=== PATIENT | female | born 1955 | race African-American/Black ===

== ENCOUNTER 2023-01-02 08:29 | Observation (INO) | payer MEDICARE, OTHER ==
[2023-01-02] MEDS ORDERED: methylPREDNISolone SOD SUCCI 125 MG/2 ML VIAL IV STA (08:51)
[2023-01-02] MEDS ORDERED: ALBUTEROL HFA INHALER INHALATION STA (08:51)
--- NOTE | 2023-01-02 08:53 | ED ---
General Adult HPI - General Chief complaint: Shortness of Breath Stated complaint: sob Time Seen by Provider: 01/02/23 08:40 Source: patient, RN notes reviewed Mode of arrival: ambulatory Limitations: no limitations - History of Present Illness Initial comments: Patient is a pleasant 67-year-old female presenting to the emergency department with concerns with difficulty in breathing. Onset of symptoms was last night. Patient does have history of COPD with similar symptoms. No fever. Minimal cough. Patient states there may be some minimal leg swelling. No calf pain. - Related Data Home Medications Medication Instructions Recorded Confirmed Albuterol Inhaler [Ventolin Hfa 1 - 2 puff INHALATION RT-Q6H PRN 01/02/23 01/02/23 Inhaler] Aspirin EC [Ecotrin Low Dose] 81 mg PO DAILY 01/02/23 01/02/23 Atorvastatin [Lipitor] 20 mg PO DAILY 01/02/23 01/02/23 Fluticasone/Vilanterol [Breo 1 puff INHALATION RT-DAILY 01/02/23 01/02/23 Ellipta 200-25 Mcg Inhaler] Oxybutynin Chloride 10 mg PO DAILY 01/02/23 01/02/23 lisinopriL [Zestril] 10 mg PO DAILY 01/02/23 01/02/23 metFORMIN HCL 500 mg PO DAILY 01/02/23 01/02/23 Allergies Allergy/AdvReac Type Severity Reaction Status Date / Time No Known Allergies Allergy Verified 01/02/23 11:13 Review of Systems ROS Statement: Those systems with pertinent positive or pertinent negative responses have been documented in the HPI. ROS Other: All systems not noted in ROS Statement are negative. Constitutional: Denies: fever Eyes: Denies: eye pain ENT: Denies: ear pain Respiratory: Reports: as per HPI, dyspnea Cardiovascular: Denies: chest pain Endocrine: Denies: fatigue Gastrointestinal: Denies: abdominal pain Genitourinary: Denies: dysuria Musculoskeletal: Denies: back pain Skin: Denies: rash Neurological: Denies: weakness Past Medical History Past Medical History: COPD, CVA/TIA, Hypertension History of Any Multi-Drug Resistant Organisms: None Reported Past Surgical History: No Surgical Hx Reported Past Psychological History: No Psychological Hx Reported Smoking Status: Current every day smoker Past Alcohol Use History: None Reported Past Drug Use History: Marijuana General Exam Limitations: no limitations General appearance: alert, in no apparent distress Head exam: Present: normocephalic Eye exam: Present: normal appearance Neck exam: Present: normal inspection Respiratory exam: Present: wheezes, decreased breath sounds Cardiovascular Exam: Present: regular rate, normal rhythm GI/Abdominal exam: Present: soft. Absent: tenderness Extremities exam: Present: pedal edema (+1 bilateral). Absent: calf tenderness Neurological exam: Present: alert Psychiatric exam: Present: normal affect, normal mood Skin exam: Present: normal color Course Vital Signs 01/02/23 01/02/23 01/02/23 08:35 09:43 10:00 Temperature 97.4 F L Pulse Rate 60 55 L Respiratory 24 18 Rate Blood Pressure 168/93 152/95 O2 Sat by Pulse 85 L 92 L 82 L Oximetry 01/02/23 01/02/23 01/02/23 10:02 10:39 10:52 Temperature Pulse Rate 60 60 Respiratory Rate Blood Pressure O2 Sat by Pulse 93 L Oximetry 01/02/23 12:06 Temperature Pulse Rate 75 Respiratory 18 Rate Blood Pressure 153/83 O2 Sat by Pulse 95 Oximetry EKG Findings - EKG Results: EKG: interpreted by ERMD (T-wave inversion in V3.), sinus rhythm, normal axis, normal QRS EKG shows: bradycardia Medical Decision Making - Medical Decision Making Was pt. sent in by a medical professional or institution (JOANA Osborne, GAS PUMP ATTENDANT, urgent care, hospital, or skilled nursing...) When possible be specific @ -No Did you speak to anyone other than the patient for history (EMS, parent, family, police, friend...)? What history was obtained from this source @ -Patient's daughter is present who helps provide history as she does work in the hospital. Did you review nursing and triage notes (agree or disagree)? Why? @ -I reviewed and agree with nursing and triage notes Were old charts reviewed (outside hosp., previous admission, EMS record, old EKG, old radiological studies, urgent care reports/EKG's, skilled nursing records)? Report findings @ -No old charts were reviewed Differential Diagnosis (chest pain, altered mental status, abdominal pain women, abdominal pain men, vaginal bleeding, weakness, fever, dyspnea, syncope, headache, dizziness, GI bleed, back pain, seizure, CVA, palpatations, mental health)? @ -Differential Dyspnea: Coronary syndrome, arrhythmia, tamponade, asthma, COPD, pulmonary embolism, pneumonia, pneumothorax, pulmonary effusion, anaphylaxis, diabetic ketoacidosis, flailed chest, pulmonary contusion, diaphragmatic rupture, anemia, neur omuscular, this is not meant to be an all-inclusive list. EKG interpreted by me (3pts min.). @ -As above X-rays interpreted by me (1pt min.). @ -Chest x-ray shows possibly atelectasis versus early infiltrate CT interpreted by me (1pt min.). @ -Report reviewed U/S interpreted by me (1pt. min.). @ -None done What testing was considered but not performed or refused? (CT, X-rays, U/S, labs)? Why? @ -None What meds were considered but not given or refused? Why? @ -None Did you discuss the management of the patient with other professionals (professionals i.e. , PA, GAS PUMP ATTENDANT, lab, RT, psych nurse, social insurance adviser, finish painter, teacher, control officer manager, housing case manager)? Give summary @ -Case discussed with Dr. Randall, who will admit covering hospital call Was smoking cessation discussed for >3mins.? @ -No Was critical care preformed (if so, how long)? @ -No Were there social determinants of health that impacted care today? How? (Homelessness, low income, unemployed, alcoholism, drug addiction, transportation, low edu. Level, literacy, decrease access to med. care, longterm, rehab)? @ -No Was there de-escalation of care discussed even if they declined (Discuss DNR or withdrawal of care, Hospice)? DNR status @ -No What co-morbidities impacted this encounter? (DM, HTN, Smoking, COPD, CAD, Cancer, CVA, ARF, Chemo, Hep., AIDS, mental health diagnosis, sleep apnea, morbi d obesity)? @ -None Was patient admitted / discharged? Hospital course, mention meds given and route, prescriptions, significant lab abnormalities, going to OR and other pertinent info. @ -Patient reevaluated and does feel somewhat better. Lung sounds unchanged. Patient remains hypoxic in the upper 80s on 2 L nasal cannula. Patient will be admitted with pulmonary consult Undiagnosed new problem with uncertain prognosis? @ -No Drug Therapy requiring intensive monitoring for toxicity (Heparin, Nitro, Insulin, Cardizem)? @ -No Were any procedures done? @ -No Diagnosis/symptom? @ -COPD Acute, or Chronic, or Acute on Chronic? @ -Acute Uncomplicated (without systemic symptoms) or Complicated (systemic symptoms)? @ -Dictated with hypoxia Side effects of treatment? @ -No Exacerbation, Progression, or Severe Exacerbation? @ -No Poses a threat to life or bodily function? How? (Chest pain, [place], ME, pneumonia, PE, COPD, DKA, ARF, appy, cholecystitis, CVA, Diverticulitis, Homicidal, Suicidal, threat to staff... and all critical care pts) @ -Hypoxia is a threat to life and bodily function - Lab Data Result diagrams: 01/02/23 09:08 01/02/23 09:08 Lab Results 01/02/23 01/02/23 01/02/23 Range/Units 09:08 09:08 09:08 WBC 6.5 (3.8-10.6) k/uL RBC 6.22 H (3.80-5.40) m/uL Hgb 12.8 (11.4-16.0) gm/dL Hct 43.3 (34.0-46.0) % MCV 69.6 L (80.0-100.0) fL MCH 20.7 L (25.0-35.0) pg MCHC 29.7 L (31.0-37.0) g/dL RDW 16.4 H (11.5-15.5) % Plt Count 124 L (150-450) k/uL MPV 12.8 Neutrophils % 68 % Lymphocytes % 23 % Monocytes % 6 % Eosinophils % 1 % Basophils % 0 % Neutrophils # 4.4 (1.3-7.7) k/uL Lymphocytes # 1.5 (1.0-4.8) k/uL Monocytes # 0.4 (0-1.0) k/uL Eosinophils # 0.1 (0-0.7) k/uL Basophils # 0.0 (0-0.2) k/uL Hypochromasia Marked Poikilocytosis Slight Anisocytosis Slight Microcytosis Marked PT 10.5 (9.0-12.0) sec INR 1.0 (<1.2) APTT 23.9 (22.0-30.0) sec D-Dimer 1.09 H (<0.60) mg/L FEU Sodium 137 (137-145) mmol/L Potassium 4.5 (3.5-5.1) mmol/L Chloride 108 H (98-107) mmol/L Carbon Dioxide 21 L (22-30) mmol/L Anion Gap 8 mmol/L BUN 16 (7-17) mg/dL Creatinine 0.91 (0.52-1.04) mg/dL Est GFR (CKD-EPI)AfAm 75 (>60 ml/min/1.73 sqM) Est GFR (CKD-EPI)NonAf 65 (>60 ml/min/1.73 sqM) Glucose 114 H (74-99) mg/dL Plasma Lactic Acid Kenny (0.7-2.0) mmol/L Calcium 8.6 (8.4-10.2) mg/dL Magnesium 1.6 (1.6-2.3) mg/dL Total Bilirubin 1.2 (0.2-1.3) mg/dL AST 44 H (14-36) U/L ALT 53 H (4-34) U/L Alkaline Phosphatase 89 (38-126) U/L Troponin I (0.000-0.034) ng/mL NT-Pro-B Natriuret Pep pg/mL Total Protein 5.9 L (6.3-8.2) g/dL Albumin 3.2 L (3.5-5.0) g/dL Coronavirus (PCR) (Not Detectd) 01/02/23 01/02/23 01/02/23 Range/Units 09:08 09:08 09:08 WBC (3.8-10.6) k/uL RBC (3.80-5.40) m/uL Hgb (11.4-16.0) gm/dL Hct (34.0-46.0) % MCV (80.0-100.0) fL MCH (25.0-35.0) pg MCHC (31.0-37.0) g/dL RDW (11.5-15.5) % Plt Count (150-450) k/uL MPV Neutrophils % % Lymphocytes % % Monocytes % % Eosinophils % % Basophils % % Neutrophils # (1.3-7.7) k/uL Lymphocytes # (1.0-4.8) k/uL Monocytes # (0-1.0) k/uL Eosinophils # (0-0.7) k/uL Basophils # (0-0.2) k/uL Hypochromasia Poikilocytosis Anisocytosis Microcytosis PT (9.0-12.0) sec INR (<1.2) APTT (22.0-30.0) sec D-Dimer (<0.60) mg/L FEU Sodium (137-145) mmol/L Potassium (3.5-5.1) mmol/L Chloride (98-107) mmol/L Carbon Dioxide (22-30) mmol/L Anion Gap mmol/L BUN (7-17) mg/dL Creatinine (0.52-1.04) mg/dL Est GFR (CKD-EPI)AfAm (>60 ml/min/1.73 sqM) Est GFR (CKD-EPI)NonAf (>60 ml/min/1.73 sqM) Glucose (74-99) mg/dL Plasma Lactic Acid Kenny 1.0 (0.7-2.0) mmol/L Calcium (8.4-10.2) mg/dL Magnesium (1.6-2.3) mg/dL Total Bilirubin (0.2-1.3) mg/dL AST (14-36) U/L ALT (4-34) U/L Alkaline Phosphatase (38-126) U/L Troponin I <0.012 (0.000-0.034) ng/mL NT-Pro-B Natriuret Pep 2220 pg/mL Total Protein (6.3-8.2) g/dL Albumin (3.5-5.0) g/dL Coronavirus (PCR) (Not Detectd) 01/02/23 Range/Units 09:08 WBC (3.8-10.6) k/uL RBC (3.80-5.40) m/uL Hgb (11.4-16.0) gm/dL Hct (34.0-46.0) % MCV (80.0-100.0) fL MCH (25.0-35.0) pg MCHC (31.0-37.0) g/dL RDW (11.5-15.5) % Plt Count (150-450) k/uL MPV Neutrophils % % Lymphocytes % % Monocytes % % Eosinophils % % Basophils % % Neutrophils # (1.3-7.7) k/uL Lymphocytes # (1.0-4.8) k/uL Monocytes # (0-1.0) k/uL Eosinophils # (0-0.7) k/uL Basophils # (0-0.2) k/uL Hypochromasia Poikilocytosis Anisocytosis Microcytosis PT (9.0-12.0) sec INR (<1.2) APTT (22.0-30.0) sec D-Dimer (<0.60) mg/L FEU Sodium (137-145) mmol/L Potassium (3.5-5.1) mmol/L Chloride (98-107) mmol/L Carbon Dioxide (22-30) mmol/L Anion Gap mmol/L BUN (7-17) mg/dL Creatinine (0.52-1.04) mg/dL Est GFR (CKD-EPI)AfAm (>60 ml/min/1.73 sqM) Est GFR (CKD-EPI)NonAf (>60 ml/min/1.73 sqM) Glucose (74-99) mg/dL Plasma Lactic Acid Kenny (0.7-2.0) mmol/L Calcium (8.4-10.2) mg/dL Magnesium (1.6-2.3) mg/dL Total Bilirubin (0.2-1.3) mg/dL AST (14-36) U/L ALT (4-34) U/L Alkaline Phosphatase (38-126) U/L Troponin I (0.000-0.034) ng/mL NT-Pro-B Natriuret Pep pg/mL Total Protein (6.3-8.2) g/dL Albumin (3.5-5.0) g/dL Coronavirus (PCR) Not Detected (Not Detectd) Disposition Clinical Impression: Acute exacerbation of chronic obstructive pulmonary disease Disposition: ADMITTED IP TO THIS HOSP Is patient prescribed a controlled substance at d/c from ED?: No Referrals: Nonstaff,Physician [Primary Care Provider] - 1-2 days Time of Disposition: 12:30
[2023-01-02 09:36] LABS: Anisocytosis Slight; Basophils % (A) 0 %; Eosinophils # (A) 0.1 k/uL (0-0.7); Eosinophils % (A) 1 %; HCT 43.3 % (34.0-46.0); HGB 12.8 gm/dL (11.4-16.0); Hypochromasia Marked; Lymphocytes # (A) 1.5 k/uL (1.0-4.8); Lymphocytes % (A) 23 %; MCH 20.7 pg (25.0-35.0); MCHC 29.7 g/dL (31.0-37.0); MCV 69.6 fL (80.0-100.0); Mean Platelet Volume 12.8; Microcytosis Marked; Monocytes # (A) 0.4 k/uL (0-1.0); Monocytes % (A) 6 %; Neutrophils # (A) 4.4 k/uL (1.3-7.7); Neutrophils % (A) 68 %; Platelet Count 124 k/uL (150-450); Poikilocytosis Slight; RBC 6.22 m/uL (3.80-5.40); RDW 16.4 % (11.5-15.5); WBC 6.5 k/uL (3.8-10.6)
[2023-01-02 09:39] LABS: Partial Thromboplastin Time 23.9 sec (22.0-30.0); Prothrombin Time 10.5 sec (9.0-12.0)
--- NOTE | 2023-01-02 09:45 | XR ---
EXAMINATION TYPE: XR chest 2V DATE OF EXAM: 01/02/2023 COMPARISON: NONE HISTORY: Difficulty breathing TECHNIQUE: Frontal and lateral views of the chest are obtained. FINDINGS: The heart size is at the upper limits of normal to borderline enlarged. The pulmonary vasc ulature is within normal limits. There are a few linear opacities at the left lung base, which result ed in increased density projecting over the lower spine on the lateral view. The right lung is clear. There is no significant pleural effusion. There is no pneumothorax. IMPRESSION: Left basilar interstitial opacities. This finding may relate to atelectasis or a developing pneumonia . If clinically indicated, please consider follow radiograph since 6-8 weeks to ensure complete resol ution.
[2023-01-02] MEDS ORDERED: IPRATROPIUM-ALBUTEROL 3 ML NEB INHALATION STA (10:14)
[2023-01-02 11:25] LABS: Albumin 3.2 g/dL (3.5-5.0); Calcium 8.6 mg/dL (8.4-10.2); Magnesium 1.6 mg/dL (1.6-2.3); Potassium 4.5 mmol/L (3.5-5.1); Total Bilirubin 1.2 mg/dL (0.2-1.3); Total Protein 5.9 g/dL (6.3-8.2)
--- NOTE | 2023-01-02 12:19 | CT ---
EXAMINATION TYPE: CT angio chest CT DLP: 314.2 mGycm, Automated exposure control for dose reduction was used. DATE OF EXAM: 01/02/2023 12:03 PM COMPARISON: Chest radiograph from same day. CLINICAL INDICATION:Female, 67 years old with history of dyspnea; DYSPNEA, HX COPD TECHNIQUE/CONTRAST: CTA scan of the thorax is performed with IV Contrast, patient injected with 100 mL of Isovue 370, pul monary embolism protocol. MIP images are created and reviewed. FINDINGS: Pulmonary Artery: There is no evidence for a filling defect within the pulmonary vasculature to sugge st acute pulmonary embolism. The pulmonary artery is of normal size. Reflux of contrast into the IVC . Lungs/Pleura: No evidence of focal consolidation, pleural effusion or pneumothorax. Airway: Large airways are patent. Heart: The heart is mildly enlarged for size. Moderate coronary arterial calcifications. No pericardi al effusion. Vasculature: No evidence of aortic aneurysm. Atherosclerotic calcification with mural thrombus involv ing the thoracic aorta. Mediastinum: Mildly enlarged right hilar lymph nodes measuring up to 1.1 cm short axis. Musculoskeletal: No acute osseous abnormalities. Mild degenerative disc disease. Soft Tissues: Unremarkable. Lower neck: No significant findings. Upper Abdomen: No significant findings.. IMPRESSION: 1. No evidence of pulmonary embolism. 2. Nonspecific mildly enlarged right hilar lymph nodes which may be reactive. 3. Cardiomegaly with moderate coronary arterial calcifications.
[2023-01-02] MEDS ORDERED: IPRATROPIUM-ALBUTEROL 3 ML NEB INHALATION PRN (12:33)
[2023-01-02] MEDS ORDERED: NALOXONE 0.4 MG/ML 1 ML VIAL IVP PRN (12:33)
[2023-01-02] MEDS: IPRATROPIUM-ALBUTEROL 3 ML NEB INHALATION SCH ×2 (15:50→19:58)
[2023-01-02] MEDS: methylPREDNISolone SOD SUCCI 125 MG/2 ML VIAL IV SCH ×2 (17:13→23:36)
[2023-01-03] MEDS: methylPREDNISolone SOD SUCCI 125 MG/2 ML VIAL IV SCH ×4 (06:44→23:43)
[2023-01-03] MEDS ORDERED: DEXTROSE 50% SYRINGE 50 ML IVP PRN ×2 (07:18)
[2023-01-03 07:49] LABS: Glucose,Whole Blood 150 mg/dL (70-110)
[2023-01-03] MEDS: INSULIN ASPART (NovoLOG) 100 UNIT/ML VIAL SQ SCH ×4 (07:51→22:20)
--- NOTE | 2023-01-03 08:13 | P.CNPUL ---
History of Present Illness Consult date: 01/03/23 Requesting physician: Miquel Arias Reason for consult: COPD Chief complaint: Dyspnea History of present illness: I'm seeing this patient in new consultation today 01/03/2023 for suspected COPD exacerbation. Patient is a 67-year-old -[place] female with past medical history significant for COPD, current 1 pack per day smoker, diabetes mellitus type 2, hypertension, and CVA/TIA. Patient's primary care provider is a Terrance Dailey, who manages the patients COPD with Breo-Ellipta inhaler and when necessary albuterol. Patient reports progressive worsening shortness of breath and wheezing over the last 2 days. She denies any fever, chills, cough, hemoptysis. Denies sick contacts. She is currently resting in bed, 4 L nasal cannula, in no acute distress. Chest x-ray on arrival showed left basilar interstitial opacities which could reflect atelectasis or developing pneumonia. A follow-up chest CTA showed no evidence of pulmonary embolism, mildly enlarged right hilar lymph nodes, some mild cardiomegaly. No focal consolidations. EKG showed sinus bradycardia without any obvious acute ischemic changes. CBC on arrival showed a 6.5, hemoglobin 12.8, hematocrit 43.3, platelets 124. Patient's BMP was unremarkable. Troponins negative 1. NT proBNP was mildly elevated at 2220. negative for COVID-19. Patient currently on a combination of bronchodilators, Symbicort inhaler, IV site Medrol. Vital signs are stable. Review of Systems REVIEW OF SYSTEMS: CONSTITUTIONAL: Denies any recent significant weight loss or weight gain. EYES: Denies change in vision. EARS, NOSE, MOUTH, THROAT: Denies headaches, denies sore throat. CARDIOVASCULAR: Denies chest pain, palpitations or syncopal episodes. RESPIRATORY: See HPI GASTROINTESTINAL: Denies change in appetite, abdominal pain, nausea and vomiting, or diarrhea GENITOURINARY: Denies hematuria, denies infections. MUSKULOSKELETAL: Denies pain, admits lower extremity swelling INTEGUMENTARY: Denies rash, denies eczema. NEUROLOGICAL: Denies recent memory loss, no recent seizure activity. PSYCHIATRIC: Denies anxiety, denies depression. HEMATOLOGIC/LYMPHATIC: Denies anemia, denies enlarged lymph node Past Medical History Past Medical History: COPD, CVA/TIA, Hypertension History of Any Multi-Drug Resistant Organisms: None Reported Past Surgical History: No Surgical Hx Reported Past Anesthesia/Blood Transfusion Reactions: No Reported Reaction Past Psychological History: No Psychological Hx Reported Smoking Status: Current every day smoker Past Alcohol Use History: None Reported Past Drug Use History: Marijuana Medications and Allergies Home Medications Medication Instructions Recorded Confirmed Type Albuterol Inhaler [Ventolin Hfa 1 - 2 puff INHALATION RT-Q6H PRN 01/02/23 01/02/23 History Inhaler] Aspirin EC [Ecotrin Low Dose] 81 mg PO DAILY 01/02/23 01/02/23 History Atorvastatin [Lipitor] 20 mg PO DAILY 01/02/23 01/02/23 History Fluticasone/Vilanterol [Breo 1 puff INHALATION RT-DAILY 01/02/23 01/02/23 History Ellipta 200-25 Mcg Inhaler] Oxybutynin Chloride 10 mg PO DAILY 01/02/23 01/02/23 History lisinopriL [Zestril] 10 mg PO DAILY 01/02/23 01/02/23 History metFORMIN HCL 500 mg PO DAILY 01/02/23 01/02/23 History Allergies Allergy/AdvReac Type Severity Reaction Status Date / Time No Known Allergies Allergy Verified 01/02/23 11:13 Physical Exam Vitals: Vital Signs Temp Pulse Pulse Resp BP BP Pulse Ox 01/03/23 02:00 97.4 F L 66 16 134/71 96 01/02/23 23:48 88 01/02/23 23:42 84 01/02/23 20:23 84 01/02/23 20:00 98.7 F 69 18 145/82 92 L 01/02/23 19:58 80 01/02/23 19:22 91 L 01/02/23 18:56 82 22 147/99 96 01/02/23 17:11 66 22 143/87 95 01/02/23 15:00 75 22 139/94 95 01/02/23 14:16 84 20 142/99 92 L 01/02/23 12:27 84 20 154/73 90 L 01/02/23 12:06 75 18 153/83 95 01/02/23 10:52 60 01/02/23 10:39 60 01/02/23 10:02 93 L 01/02/23 10:00 82 L 01/02/23 09:43 55 L 18 152/95 92 L 01/02/23 08:35 97.4 F L 60 24 168/93 85 L Intake and Output 01/02/23 01/03/23 01/03/23 22:59 06:59 14:59 Intake Total 590 Balance 590 Intake: Oral 590 Other: Voiding Method Toilet Bedside Commode # Voids 2 Weight 71.668 kg GENERAL EXAM: Alert, 67 year old -Bangl[place]hi female, comfortable in no apparent distress. HEAD: Normocephalic and atraumatic EYES: Normal reaction of pupils, equal size. NOSE: Clear with pink turbinates. THROAT: No erythema or exudates. NECK: No masses, no JVD. CHEST: No chest wall deformity. LUNGS: Equal air entry with end expiratory wheezes throughout. no crackles, rhonchi or dullness. On 4 L nasal cannula. No conversational dyspnea or accessory muscle use.. CVS: S1 and S2 normal with no audible murmur, regular rhythm. No extra heart sounds ABDOMEN: No hepatosplenomegaly, active bowel sounds, no guarding or rigidity. SPINE: No scoliosis or deformity SKIN: No rashes CENTRAL NERVOUS SYSTEM: No focal deficits, tone is normal in all 4 extremities. EXTREMITIES: There is 3+ right lower extremity pitting edema. No clubbing, or cyanosis. Peripheral pulses are intact. Results - Laboratory Findings CBC and BMP: 01/02/23 09:08 01/02/23 09:08 PT/INR, D-dimer PT 10.5 sec (9.0-12.0) 01/02/23 09:08 INR 1.0 (<1.2) 01/02/23 09:08 D-Dimer 1.09 mg/L FEU (<0.60) H 01/02/23 09:08 Abnormal lab findings: Abnormal Labs 01/02/23 01/02/23 01/02/23 09:08 09:08 09:08 RBC 6.22 H MCV 69.6 L MCH 20.7 L MCHC 29.7 L RDW 16.4 H Plt Count 124 L D-Dimer 1.09 H Chloride 108 H Carbon Dioxide 21 L Glucose 114 H AST 44 H ALT 53 H Total Protein 5.9 L Albumin 3.2 L - Diagnostic Findings Chest x-ray: image reviewed CT scan - chest: image reviewed Assessment and Plan Assessment: Acute COPD exacerbation. Chest CTA failed to demonstrate any focal consolidation or evidence of pneumonia. Negative for COVID-19. Acute hypoxic respiratory failure secondary to above, currently on 4 L nasal cannula. Left lower extremity edema Diabetes mellitus type 2, [id number] Hypertension History of CVA/TIA Chronic nicotine dependence Plan: patients medication, labs, chest x-ray, chest CTA reviewed Continue bronchodilators, Symbicort inhaler, IV Solu-Medrol Continue supplemental oxygen to maintain oxygen saturation 92% or greater Start the patient on empiric doxycycline Obtain procalcitonin level Obtain right lower extremity venous Doppler to rule out DVT Echocardiogram pending Nicotine replacement offered We will continue to follow I have personally seen and examined the patient, performed the documentation and the assessment and plan as written. Number of minutes spent on the visit:20 This is a joint evaluation that was done along with a nurse practitioner. The patient was hospitalized for an acute choked exacerbation.The d-dimer was at 1.09. Coagulation profile was normal. Covid 19 testing was negative. ProBNP level was slightly elevated. CT of the chest showed no evidence of any pulmonary embolism. Doppler of the lower extremity was negative. Awaiting an echocardiogram. We'll continue to follow. His evaluation was done in more than 30 min Time with Patient: Greater than 30
[2023-01-03] MEDS: lisinopriL 10 MG TAB PO SCH (08:46)
[2023-01-03] MEDS: NICOTINE 21MG/24HR PATCH TRANSDERM SCH (08:46)
[2023-01-03] MEDS: metFORMIN 500 MG TAB PO SCH (08:46)
[2023-01-03] MEDS: ATORVASTATIN 20 MG TAB PO SCH (08:46)
[2023-01-03] MEDS: ASPIRIN 81 MG PO SCH (08:46)
[2023-01-03] MEDS: oxyBUTYnin chloride 5 MG TAB PO SCH (08:47)
[2023-01-03] MEDS: DOXYCYCLINE 100 MG CAP PO SCH ×2 (08:59→20:10)
[2023-01-03] MEDS: IPRATROPIUM-ALBUTEROL 3 ML NEB INHALATION SCH ×4 (09:00→18:28)
[2023-01-03] MEDS: SYMBICORT 160-4.5 MCG INHALER INHALATION SCH ×2 (09:01→18:28)
--- NOTE | 2023-01-03 09:54 | US ---
EXAMINATION TYPE: US venous doppler duplex LE RT DATE OF EXAM: 01/03/2023 9:36 AM COMPARISON: NONE CLINICAL INDICATION: Female, 67 years old with history of rule out DVT; No hx of DVT. Patient takes a spirin. SIDE PERFORMED: Right TECHNIQUE: The lower extremity deep venous system is examined utilizing real time linear array sonog aubrey with graded compression, doppler sonography and color-flow sonography. VESSELS IMAGED: Common Femoral Vein Deep Femoral Vein Greater Saphenous Vein * Femoral Vein Popliteal Vein Small Saphenous Vein * Proximal Calf Veins (* superficial vessels) Right Leg: No evidence of DVT. Complex fluid collection seen posterior right knee: 4.4 x 2.1 x 0.9 cm. Satisfactory blood flow, compressibility, and phasicity identified. Mild subcutaneous edema at the mi d superficial femoral vein level. IMPRESSION: No ultrasound evidence for acute DVT. Small popliteal cyst is marked towards the end of the study.
--- NOTE | 2023-01-03 10:25 | HP ---
HISTORY AND PHYSICAL HISTORY OF PRESENT ILLNESS: This 67-year-old -[place] female came to emergency room with difficulty breathing. She has a history of COPD. She says she has been smoking more again, that she had quit for a while. She says that is why her breathing is bad and came in for COPD exacerbation. HOME MEDICATIONS: 1. Ventolin HFA 2 puffs q.4h p.r.n. 2. Aspirin 81 daily. 3. Lipitor 20 daily. 4. Breo Ellipta 200/25 one puff daily. 5. Oxybutynin 10 mg daily. 6. Zestril 10 mg daily. 7. Metformin 500 daily. ALLERGIES: Negative. REVIEW OF SYSTEMS: Positive for shortness of breath, PND, orthopnea, otherwise negative. PAST MEDICAL HISTORY: COPD, CVA, TIA, hypertension. PHYSICAL EXAMINATION: VITAL SIGNS: Temperature 97.4, pulse 55 to 60, respiratory rate 18 to 24, blood pressure 150s to 160s over 93 to 95, O2 92 on room air. GENERAL: She is sitting up. She has conversational dyspnea. She has no acute distress, expiratory wheeze x4. PSYCH: Fair mood and affect. NEUROLOGIC: Cranial nerves intact. PSYCH: Fair mood and affect. ASSESSMENT: COPD exacerbation. Hypoxemic respiratory failure, maintained on 2 L oxygen, IV steroids, updrafts. She has thrombocytopenia, platelet count 124. Elevated liver enzymes secondary to possible cardiorenal syndrome. Troponins are negative. BNP is 2220. Possible CHF diastolic echo. CT of the chest CTA chest negative for PE. IV steroids, do an echo. Cardiology pulmonary consult. Prognosis guarded. MMODL / IJN: [id number] /
--- NOTE | 2023-01-03 10:51 | P.CRDCN ---
History of Present Illness Consult date: 01/03/23 Reason for Consult (text): Dyspnea History of present illness: History of present illness: This is a 59-year-old female with past medical history of COPD, hyperlipidemia, diabetes mellitus type 2, hypertension, CVA, active tobacco use and dependence. We have been asked to see the patient regarding dyspnea. Patient presented to the emergency center yesterday due to difficulty in breathing that had onset the evening before. No fever, minimal cough. Her initial blood pressure was 168/93 and pulse ox 85% on room air. Patient noted to continue to require oxygen. Pulse ox on room air 87% at rest. Pulmonary medicine is following for COPD exacerbation. EKG sinus rhythm with no acute ST changes Chest x-ray: Left basilar interstitial opacities. This finding may relate to atelectasis or developing pneumonia. CT angiogram of the chest reveals no evidence of pulmonary embolism. Nonspecific mildly enlarged right hilar lymph nodes which may be reactive. Cardiomegaly with moderate coronary artery calcifications. Ultrasound of the right lower extremity negative for DVT. WBC 6.5, hemoglobin 12.8, platelet count 124. D-dimer 1.09. INR 1. Sodium 137, potassium 4.5, BUN 16 creatinine 0.9. Blood sugar 114. Lactic acid 1. Magnesium 1.6. Total bilirubin 1.2, AST 44, ALT 53, alkaline phosphatase 89. Troponin negative 1. ProBNP 2220. Covid 19 not detected. Home cardiac medications: Aspirin 81 mg daily, Lipitor 20 mg daily, lisinopril 10 mg daily. Review Of Systems: At the time of my evaluation: Constitutional: No fever, no chills. No weakness, fatigue or lethargy. EENT: No headache. No dizziness. Lungs: Reports mild shortness of breath, cough, no sputum production. Reports wheezing. Cardiovascular: No chest pain, no lower extremity edema. No palpitations. No paroxysmal nocturnal dyspnea. No orthopnea. No lightheadedness or dizziness. No syncopal episodes. Abdominal: No abdominal pain. No nausea, vomiting. No diarrhea. No constipation. No bloody or tarry stools. Genitourinary: No dysuria.. No urinary retention. Musculoskeletal: No myalgias. No muscle weakness, no frequent falls. No back pain. No neck pain. Integumentary: No wounds. No rash. No unusual bruising. Neurologic: No aphasia. No facial droop. No change in mentation. No head injury. No headache. Physical examination: Gen: This is a 67 year old black female, she has found lying flat in bed in no noted respiratory distress. VS: reviewed. Blood pressure 134/79, heart rate in the 60s to 80s, afebrile HEENT: Head is atraumatic, normocephalic. Pupils equal, round. Sclerae is anicteric. NECK: Supple. No JVD. LUNGS: Scattered rhonchi and expiratory wheeze throughout. No intercostal retractions. HEART: Regular rate and rhythm. No murmur. ABDOMEN: Soft No tenderness. EXTREMITIES: No pedal edema bilaterally. No calf tenderness. NEUROLOGICAL: Patient is awake, alert and oriented x3. Assessment: Dyspnea secondary to COPD exacerbation Acute hypoxic respiratory failure requiring oxygen Mild congestive heart failure with elevated proBNP Diabetes mellitus type 2 Hypertension Hyperlipidemia History of CVA Active tobacco use and dependence Plan: Continue current cardiac medications Obtain 2-D echocardiogram and Doppler study to assess cardiac structure and function Further recommendations to follow based upon clinical course Thank you kindly for this consultation. Nurse practitioner note has been reviewed, I agree with documented findings and plan of care. Patient was seen and examined. Past Medical History Past Medical History: COPD, CVA/TIA, Hypertension History of Any Multi-Drug Resistant Organisms: None Reported Past Surgical History: No Surgical Hx Reported Past Anesthesia/Blood Transfusion Reactions: No Reported Reaction Past Psychological History: No Psychological Hx Reported Smoking Status: Current every day smoker Past Alcohol Use History: None Reported Past Drug Use History: Marijuana Medications and Allergies Home Medications Medication Instructions Recorded Confirmed Type Albuterol Inhaler [Ventolin Hfa 1 - 2 puff INHALATION RT-Q6H PRN 01/02/23 01/02/23 History Inhaler] Aspirin EC [Ecotrin Low Dose] 81 mg PO DAILY 01/02/23 01/02/23 History Atorvastatin [Lipitor] 20 mg PO DAILY 01/02/23 01/02/23 History Fluticasone/Vilanterol [Breo 1 puff INHALATION RT-DAILY 01/02/23 01/02/23 History Ellipta 200-25 Mcg Inhaler] RX: Oxybutynin Chloride 10 mg PO DAILY 01/02/23 01/02/23 History RX: metFORMIN HCL 500 mg PO DAILY 01/02/23 01/02/23 History lisinopriL [Zestril] 10 mg PO DAILY 01/02/23 01/02/23 History Allergies Allergy/AdvReac Type Severity Reaction Status Date / Time No Known Allergies Allergy Verified 01/02/23 11:13 Physical Exam Vitals: Vital Signs Temp Pulse Pulse Resp BP BP Pulse Ox 01/03/23 07:44 98.2 F 70 18 134/79 97 01/03/23 02:00 97.4 F L 66 16 134/71 96 01/02/23 23:48 88 01/02/23 23:42 84 01/02/23 20:23 84 01/02/23 20:00 98.7 F 69 18 145/82 92 L 01/02/23 19:58 80 01/02/23 19:22 91 L 01/02/23 18:56 82 22 147/99 96 01/02/23 17:11 66 22 143/87 95 01/02/23 15:00 75 22 139/94 95 01/02/23 14:16 84 20 142/99 92 L 01/02/23 12:27 84 20 154/73 90 L 01/02/23 12:06 75 18 153/83 95 01/02/23 10:52 60 01/02/23 10:39 60 01/02/23 10:02 93 L 01/02/23 10:00 82 L 01/02/23 09:43 55 L 18 152/95 92 L Intake and Output 01/02/23 01/03/23 01/03/23 22:59 06:59 14:59 Intake Total 590 Balance 590 Intake: Oral 590 Other: Voiding Method Toilet Bedside Commode # Voids 2 Weight 71.668 kg Results 01/02/23 09:08 01/02/23 09:08 Cardiac Enzymes 01/02/23 01/02/23 Range/Units 09:08 09:08 AST 44 H (14-36) U/L Troponin I <0.012 (0.000-0.034) ng/mL Coagulation 01/02/23 Range/Units 09:08 PT 10.5 (9.0-12.0) sec APTT 23.9 (22.0-30.0) sec CBC 01/02/23 Range/Units 09:08 WBC 6.5 (3.8-10.6) k/uL RBC 6.22 H (3.80-5.40) m/uL Hgb 12.8 (11.4-16.0) gm/dL Hct 43.3 (34.0-46.0) % Plt Count 124 L (150-450) k/uL Comprehensive Metabolic Panel 01/02/23 Range/Units 09:08 Sodium 137 (137-145) mmol/L Potassium 4.5 (3.5-5.1) mmol/L Chloride 108 H (98-107) mmol/L Carbon Dioxide 21 L (22-30) mmol/L BUN 16 (7-17) mg/dL Creatinine 0.91 (0.52-1.04) mg/dL Glucose 114 H (74-99) mg/dL Calcium 8.6 (8.4-10.2) mg/dL AST 44 H (14-36) U/L ALT 53 H (4-34) U/L Alkaline Phosphatase 89 (38-126) U/L Total Protein 5.9 L (6.3-8.2) g/dL Albumin 3.2 L (3.5-5.0) g/dL Current Medications Generic Name Dose Route Start Last Admin Trade Name Freq PRN Reason Stop Dose Admin Albuterol/Ipratropium 3 ml 01/02/23 16:00 01/02/23 19:58 Ipratropium-Albuterol 3 Ml Neb INHALATION 3 ml RT-QID [place] Administration Albuterol/Ipratropium 3 ml 01/02/23 12:33 01/02/23 23:41 Ipratropium-Albuterol 3 Ml Neb INHALATION 3 ml RT-Q2H PRN Administration Shortness Of Breath Or Wheezing Aspirin 81 mg 01/03/23 09:00 Aspirin 81 Mg PO DAILY [place] Atorvastatin Calcium 20 mg 01/03/23 09:00 Atorvastatin 20 Mg Tab PO DAILY [facility] Budesonide/Formoterol Fumarate 2 puff 01/03/23 08:00 Symbicort 160-4.5 Mcg Inhaler INHALATION RT-BID [place] Dextrose/Water 25 ml 01/03/23 07:18 Dextrose 50% Syringe 50 Ml IVP PER PROTOCOL PRN Hypoglycemia Protocol Dextrose/Water 50 ml 01/03/23 07:18 Dextrose 50% Syringe 50 Ml IVP PER PROTOCOL PRN Hypoglycemia Protocol Doxycycline Monohydrate 100 mg 01/03/23 09:00 Doxycycline 100 Mg Cap PO BID [facility] Protocol Insulin Aspart 0 unit 01/03/23 07:30 01/03/23 07:51 Insulin Aspart (Novolog) 100 Unit/Ml Vial SQ Not Given ACHS [facility] Protocol Lisinopril 10 mg 01/03/23 09:00 Lisinopril 10 Mg Tab PO DAILY [facility] Metformin HCl 500 mg 01/03/23 09:00 Metformin 500 Mg Tab PO DAILY [facility] Methylprednisolone Sodium Succinate 60 mg 01/02/23 18:00 01/03/23 06:44 Methylprednisolone Sod Succi 125 Mg/2 Ml Vial IV 60 mg Q6HR [place] Administration Naloxone HCl 0.2 mg 01/02/23 12:33 Naloxone 0.4 Mg/Ml 1 Ml Vial IVP Q2M PRN Opioid Reversal Nicotine 1 patch 01/03/23 09:00 Nicotine 21mg/24hr Patch TRANSDERM DAILY [facility] Oxybutynin Chloride 10 mg 01/03/23 09:00 Oxybutynin Chloride 5 Mg Tab PO DAILY [facility] Intake and Output 01/02/23 01/03/23 01/03/23 22:59 06:59 14:59 Intake Total 590 Balance 590 Intake: Oral 590 Other: Voiding Method Toilet Bedside Commode # Voids 2 Weight 71.668 kg 01/02/23 09:08 01/02/23 09:08
[2023-01-03 11:31] LABS: Glucose,Whole Blood 146 mg/dL (70-110)
--- NOTE | 2023-01-03 17:14 | CA ---
Transthoracic Echo Report Name: Isadora Emmanuel Age: 67 Gender: F : 1955 Exam Date: 01/03/2023 09:54 Exam Location: [place] [facility] Ht (in): 61 Wt (lb): 158 Ordering Physician: Faustino Randall MD Attending/Referring Phys: Dishwashing Machine Operator Madeline Guerrier RDCS Procedure CPT: Indications: dyspnea Cardiac Hx: Technical Quality: Fair Contrast 1: Total Dose (mL): Contrast 2: Total Dose (mL): MEASUREMENTS (Male / Female) Normal Values 2D ECHO LV Diastolic Diameter PLAX 3.3 cm 4.2 - 5.9 / 3.9 - 5.3 cm LV Systolic Diameter PLAX 1.6 cm IVS Diastolic Thickness 1.5 cm 0.6 - 1.0 / 0.6 - 0.9 cm LVPW Diastolic Thickness 1.6 cm 0.6 - 1.0 / 0.6 - 0.9 cm LV Relative Wall Thickness 0.9 RV Internal Dim ED PLAX 4.0 cm LA Volume 29.2 cm??? 18 - 58 / 22 - 52 cm??? M-MODE Aortic Root Diameter MM 2.5 cm LA Systolic Diameter MM 3.8 cm LA Ao Ratio MM 1.5 AV Cusp Separation MM 1.2 cm DOPPLER AV Peak Velocity 164.6 cm/s AV Peak Gradient 10.8 mmHg LVOT Peak Velocity 71.9 cm/s LVOT Peak Gradient 2.1 mmHg MV Area PHT 3.2 cm??? Mitral E Point Velocity 58.9 cm/s Mitral A Point Velocity 76.3 cm/s Mitral E to A Ratio 0.8 MV Deceleration Time 235.6 ms TR Peak Velocity 349.0 cm/s TR Peak Gradient 48.7 mmHg Right Ventricular Systolic Press 53.7 mmHg FINDINGS Left Ventricle Moderately increased left ventricular wall thickness. Normal left ventricular systolic function with no obvious regional wall motion abnormalities. Left ventricular ejection fraction is estimated at 55-60 %. Right Ventricle Moderate right ventricular dilatation. Moderate to severe pulmonary hypertension. Right ventricular systolic pressure estimated at 54 mm hg. Right Atrium Normal right atrial size. Left Atrium Normal left atrial size. Mitral Valve Structurally normal mitral valve. Mild mitral regurgitation. Aortic Valve Diffuse thickening (sclerosis) of the aortic valve cusps without reduced excursion. No aortic regurgitation. Tricuspid Valve Structurally normal tricuspid valve. Moderate tricuspid regurgitation. Pulmonic Valve Trace pulmonic regurgitation. Pericardium No pericardial effusion. Aorta Normal size aortic root and proximal ascending aorta. CONCLUSIONS Normal LV systolic function Moderate to severe pulmonary hypertension Mild mitral regurgitation Previewed by: Dr. Mervin Chaudhari MD (Electronically Signed) Final Date: 03 January 2023 17:13
[2023-01-03 17:15] LABS: Glucose,Whole Blood 182 mg/dL (70-110)
[2023-01-03 22:22] LABS: Glucose,Whole Blood 137 mg/dL (70-110)
--- NOTE | 2023-01-04 01:10 | PN ---
PROGRESS NOTE A 67-year-old female. Remains on Symbicort inhaler, DuoNeb updrafts, Vibramycin antibiotics, metformin for diabetes, methylprednisolone IV q.6 hours, Habitrol nicotine patch. She is being admitted with COPD exacerbation, tracheobronchitis. She had an echocardiogram and venous Doppler. Venous Dopplers negative for DVT. Echocardiogram shows ejection fraction 55% to 60%, moderate tricuspid regurgitation, moderate-to- severe pulmonary hypertension. I wanted to treat this with breathing treatments updrafts. Pulmonary is on the case also with Dr. Morris. Please see further orders. Prognosis guarded. Nicotine patch for smoking cessation. MMODL / IJN: [id number] /
[2023-01-04] MEDS: methylPREDNISolone SOD SUCCI 125 MG/2 ML VIAL IV SCH ×3 (06:01→18:06)
[2023-01-04 07:55] LABS: Glucose,Whole Blood 154 mg/dL (70-110)
[2023-01-04] MEDS: IPRATROPIUM-ALBUTEROL 3 ML NEB INHALATION SCH ×4 (08:23→18:06)
[2023-01-04] MEDS: SYMBICORT 160-4.5 MCG INHALER INHALATION SCH ×2 (08:23→18:06)
[2023-01-04] MEDS: ATORVASTATIN 20 MG TAB PO SCH (08:24)
[2023-01-04] MEDS: INSULIN ASPART (NovoLOG) 100 UNIT/ML VIAL SQ SCH ×4 (08:24→20:54)
[2023-01-04] MEDS: FUROSEMIDE 20 MG TAB PO SCH (08:24)
[2023-01-04] MEDS: ASPIRIN 81 MG PO SCH (08:24)
[2023-01-04] MEDS: lisinopriL 10 MG TAB PO SCH (08:25)
[2023-01-04] MEDS: oxyBUTYnin chloride 5 MG TAB PO SCH (08:25)
[2023-01-04] MEDS: DOXYCYCLINE 100 MG CAP PO SCH ×2 (08:25→20:54)
[2023-01-04] MEDS: NICOTINE 21MG/24HR PATCH TRANSDERM SCH (08:25)
[2023-01-04] MEDS: metFORMIN 500 MG TAB PO SCH (08:25)
[2023-01-04] MEDS ORDERED: lisinopriL 10 MG TAB PO STA (10:09)
--- NOTE | 2023-01-04 10:11 | P.PN ---
Subjective Progress Note Date: 01/04/23 History of present illness: This is a 59-year-old female with past medical history of COPD, hyperlipidemia, diabetes mellitus type 2, hypertension, CVA, active tobacco use and dependence. We have been asked to see the patient regarding dyspnea. Patient presented to the emergency center yesterday due to difficulty in breathing that had onset the evening before. No fever, minimal cough. Her initial blood pressure was 168/93 and pulse ox 85% on room air. Patient noted to continue to require oxygen. Pulse ox on room air 87% at rest. Pulmonary medicine is following for COPD exacerbation. EKG sinus rhythm with no acute ST changes Chest x-ray: Left basilar interstitial opacities. This finding may relate to atelectasis or developing pneumonia. CT angiogram of the chest reveals no evidence of pulmonary embolism. Nonspecific mildly enlarged right hilar lymph nodes which may be reactive. Cardiomegaly with moderate coronary artery calcifications. Ultrasound of the right lower extremity negative for DVT. WBC 6.5, hemoglobin 12.8, platelet count 124. D-dimer 1.09. INR 1. Sodium 137, potassium 4.5, BUN 16 creatinine 0.9. Blood sugar 114. Lactic acid 1. Magnesium 1.6. Total bilirubin 1.2, AST 44, ALT 53, alkaline phosphatase 89. Troponin negative 1. ProBNP 2220. Covid 19 not detected. Home cardiac medications: Aspirin 81 mg daily, Lipitor 20 mg daily, lisinopril 10 mg daily. 01/04 Patient is seen today in follow-up. She is sitting up in a recliner and eating breakfast. She states her breathing is much better but continues to have significant wheezing. Echocardiogram revealed normal LV systolic function, moderate to severe pulmonary hypertension, mild mitral regurgitation. We will plan to start the patient on low dose of Lasix. Blood pressure 165/98, heart rate in the 70s and 80s. Physical examination: Gen: This is a 67 year old black female, she has found lying flat in bed in no noted respiratory distress. VS: reviewed. Blood pressure 134/79, heart rate in the 60s to 80s, afebrile HEENT: Head is atraumatic, normocephalic. Pupils equal, round. Sclerae is an icteric. NECK: Supple. No JVD. LUNGS: Diffuse expiratory wheeze. No intercostal retractions. HEART: Regular rate and rhythm. No murmur. ABDOMEN: Soft No tenderness. EXTREMITIES: No pedal edema bilaterally. No calf tenderness. NEUROLOGICAL: Patient is awake, alert and oriented x3. Assessment: Dyspnea secondary to COPD exacerbation Acute hypoxic respiratory failure requiring oxygen Mild congestive heart failure with elevated proBNP Diabetes mellitus type 2 Hypertension Hyperlipidemia History of CVA Active tobacco use and dependence Plan: Continue current cardiac medications Increase lisinopril to 20 mg daily for better blood pressure control Patient be started on Lasix 20 mg oral daily Continue COPD treatment Patient is cleared from cardiology for discharge may follow-up in the office. Cardiology will follow on an as-needed basis. Nurse practitioner note has been reviewed, I agree with documented findings and plan of care. Patient was seen and examined. Objective - Vital Signs Vital signs: Vital Signs Temp 97.9 F 01/04/23 01:53 Pulse 88 01/04/23 01:53 Resp 16 01/04/23 01:53 BP 141/77 01/04/23 01:53 Pulse Ox 95 01/04/23 01:53 FiO2 Intake & Output 01/03/23 01/04/23 01/04/23 18:59 06:59 18:59 Other: Voiding Method Toilet Toilet Bedside Commode Bedside Commode # Voids 3 1 - Labs CBC & Chem 7: 01/02/23 09:08 01/02/23 09:08 Labs: Abnormal Lab Results - Last 24 Hours (Table) 01/03/23 01/03/23 01/03/23 Range/Units 09:32 11:30 17:13 POC Glucose (mg/dL) 146 H 182 H (70-110) mg/dL Hemoglobin A1c 6.6 H (0.0-6.0) % 01/03/23 01/04/23 Range/Units 22:19 07:54 POC Glucose (mg/dL) 137 H 154 H (70-110) mg/dL Hemoglobin A1c (0.0-6.0) %
--- NOTE | 2023-01-04 11:34 | CDI ---
Documentation Clarification Form Date: 01/04/2023 11:24:23 AM From: Pau Dorsey RN CCDS Phone: [phone] Admit Date: 01/02/2023 12:33:00 PM Patient Name: Isadora Emmanuel Visit Number: [id number] Discharge Date: ATTENTION: The Clinical Documentation Specialists (CDI) and [facility] Coding Staff appreciate your assistance in clarifying documentation. Please respond to the clarification below the line at the bottom and electronically sign. The CDI & [facility] Coding staff will review the response and follow-up if needed. Please note: Queries are made part of the Legal Health Record. If you have any questions, please contact the author of this message via ITS. Dr. Faustino Randall Your patient has the documented diagnosis of unspecified CHF 01/03, H&P. Additional information regarding the type, acuity of CHF is requested. History/Risk Factors: Clinical Indicators: VS/Pulse OX: B/P 168/93, 60, 97.4, 24, 85% room air BNP: 01/02 2220 Echocardiogram Results: 01/03 EF 55-60% Normal LV systolic function. Moderate to severe pulmonary hypertension. Mild mitral regurgitation Chest X Ray: 01/02 Left basilar interstitial opacities. Cardiology note, 01/04: Mild congestive heart failure with elevated proBNP. Increase Lisinopril to 20mg daily for better blood pressure control. Patient to be started on Lasix po cindy. Treatment: 01/04 Lasix 20mg po daily, 01/03 12/25 Lisinopril 10mg po daily, 12/26 Lisinopril 10mg po x 1, 01/05 Lisinopril 20mg po daily. In your professional opinion, can you please clarify the [acuity and type] of CHF if known? [ ] Heart Failure ruled out [ ] Acute Diastolic Heart Failure (preserved EF) [ ] Other, please specify [ ] Unable to determine (Template Last Revised: October 2020) MTDD
[2023-01-04 12:32] LABS: Glucose,Whole Blood 103 mg/dL (70-110)
--- NOTE | 2023-01-04 16:53 | P.PN ---
Subjective Progress Note Date: 01/04/23 I'm seeing this patient in new consultation today 01/03/2023 for suspected COPD exacerbation. Patient is a 67-year-old -Iranian female with past medical history significant for COPD, current 1 pack per day smoker, diabetes mellitus type 2, hypertension, and CVA/TIA. Patient's primary care provider is a Terrance Dailey, who manages the patients COPD with Breo-Ellipta inhaler and when necessary albuterol. Patient reports progressive worsening shortness of breath and wheezing over the last 2 days. She denies any fever, chills, cough, hemoptysis. Denies sick contacts. She is currently resting in bed, 4 L nasal cannula, in no acute distress. Chest x-ray on arrival showed left basilar inter stitial opacities which could reflect atelectasis or developing pneumonia. A follow-up chest CTA showed no evidence of pulmonary embolism, mildly enlarged right hilar lymph nodes, some mild cardiomegaly. No focal consolidations. EKG showed sinus bradycardia without any obvious acute ischemic changes. CBC on arrival showed a 6.5, hemoglobin 12.8, hematocrit 43.3, platelets 124. Patient's BMP was unremarkable. Troponins negative 1. NT proBNP was mildly elevated at 2220. negative for COVID-19. Patient currently on a combination of bronchodilators, Symbicort inhaler, IV site Medrol. Vital signs are stable. Today's evaluation of 01/04/2023, the patient is feeling better. The patient is less bronchospastic and wheezy compared to yesterday. She was hospitalized for an acute COPD exacerbation. She remains on O2. She had an ultrasound Doppler of the lower extremity that showed no evidence of any DVT. Echocardiogram showed moderate degree of pulmonary hypertension. Preserved LV function.She remains on Symbicort. She remains on bronchodilators with DuoNeb. She is receiving IV Solu-Medrol 60 mg every 6 hours. She is also on oral Lasix. Pro- calcitonin level was low at 0.06. Covid 19 testing was negative. Objective - Vital Signs Vital signs: Vital Signs Temp 98.0 F 01/04/23 13:03 Pulse 72 01/04/23 15:14 Resp 18 01/04/23 13:03 BP 162/93 01/04/23 13:03 Pulse Ox 97 01/04/23 13:03 FiO2 Intake & Output 01/03/23 01/04/23 01/04/23 18:59 06:59 18:59 Other: Voiding Method Toilet Toilet Toilet Bedside Commode Bedside Commode Bedside Commode # Voids 3 1 1 - Exam GENERAL EXAM: Alert, 67 year old -Iranian female, comfortable in no apparent distress. HEAD: Normocephalic and atraumatic EYES: Normal reaction of pupils, equal size. NOSE: Clear with pink turbinates. THROAT: No erythema or exudates. NECK: No masses, no JVD. CHEST: No chest wall deformity. LUNGS: Equal air entry with end expiratory wheezes throughout. no crackles, rhonchi or dullness. On 4 L nasal cannula. No conversational dyspnea or accessory muscle use.. CVS: S1 and S2 normal with no audible murmur, regular rhythm. No extra heart sounds ABDOMEN: No hepatosplenomegaly, active bowel sounds, no guarding or rigidity. SPINE: No scoliosis or deformity SKIN: No rashes CENTRAL NERVOUS SYSTEM: No focal deficits, tone is normal in all 4 extremities. EXTREMITIES: There is 3+ right lower extremity pitting edema. No clubbing, or cyanosis. Peripheral pulses are intact. - Labs CBC & Chem 7: 01/02/23 09:08 01/02/23 09:08 Labs: Abnormal Lab Results - Last 24 Hours (Table) 01/03/23 01/03/23 01/04/23 Range/Units 17:13 22:19 07:54 POC Glucose (mg/dL) 182 H 137 H 154 H (70-110) mg/dL Assessment and Plan Assessment: Acute COPD exacerbation. Chest CTA failed to demonstrate any focal consolidation or evidence of pneumonia. Negative for COVID-19. Clinically improving Acute hypoxic respiratory failure secondary to above, currently on 4 L nasal cannula. Left lower extremity edema Diabetes mellitus type 2, [id number] Hypertension History of CVA/TIA Chronic nicotine dependence Moderate degree of pulmonary hypertension probably related to chronic lung disease. Plan: Doppler of the lower extremity is are negative. Echocardiogram showing moderate degree of pulmonary hypertension Continue bronchodilators Continue steroids Clinically improving Reevaluate in a.m.
[2023-01-04 17:19] LABS: Glucose,Whole Blood 143 mg/dL (70-110)
[2023-01-04 20:14] LABS: Glucose,Whole Blood 401 mg/dL (70-110)
[2023-01-05] MEDS: methylPREDNISolone SOD SUCCI 125 MG/2 ML VIAL IV SCH ×4 (01:24→12:10)
--- NOTE | 2023-01-05 03:11 | PN ---
PROGRESS NOTE SUBJECTIVE: This is a 67-year-old white -Wel[place] female, admitted with COPD exacerbation. The patient remains on IV steroids, updraft treatments, Lipitor for dyslipidemia, Symbicort inhaler for her COPD. MEDICATIONS: 1. Vibramycin 100 mg b.i.d. 2. Lasix 20 daily. 3. NovoLog a.c. h.s. 4. Metformin 500 daily. 5. Solu-Medrol 60 IV q.6h. 6. Habitrol 21 mg patch. 7. Oxybutynin 15 daily. CONDITION: Stable. PROGNOSIS: Guarded. Discussed with her pulmonary hypertension, need to wear oxygen at home. OBJECTIVE: CARDIOVASCULAR: She appears slowly been improving. VITAL SIGNS: Reviewed. including 91 on 3 L. Blood pressure 120s over 80s, respiratory rate 15 to 18. PLAN: Continue current treatment, PT OT possible mcc, which we can find her health otherwise living with mcc will be the option. NAOMIE / KAITLINN: [id number] /
[2023-01-05 07:12] LABS: Glucose,Whole Blood 125 mg/dL (70-110)
[2023-01-05] MEDS: SYMBICORT 160-4.5 MCG INHALER INHALATION SCH ×2 (07:24→18:23)
[2023-01-05] MEDS: IPRATROPIUM-ALBUTEROL 3 ML NEB INHALATION SCH ×4 (07:24→18:23)
[2023-01-05 07:35] VITALS: RESP 18
[2023-01-05] MEDS: INSULIN ASPART (NovoLOG) 100 UNIT/ML VIAL SQ SCH ×3 (08:07→18:01)
[2023-01-05] MEDS ORDERED: lisinopriL 20 MG TAB PO SCH (09:00)
[2023-01-05] MEDS: ASPIRIN 81 MG PO SCH (10:17)
[2023-01-05] MEDS: ATORVASTATIN 20 MG TAB PO SCH (10:17)
[2023-01-05] MEDS: FUROSEMIDE 20 MG TAB PO SCH (10:17)
[2023-01-05] MEDS: DOXYCYCLINE 100 MG CAP PO SCH (10:17)
[2023-01-05] MEDS: metFORMIN 500 MG TAB PO SCH (10:17)
[2023-01-05] MEDS: oxyBUTYnin chloride 5 MG TAB PO SCH (10:18)
[2023-01-05] MEDS: NICOTINE 21MG/24HR PATCH TRANSDERM SCH (10:21)
[2023-01-05 11:10] LABS: Glucose,Whole Blood 124 mg/dL (70-110)
[2023-01-05 12:31] VITALS: BP 149/84; TEMP 98.3
--- NOTE | 2023-01-05 15:21 | P.PN ---
Subjective Progress Note Date: 01/05/23 Principal diagnosis: COPD exacerbation I'm seeing this patient in new consultation today 01/03/2023 for suspected COPD exacerbation. Patient is a 67-year-old -[place] female with past medical history significant for COPD, current 1 pack per day smoker, diabetes mellitus type 2, hypertension, and CVA/TIA. Patient's primary care provider is a Terrance Dailey, who manages the patients COPD with Breo-Ellipta inhaler and when necessary albuterol. Patient reports progressive worsening shortness of breath and wheezing over the last 2 days. She denies any fever, chills, cough, hemoptysis. Denies sick contacts. She is currently resting in bed, 4 L nasal cannula, in no acute distress. Chest x-ray on arrival showed left basilar interstitial opacities which could reflect atelectasis or developing pneumonia. A follow-up chest CTA showed no evidence of pulmonary embolism, mildly enlarged right hilar lymph nodes, some mild cardiomegaly. No focal consolidations. EKG showed sinus bradycardia without any obvious acute ischemic changes. CBC on arrival showed a 6.5, hemoglobin 12.8, hematocrit 43.3, platelets 124. Patient's BMP was unremarkable. Troponins negative 1. NT proBNP was mildly elevated at 2220. negative for COVID-19. Patient currently on a combination of bronchodilators, Symbicort inhaler, IV site Medrol. Vital signs are stable. Today's evaluation of 01/04/2023, the patient is feeling better. The patient is less bronchospastic and wheezy compared to yesterday. She was hospitalized for an acute COPD exacerbation. She remains on O2. She had an ultrasound Doppler of the lower extremity that showed no evidence of any DVT. Echocardiogram showed moderate degree of pulmonary hypertension. Preserved LV function.She remains on Symbicort. She remains on bronchodilators with DuoNeb. She is receiving IV Solu-Medrol 60 mg every 6 hours. She is also on oral Lasix. Pro- calcitonin level was low at 0.06. Covid 19 testing was negative. I'm seeing this patient today 01/05/2023 in follow-up on the general medical floor. Patient is currently sitting up in the chair, on 3 L nasal cannula, in no acute distress. She states that her breathing is better. She wants to go home. She is less bronchospastic on evaluation. She remains on a combination of bronchodilators, Symbicort inhaler, and IV Solu-Medrol. She is also on oral Lasix. No new chest x-ray or labs to review today. Her procalcitonin level from admission was low. Patient's vital signs are stable. Objective - Vital Signs Vital signs: Vital Signs Temp 98.3 F 01/05/23 12:08 Pulse 98 01/05/23 12:08 Resp 18 01/05/23 12:08 BP 149/84 01/05/23 12:08 Pulse Ox 94 L 01/05/23 12:08 FiO2 Intake & Output 01/04/23 01/05/23 01/05/23 18:59 06:59 18:59 Other: Voiding Method Toilet Toilet Toilet Bedside Commode Bedside Commode Bedside Commode # Voids 2 2 - Exam GENERAL EXAM: Alert, 67 year old -[place] female, comfortable in no apparent distress. HEAD: Normocephalic and atraumatic EYES: Normal reaction of pupils, equal size. NOSE: Clear with pink turbinates. THROAT: No erythema or exudates. NECK: No masses, no JVD. CHEST: No chest wall deformity. LUNGS: Equal air entry with end expiratory wheezes throughout. no crackles, rhonchi or dullness. On 3 L nasal cannula. No conversational dyspnea or accessory muscle use.. CVS: S1 and S2 normal with no audible murmur, regular rhythm. No extra heart sounds ABDOMEN: No hepatosplenomegaly, active bowel sounds, no guarding or rigidity. SPINE: No scoliosis or deformity SKIN: No rashes CENTRAL NERVOUS SYSTEM: No focal deficits, tone is normal in all 4 extremities. EXTREMITIES: There is 1+ right lower extremity pitting edema. No clubbing, or cyanosis. Peripheral pulses are intact. - Labs CBC & Chem 7: 01/02/23 09:08 01/02/23 09:08 Labs: Abnormal Lab Results - Last 24 Hours (Table) 01/04/23 01/04/23 01/05/23 Range/Units 17:18 20:12 07:11 POC Glucose (mg/dL) 143 H 401 H 125 H (70-110) mg/dL 01/05/23 Range/Units 11:09 POC Glucose (mg/dL) 124 H (70-110) mg/dL Assessment and Plan Assessment: Acute COPD exacerbation. Chest CTA failed to demonstrate any focal consolidation or evidence of pneumonia. Negative for COVID-19. Clinically improving Acute hypoxic respiratory failure secondary to above, currently on 3 L nasal cannula. Left lower extremity edema, negative for DVT. Diabetes mellitus type 2, [id number] Hypertension History of CVA/TIA Chronic nicotine dependence Moderate degree of pulmonary hypertension probably related to chronic lung disease. Plan: Patient's medications were reviewed Continue bronchodilators and Symbicort inhaler Start patient on prednisone taper Continue supplemental oxygen to maintain oxygen saturation 92% or greater Will need home O2 evaluation Patient is clinically improving, and could potentially be discharged home, from a pulmonary standpoint with home O2 I have personally seen and examined the patient, performed the documentation and the assessment and plan as written. Number of minutes spent on the visit:10 This is a joint evaluation that was done along with the nurse practitioner. The patient is feeling well. She is recovering from potentially discharged home today on evaluation more than 20 minutes. Time with Patient: Less than 30
[2023-01-05 17:34] LABS: Glucose,Whole Blood 239 mg/dL (70-110)
[2023-01-05 18:35] VITALS: PULSE 96
--- NOTE | 2023-01-06 07:39 | CDI ---
Documentation Clarification Form Date: 01/04/2023 11:24:00 AM From: Pau Dorsey Phone: [phone] Admit Date: 01/02/2023 12:33:00 PM Patient Name: Isadora Emmanuel Visit Number: [id number] Discharge Date: 01/05/2023 6:50:00 PM ATTENTION: The Clinical Documentation Specialists (CDI) and [facility] Coding Staff appreciate your assistance in clarifying documentation. Please respond to the clarification below the line at the bottom and electronically sign. The CDI & [facility] Coding staff will review the response and follow-up if needed. Please note: Queries are made part of the Legal Health Record. If you have any questions, please contact the author of this message via ITS. Dr. Faustino Randall Your patient has the documented diagnosis of unspecified CHF 01/03, H&P. Additional information regarding the type, acuity of CHF is requested. History/Risk Factors: Clinical Indicators: VS/Pulse OX: B/P 168/93, 60, 97.4, 24, 85% room air BNP: 01/02 2220 Echocardiogram Results: 01/03 EF 55-60% Normal LV systolic function. Moderate to severe pulmonary hypertension. Mild mitral regurgitation Chest X Ray: 01/02 Left basilar interstitial opacities. Cardiology note, 01/04: Mild congestive heart failure with elevated proBNP. Increase Lisinopril to 20mg daily for better blood pressure control. Patient to be started on Lasix po cindy. Treatment: 01/04 Lasix 20mg po daily, 01/03 12/25 Lisinopril 10mg po daily, 12/26 Lisinopril 10mg po x 1, 01/05 Lisinopril 20mg po daily. In your professional opinion, can you please clarify the [acuity and type] of CHF if known? [ ] Heart Failure ruled out [ ] Acute Diastolic Heart Failure (preserved EF) [ ] Other, please specify [ ] Unable to determine (Template Last Revised: October 2020) MTDD
[2023-01-06] MEDS ORDERED: predniSONE 20 MG TAB PO SCH (09:00)
--- NOTE | 2023-01-10 07:02 | CDI ---
Documentation Clarification Form Date: 01/04/2023 11:24:00 AM From: Pau Dorsey Phone: [phone] Admit Date: 01/02/2023 12:33:00 PM Patient Name: Isadora Emmanuel Visit Number: [id number] Discharge Date: 01/05/2023 6:50:00 PM ATTENTION: The Clinical Documentation Specialists (CDI) and [facility] Coding Staff appreciate your assistance in clarifying documentation. Please respond to the clarification below the line at the bottom and electronically sign. The CDI & [facility] Coding staff will review the response and follow-up if needed. Please note: Queries are made part of the Legal Health Record. If you have any questions, please contact the author of this message via ITS. Dr. Faustino Randall Your patient has the documented diagnosis of unspecified CHF 01/03, H&P. Additional information regarding the type, acuity of CHF is requested. History/Risk Factors: 67-year-old female presented with difficulty breathing onset of symptoms were the night before. The patient also has minimal leg swelling. Medical History: COPD, CVA/TIA, HTN. 01/02, ED Note. Clinical Indicators: VS/Pulse OX: B/P 168/93, 60, 97.4, 24, 85% room air BNP: 01/02 2220 Echocardiogram Results: 01/03 EF 55-60% Normal LV systolic function. Moderate to severe pulmonary hypertension. Mild mitral regurgitation Chest X Ray: 01/02 Left basilar interstitial opacities. Cardiology note, 01/04: Mild congestive heart failure with elevated proBNP. Increase Lisinopril to 20mg daily for better blood pressure control. Patient to be started on Lasix po cindy. Treatment: 01/04 Lasix 20mg po daily, 01/03 12/25 Lisinopril 10mg po daily, 12/26 Lisinopril 10mg po x 1, 01/05 Lisinopril 20mg po daily. In your professional opinion, can you please clarify the [acuity and type] of CHF if known? [ ] Heart Failure ruled out [ ] Acute Diastolic Heart Failure (preserved EF) [ ] Other, please specify [ ] Unable to determine (Template Last Revised: October 2020) MTDD
--- NOTE | 2023-01-12 11:18 | CDI ---
Documentation Clarification Form Date: 01/04/2023 11:24:00 AM From: Pau Dorsey Phone: [phone] Admit Date: 01/02/2023 12:33:00 PM Patient Name: Isadora Emmanuel Visit Number: [id number] Discharge Date: 01/05/2023 6:50:00 PM ATTENTION: The Clinical Documentation Specialists (CDI) and [facility] Coding Staff appreciate your assistance in clarifying documentation. Please respond to the clarification below the line at the bottom and electronically sign. The CDI & [facility] Coding staff will review the response and follow-up if needed. Please note: Queries are made part of the Legal Health Record. If you have any questions, please contact the author of this message via ITS. Dr. Faustino Randall Your patient has the documented diagnosis of unspecified CHF 01/03, H&P. Additional information regarding the type, acuity of CHF is requested. History/Risk Factors: 67-year-old female presented with difficulty breathing onset of symptoms were the night before. The patient also has minimal leg swelling. Medical History: COPD, CVA/TIA, HTN. 01/02, ED Note. Clinical Indicators: VS/Pulse OX: B/P 168/93, 60, 97.4, 24, 85% room air BNP: 01/02 2220 Echocardiogram Results: 01/03 EF 55-60% Normal LV systolic function. Moderate to severe pulmonary hypertension. Mild mitral regurgitation Chest X Ray: 01/02 Left basilar interstitial opacities. Cardiology note, 01/04: Mild congestive heart failure with elevated proBNP. Increase Lisinopril to 20mg daily for better blood pressure control. Patient to be started on Lasix po cindy. Treatment: 01/04 Lasix 20mg po daily, 01/03 12/25 Lisinopril 10mg po daily, 12/26 Lisinopril 10mg po x 1, 01/05 Lisinopril 20mg po daily. In your professional opinion, can you please clarify the [acuity and type] of CHF if known? [ ] Heart Failure ruled out [ ] Acute Diastolic Heart Failure (preserved EF) [ ] Other, please specify [ ] Unable to determine (Template Last Revised: October 2020) MTDD
== END 2023-01-05 18:50 | disposition home or self-care (01) ==
LOC: EC 08:29 → 5NMEDONC 12:33 → INTOOBSV 12:33 → 5NMEDONC 19:20 → UNDODISIN 01-05 18:50
PROVIDERS: ADMIT Family Medicine; ATTEND Family Medicine
DX: J44.1 Chronic obstructive pulmonary disease with (acute) exacerbation (principal); J96.01 Acute respiratory failure with hypoxia; F17.200 Nicotine dependence, unspecified, uncomplicated; F12.90 Cannabis use, unspecified, uncomplicated; I70.0 Atherosclerosis of aorta; D69.6 Thrombocytopenia, unspecified; I27.20 Pulmonary hypertension, unspecified; E78.5 Hyperlipidemia, unspecified; E11.9 Type 2 diabetes mellitus without complications; I11.0 Hypertensive heart disease with heart failure; I50.9 Heart failure, unspecified; I37.1 Nonrheumatic pulmonary valve insufficiency; M71.21 Synovial cyst of popliteal space [Baker], right knee; I08.1 Rheumatic disorders of both mitral and tricuspid valves; Z79.899 Other long term (current) drug therapy; Z79.82 Long term (current) use of aspirin; Z79.84 Long term (current) use of oral hypoglycemic drugs; Z86.73 Personal history of transient ischemic attack (TIA), and cerebral infarction without residual deficits; Z20.822 Contact with and (suspected) exposure to COVID-19
CPT/HCPCS: 96376 ×5; 96374; 99285; 36415; 94640 ×8; 94760 ×2; 93005; 93306; 85379; 83880; 80053; 83605; 83735; 84484; 85025; 85610; 85730; 83036; 84145; 87635; 71046; 93971; 71275; G0378 ×4; S4990 ×3; J2930 ×4; Q9967; 96375

== ENCOUNTER 2023-01-20 11:38 | Inpatient (IN) | payer MEDICARE, OTHER ==
[2023-01-20] MEDS ORDERED: FUROSEMIDE 10 MG/ML 4 ML VIAL IV STA (12:01)
--- NOTE | 2023-01-20 12:06 | ED ---
General Adult HPI - General Chief complaint: Shortness of Breath Stated complaint: Both leg Swollen Time Seen by Provider: 01/20/23 11:45 Source: patient, RN notes reviewed, old records reviewed Mode of arrival: ambulatory Limitations: no limitations - History of Present Illness Initial comments: This is a 67-year-old female presents emergency Department complaining of swelling in her legs worsened normal. Patient has a history of COPD and she recently quit smoking. Patient was recently in the hospital for COPD. Patient states she doesn't feel like she is having any difficulty breathing at all today. Patient denies any palpitations or chest pain. Patient denies any recent fever chills or cough. patient states swelling legs is just getting worse. Patient denies any lightheadedness or dizziness. Patient's only complaint is swelling in both of her lower legs - Related Data Home Medications Medication Instructions Recorded Confirmed Albuterol Inhaler [Ventolin Hfa 1 - 2 puff INHALATION RT-Q6H PRN 01/02/23 01/02/23 Inhaler] Aspirin EC [Ecotrin Low Dose] 81 mg PO DAILY 01/02/23 01/02/23 Atorvastatin [Lipitor] 20 mg PO DAILY 01/02/23 01/02/23 Oxybutynin Chloride 10 mg PO DAILY 01/02/23 01/02/23 metFORMIN HCL 500 mg PO DAILY 01/02/23 01/02/23 Previous Rx's Medication Instructions Recorded Budesonide-Formot 160-4.5 Mcg 2 puff INHALATION RT-BID 30 Days 01/05/23 [Symbicort 160-4.5 Mcg Inhaler] #1 each Doxycycline [Vibramycin] 100 mg PO BID 7 Days #14 cap 01/05/23 Furosemide [Lasix] 20 mg PO DAILY 30 Days #30 tab 01/05/23 Nicotine 21Mg/24Hr Patch [Habitrol] 1 patch TRANSDERM DAILY 30 Days 01/05/23 #30 patch lisinopriL [Zestril] 20 mg PO DAILY 30 Days #30 tab 01/05/23 predniSONE [Deltasone] 20 mg PO DAILY 10 Days #10 tab 01/05/23 Allergies Allergy/AdvReac Type Severity Reaction Status Date / Time No Known Allergies Allergy Verified 01/20/23 11:42 Review of Systems ROS Statement: Those systems with pertinent positive or pertinent negative responses have been documented in the HPI. ROS Other: All systems not noted in ROS Statement are negative. Past Medical History Past Medical History: COPD, CVA/TIA, Hypertension History of Any Multi-Drug Resistant Organisms: None Reported Past Surgical History: No Surgical Hx Reported Past Anesthesia/Blood Transfusion Reactions: No Reported Reaction Past Psychological History: No Psychological Hx Reported Smoking Status: Current every day smoker Past Alcohol Use History: None Reported Past Drug Use History: Marijuana General Exam - General Exam Comments Initial Comments: GENERAL: Patient is well-developed and well-nourished. Patient is nontoxic and well- hydrated and is in no acute distress. ENT: Neck is soft and supple. No significant lymphadenopathy is noted. Oropharynx is clear. Moist mucous membranes. Neck has full range of motion without eliciting any pain. EYES: The sclera were anicteric and conjunctiva were pink and moist. Extraocular movements were intact and pupils were equal round and reactive to light. Eyelids were unremarkable. PULMONARY: Unlabored respirations. Good breath sounds bilaterally. No audible rales rhonchi or wheezing was noted. CARDIOVASCULAR: There is a regular rate and rhythm without any murmurs gallops or rubs. ABDOMEN: Soft and nontender with normal bowel sounds. SKIN: Skin is clear with no lesions or rashes and otherwise unremarkable. NEUROLOGIC: Patient is alert and oriented x3. Cranial nerves II through XII are grossly int act. Motor and sensory are also intact. Normal speech, volume and content. Symmetrical smile. MUSCULOSKELETAL: Normal extremities with adequate strength and full range of motion. Patient has 1+ bilaterally. Patient has tenderness. LYMPHATICS: No significant lymphadenopathy is noted PSYCHIATRIC: Normal psychiatric evaluation. Limitations: no limitations Course Vital Signs 01/20/23 01/20/23 01/20/23 11:43 12:00 12:20 Temperature 98.2 F Pulse Rate 102 H Respiratory 20 24 Rate Blood Pressure 164/79 O2 Sat by Pulse 82 L 88 L Oximetry 01/20/23 01/20/23 12:43 14:24 Temperature Pulse Rate 73 68 Respiratory 20 18 Rate Blood Pressure 147/91 121/81 O2 Sat by Pulse 96 96 Oximetry Medical Decision Making - Medical Decision Making EKG was interpreted by myself shows a sinus rhythm with occasional PACs at 81 bpm NV interval 173 QRS is 91 Q-T intervals 320 QTC is 395. Patient's EKG shows no ST segment patient of depression. Was pt. sent in by a medical professional or institution (JOANA Osborne, ELEVATOR ADJUSTER, urgent care, hospital, or residential...) When possible be specific @ -No Did you speak to anyone other than the patient for history (EMS, parent, family, police, friend...)? What history was obtained from this source @ -No Did you review nursing and triage notes (agree or disagree)? Why? @ -I reviewed and agree with nursing and triage notes Were old charts reviewed (outside hosp., previous admission, EMS record, old EKG, old radiological studies, urgent care reports/EKG's, residential records)? Report findings @ -I reviewed prior lab work and EKGs and prior charts on this patient Differential Diagnosis (chest pain, altered mental status, abdominal pain women, abdominal pain men, vaginal bleeding, weakness, fever, dyspnea, syncope, headache, dizziness, GI bleed, back pain, seizure, CVA, palpatations, mental health, musculoskeletal)? @ -Differential Dyspnea: Coronary syndrome, arrhythmia, tamponade, asthma, COPD, pulmonary embolism, pneumonia, pneumothorax, pulmonary effusion, anaphylaxis, diabetic ketoacidosis, flailed chest, pulmonary contusion, diaphragmatic rupture, anemia, neuromuscular, this is not meant to be an all-inclusive list. EKG interpreted by me (3pts min.). @ -As above X-rays interpreted by me (1pt min.). @ -Chest x-ray shows no acute abnormality CT interpreted by me (1pt min.). @ -None done U/S interpreted by me (1pt. min.). @ -None done What testing was considered but not performed or refused? (CT, X-rays, U/S, labs)? Why? @ -None What meds were considered but not given or refused? Why? @ -None Did you discuss the management of the patient with other professionals (professionals i.e. JOANA Osborne, ELEVATOR ADJUSTER, lab, RT, psych nurse, social work professor, blood bank manager, teacher, police patrol officer, comp field case manager)? Give summary @ -I spoke with a [facility] hospitalist agreed to admit the patient to the patient wrote admitting orders Was smoking cessation discussed for >3mins.? @ -No Was critical care preformed (if so, how long)? @ -35 minutes Were there social determinants of health that impacted care today? How? (Homelessness, low income, unemployed, alcoholism, drug addiction, transportation, low edu. Level, literacy, decrease access to med. care, senior care, rehab)? @ -No Was there de-escalation of care discussed even if they declined (Discuss DNR or withdrawal of care, Hospice)? DNR status @ -No What co-morbidities impacted this encounter? (DM, HTN, Smoking, COPD, CAD, Cancer, CVA, ARF, Chemo, Hep., AIDS, mental health diagnosis, sleep apnea, mo rbid obesity)? @ -COPD, CAD Was patient admitted / discharged? Hospital course, mention meds given and route, prescriptions, significant lab abnormalities, going to OR and other pertinent info. @ -Patient was given aspirin Nitropaste emergency department. Patient's potassium was low she had potassium replacement IV and oral. Patient's mag nesium was low patient was given 1 g of magnesium sulfate. Patient's troponin came back elevated so patient was started on heparin. Patient will be [facility] to the [facility]. I consulted cardiology. Undiagnosed new problem with uncertain prognosis? @ -No Drug Therapy requiring intensive monitoring for toxicity (Heparin, Nitro, Insulin, Cardizem)? @ -Heparin Were any procedures done? @ -No Diagnosis/symptom? @ -Non-STEMI Acute, or Chronic, or Acute on Chronic? @ -Acute Uncomplicated (without systemic symptoms) or Complicated (systemic symptoms)? @ -Complicated Side effects of treatment? @ -No Exacerbation, Progression, or Severe Exacerbation? @ -No Poses a threat to life or bodily function? How? (Chest pain, [place], [place], pneumonia, PE, COPD, DKA, ARF, appy, cholecystitis, CVA, Diverticulitis, Homicidal, Suicidal, threat to staff... and all critical care pts) @ -Yes this could lead to poor perfusion and end organ dysfunction - Lab Data Result diagrams: 01/20/23 12:23 01/20/23 12:23 Lab Results 01/20/23 01/20/23 01/20/23 Range/Units 12:23 12:23 12: WBC 11.2 H (3.8-10.6) k/uL RBC 6.52 H (3.80-5.40) m/uL Hgb 12.9 (11.4-16.0) gm/dL Hct 45.2 (34.0-46.0) % MCV 69.3 L (80.0-100.0) fL MCH 19.8 L (25.0-35.0) pg MCHC 28.6 L (31.0-37.0) g/dL RDW 18.1 H (11.5-15.5) % Plt Count 105 L (150-450) k/uL MPV 8.2 Neutrophils % 81 % Lymphocytes % 13 % Monocytes % 3 % Eosinophils % 2 % Basophils % 0 % Neutrophils # 9.1 H (1.3-7.7) k/uL Lymphocytes # 1.5 (1.0-4.8) k/uL Monocytes # 0.3 (0-1.0) k/uL Eosinophils # 0.2 (0-0.7) k/uL Basophils # 0.0 (0-0.2) k/uL Hypochromasia Marked Poikilocytosis Slight Anisocytosis Slight Microcytosis Marked PT 10.9 (9.0-12.0) sec INR 1.0 (<1.2) APTT 21.6 L (22.0-30.0) sec Sodium 141 (137-145) mmol/L Potassium 3.3 L (3.5-5.1) mmol/L Chloride 106 (98-107) mmol/L Carbon Dioxide 26 (22-30) mmol/L Anion Gap 9 mmol/L BUN 23 H (7-17) mg/dL Creatinine 1.10 H (0.52-1.04) mg/dL Est GFR (CKD-EPI)AfAm 60 (>60 ml/min/1.73 sqM) Est GFR (CKD-EPI)NonAf 52 (>60 ml/min/1.73 sqM) Glucose 189 H (74-99) mg/dL Calcium 8.5 (8.4-10.2) mg/dL Magnesium 1.5 L (1.6-2.3) mg/dL Total Bilirubin 1.6 H (0.2-1.3) mg/dL AST 20 (14-36) U/L ALT 25 (4-34) U/L Alkaline Phosphatase 71 (38-126) U/L Troponin I (0.000-0.034) ng/mL NT-Pro-B Natriuret Pep pg/mL Total Protein 5.7 L (6.3-8.2) g/dL Albumin 3.3 L (3.5-5.0) g/dL 01/20/23 01/20/23 Range/Units 12:23 12:23 WBC (3.8-10.6) k/uL RBC (3.80-5.40) m/uL Hgb (11.4-16.0) gm/dL Hct (34.0-46.0) % MCV (80.0-100.0) fL MCH (25.0-35.0) pg MCHC (31.0-37.0) g/dL RDW (11.5-15.5) % Plt Count (150-450) k/uL MPV Neutrophils % % Lymphocytes % % Monocytes % % Eosinophils % % Basophils % % Neutrophils # (1.3-7.7) k/uL Lymphocytes # (1.0-4.8) k/uL Monocytes # (0-1.0) k/uL Eosinophils # (0-0.7) k/uL Basophils # (0-0.2) k/uL Hypochromasia Poikilocytosis Anisocytosis Microcytosis PT (9.0-12.0) sec INR (<1.2) APTT (22.0-30.0) sec Sodium (137-145) mmol/L Potassium (3.5-5.1) mmol/L Chloride (98-107) mmol/L Carbon Dioxide (22-30) mmol/L Anion Gap mmol/L BUN (7-17) mg/dL Creatinine (0.52-1.04) mg/dL Est GFR (CKD-EPI)AfAm (>60 ml/min/1.73 sqM) Est GFR (CKD-EPI)NonAf (>60 ml/min/1.73 sqM) Glucose (74-99) mg/dL Calcium (8.4-10.2) mg/dL Magnesium (1.6-2.3) mg/dL Total Bilirubin (0.2-1.3) mg/dL AST (14-36) U/L ALT (4-34) U/L Alkaline Phosphatase (38-126) U/L Troponin I 0.107 H* (0.000-0.034) ng/mL NT-Pro-B Natriuret Pep 2009 pg/mL Total Protein (6.3-8.2) g/dL Albumin (3.5-5.0) g/dL Critical Care Time Critical Care Time: Yes Total Critical Care Time: 35 Disposition Clinical Impression: Non-STEMI (non-ST elevated myocardial infarction) Disposition: ADMITTED IP TO THIS HOSP Referrals: None,Stated [REFERRING] - 1-2 days Time of Disposition: 14:44
[2023-01-20 12:31] LABS: Anisocytosis Slight; Basophils % (A) 0 %; Eosinophils # (A) 0.2 k/uL (0-0.7); Eosinophils % (A) 2 %; HCT 45.2 % (34.0-46.0); HGB 12.9 gm/dL (11.4-16.0); Hypochromasia Marked; Lymphocytes # (A) 1.5 k/uL (1.0-4.8); Lymphocytes % (A) 13 %; MCH 19.8 pg (25.0-35.0); MCHC 28.6 g/dL (31.0-37.0); MCV 69.3 fL (80.0-100.0); Mean Platelet Volume 8.2; Microcytosis Marked; Monocytes # (A) 0.3 k/uL (0-1.0); Monocytes % (A) 3 %; Neutrophils # (A) 9.1 k/uL (1.3-7.7); Neutrophils % (A) 81 %; Platelet Count 105 k/uL (150-450); Poikilocytosis Slight; RBC 6.52 m/uL (3.80-5.40); RDW 18.1 % (11.5-15.5); WBC 11.2 k/uL (3.8-10.6)
--- NOTE | 2023-01-20 12:42 | XR ---
EXAMINATION TYPE: XR chest 2V DATE OF EXAM: 01/20/2023 12:37 PM COMPARISON: Chest radiographs from 01/02/2023, CTA chest 01/02/2023. TECHNIQUE: XR chest 2V Frontal and lateral views of the chest. CLINICAL INDICATION:Female, 67 years old with history of difficulty breathing; FINDINGS: Lungs/Pleura: There is flattening of the diaphragm with increased lucency of the lungs. No evidence o f pneumothorax, pleural effusion or focal consolidation. Chronic senescent parenchymal change. Pulmonary vascularity: Unremarkable. Heart/mediastinum: Cardiomediastinal silhouette is prominent in size. Atherosclerotic calcifications are seen in the aorta. Musculoskeletal: No acute osseous pathology. Mild degenerative changes of the thoracic spine. IMPRESSION: 1. No acute cardiopulmonary disease process. 2. COPD changes.
[2023-01-20 12:43] LABS: Albumin 3.3 g/dL (3.5-5.0); Calcium 8.5 mg/dL (8.4-10.2); Magnesium 1.5 mg/dL (1.6-2.3); Potassium 3.3 mmol/L (3.5-5.1); Total Bilirubin 1.6 mg/dL (0.2-1.3); Total Protein 5.7 g/dL (6.3-8.2)
[2023-01-20 13:06] LABS: Partial Thromboplastin Time 21.6 sec (22.0-30.0)
[2023-01-20 13:12] LABS: Prothrombin Time 10.9 sec (9.0-12.0)
[2023-01-20] MEDS ORDERED: MAGNESIUM SULFATE-D5W PMX 1 GM in DEXTROSE/WATER 1 100ML.BAG IVPB ONE (13:54)
[2023-01-20] MEDS ORDERED: POTASSIUM CHLORIDE 20 MEQ in WATER FOR INJECTION 1 100ML.BAG IVPB STA (13:54)
[2023-01-20] MEDS ORDERED: POTASSIUM CHLORIDE ER 20 MEQ TAB.ER PO STA (13:54)
[2023-01-20] MEDS ORDERED: HEPARIN SODIUM 1,000 UN/ML (10ML VL) IV ONE (14:35)
[2023-01-20] MEDS ORDERED: NITROGLYCERIN SL TABS 0.4 MG TAB SUBLINGUAL PRN (14:44)
[2023-01-20] MEDS ORDERED: ASPIRIN 81 MG PO STA (14:44)
[2023-01-20] MEDS: HEPARIN SOD,PORK IN 0.45% NACL 25,000 UNIT in 0.45% NACL 1 250ML.BAG IV SCH ×2 (15:31→22:37)
[2023-01-20] MEDS: NITROGLYCERIN OINT 1 INCH/GM PACKET TOPICAL SCH (19:52)
[2023-01-20 20:12] LABS: Glucose,Whole Blood 194 mg/dL (70-110)
[2023-01-20] MEDS ORDERED: ALBUTEROL HFA INHALER INHALATION PRN (20:30)
[2023-01-20] MEDS ORDERED: ACETAMINOPHEN TAB 325 MG TAB PO PRN (20:33)
[2023-01-20] MEDS: amLODIPine 5 MG TAB PO SCH (20:52)
[2023-01-20] MEDS ORDERED: IPRATROPIUM-ALBUTEROL 3 ML NEB INHALATION STA (22:58)
[2023-01-20] MEDS ORDERED: IPRATROPIUM-ALBUTEROL 3 ML NEB INHALATION PRN (22:58)
--- NOTE | 2023-01-20 22:59 | P.HPIM ---
History of Present Illness This is a pleasant 67 years old -French female with past medical history of COPD, hypertension, CVA/TIA Patient presents because of dyspnea of 1 week duration with no coughing on digital dizziness. Patient denies to me any chest pain and she states her chest pain is 0/10 She denies any headache, no weakness or numbness. She denies GI or urinary symptoms, no vomiting diarrhea or abdominal pain, no dysuria or urgency She states that she smokes about 1 pack per day but she quit about 4 weeks ago No alcohol or illicit tracts. 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 She has mild leukocytosis of 11.2, hemoglobin normal at 12.9 and platelet count low of 105 INR is normal 1.0. Potassium 3.3, creatinine 1.1, unknown baseline. Bilirubin is 1.6. Liver enzymes not elevated. Magnesium low 1.5. Troponin is elevated 0.10, 0.06, 0.05. ProBNP slightly elevated at 2010. Chest x-ray, cardiomegaly with pulmonary vascular prominence, hyper inflated chest EKG showing normal sinus rhythm at 81 with frequent supraventricular premature complexes, mild downsloping ST segment in lead 2, lead V3-V6 and emergency room patient was given Lasix and started on heparin drip and aspirin 324 mg Review of Systems Review of systems CONSTITUTIONAL: No fever, no malaise, no fatigue. HEENT: No recent visual problems or hearing problems. Denied any sore throat. CARDIOVASCULAR: No orthopnea, PND, no palpitations, no syncope. PULMONARY: No chest wall tenderness, no hemoptysis. GASTROINTESTINAL: No diarrhea, no nausea, no vomiting, no abdominal pain. Normoactive bowel sounds. NEUROLOGICAL: No headaches, no weakness, no numbness. HEMATOLOGICAL: Denies any bleeding or petechiae. GENITOURINARY: Denies any burning micturition, frequency, or urgency. MUSCULOSKELETAL/RHEUMATOLOGICAL: Denies any joint pain, swelling, or any muscle pain. ENDOCRINE: Denies any polyuria or polydipsia. Past Medical History Past Medical History: COPD, CVA/TIA, Hypertension History of Any Multi-Drug Resistant Organisms: None Reported Past Surgical History: No Surgical Hx Reported Past Anesthesia/Blood Transfusion Reactions: No Reported Reaction Past Psychological History: No Psychological Hx Reported Smoking Status: Current every day smoker Past Alcohol Use History: None Reported Past Drug Use History: Marijuana Medications and Allergies Home Medications Medication Instructions Recorded Confirmed Type Albuterol Inhaler [Ventolin Hfa 1 - 2 puff INHALATION RT-Q6H PRN 01/02/23 01/20/23 History Inhaler] Aspirin EC [Ecotrin Low Dose] 81 mg PO DAILY 01/02/23 01/20/23 History Atorvastatin [Lipitor] 20 mg PO DAILY 01/02/23 01/20/23 History Oxybutynin Chloride 10 mg PO DAILY 01/02/23 01/20/23 History metFORMIN HCL 500 mg PO DAILY 01/02/23 01/20/23 History Budesonide-Formot 160-4.5 Mcg 2 puff INHALATION RT-BID 30 Days 01/05/23 01/20/23 Rx [Symbicort 160-4.5 Mcg Inhaler] #1 each Furosemide [Lasix] 20 mg PO DAILY 30 Days #30 tab 01/05/23 01/20/23 Rx lisinopriL [Zestril] 20 mg PO DAILY 30 Days #30 tab 01/05/23 01/20/23 Rx Allergies Allergy/AdvReac Type Severity Reaction Status Date / Time No Known Allergies Allergy Verified 01/20/23 15:08 Physical Exam Vitals: Vital Signs Temp Pulse Pulse Resp BP BP Pulse Ox 01/20/23 21:40 93 L 01/20/23 18:15 98.1 F 64 18 155/94 93 L 01/20/23 18:00 59 L 18 144/94 96 01/20/23 14:24 68 18 121/81 96 01/20/23 12:43 73 20 147/91 96 01/20/23 12:20 88 L 01/20/23 12:00 24 01/20/23 11:43 98.2 F 102 H 20 164/79 82 L Intake and Output 01/20/23 01/20/23 01/20/23 06:59 14:59 22:59 Intake Total 240 Balance 240 Intake: Oral 240 Other: Weight 74.389 kg GENERAL: The patient is alert and oriented x3, not in any acute distress. Well developed, well nourished. HEENT: Pupils are round and equally reacting to light. EOMI. No scleral icterus. No conjunctival pallor. Normocephalic, atraumatic. No pharyngeal erythema. No thyromegaly. CARDIOVASCULAR: S1 and S2 present. No murmurs, rubs, or gallops. -PULMONARY: Chest is clear to auscultation, mild bilateral scattered wheezing, no crackles. ABDOMEN: Soft, nontender, nondistended, normoactive bowel sounds. No palpable organomegaly. MUSCULOSKELETAL: No joint swelling or deformity. EXTREMITIES: No cyanosis, clubbing, or pedal edema. NEUROLOGICAL: Gross neurological examination did not reveal any focal deficits. SKIN: No rashes. no petechiae. Results CBC & Chem 7: 01/20/23 12:23 01/20/23 12:23 Labs: Abnormal Lab Results - Last 24 Hours (Table) 01/20/23 01/20/23 01/20/23 Range/Units 12:23 12:23 12:23 WBC 11.2 H (3.8-10.6) k/uL RBC 6.52 H (3.80-5.40) m/uL MCV 69.3 L (80.0-100.0) fL MCH 19.8 L (25.0-35.0) pg MCHC 28.6 L (31.0-37.0) g/dL RDW 18.1 H (11.5-15.5) % Plt Count 105 L (150-450) k/uL Neutrophils # 9.1 H (1.3-7.7) k/uL APTT 21.6 L (22.0-30.0) sec Potassium 3.3 L (3.5-5.1) mmol/L BUN 23 H (7-17) mg/dL Creatinine 1.10 H (0.52-1.04) mg/dL Glucose 189 H (74-99) mg/dL POC Glucose (mg/dL) (70-110) mg/dL Magnesium 1.5 L (1.6-2.3) mg/dL Total Bilirubin 1.6 H (0.2-1.3) mg/dL Troponin I (0.000-0.034) ng/mL Total Protein 5.7 L (6.3-8.2) g/dL Albumin 3.3 L (3.5-5.0) g/dL 01/20/23 01/20/23 01/20/23 Range/Units 12:23 16:30 20:11 WBC (3.8-10.6) k/uL RBC (3.80-5.40) m/uL MCV (80.0-100.0) fL MCH (25.0-35.0) pg MCHC (31.0-37.0) g/dL RDW (11.5-15.5) % Plt Count (150-450) k/uL Neutrophils # (1.3-7.7) k/uL APTT (22.0-30.0) sec Potassium (3.5-5.1) mmol/L BUN (7-17) mg/dL Creatinine (0.52-1.04) mg/dL Glucose (74-99) mg/dL POC Glucose (mg/dL) 194 H (70-110) mg/dL Magnesium (1.6-2.3) mg/dL Total Bilirubin (0.2-1.3) mg/dL Troponin I 0.107 H* 0.067 H* (0.000-0.034) ng/mL Total Protein (6.3-8.2) g/dL Albumin (3.5-5.0) g/dL 01/20/23 Range/Units 21:13 WBC (3.8-10.6) k/uL RBC (3.80-5.40) m/uL MCV (80.0-100.0) fL MCH (25.0-35.0) pg MCHC (31.0-37.0) g/dL RDW (11.5-15.5) % Plt Count (150-450) k/uL Neutrophils # (1.3-7.7) k/uL APTT 74.0 H (22.0-30.0) sec Potassium (3.5-5.1) mmol/L BUN (7-17) mg/dL Creatinine (0.52-1.04) mg/dL Glucose (74-99) mg/dL POC Glucose (mg/dL) (70-110) mg/dL Magnesium (1.6-2.3) mg/dL Total Bilirubin (0.2-1.3) mg/dL Troponin I (0.000-0.034) ng/mL Total Protein (6.3-8.2) g/dL Albumin (3.5-5.0) g/dL Assessment and Plan Assessment: Elevated troponin, rule out cardiac causes Acute COPD exacerbation Acute mild hypoxic respiratory failure Nicotine dependence Hypertension History of CVA/TIA Plan: Continue with aspirin Heparin drip Cardiology consult Check echocardiogram Start IV Solu-Medrol Start breathing treatment and to bronchodilator Labs and medication were reviewed.. Continue same treatment. Continue with symptomatic treatment. Resume home medication. Monitor labs and vitals. DVT and GI prophylaxis. Further recommendations as per clinical course of the patient DVT prophylaxis: heparin GI Prophylaxis: Ppi PT/OT: Pending Prognosis is guarded
[2023-01-20] MEDS ORDERED: DEXTROSE 50% SYRINGE 50 ML IVP PRN ×2 (23:00)
[2023-01-20] MEDS ORDERED: Magnesium Replacement Protocol 1 EACH MISC MISCELLANE PRN (23:00)
[2023-01-20] MEDS ORDERED: Potassium Replacement Protocol 1 EACH MISC MISCELLANE PRN (23:00)
[2023-01-21] MEDS: NITROGLYCERIN OINT 1 INCH/GM PACKET TOPICAL SCH ×5 (00:31→23:14)
[2023-01-21] MEDS: methylPREDNISolone SOD SUCCI 40 MG/ML 1 ML VIAL IV SCH ×4 (00:31→23:14)
[2023-01-21 04:27] LABS: African American GFR (CKD) 83 (>60 ml/min/1.73 sqM); Anion Gap 7 mmol/L; Blood Urea Nitrogen 28 mg/dL (7-17); Calcium 8.4 mg/dL (8.4-10.2); Carbon Dioxide 26 mmol/L (22-30); Chloride 105 mmol/L (98-107); Glucose 126 mg/dL (74-99); Non-African American GFR(CKD) 72 (>60 ml/min/1.73 sqM); Potassium 4.6 mmol/L (3.5-5.1); Sodium 138 mmol/L (137-145)
[2023-01-21 04:38] LABS: Anisocytosis Slight; Basophils % (A) 0 %; Eosinophils # (A) 0.1 k/uL (0-0.7); Eosinophils % (A) 0 %; HCT 44.7 % (34.0-46.0); HGB 13.1 gm/dL (11.4-16.0); Hypochromasia Marked; Lymphocytes # (A) 1.4 k/uL (1.0-4.8); Lymphocytes % (A) 12 %; MCH 19.9 pg (25.0-35.0); MCHC 29.3 g/dL (31.0-37.0); MCV 67.7 fL (80.0-100.0); Mean Platelet Volume 9.5; Microcytosis Marked; Monocytes # (A) 0.3 k/uL (0-1.0); Monocytes % (A) 2 %; Neutrophils # (A) 10.2 k/uL (1.3-7.7); Neutrophils % (A) 85 %; Platelet Count 93 k/uL (150-450); Poikilocytosis Slight; RDW 17.7 % (11.5-15.5)
[2023-01-21 06:34] LABS: Glucose,Whole Blood 149 mg/dL (70-110)
[2023-01-21] MEDS: INSULIN ASPART (NovoLOG) 100 UNIT/ML VIAL SQ SCH ×4 (06:34→20:08)
[2023-01-21] MEDS: oxyBUTYnin chloride 5 MG TAB PO SCH (08:37)
[2023-01-21] MEDS: ASPIRIN 81 MG PO SCH (08:37)
[2023-01-21] MEDS: FUROSEMIDE 20 MG TAB PO SCH (08:37)
[2023-01-21] MEDS: lisinopriL 20 MG TAB PO SCH (08:37)
[2023-01-21] MEDS: PANTOPRAZOLE 40 MG/10 ML VIAL IVP SCH (08:38)
[2023-01-21] MEDS ORDERED: ATORVASTATIN 20 MG TAB PO SCH (09:00)
[2023-01-21] MEDS ORDERED: ASPIRIN 325 MG TAB PO SCH (09:00)
[2023-01-21 09:47] LABS: Chol/HDL Ratio 3.19 Ratio; LDL Cholesterol,Calculated 125.9 mg/dL (0.0-131.0); VLDL Calculation 15.62 mg/dL (5.00-40.00)
[2023-01-21 11:40] LABS: Glucose,Whole Blood 177 mg/dL (70-110)
--- NOTE | 2023-01-21 11:48 | P.CRDCN ---
History of Present Illness Consult date: 01/21/23 Requesting physician: Josep Issa Reason for Consult (text): N STEMI Chief complaint: lower extremity edema History of present illness: This is a pleasant 67-year-old female patient with a past history of hypertension, hyperlipidemia, diabetes and COPD. She has a history of nicotine dependence but has not smoked in about 4 weeks. She was recently hospitalized with COPD exacerbation and mild CHF. She was seen by Dr. Chaudhari at that time. During that admission an echocardiogram was done which revealed normal LV systolic function with moderate to severe pulmonary hypertension and moderate tricuspid regurgitation. She was discharged home and been staying with her son. She been feeling fairly well breathing donovan for had been developing some lower extremity edema which prompted her to come to the emergency department for evaluation. Upon presentation her oxygen saturation was 82%. We were asked to see the patient in consultation due to abnormal troponins. Her levels came back at 0.107, 0.067 and 0.057. She denies any complaints of chest discomfort or worsening shortness of breath. In the proBNP was 2009 which is down some from previous admission. Vital signs have been stable. She's been afebrile. She was given one dose of IV Lasix 40 mg and her home Lasix was resumed. She's noticed an improvement in her edema. She's been started on a heparin drip. EKG showed sinus mechanism with PACs and nonspecific ST-T wave abnormalities with a poor baseline. Upon examination she is resting comfortably in bed. She denies any shortness of breath at this time. Her edema has improved. She denies any orthopnea or PND. She denies having any complaints of chest discomfort. She's had no palpitations, lightheadedness or dizziness. Past Medical History Past Medical History: COPD, CVA/TIA, Hypertension History of Any Multi-Drug Resistant Organisms: None Reported Past Surgical History: No Surgical Hx Reported Past Anesthesia/Blood Transfusion Reactions: No Reported Reaction Past Psychological History: No Psychological Hx Reported Smoking Status: Current every day smoker Past Alcohol Use History: None Reported Past Drug Use History: Marijuana Medications and Allergies Home Medications Medication Instructions Recorded Confirmed Type Albuterol Inhaler [Ventolin Hfa 1 - 2 puff INHALATION RT-Q6H PRN 01/02/23 01/20/23 History Inhaler] Aspirin EC [Ecotrin Low Dose] 81 mg PO DAILY 01/02/23 01/20/23 History Atorvastatin [Lipitor] 20 mg PO DAILY 01/02/23 01/20/23 History Oxybutynin Chloride 10 mg PO DAILY 01/02/23 01/20/23 History metFORMIN HCL 500 mg PO DAILY 01/02/23 01/20/23 History Budesonide-Formot 160-4.5 Mcg 2 puff INHALATION RT-BID 30 Days 01/05/23 01/20/23 Rx [Symbicort 160-4.5 Mcg Inhaler] #1 each Furosemide [Lasix] 20 mg PO DAILY 30 Days #30 tab 01/05/23 01/20/23 Rx lisinopriL [Zestril] 20 mg PO DAILY 30 Days #30 tab 01/05/23 01/20/23 Rx Allergies Allergy/AdvReac Type Severity Reaction Status Date / Time No Known Allergies Allergy Verified 01/20/23 15:08 Physical Exam Vitals: Vital Signs Temp Pulse Pulse Resp BP BP Pulse Ox 01/21/23 08:49 97.9 F 57 L 18 140/84 95 01/21/23 04:00 98.3 F 57 L 19 144/84 96 01/21/23 02:00 64 18 01/21/23 00:00 97.6 F 64 18 128/77 92 L 01/20/23 21:40 93 L 01/20/23 20:00 97.8 F 67 18 135/83 92 L 01/20/23 18:15 98.1 F 64 18 155/94 93 L 01/20/23 18:00 59 L 18 144/94 96 01/20/23 14:24 68 18 121/81 96 01/20/23 12:43 73 20 147/91 96 01/20/23 12:20 88 L 01/20/23 12:00 24 01/20/23 11:43 98.2 F 102 H 20 164/79 82 L Intake and Output 01/20/23 01/21/23 01/21/23 22:59 06:59 14:59 Intake Total 303.382 0 Balance 303.382 0 Intake: Intake, IV Titration 63.382 Amount Heparin Sod,Pork in 0.45% 63.382 NaCl 25,000 unit In 0.45 % NaCl 1 250ml.bag @ 12 UNITS/KG/HR 8.927 mls/hr IV .Q24H [facility] Rx#: [id number] Oral 240 0 Other: Voiding Method Toilet Toilet # Voids 1 Weight 74.389 kg 57.6 kg PHYSICAL EXAMINATION: This is a 67-year-old female in no apparent distress at the time of my examination. HEENT: Head is atraumatic, normocephalic. Pupils are equal, round. Sclerae anicteric. Conjunctivae are clear. Mucous membranes of the mouth are moist. Neck is supple. There is no elevated jugular venous pressure. No carotid bruit is heard. CHEST EXAMINATION: Lungs reveal diminished air entry bilaterally with expiratory wheezing throughout. No rales or rhonchi. Respirations even and nonlabored. HEART EXAMINATION: Heart regular, positive S1 and S2. No S3. No S4. No clicks, rubs or murmurs. ABDOMEN: Soft, nontender. Bowel sounds are heard. No organomegaly noted. EXTREMITIES: 2+ peripheral pulses with evidence of trace peripheral edema and no calf tenderness noted. NEUROLOGIC EXAMINATION: Patient is awake, alert and oriented x3. Results 01/21/23 03:50 01/21/23 03:50 Cardiac Enzymes 01/20/23 01/20/23 01/20/23 Range/Units 12:23 12:23 16:30 AST 20 (14-36) U/L Troponin I 0.107 H* 0.067 H* (0.000-0.034) ng/mL 01/20/23 Range/Units 21:13 AST (14-36) U/L Troponin I 0.057 H* (0.000-0.034) ng/mL Coagulation 01/20/23 01/20/23 01/21/23 Range/Units 12:23 21:13 03:50 PT 10.9 (9.0-12.0) sec APTT 21.6 L 74.0 H 63.6 H (22.0-30.0) sec Lipids 01/21/23 Range/Units 03:50 Triglycerides 78.10 (0.00-149.00) mg/dL Cholesterol 206.00 H (0.00-200.00) mg/dL HDL Cholesterol 64.50 H (40.00-60.00) mg/dL Cholesterol/HDL Ratio 3.19 Ratio CBC 01/20/23 01/21/23 Range/Units 12:23 03:50 WBC 11.2 H 12.0 H (3.8-10.6) k/uL RBC 6.52 H 6.60 H (3.80-5.40) m/uL Hgb 12.9 13.1 (11.4-16.0) gm/dL Hct 45.2 44.7 (34.0-46.0) % Plt Count 105 L 93 L (150-450) k/uL Comprehensive Metabolic Panel 01/20/23 01/21/23 Range/Units 12: 03:50 Sodium 141 138 (137-145) mmol/L Potassium 3.3 L 4.6 (3.5-5.1) mmol/L Chloride 106 105 (98-107) mmol/L Carbon Dioxide 26 26 (22-30) mmol/L BUN 23 H 28 H (7-17) mg/dL Creatinine 1.10 H 0.84 (0.52-1.04) mg/dL Glucose 189 H 126 H (74-99) mg/dL Calcium 8.5 8.4 (8.4-10.2) mg/dL AST 20 (14-36) U/L ALT 25 (4-34) U/L Alkaline Phosphatase 71 (38-126) U/L Total Protein 5.7 L (6.3-8.2) g/dL Albumin 3.3 L (3.5-5.0) g/dL Current Medications Generic Name Dose Route Start Last Admin Trade Name Freq PRN Reason Stop Dose Admin Acetaminophen 650 mg 01/20/23 20:33 Acetaminophen Tab 325 Mg Tab PO Q6HR PRN Fever and/ or Pain Albuterol Sulfate 1 puff 01/20/23 20:30 Albuterol Hfa Inhaler INHALATION RT-Q6H PRN Shortness Of Breath Albuterol/Ipratropium 3 ml 01/20/23 22:58 Ipratropium-Albuterol 3 Ml Neb INHALATION RT-QID PRN Shortness Of Breath Or Wheezing Amlodipine Besylate 5 mg 01/20/23 21:00 01/20/23 20:52 Amlodipine 5 Mg Tab PO 5 mg HS [facility] Administration Aspirin 81 mg 01/21/23 09:00 01/21/23 08:37 Aspirin 81 Mg PO 81 mg DAILY [facility] Administration Atorvastatin Calcium 20 mg 01/21/23 09:00 01/21/23 08:37 Atorvastatin 20 Mg Tab PO 20 mg DAILY [facility] Administration Budesonide/Formoterol Fumarate 2 puff 01/21/23 08:00 Symbicort 160-4.5 Mcg Inhaler INHALATION RT-BID [facility] Dextrose/Water 25 ml 01/20/23 23:00 Dextrose 50% Syringe 50 Ml IVP PER PROTOCOL PRN Hypoglycemia Protocol Dextrose/Water 50 ml 01/20/23 23:00 Dextrose 50% Syringe 50 Ml IVP PER PROTOCOL PRN Hypoglycemia Protocol Furosemide 20 mg 01/21/23 09:00 01/21/23 08:37 Furosemide 20 Mg Tab PO 20 mg DAILY [facility] Administration Heparin Sodium/Sodium Chloride 250 mls @ 8.927 mls/hr 01/20/23 14:45 01/20/23 22:37 25,000 unit/ Sodium Chloride IV 10 units/kg/hr .Q24H [facility] 7.439 mls/hr Administration Protocol 12 UNITS/KG/HR Insulin Aspart 0 unit 01/21/23 07:30 01/21/23 06:34 Insulin Aspart (Novolog) 100 Unit/Ml Vial SQ Not Given ACHS [facility] Protocol Lisinopril 20 mg 01/21/23 09:00 01/21/23 08:37 Lisinopril 20 Mg Tab PO 20 mg DAILY [facility] Administration Methylprednisolone Sodium Succinate 40 mg 01/21/23 00:00 01/21/23 08:37 Methylprednisolone Sod Succi 40 Mg/Ml 1 Ml Vial IV 40 mg Q8HR [facility] Administration Miscellaneous Information 1 each 01/20/23 23:00 Potassium Replacement Protocol 1 Each Misc MISCELLANE DAILY PRN Per Protocol Protocol Miscellaneous Information 1 each 01/20/23 23:00 Magnesium Replacement Protocol 1 Each Misc MISCELLANE DAILY PRN Per Protocol Protocol Nitroglycerin 0.4 mg 01/20/23 14:44 Nitroglycerin Sl Tabs 0.4 Mg Tab SUBLINGUAL Q5M PRN Chest Pain Nitroglycerin 1 inch 01/20/23 18:00 01/21/23 06:36 Nitroglycerin Oint 1 Inch/Gm Packet TOPICAL 1 inch Q6HR [facility] Administration Oxybutynin Chloride 10 mg 01/21/23 09:00 01/21/23 08:37 Oxybutynin Chloride 5 Mg Tab PO 10 mg DAILY [facility] Administration Pantoprazole Sodium 40 mg 01/21/23 09:00 01/21/23 08:38 Pantoprazole 40 Mg/10 Ml Vial IVP 40 mg DAILY [facility] Administration Intake and Output 01/20/23 01/21/23 01/21/23 22:59 06:59 14:59 Intake Total 303.382 0 Balance 303.382 0 Intake: Intake, IV Titration 63.382 Amount Heparin Sod,Pork in 0.45% 63.382 NaCl 25,000 unit In 0.45 % NaCl 1 250ml.bag @ 12 UNITS/KG/HR 8.927 mls/hr IV .Q24H [facility] Rx#: [id number] Oral 240 0 Other: Voiding Method Toilet Toilet # Voids 1 Weight 74.389 kg 57.6 kg 01/21/23 03:50 01/21/23 03:50 Assessment and Plan Assessment: #1 elevated troponins of unclear significance could be secondary to type II event however significant underlying CAD cannot be entirely excluded at this time #2 lower extremity edema, mostly resolved after one dose of IV Lasix, NT proBNP lower than previous admission patient appears to be euvolemic at this time #3 COPD #4 hypertension #5 hyperlipidemia #6 diabetes Plan: From cardiology's perspective we will continue IV heparin for now. Increase the patient's activity. Continue aspirin and increase the dose of simvastatin. We will keep the patient nothing by mouth after midnight. Depending on her symptoms and clinical status further recommendations will be made. FINISH MIXER note has been reviewed, I agree with a documented findings and plan of care. Patient was seen and examined.
[2023-01-21] MEDS: SYMBICORT 160-4.5 MCG INHALER INHALATION SCH ×2 (12:34→20:58)
[2023-01-21 16:25] LABS: Glucose,Whole Blood 199 mg/dL (70-110)
--- NOTE | 2023-01-21 16:52 | P.PN ---
Subjective This is a pleasant 67 years old -[place] female with past medical history of COPD, hypertension, CVA/TIA Patient presents because of dyspnea of 1 week duration with no coughing on digital dizziness. Patient denies to me any chest pain and she states her chest pain is 0/10 She denies any headache, no weakness or numbness. She denies GI or urinary symptoms, no vomiting diarrhea or abdominal pain, no dysuria or urgency She states that she smokes about 1 pack per day but she quit about 4 weeks ago No alcohol or illicit tracts. 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 She has mild leukocytosis of 11.2, hemoglobin normal at 12.9 and platelet count low of 105 INR is normal 1.0. Potassium 3.3, creatinine 1.1, unknown baseline. Bilirubin is 1.6. Liver enzymes not elevated. Magnesium low 1.5. Troponin is elevated 0.10, 0.06, 0.05. ProBNP slightly elevated at 2010. Chest x-ray, cardiomegaly with pulmonary vascular prominence, hyper inflated chest EKG showing normal sinus rhythm at 81 with frequent supraventricular premature complexes, mild downsloping ST segment in lead 2, lead V3-V6 and emergency room patient was given Lasix and started on heparin drip and aspirin 324 mg 01/21/2023 Patient breathing improving slowly and gradually. No chest pain, no coughing, no new complaints Vital signs stable. Custom Motorcycle Painter recommended to keep the patient on heparin drip, increase activity and keep nothing by mouth overnight for further assessment in the morning Her breathing is improving and she has less wheezing but still has limited air entry, therefore we'll keep on IV Solu-Medrol 40 mg. Today she confirms to me that her PCP is Dr. Terrance montero from [place] and she was visiting her son in [place] when this happened to her. Objective - Vital Signs Vital signs: Vital Signs Temp 97.7 F 01/21/23 15:34 Pulse 60 01/21/23 15:34 Resp 18 01/21/23 15:34 BP 122/74 01/21/23 15:34 Pulse Ox 95 01/21/23 15:34 FiO2 Intake & Output 01/20/23 01/21/23 01/21/23 18:59 06:59 18:59 Intake Total 240 63.382 240 Balance 240 63.382 240 Weight 74.389 kg 57.6 kg Intake: Intake, IV Titration 63.382 Amount Heparin Sod,Pork in 0.45% 63.382 NaCl 25,000 unit In 0.45 % NaCl 1 250ml.bag @ 12 UNITS/KG/HR 8.927 mls/hr IV .Q24H [facility] Rx#: [id number] Oral 240 0 240 Other: Voiding Method Toilet Toilet # Voids 1 - Exam GENERAL: The patient is alert and oriented x3, not in any acute distress. Well developed, well nourished. HEENT: Pupils are round and equally reacting to light. EOMI. No scleral icterus. No conjunctival pallor. Normocephalic, atraumatic. No pharyngeal erythema. No thyromegaly. CARDIOVASCULAR: S1 and S2 present. No murmurs, rubs, or gallops. -PULMONARY: Chest is clear to auscultation, no crackles. Decreased air entry with scattered wheezing the tachypneic ABDOMEN: Soft, nontender, nondistended, normoactive bowel sounds. No palpable organomegaly. MUSCULOSKELETAL: No joint swelling or deformity. EXTREMITIES: No cyanosis, clubbing, or pedal edema. NEUROLOGICAL: Gross neurological examination did not reveal any focal deficits. SKIN: No rashes. no petechiae. - Labs CBC & Chem 7: 01/21/23 03:50 01/21/23 03:50 Labs: Abnormal Lab Results - Last 24 Hours (Table) 01/20/23 01/20/23 01/20/23 Range/Units 16:30 20:11 21:13 WBC (3.8-10.6) k/uL RBC (3.80-5.40) m/uL MCV (80.0-100.0) fL MCH (25.0-35.0) pg MCHC (31.0-37.0) g/dL RDW (11.5-15.5) % Plt Count (150-450) k/uL Neutrophils # (1.3-7.7) k/uL APTT (22.0-30.0) sec BUN (7-17) mg/dL Glucose (74-99) mg/dL POC Glucose (mg/dL) 194 H (70-110) mg/dL Troponin I 0.067 H* 0.057 H* (0.000-0.034) ng/mL Cholesterol (0.00-200.00) mg/dL HDL Cholesterol (40.00-60.00) mg/dL 01/20/23 01/21/23 01/21/23 Range/Units 21:13 03:50 03:50 WBC 12.0 H (3.8-10.6) k/uL RBC 6.60 H (3.80-5.40) m/uL MCV 67.7 L (80.0-100.0) fL MCH 19.9 L (25.0-35.0) pg MCHC 29.3 L (31.0-37.0) g/dL RDW 17.7 H (11.5-15.5) % Plt Count 93 L (150-450) k/uL Neutrophils # 10.2 H (1.3-7.7) k/uL APTT 74.0 H (22.0-30.0) sec BUN 28 H (7-17) mg/dL Glucose 126 H (74-99) mg/dL POC Glucose (mg/dL) (70-110) mg/dL Troponin I (0.000-0.034) ng/mL Cholesterol 206.00 H (0.00-200.00) mg/dL HDL Cholesterol 64.50 H (40.00-60.00) mg/dL 01/21/23 01/21/23 01/21/23 Range/Units 03:50 06:33 11:38 WBC (3.8-10.6) k/uL RBC (3.80-5.40) m/uL MCV (80.0-100.0) fL MCH (25.0-35.0) pg MCHC (31.0-37.0) g/dL RDW (11.5-15.5) % Plt Count (150-450) k/uL Neutrophils # (1.3-7.7) k/uL APTT 63.6 H (22.0-30.0) sec BUN (7-17) mg/dL Glucose (74-99) mg/dL POC Glucose (mg/dL) 149 H 177 H (70-110) mg/dL Troponin I (0.000-0.034) ng/mL Cholesterol (0.00-200.00) mg/dL HDL Cholesterol (40.00-60.00) mg/dL 01/21/23 Range/Units 16:23 WBC (3.8-10.6) k/uL RBC (3.80-5.40) m/uL MCV (80.0-100.0) fL MCH (25.0-35.0) pg MCHC (31.0-37.0) g/dL RDW (11.5-15.5) % Plt Count (150-450) k/uL Neutrophils # (1.3-7.7) k/uL APTT (22.0-30.0) sec BUN (7-17) mg/dL Glucose (74-99) mg/dL POC Glucose (mg/dL) 199 H (70-110) mg/dL Troponin I (0.000-0.034) ng/mL Cholesterol (0.00-200.00) mg/dL HDL Cholesterol (40.00-60.00) mg/dL Assessment and Plan Assessment: Elevated troponin, rule out cardiac causes Acute COPD exacerbation Acute mild hypoxic respiratory failure Nicotine dependence Hypertension History of CVA/TIA Plan: Continue with aspirin Heparin drip Cardiology consult Start IV Solu-Medrol Start breathing treatment and to bronchodilator Labs and medication were reviewed.. Continue same treatment. Continue with symptomatic treatment. Resume home medication. Monitor labs and vitals. DVT and GI prophylaxis. Further recommendations as per clinical course of the patient DVT prophylaxis: heparin GI Prophylaxis: Ppi PT/OT: Pending Prognosis is guarded
[2023-01-21 20:04] LABS: Glucose,Whole Blood 144 mg/dL (70-110)
[2023-01-21] MEDS: HEPARIN SOD,PORK IN 0.45% NACL 25,000 UNIT in 0.45% NACL 1 250ML.BAG IV SCH (20:23)
[2023-01-21] MEDS: amLODIPine 5 MG TAB PO SCH (20:29)
[2023-01-22 06:04] LABS: Glucose,Whole Blood 213 mg/dL (70-110)
[2023-01-22] MEDS: INSULIN ASPART (NovoLOG) 100 UNIT/ML VIAL SQ SCH ×4 (06:12→20:19)
[2023-01-22] MEDS: NITROGLYCERIN OINT 1 INCH/GM PACKET TOPICAL SCH (06:12)
[2023-01-22 08:02] LABS: Anisocytosis Slight; Basophils % (A) 0 %; Eosinophils % (A) 0 %; HCT 43.7 % (34.0-46.0); HGB 13.4 gm/dL (11.4-16.0); Hypochromasia Marked; Lymphocytes # (A) 1.2 k/uL (1.0-4.8); Lymphocytes % (A) 7 %; MCH 20.5 pg (25.0-35.0); MCHC 30.6 g/dL (31.0-37.0); MCV 67.1 fL (80.0-100.0); Mean Platelet Volume 9.7; Microcytosis Marked; Monocytes # (A) 0.4 k/uL (0-1.0); Monocytes % (A) 3 %; Neutrophils # (A) 15.2 k/uL (1.3-7.7); Neutrophils % (A) 89 %; Poikilocytosis Slight; RBC 6.51 m/uL (3.80-5.40); RDW 17.6 % (11.5-15.5)
[2023-01-22 08:03] LABS: Platelet Count 94 k/uL (150-450)
[2023-01-22] MEDS: oxyBUTYnin chloride 5 MG TAB PO SCH (08:29)
[2023-01-22] MEDS: ATORVASTATIN 40 MG TAB PO SCH (08:29)
[2023-01-22] MEDS: methylPREDNISolone SOD SUCCI 40 MG/ML 1 ML VIAL IV SCH ×3 (08:29→23:09)
[2023-01-22] MEDS: ASPIRIN 81 MG PO SCH (08:29)
[2023-01-22] MEDS: PANTOPRAZOLE 40 MG/10 ML VIAL IVP SCH (08:29)
[2023-01-22] MEDS: FUROSEMIDE 20 MG TAB PO SCH (08:29)
[2023-01-22] MEDS: lisinopriL 20 MG TAB PO SCH (08:29)
[2023-01-22] MEDS: SYMBICORT 160-4.5 MCG INHALER INHALATION SCH ×2 (09:19→17:07)
[2023-01-22 11:27] LABS: Glucose,Whole Blood 221 mg/dL (70-110)
--- NOTE | 2023-01-22 11:30 | P.PN ---
Subjective Progress Note Date: 01/22/23 PROGRESS NOTE The patient is a 67-year-old female with known history of diabetes, hypertension and hyperlipidemia who presented with mild edema. She had mild troponin elevation. She is feeling well this morning, denying any chest pain, dizziness or palpitations. She had elevation of her WBC today but she denies any significant cough. She is afebrile. She denies any nausea or vomiting. Her left ventricle systolic function was normal in the past and she had moderate severe pulmonary hypertension and moderate tricuspid regurgitation. Medications: Amlodipine 5 mg daily, Lipitor 40 mg daily, furosemide 20 mg daily, lisinopril 20 mg daily, Nitropaste, aspirin once a day PHYSICAL EXAMINATION: Blood pressure 135/70 heart rate 80 LUNGS: Decreased breath sounds HEART: Regular rate and rhythm, S1, S2. No S3. systolic ejection murmur ABDOMEN: Soft, nontender, no organomegaly EXTREMETIES: No edema LAB: WBC 17,000, hemoglobin 13.4 IMPRESSION: 1. History of COPD 2. Leukocytosis, could be related to the steroids 3. Mild troponin elevation rule out ischemic heart disease versus type II myocardial infarction 4. Hypertension PLAN: 1. I will hold on cardiac catheterization at this time to make sure she has no infectious process 2. Follow up CBC 3. Continue present therapy 4. Depending on her progress further recommendations will be made Objective - Vital Signs Vital signs: Vital Signs Temp 98.0 F 01/22/23 08:39 Pulse 85 01/22/23 08:39 Resp 18 01/22/23 08:39 BP 152/88 01/22/23 08:39 Pulse Ox 89 L 01/22/23 09:21 FiO2 Intake & Output 01/21/23 01/22/23 01/22/23 18:59 06:59 18:59 Intake Total 240 721.922 Balance 240 721.922 Intake: Intake, IV Titration 161.922 Amount Heparin Sod,Pork in 0.45% 161.922 NaCl 25,000 unit In 0.45 % NaCl 1 250ml.bag @ 12 UNITS/KG/HR 8.927 mls/hr IV .Q24H [facility] Rx#: [id number] Oral 240 560 Other: Voiding Method Toilet Toilet Toilet # Voids 3 2 # Bowel Movements 1 - Labs CBC & Chem 7: 01/22/23 07:10 01/21/23 03:50 Labs: Abnormal Lab Results - Last 24 Hours (Table) 01/21/23 01/21/23 01/21/23 Range/Units 11:38 16:23 20:02 WBC (3.8-10.6) k/uL RBC (3.80-5.40) m/uL MCV (80.0-100.0) fL MCH (25.0-35.0) pg MCHC (31.0-37.0) g/dL RDW (11.5-15.5) % Plt Count (150-450) k/uL Neutrophils # (1.3-7.7) k/uL APTT (22.0-30.0) sec POC Glucose (mg/dL) 177 H 199 H 144 H (70-110) mg/dL 01/22/23 01/22/23 01/22/23 Range/Units 06:03 07:10 07:10 WBC 17.0 H (3.8-10.6) k/uL RBC 6.51 H (3.80-5.40) m/uL MCV 67.1 L (80.0-100.0) fL MCH 20.5 L (25.0-35.0) pg MCHC 30.6 L (31.0-37.0) g/dL RDW 17.6 H (11.5-15.5) % Plt Count 94 L (150-450) k/uL Neutrophils # 15.2 H (1.3-7.7) k/uL APTT 57.0 H (22.0-30.0) sec POC Glucose (mg/dL) 213 H (70-110) mg/dL
[2023-01-22 16:41] LABS: Glucose,Whole Blood 146 mg/dL (70-110)
--- NOTE | 2023-01-22 16:59 | P.PN ---
Subjective This is a pleasant 67 years old -[place] female with past medical history of COPD, hypertension, CVA/TIA Patient presents because of dyspnea of 1 week duration with no coughing on digital dizziness. Patient denies to me any chest pain and she states her chest pain is 0/10 She denies any headache, no weakness or numbness. She denies GI or urinary symptoms, no vomiting diarrhea or abdominal pain, no dysuria or urgency She states that she smokes about 1 pack per day but she quit about 4 weeks ago No alcohol or illicit tracts. She's not on home oxygen and she does not follow up with door person On examination she was mildly tachycardic and saturating 82-88% on room air. She has mild leukocytosis of 11.2, hemoglobin normal at 12.9 and platelet count low of 105 INR is normal 1.0. Potassium 3.3, creatinine 1.1, unknown baseline. Bilirubin is 1.6. Liver enzymes not elevated. Magnesium low 1.5. Troponin is elevated 0.10, 0.06, 0.05. ProBNP slightly elevated at 2010. Chest x-ray, cardiomegaly with pulmonary vascular prominence, hyper inflated chest EKG showing normal sinus rhythm at 81 with frequent supraventricular premature complexes, mild downsloping ST segment in lead 2, lead V3-V6 and emergency room patient was given Lasix and started on heparin drip and aspirin 324 mg 01/21/2023 Patient breathing improving slowly and gradually. No chest pain, no coughing, no new complaints Vital signs stable. Wire Spinner recommended to keep the patient on heparin drip, increase activity and keep nothing by mouth overnight for further assessment in the morning Her breathing is improving and she has less wheezing but still has limited air entry, therefore we'll keep on IV Solu-Medrol 40 mg. Today she confirms to me that her PCP is Dr. Terrance montero from [place] and she was visiting her son in [place] when this happened to her. 01/22/2023 Patient feels fine today and she feels improvement and she wants to go home, I explained for this patient she is not ready for discharge at, she still have wheezing although improving and she still have exertional dyspnea. However she denies chest pain. She remains on heparin drip and Solu-Medrol 40 mg every 8 hours. She has leukocytosis 17,000 secondary to steroid effect. [employer]udential started 0.03. We will add doxycycline Defer cardiac cath management, cardiology team Objective - Vital Signs Vital signs: Vital Signs Temp 98.0 F 01/22/23 08:39 Pulse 85 01/22/23 08:39 Resp 18 01/22/23 08:39 BP 152/88 01/22/23 08:39 Pulse Ox 96 01/22/23 08:39 FiO2 Intake & Output 01/21/23 01/22/23 01/22/23 18:59 06:59 18:59 Intake Total 240 721.922 Balance 240 721.922 Intake: Intake, IV Titration 161.922 Amount Heparin Sod,Pork in 0.45% 161.922 NaCl 25,000 unit In 0.45 % NaCl 1 250ml.bag @ 12 UNITS/KG/HR 8.927 mls/hr IV .Q24H [facility] Rx#: [id number] Oral 240 560 Other: Voiding Method Toilet Toilet # Voids 3 2 # Bowel Movements 1 - Exam GENERAL: The patient is alert and oriented x3, not in any acute distress. Well developed, well nourished. HEENT: Pupils are round and equally reacting to light. EOMI. No scleral icterus. No conjunctival pallor. Normocephalic, atraumatic. No pharyngeal erythema. No thyromegaly. CARDIOVASCULAR: S1 and S2 present. No murmurs, rubs, or gallops. -PULMONARY: Chest is clear to auscultation, no crackles. Decreased air entry with scattered wheezing the tachypneic ABDOMEN: Soft, nontender, nondistended, normoactive bowel sounds. No palpable organomegaly. MUSCULOSKELETAL: No joint swelling or deformity. EXTREMITIES: No cyanosis, clubbing, or pedal edema. NEUROLOGICAL: Gross neurological examination did not reveal any focal deficits. SKIN: No rashes. no petechiae. - Labs CBC & Chem 7: 01/22/23 07:10 01/21/23 03:50 Labs: Abnormal Lab Results - Last 24 Hours (Table) 01/21/23 01/21/23 01/21/23 Range/Units 03:50 11:38 16:23 WBC (3.8-10.6) k/uL RBC (3.80-5.40) m/uL MCV (80.0-100.0) fL MCH (25.0-35.0) pg MCHC (31.0-37.0) g/dL RDW (11.5-15.5) % Plt Count (150-450) k/uL Neutrophils # (1.3-7.7) k/uL APTT (22.0-30.0) sec POC Glucose (mg/dL) 177 H 199 H (70-110) mg/dL Cholesterol 206.00 H (0.00-200.00) mg/dL HDL Cholesterol 64.50 H (40.00-60.00) mg/dL 01/21/23 01/22/23 01/22/23 Range/Units 20:02 06:03 07:10 WBC (3.8-10.6) k/uL RBC (3.80-5.40) m/uL MCV (80.0-100.0) fL MCH (25.0-35.0) pg MCHC (31.0-37.0) g/dL RDW (11.5-15.5) % Plt Count (150-450) k/uL Neutrophils # (1.3-7.7) k/uL APTT 57.0 H (22.0-30.0) sec POC Glucose (mg/dL) 144 H 213 H (70-110) mg/dL Cholesterol (0.00-200.00) mg/dL HDL Cholesterol (40.00-60.00) mg/dL 01/22/23 Range/Units 07:10 WBC 17.0 H (3.8-10.6) k/uL RBC 6.51 H (3.80-5.40) m/uL MCV 67.1 L (80.0-100.0) fL MCH 20.5 L (25.0-35.0) pg MCHC 30.6 L (31.0-37.0) g/dL RDW 17.6 H (11.5-15.5) % Plt Count 94 L (150-450) k/uL Neutrophils # 15.2 H (1.3-7.7) k/uL APTT (22.0-30.0) sec POC Glucose (mg/dL) (70-110) mg/dL Cholesterol (0.00-200.00) mg/dL HDL Cholesterol (40.00-60.00) mg/dL Assessment and Plan Assessment: Elevated troponin, rule out cardiac causes Acute COPD exacerbation Acute mild hypoxic respiratory failure Nicotine dependence Hypertension History of CVA/TIA Plan: Continue with aspirin Heparin drip Cardiology consult Start IV Solu-Medrol At doxycycline Start breathing treatment and to bronchodilator Labs and medication were reviewed.. Continue same treatment. Continue with symptomatic treatment. Resume home medication. Monitor labs and vitals. DVT and GI prophylaxis. Further recommendations as per clinical course of the patient DVT prophylaxis: heparin GI Prophylaxis: Ppi PT/OT: Pending Prognosis is guarded
[2023-01-22 20:11] LABS: Glucose,Whole Blood 278 mg/dL (70-110)
[2023-01-22] MEDS: amLODIPine 5 MG TAB PO SCH (20:19)
[2023-01-22] MEDS: DOXYCYCLINE 100 MG in SODIUM CHLORIDE 0.9% 100 ML IVPB SCH (20:19)
[2023-01-23 06:20] LABS: Glucose,Whole Blood 182 mg/dL (70-110)
[2023-01-23] MEDS: INSULIN ASPART (NovoLOG) 100 UNIT/ML VIAL SQ SCH ×3 (06:25→18:00)
[2023-01-23 08:26] LABS: Anisocytosis Slight; Basophils % (A) 0 %; Eosinophils % (A) 0 %; HCT 48.6 % (34.0-46.0); HGB 14.2 gm/dL (11.4-16.0); Hypochromasia Marked; Lymphocytes # (A) 1.6 k/uL (1.0-4.8); Lymphocytes % (A) 9 %; MCH 19.9 pg (25.0-35.0); MCHC 29.2 g/dL (31.0-37.0); Mean Platelet Volume 8.6; Microcytosis Marked; Monocytes # (A) 0.5 k/uL (0-1.0); Monocytes % (A) 3 %; Neutrophils # (A) 16.2 k/uL (1.3-7.7); Neutrophils % (A) 87 %; Platelet Count 102 k/uL (150-450); Poikilocytosis Slight; RDW 17.5 % (11.5-15.5); WBC 18.6 k/uL (3.8-10.6)
[2023-01-23 08:31] LABS: Calcium 9.5 mg/dL (8.4-10.2); Potassium 4.6 mmol/L (3.5-5.1)
[2023-01-23] MEDS: SYMBICORT 160-4.5 MCG INHALER INHALATION SCH (08:42)
[2023-01-23 09:12] LABS: RBC 7.14 m/uL (3.80-5.40)
[2023-01-23] MEDS: oxyBUTYnin chloride 5 MG TAB PO SCH (10:16)
[2023-01-23] MEDS: ATORVASTATIN 40 MG TAB PO SCH (10:16)
[2023-01-23] MEDS: ASPIRIN 81 MG PO SCH (10:16)
[2023-01-23] MEDS: DOXYCYCLINE 100 MG in SODIUM CHLORIDE 0.9% 100 ML IVPB SCH (10:17)
[2023-01-23] MEDS: lisinopriL 20 MG TAB PO SCH (10:17)
[2023-01-23] MEDS: FUROSEMIDE 20 MG TAB PO SCH (10:17)
[2023-01-23] MEDS: PANTOPRAZOLE 40 MG/10 ML VIAL IVP SCH (10:18)
[2023-01-23 11:37] LABS: Glucose,Whole Blood 219 mg/dL (70-110)
[2023-01-23] MEDS: methylPREDNISolone SOD SUCCI 40 MG/ML 1 ML VIAL IV SCH ×2 (12:05→17:52)
--- NOTE | 2023-01-23 13:59 | P.PN ---
Subjective Progress Note Date: 01/23/23 PROGRESS NOTE The patient is a 67-year-old female with known history of diabetes, hypertension and hyperlipidemia who presented with mild edema. She had mild troponin elevation. She is feeling well this morning, denying any chest pain, dizziness or palpitations. She denies any shortness of breath. Patient is afebrile. She denies any nausea or vomiting. Echocardiogram performed 01/03/2023 revealed n ormal LV systolic function, moderate to severe pulmonary hypertension, mild mitral regurgitation. Medications: Amlodipine 5 mg daily, Lipitor 40 mg daily, furosemide 20 mg daily, lisinopril 20 mg daily, aspirin once a day PHYSICAL EXAMINATION: Blood pressure 135/70 heart rate 80 LUNGS: Decreased breath sounds HEART: Regular rate and rhythm, S1, S2. No S3. systolic ejection murmur ABDOMEN: Soft, nontender, no organomegaly EXTREMETIES: No edema LAB: WBC 18,600, hemoglobin 14.2. The 128 and creatinine 0.91, sodium 136, potassium 4.6. IMPRESSION: 1. History of COPD 2. Leukocytosis, could be related to the steroids 3. Mild troponin elevation rule out ischemic heart disease versus type II my ocardial infarction 4. Hypertension PLAN: Hold on cardiac catheterization at this time to make sure she has no infectious process Continue present therapy Obtain repeat EKG and if this is unremarkable, patient may be discharged home later today and follow-up in the office for further ischemic workup. Nurse practitioner note has been reviewed, I agree with the documented findings and plan of care. Patient was seen and examined. Objective - Vital Signs Vital signs: Vital Signs Temp 98 F 01/22/23 20:00 Pulse 56 L 01/23/23 04:00 Resp 18 01/23/23 04:00 BP 114/58 01/23/23 04:00 Pulse Ox 93 L 01/23/23 04:00 FiO2 Intake & Output 01/22/23 01/23/23 01/23/23 18:59 06:59 18:59 Intake Total 318 Balance 318 Intake: Oral 318 Other: Voiding Method Toilet Toilet # Voids 3 - Labs CBC & Chem 7: 01/23/23 07:33 01/23/23 07:33 Labs: Abnormal Lab Results - Last 24 Hours (Table) 01/22/23 01/22/23 01/22/23 Range/Units 11:23 16:37 20:09 POC Glucose (mg/dL) 221 H 146 H 278 H (70-110) mg/dL 01/23/23 Range/Units 06:18 POC Glucose (mg/dL) 182 H (70-110) mg/dL
[2023-01-23 15:15] VITALS: RESP 16
[2023-01-23 16:31] LABS: Glucose,Whole Blood 246 mg/dL (70-110)
[2023-01-23 17:18] VITALS: BP 117/57; PULSE 66; TEMP 98.2
--- NOTE | 2023-01-24 16:03 | P.DS ---
Providers Date of admission: 01/20/23 14:45 Expected date of discharge: 01/23/23 Attending physician: Josep Issa MD Consults: 01/20/23 14:44 Consult Physician Urgent Consulting Provider: [facility] Consult Reason/Comments: N STEMI Do you want consulting provider notified?: Yes Primary care physician: Physician Nonstaff Hospital Course: Final diagnosis Elevated troponin, ruled out ACS Acute COPD exacerbation Acute mild hypoxic respiratory failure secondary to COPD exacerbation Continued ongoing Nicotine dependence Hypertension History of CVA/TIA Discharge disposition Patient is being discharged in a stable condition with guarded prognosis to home . Patient will follow-up with her primary care provider in [place] in the outpatient setting upon discharge. Patient is to follow-up with pulmonary and cardiology outpatient as scheduled. Patient has been staying here in town visiting her son and prefers to follow-up outpatient at home. Total time taken is greater than 35 minutes. Hospital course This is a 67-year-old female who was recently admitted with increased shortness of breath for COPD exacerbation. Patient evaluated by cardiology and pulmonary as patient did have some mildly elevated troponins and ACS was ruled out. Patient also evaluated by pulmonary maintained on steroids along with breathing treatments and has been cleared by consultations for discharge. Patient feels well and would like to go home. Patient reports does not want to undergo stress test or cardiac catheterization at this time and will follow-up outpatient. Please refer to consultation notes for further HPI. Currently no reports of chest pain, shortness of breath, or palpitations. Patient is afebrile. No reports of nausea or vomiting and patient is tolerating diet. Patient will be discharged home today. Guarded prognosis. Physical exam: Gen: This is a 67-year-old female who is awake, alert and oriented 3, well- developed, well-nourished HEENT: Head is atraumatic, normocephalic. Pupils equal, round. Sclerae is anicteric. NECK: Supple. No JVD. No lymphadenopathy. No thyromegaly. LUNGS: Diminished breath sounds bilaterally with some scattered rhonchi noted. No intercostal retractions. HEART: S1, S2 are muffled ABDOMEN: Soft. Bowel sounds are present. No masses. No tenderness. EXTREMITIES: No pedal edema. No calf tenderness. NEUROLOGICAL: Patient is awake, alert and oriented x3. Cranial nerves 2 through 12 are grossly intact. Please refer to medication reconciliation sheet for a list of medications. The impression and plan of care has been dictated by Vika Simon, Nurse Practitioner as directed. Dr. Ja MD I have performed a history and examination and MDM of this patient, discussed the same with the dictator, and agree with the dictator's assessment and plan as written ,documented as a scribe. Based on total visit time, I have performed more than 50% of the visit. Patient Condition at Discharge: Fair Plan - Discharge Summary Discharge Rx Participant: No New Discharge Prescriptions: New amLODIPine [Norvasc] 5 mg PO HS #30 tab predniSONE 10 mg PO DIRECTED #30 tab Acetaminophen Tab [Tylenol] 650 mg PO Q6HR PRN tab PRN Reason: Fever And/ Or Pain Doxycycline [Vibramycin] 100 mg PO BID 5 Days #10 cap Continue Albuterol Inhaler [Ventolin Hfa Inhaler] 1 - 2 puff INHALATION RT-Q6H PRN PRN Reason: Shortness Of Breath Atorvastatin [Lipitor] 20 mg PO DAILY Budesonide-Formot 160-4.5 Mcg [Symbicort 160-4.5 Mcg Inhaler] 2 puff INHALATION RT-BID 30 Days #1 each lisinopriL [Zestril] 20 mg PO DAILY 30 Days #30 tab metFORMIN HCL 500 mg PO DAILY #30 tab Oxybutynin Chloride 10 mg PO DAILY 30 Days #60 tab Aspirin EC [Ecotrin Low Dose] 81 mg PO DAILY Furosemide [Lasix] 20 mg PO DAILY 30 Days #30 tab Discharge Medication List Albuterol Inhaler [Ventolin Hfa Inhaler] 1 - 2 puff INHALATION RT-Q6H PRN 01/02/23 [History] Aspirin EC [Ecotrin Low Dose] 81 mg PO DAILY 01/02/23 [History] Atorvastatin [Lipitor] 20 mg PO DAILY 01/02/23 [History] Budesonide-Formot 160-4.5 Mcg [Symbicort 160-4.5 Mcg Inhaler] 2 puff INHALATION RT-BID 30 Days #1 each 01/05/23 [Rx] Furosemide [Lasix] 20 mg PO DAILY 30 Days #30 tab 01/05/23 [Rx] lisinopriL [Zestril] 20 mg PO DAILY 30 Days #30 tab 01/05/23 [Rx] Acetaminophen Tab [Tylenol] 650 mg PO Q6HR PRN tab 01/23/23 [Rx] Doxycycline [Vibramycin] 100 mg PO BID 5 Days #10 cap 01/23/23 [Rx] Oxybutynin Chloride 10 mg PO DAILY 30 Days #60 tab 01/23/23 [Rx] amLODIPine [Norvasc] 5 mg PO HS #30 tab 01/23/23 [Rx] metFORMIN HCL 500 mg PO DAILY #30 tab 01/23/23 [Rx] predniSONE 10 mg PO DIRECTED #30 tab 01/23/23 [Rx] Follow up Appointment(s)/Referral(s): Zahida Schmitt MD [STAFF PHYSICIAN] - 1 Week (Pt to make follow up appointments with own physicians at home. ) None,Stated [REFERRING] - 1-2 days (Pt to make follow up appointments with own physicians at home. ) Warner Morris MD [STAFF PHYSICIAN] - 1 Week (Pt to make follow up appoi ntments with own physicians at home. ) Patient Instructions/Handouts: Heart Attack (DC), COPD (Chronic Obstructive Pulmonary Disease) (DC) Activity/Diet/Wound Care/Special Instructions: Activity Limited until follow-up Follow-up with primary care provider on discharge Follow-up pulmonary outpatient Follow-up cardiology outpatient to discuss possible cardiac catheterization Continue taking medications as prescribed Discharge Disposition: HOME SELF-CARE
--- NOTE | 2023-01-25 14:23 | CDI ---
Documentation Clarification Form Date: 01/25/2023 2:08:38 PM From: Lexi Toledo Admit Date: 01/20/2023 2:45:00 PM Patient Name: Isadora Emmanuel Visit Number: [id number] Discharge Date: 01/23/2023 6:01:00 PM ATTENTION: The Clinical Documentation Specialists (CDI) and [facility] Coding Staff appreciate your assistance in clarifying documentation. Please respond to the clarification below the line at the bottom and electronically sign. The CDI & [facility] Coding staff will review the response and follow-up if needed. Please note: Queries are made part of the Legal Health Record. If you have any questions, please contact the author of this message via ITS. Dr. Tavia Peres Conflicting documentation has been found in the medical record. As attending physician, please provide clarification. ED 01/20/23: NSTEMI Progress note 01/22/23: Mild troponin elevation, rule out ischemic heart disease versus type II [place] Discharge Summary 01/23/23: Elevated troponin - ruled out ACS History/Risk Factors: patient is a 67 year old female, has a history of COPD, CHF, HTN, and nicotine dependence Clinical Indicators: presented with SOB, and leg swelling, diagnosed with COPD exacerbation with mild acute hypoxic respiratory failure, mild elevated troponins, ACS ruled out. Treatment: aspirin, heparin drip, maintained on steroids, and breathing treatments, ACS was ruled out, patient refused to undergo stress test or cardiac cath, will follow-up outpatient. Please clarify which diagnosis is most appropriate: [ ] Mild troponin elevation [ ] Elevated troponin due to Type 2 [place] due to COPD exacerbation [ ] Other (please specify) [ ] Unable to determine Unable to determine MTDD
--- NOTE | 2023-01-30 14:48 | CDI ---
Documentation Clarification Form Date: 01/30/2023 2:43:29 PM From: Lexi Toledo Admit Date: 01/20/2023 2:45:00 PM Patient Name: Isadora Emmanuel Visit Number: [id number] Discharge Date: 01/23/2023 6:01:00 PM ATTENTION: The Clinical Documentation Specialists (CDI) and [facility] Coding Staff appreciate your assistance in clarifying documentation. Please respond to the clarification below the line at the bottom and electronically sign. The CDI & [facility] Coding staff will review the response and follow-up if needed. Please note: Queries are made part of the Legal Health Record. If you have any questions, please contact the author of this message via ITS. Dr. Lj Morrison Conflicting documentation has been found in the medical record. Please provide clarification. ED 01/20/23: NSTEMI Progress note 01/22/23: Mild troponin elevation, rule out ischemic heart disease versus type II [place] Discharge Summary 01/23/23 : Elevated troponin ruled out ACS History/Risk Factors: patient is a 67-year-old female, has a history of COPD, CHF, HTN, and nicotine dependence Clinical indicators: presented with SOB, and leg swelling, diagnosed with COPD exacerbation with mild acute hypoxic respiratory failure, mild elevated troponins, ACS ruled out. Treatment: aspirin, heparin drip, maintained on steroids, and breathing treatments. ACS was ruled out, patient refused to undergo stress test or cardiac cath, will follow- up outpatient. Please clarify which diagnosis is most appropriate: [ ] Mild troponin elevation [ ] Elevated troponin due to type 2 [place] due to COPD exacerbation [ ] other (please specify) [ xx ] Unable to determine Unable to determine MTDD
== END 2023-01-23 18:01 | disposition home or self-care (01) | DRG 190 ==
LOC: EC 11:38 → 3SCARD 14:45
PROVIDERS: ADMIT Internal Medicine; ATTEND Internal Medicine
DX: J44.1 Chronic obstructive pulmonary disease with (acute) exacerbation (principal); J96.01 Acute respiratory failure with hypoxia; T38.0X5A Adverse effect of glucocorticoids and synthetic analogues, initial encounter; I50.9 Heart failure, unspecified; R77.8 Other specified abnormalities of plasma proteins; I49.1 Atrial premature depolarization; I27.20 Pulmonary hypertension, unspecified; I07.1 Rheumatic tricuspid insufficiency; I11.0 Hypertensive heart disease with heart failure; F17.210 Nicotine dependence, cigarettes, uncomplicated; D72.829 Elevated white blood cell count, unspecified; E83.42 Hypomagnesemia; E78.5 Hyperlipidemia, unspecified; E11.9 Type 2 diabetes mellitus without complications; Z86.73 Personal history of transient ischemic attack (TIA), and cerebral infarction without residual deficits; Z79.899 Other long term (current) drug therapy; Z79.84 Long term (current) use of oral hypoglycemic drugs; Z79.82 Long term (current) use of aspirin; Z79.51 Long term (current) use of inhaled steroids
CPT/HCPCS: 36415; 71046; 80048; 80053; 80061; 83735; 83880; 84145; 84484; 85025; 85610; 85730; 93005; 94640; 94760; 96365; 96366; 96367; 96368; 96375; 99291

== ENCOUNTER 2023-02-27 09:56 | Inpatient (IN) | payer MEDICARE, OTHER ==
[2023-02-27 11:56] LABS: Anisocytosis Slight; Basophils % (A) 0 %; Eosinophils # (A) 0.2 k/uL (0-0.7); Eosinophils % (A) 2 %; HCT 37.1 % (34.0-46.0); Hypochromasia Marked; Lymphocytes # (A) 1.1 k/uL (1.0-4.8); Lymphocytes % (A) 11 %; MCH 19.4 pg (25.0-35.0); MCHC 29.6 g/dL (31.0-37.0); MCV 65.7 fL (80.0-100.0); Mean Platelet Volume 8.6; Microcytosis Marked; Monocytes # (A) 0.5 k/uL (0-1.0); Monocytes % (A) 5 %; Neutrophils # (A) 8.7 k/uL (1.3-7.7); Neutrophils % (A) 81 %; Poikilocytosis Moderate; RBC 5.64 m/uL (3.80-5.40); WBC 10.7 k/uL (3.8-10.6)
--- NOTE | 2023-02-27 12:01 | ED ---
Abdominal Pain HPI - General Chief Complaint: Abdominal Pain Stated Complaint: abd pain Time Seen by Provider: 02/27/23 11:15 Source: patient, RN notes reviewed Mode of arrival: ambulatory Limitations: no limitations - History of Present Illness Initial Comments: This is a 67-year-old female who presents to the emergency department for abdominal pain. Patient states that this started 3 days ago. It was initially in the lower abdomen, but has since spread to the majority of her abdomen. She did have constipation, but took a laxative and has since had a couple bowel movements. She threw up once a couple of days ago, but is otherwise not feeling nauseous. Denies any history of similar pains in the past. Patient is on oxygen at home for COPD. Denies any increase in shortness of breath and she has not had to increase her supplemental oxygen. Denies any fevers, chills, sore throat, cough, dyspnea, chest pain, palpitations, nausea, vomiting, diarrhea, back pain, or headaches. MD Complaint: abdominal pain Onset/Timin -: days(s) - Related Data Home Medications Medication Instructions Recorded Confirmed Albuterol Inhaler [Ventolin Hfa 1 - 2 puff INHALATION RT-Q6H PRN 01/02/23 02/27/23 Inhaler] Aspirin EC [Ecotrin Low Dose] 81 mg PO DAILY 01/02/23 02/27/23 Atorvastatin [Lipitor] 20 mg PO DAILY 01/02/23 02/27/23 oxyBUTYnin chloride 5 mg PO BID 02/27/23 02/27/23 Previous Rx's Medication Instructions Recorded Budesonide-Formot 160-4.5 Mcg 2 puff INHALATION RT-BID 30 Days 01/05/23 [Symbicort 160-4.5 Mcg Inhaler] #1 each lisinopriL [Zestril] 20 mg PO DAILY 30 Days #30 tab 01/05/23 Acetaminophen Tab [Tylenol] 650 mg PO Q6HR PRN tab 01/23/23 amLODIPine [Norvasc] 5 mg PO HS #30 tab 01/23/23 metFORMIN HCL 500 mg PO DAILY #30 tab 01/23/23 Allergies Allergy/AdvReac Type Severity Reaction Status Date / Time No Known Allergies Allergy Verified 02/27/23 14:04 Review of Systems ROS Statement: Those systems with pertinent positive or pertinent negative responses have been documented in the HPI. ROS Other: All systems not noted in ROS Statement are negative. Past Medical History Past Medical History: COPD, CVA/TIA, Hypertension History of Any Multi-Drug Resistant Organisms: None Reported Past Surgical History: No Surgical Hx Reported Past Anesthesia/Blood Transfusion Reactions: No Reported Reaction Past Psychological History: No Psychological Hx Reported Smoking Status: Current every day smoker Past Alcohol Use History: None Reported Past Drug Use History: Marijuana General Exam Limitations: no limitations General appearance: alert, in no apparent distress Head exam: Present: atraumatic, normocephalic, normal inspection Respiratory exam: Present: normal lung sounds bilaterally. Absent: respiratory distress, wheezes, rales, rhonchi, stridor Cardiovascular Exam: Present: regular rate, normal rhythm, normal heart sounds. Absent: systolic murmur, diastolic murmur, rubs, gallop, clicks GI/Abdominal exam: Present: soft, tenderness (Diffuse), hypoactive bowel sounds. Absent: distended Neurological exam: Present: alert, oriented X3, CN II-XII intact Psychiatric exam: Present: normal affect, normal mood Skin exam: Present: warm, dry, intact, normal color. Absent: rash Course Vital Signs 02/27/23 09:57 Temperature 97.8 F Pulse Rate 95 Respiratory 22 Rate Blood Pressure 137/86 O2 Sat by Pulse 90 L Oximetry Medical Decision Making - Medical Decision Making This is a 67-year-old female who presents to the emergency department for abdominal pain. Was pt. sent in by a medical professional or institution? @ -No Did you speak to anyone other than the patient for history? @ -No Did you review nursing and triage notes? @ -Yes, and I agree, it is accurate with regards to the patient's symptoms. Were old charts reviewed? @ -No Differential Diagnosis? @ -Differential Abdominal Pain Women: Appendicitis, Cholecystitis, diverticulosis, ischemic bowel, pancreatitis, hepatitis, UTI, gastroenteritis, AAA, incarcerated hernia, bowel obstruction, constipation, inflammatory bowel, hepatitis, peptic ulcer disease, splenic infarction, perforated viscus, vulvitis, ovarian torsion, PID, kidney stone, placenta abruption, this is not meant to be an all-inclusive list EKG interpreted by me (3pts min.)? @ -EKG interpreted by me demonstrating the following: Atrial fibrillation. Ventricular rate 77 bpm, QRS duration 99 ms, QTC 416 ms. X-rays interpreted by me (1pt min.)? @ -Abdominal XR obtained. My interpretation identifies the NG tube within the stomach. CT interpreted by me (1pt min.)? @ -Computed tomography scan of the abdomen and pelvis obtained. My interpretation identifies dilation of multiple small bowel loops. There is no evidence of free air. U/S interpreted by me (1pt. min.)? @ -Not obtained What testing was considered but not performed? (CT, X-rays, U/S, labs)? Why? @ -None What meds were considered but not given? Why? @ -None Did you discuss the management of the patient with other professionals? @ -No Did you reconcile home meds? @ -No Was smoking cessation discussed for >3mins.? @ -No Was critical care preformed (if so, how long)? @ -No Were there social determinants of health that impacted care today? How? (Homelessness, low income, unemployed, alcoholism, drug addiction, transportation, low edu. Level, literacy, decrease access to med. care, long-term, rehab)? @ -No Was there de-escalation of care discussed even if they declined? (Discuss DNR or withdrawal of care, Hospice)? @ -No What co-morbidities impacted this encounter? (DM, HTN, Smoking, COPD, CAD, Cancer, CVA, Hep., AIDS, mental health diagnosis, sleep apnea, morbid obesity)? @ -COPD, HTN Was patient admitted / discharged? @ -Admitted. Lab work obtained revealing a slightly decreased hemoglobin when compared with prior values. Lab work also reveals a mild decrease in kidney function. Computed tomography scan of the abdomen and pelvis obtained revealing a high-grade small bowel obstruction. NG tube was placed and the patient was started on IV Zosyn. XR confirmed NG tube placement. Will keep the patient NPO and start her on maintenance fluids at 130 mL an hour. Patient admitted to general surgery for further management. [facility] consulted for medical management. Undiagnosed new problem with uncertain prognosis? @ -None Drug Therapy requiring intensive monitoring for toxicity (Heparin, Nitro, Insulin, Cardizem)? @ -None Were any procedures done? @ -None Diagnosis/symptom? @ -Small bowel obstruction Acute, or Chronic, or Acute on Chronic? @ -Acute Uncomplicated (without systemic symptoms) or Complicated (systemic symptoms)? @ -Complicated Side effects of treatment? @ -None Exacerbation, Progression, or Severe Exacerbation] @ -Not applicable Poses a threat to life or bodily function? @ -Yes This case was discussed in detail with the attending ED physician, Dr. Lee. Presentation, findings, and treatment plan discussed in detail as well. - Lab Data Result diagrams: 02/27/23 11:33 02/27/23 11:33 Lab Results 02/27/23 02/27/23 02/27/23 Range/Units 11:33 11:33 11:33 WBC 10.7 H (3.8-10.6) k/uL RBC 5.64 H (3.80-5.40) m/uL Hgb 11.0 L D (11.4-16.0) gm/dL Hct 37.1 (34.0-46.0) % MCV 65.7 L (80.0-100.0) fL MCH 19.4 L (25.0-35.0) pg MCHC 29.6 L (31.0-37.0) g/dL RDW 19.0 H (11.5-15.5) % Plt Count 199 D (150-450) k/uL MPV 8.6 Neutrophils % 81 % Lymphocytes % 11 % Monocytes % 5 % Eosinophils % 2 % Basophils % 0 % Neutrophils # 8.7 H (1.3-7.7) k/uL Lymphocytes # 1.1 (1.0-4.8) k/uL Monocytes # 0.5 (0-1.0) k/uL Eosinophils # 0.2 (0-0.7) k/uL Basophils # 0.0 (0-0.2) k/uL Hypochromasia Marked Poikilocytosis Moderate Anisocytosis Slight Microcytosis Marked Sodium 134 L (137-145) mmol/L Potassium 4.4 (3.5-5.1) mmol/L Chloride 97 L (98-107) mmol/L Carbon Dioxide 27 (22-30) mmol/L Anion Gap 10 mmol/L BUN 17 (7-17) mg/dL Creatinine 1.20 H (0.52-1.04) mg/dL Est GFR (CKD-EPI)AfAm 54 (>60 ml/min/1.73 sqM) Est GFR (CKD-EPI)NonAf 47 (>60 ml/min/1.73 sqM) Glucose 146 H (74-99) mg/dL Plasma Lactic Acid Kenny 1.9 (0.7-2.0) mmol/L Calcium 9.4 (8.4-10.2) mg/dL Total Bilirubin 1.5 H (0.2-1.3) mg/dL AST 18 (14-36) U/L ALT 13 (4-34) U/L Alkaline Phosphatase 93 (38-126) U/L Troponin I (0.000-0.034) ng/mL Total Protein 7.3 (6.3-8.2) g/dL Albumin 4.2 (3.5-5.0) g/dL Amylase 55 (30-110) U/L Lipase 58 (23-300) U/L 02/27/23 Range/Units 11:33 WBC (3.8-10.6) k/uL RBC (3.80-5.40) m/uL Hgb (11.4-16.0) gm/dL Hct (34.0-46.0) % MCV (80.0-100.0) fL MCH (25.0-35.0) pg MCHC (31.0-37.0) g/dL RDW (11.5-15.5) % Plt Count (150-450) k/uL MPV Neutrophils % % Lymphocytes % % Monocytes % % Eosinophils % % Basophils % % Neutrophils # (1.3-7.7) k/uL Lymphocytes # (1.0-4.8) k/uL Monocytes # (0-1.0) k/uL Eosinophils # (0-0.7) k/uL Basophils # (0-0.2) k/uL Hypochromasia Poikilocytosis Anisocytosis Microcytosis Sodium (137-145) mmol/L Potassium (3.5-5.1) mmol/L Chloride (98-107) mmol/L Carbon Dioxide (22-30) mmol/L Anion Gap mmol/L BUN (7-17) mg/dL Creatinine (0.52-1.04) mg/dL Est GFR (CKD-EPI)AfAm (>60 ml/min/1.73 sqM) Est GFR (CKD-EPI)NonAf (>60 ml/min/1.73 sqM) Glucose (74-99) mg/dL Plasma Lactic Acid Kenny (0.7-2.0) mmol/L Calcium (8.4-10.2) mg/dL Total Bilirubin (0.2-1.3) mg/dL AST (14-36) U/L ALT (4-34) U/L Alkaline Phosphatase (38-126) U/L Troponin I <0.012 (0.000-0.034) ng/mL Total Protein (6.3-8.2) g/dL Albumin (3.5-5.0) g/dL Amylase (30-110) U/L Lipase (23-300) U/L - Radiology Data Radiology results: report reviewed, image reviewed Disposition Clinical Impression: Small bowel obstruction Disposition: ADMITTED IP TO THIS HOSP
[2023-02-27 12:05] LABS: Platelet Count 199 k/uL (150-450)
[2023-02-27 12:19] LABS: ALT 13 U/L (4-34); AST 18 U/L (14-36); African American GFR (CKD) 54 (>60 ml/min/1.73 sqM); Albumin 4.2 g/dL (3.5-5.0); Alkaline Phosphatase 93 U/L (38-126); Amylase 55 U/L (30-110); Anion Gap 10 mmol/L; Blood Urea Nitrogen 17 mg/dL (7-17); Calcium 9.4 mg/dL (8.4-10.2); Carbon Dioxide 27 mmol/L (22-30); Chloride 97 mmol/L (98-107); Glucose 146 mg/dL (74-99); Lipase 58 U/L (23-300); Non-African American GFR(CKD) 47 (>60 ml/min/1.73 sqM); Potassium 4.4 mmol/L (3.5-5.1); Sodium 134 mmol/L (137-145); Total Bilirubin 1.5 mg/dL (0.2-1.3); Total Protein 7.3 g/dL (6.3-8.2)
--- NOTE | 2023-02-27 13:27 | CT ---
EXAMINATION TYPE: CT abdomen pelvis wo con DATE OF EXAM: 02/27/2023 COMPARISON: None HISTORY: Abdominal pain, acute, nonlocalized CT DLP: 441.2 mGycm Automated exposure control for dose reduction was used. TECHNIQUE: Helical acquisition of images was performed from the lung bases through the pelvis. FINDINGS: LUNG BASES: Emphysematous changes are seen within the lung bases clear. There is a trace of pericardi al fluid and coronary artery calcification. LIVER/GB: No significant abnormality is appreciated. PANCREAS: No significant abnormality is seen. SPLEEN: No significant abnormality is seen. ADRENALS: No significant abnormality is seen. KIDNEYS: No hydronephrosis or nephrolithiasis. 1.8 cm cyst simple left renal cyst. FREE AIR: No free air is visualized URINARY BLADDER: No significant abnormality is seen. ADENOPATHY: None visualized. OSSEOUS STRUCTURES: Multilevel hypertrophic and severe degenerative disc disease most marked at L4-L 5. BOWEL: There is gastric dilation and dilation of numerous small bowel loops to the level of the righ t lower pelvis where there is suggestion of a transition point. Consider adhesion with the high-grade small bowel obstruction. Appendix normal. OTHER: There is a 3.3 cm infrarenal abdominal aortic aneurysm extending to the level above the aortic bifurcation. Mild atherosclerotic plaque. IMPRESSION: 1. FINDINGS ARE SUGGESTIVE OF A HIGH-GRADE DISTAL SMALL BOWEL OBSTRUCTION LIKELY WITHIN THE MID TO DI STAL ILEUM. STATISTICALLY ADHESION WOULD BE MOST LIKELY ETIOLOGY. OTHER ETIOLOGIES NOT EXCLUDED. NO F REE AIR. 2. INFRARENAL ABDOMINAL AORTIC ANEURYSM MEASURING 3.3 CM.
[2023-02-27] MEDS ORDERED: ACET/COD 300 MG/30 MG STARTER PACK 6 TAB BTL PO STA (14:04)
[2023-02-27] MEDS ORDERED: AMOXIC-POT CLAV 875MG STARTER PACK 2 TAB BTL PO STA (14:04)
[2023-02-27] MEDS ORDERED: IBUPROFEN 600 MG STARTER PACK 4 TAB BTL PO STA (14:04)
[2023-02-27] MEDS ORDERED: ONDANSETRON 4 MG/2 ML VIAL IVP PRN (14:07)
[2023-02-27] MEDS ORDERED: NALOXONE 0.4 MG/ML 1 ML VIAL IV PRN (14:07)
[2023-02-27] MEDS ORDERED: KETOROLAC 15 MG/ML 1 ML VIAL IVP PRN (14:07)
[2023-02-27] MEDS ORDERED: IPRATROPIUM-ALBUTEROL 3 ML NEB INHALATION PRN (14:56)
--- NOTE | 2023-02-27 15:01 | P.CONS ---
History of Present Illness - Reason for Consult COPD exacerbation - History of Present Illness 67-year-old female came to emergency department with complaints of left lower quadrant and diffuse abdominal pain going on for about 3 days along with nausea vomiting patient was constipated did have a bowel movement today. Patient had a CT of the abdomen, showed distal small bowel obstruction. There may be a dhesions. Patient does have history of COPD continues to smoke declining patch about a pack per day patient has wheezing on exam uses 2-3 L of oxygen at home. Patient does have leukocytosis no fever patient has mildly elevated creatinine and along with low serum sodium. REVIEW OF SYSTEMS: CONSTITUTIONAL: No fever, no malaise, no fatigue. HEENT: No recent visual problems or hearing problems. Denied any sore throat. CARDIOVASCULAR: No chest pain, orthopnea, PND, no palpitations, no syncope. PULMONARY: No shortness of breath, no cough, no hemoptysis. GASTROINTESTINAL: As mentioned in HPI NEUROLOGICAL: No headaches, no weakness, no numbness. HEMATOLOGICAL: Denies any bleeding or petechiae. GENITOURINARY: Denies any burning micturition, frequency, or urgency. MUSCULOSKELETAL/RHEUMATOLOGICAL: Denies any joint pain, swelling, or any muscle pain. ENDOCRINE: Denies any polyuria or polydipsia. The rest of the 14-point review of systems is negative. PHYSICAL EXAMINATION: GENERAL: The patient is alert and oriented x3, not in any acute distress. Well developed, well nourished. HEENT: Pupils are round and equally reacting to light. EOMI. No scleral icterus. No conjunctival pallor. Normocephalic, atraumatic. No pharyngeal erythema. No thyromegaly. CARDIOVASCULAR: S1 and S2 present. No murmurs, rubs, or gallops. PULMONARY: Significant expiratory wheezing on exam ABDOMEN: Soft, mild distention, nondistended, sluggish bowel sounds. No palpable organomegaly. MUSCULOSKELETAL: No joint swelling or deformity. EXTREMITIES: No cyanosis, clubbing, or pedal edema. NEUROLOGICAL: Gross neurological examination did not reveal any focal deficits. SKIN: No rashes. Assessment and plan After distal small bowel obstruction: Patient is not nauseous at this time patient is receiving IV fluids presently doesn't have any NG tube may require 1 if she starts vomiting and get nauseous pain medication with Toradol and if it doesn't improve we'll use opiates at that time -Leukocytosis secondary to assessment 1 -Mild hypovolemic hyponatremia secondary to nausea vomiting IV fluids as mentioned above -L acute renal failure secondary to nausea vomiting IV fluids as mentioned above prerenal azotemia. -COPD with mild acute exacerbation patient will be started on in his starts and inhalational treatments nicotine cessation counseling was provided -Hypertension -Hyperlipidemia -Type 2 diabetes mellitus patient was started on sliding scale insulin DVT prophylaxis: Lovenox Past Medical History Past Medical History: COPD, CVA/TIA, Hypertension History of Any Multi-Drug Resistant Organisms: None Reported Past Surgical History: No Surgical Hx Reported Past Anesthesia/Blood Transfusion Reactions: No Reported Reaction Past Psychological History: No Psychological Hx Reported Smoking Status: Current every day smoker Past Alcohol Use History: None Reported Past Drug Use History: Marijuana Medications and Allergies Home Medications Medication Instructions Recorded Confirmed Type Albuterol Inhaler [Ventolin Hfa 1 - 2 puff INHALATION RT-Q6H PRN 01/02/23 02/27/23 History Inhaler] Aspirin EC [Ecotrin Low Dose] 81 mg PO DAILY 01/02/23 02/27/23 History Atorvastatin [Lipitor] 20 mg PO DAILY 01/02/23 02/27/23 History Budesonide-Formot 160-4.5 Mcg 2 puff INHALATION RT-BID 30 Days 01/05/23 02/27/23 Rx [Symbicort 160-4.5 Mcg Inhaler] #1 each lisinopriL [Zestril] 20 mg PO DAILY 30 Days #30 tab 01/05/23 02/27/23 Rx Acetaminophen Tab [Tylenol] 650 mg PO Q6HR PRN tab 01/23/23 02/27/23 Rx amLODIPine [Norvasc] 5 mg PO HS #30 tab 01/23/23 02/27/23 Rx metFORMIN HCL 500 mg PO DAILY #30 tab 01/23/23 02/27/23 Rx oxyBUTYnin chloride 5 mg PO BID 02/27/23 02/27/23 History Allergies Allergy/AdvReac Type Severity Reaction Status Date / Time No Known Allergies Allergy Verified 02/27/23 14:04 Physical Exam Vitals: Vital Signs Temp Pulse Resp BP Pulse Ox 02/27/23 09:57 97.8 F 95 22 137/86 90 L Intake and Output 02/27/23 02/27/23 02/27/23 06:59 14:59 22:59 Other: Weight 66.224 kg Results CBC & Chem 7: 02/27/23 11:33 02/27/23 11:33 Labs: Abnormal Lab Results - Last 24 Hours (Table) 02/27/23 02/27/23 Range/Units 11:33 11:33 WBC 10.7 H (3.8-10.6) k/uL RBC 5.64 H (3.80-5.40) m/uL Hgb 11.0 L D (11.4-16.0) gm/dL MCV 65.7 L (80.0-100.0) fL MCH 19.4 L (25.0-35.0) pg MCHC 29.6 L (31.0-37.0) g/dL RDW 19.0 H (11.5-15.5) % Neutrophils # 8.7 H (1.3-7.7) k/uL Sodium 134 L (137-145) mmol/L Chloride 97 L (98-107) mmol/L Creatinine 1.20 H (0.52-1.04) mg/dL Glucose 146 H (74-99) mg/dL Total Bilirubin 1.5 H (0.2-1.3) mg/dL
[2023-02-27] MEDS: SODIUM CHLORIDE 0.9% 1,000 ML IV SCH ×2 (15:16→22:41)
--- NOTE | 2023-02-27 15:27 | XR ---
EXAMINATION TYPE: XR KUB portable DATE OF EXAM: 02/27/2023 COMPARISON: NONE HISTORY: Pain TECHNIQUE: Single supine KUB image of the abdomen is obtained FINDINGS: Dilated loop of bowel measuring 3.2 cm is seen within the left upper quadrant. NG tube is noted with its distal tip within the stomach. Gas and fecal material is seen in non-distended colon. No convincing evidence for pneumoperitoneum. No unusual calcifications. The lung bases are clear. The osseous structures are intact. IMPRESSION: 1. Dilated loop of bowel measuring 3.2 cm is seen within the left upper quadrant.
[2023-02-27] MEDS: PANTOPRAZOLE 40 MG/10 ML VIAL IVP SCH (16:39)
[2023-02-27] MEDS: PIPERACILLIN-TAZOBACTAM 3.375 GM in SODIUM CHLORIDE 0.9% 100 ML IVPB SCH ×2 (16:39→23:29)
[2023-02-27] MEDS: IPRATROPIUM-ALBUTEROL 3 ML NEB INHALATION SCH ×2 (16:51→20:40)
[2023-02-27 18:17] LABS: Glucose,Whole Blood 143 mg/dL (70-110)
[2023-02-27] MEDS: INSULIN ASPART (NovoLOG) 100 UNIT/ML VIAL SQ SCH ×2 (18:44→21:05)
[2023-02-27] MEDS: SYMBICORT 160-4.5 MCG INHALER INHALATION SCH ×2 (20:40→20:49)
[2023-02-27 20:56] LABS: Glucose,Whole Blood 132 mg/dL (70-110)
[2023-02-27] MEDS ORDERED: amLODIPine 5 MG TAB PO SCH (21:00)
[2023-02-27] MEDS: oxyBUTYnin chloride 5 MG TAB PO SCH (21:52)
[2023-02-28 05:54] LABS: Anisocytosis Slight; HCT 32.2 % (34.0-46.0); HGB 9.6 gm/dL (11.4-16.0); Hypochromasia Marked; MCH 19.7 pg (25.0-35.0); MCHC 29.8 g/dL (31.0-37.0); MCV 66.3 fL (80.0-100.0); Mean Platelet Volume 8.8; Microcytosis Marked; Platelet Count 158 k/uL (150-450); Poikilocytosis Moderate; RBC 4.85 m/uL (3.80-5.40); RDW 18.9 % (11.5-15.5); WBC 8.4 k/uL (3.8-10.6)
[2023-02-28 06:04] LABS: African American GFR (CKD) 46 (>60 ml/min/1.73 sqM); Anion Gap 9 mmol/L; Blood Urea Nitrogen 20 mg/dL (7-17); Calcium 8.7 mg/dL (8.4-10.2); Carbon Dioxide 26 mmol/L (22-30); Chloride 100 mmol/L (98-107); Glucose 124 mg/dL (74-99); Magnesium 2.3 mg/dL (1.6-2.3); Non-African American GFR(CKD) 40 (>60 ml/min/1.73 sqM); Potassium 4.2 mmol/L (3.5-5.1); Sodium 135 mmol/L (137-145)
[2023-02-28] MEDS: SODIUM CHLORIDE 0.9% 1,000 ML IV SCH ×2 (06:47→15:03)
--- NOTE | 2023-02-28 07:43 | P.GSHP ---
History of Present Illness H&P Date: 02/28/23 Chief Complaint: Nausea vomiting, abdominal pain This is a 67-year-old female with complaints of nausea vomiting abdominal pain. Patient was worked up with [facility]. Found have evidence of a small bowel obstruction. Patient has had nasogastric tube placed. She is currently resting in her bed. She states she did have crampy pain early. However is improved currently. Past Medical History Past Medical History: COPD, CVA/TIA, Hypertension History of Any Multi-Drug Resistant Organisms: None Reported Past Surgical History: No Surgical Hx Reported Past Anesthesia/Blood Transfusion Reactions: No Reported Reaction Past Psychological History: No Psychological Hx Reported Smoking Status: Current every day smoker Past Alcohol Use History: None Reported Past Drug Use History: Marijuana Medications and Allergies Home Medications Medication Instructions Recorded Confirmed Type Albuterol Inhaler [Ventolin Hfa 1 - 2 puff INHALATION RT-Q6H PRN 01/02/23 02/27/23 History Inhaler] Aspirin EC [Ecotrin Low Dose] 81 mg PO DAILY 01/02/23 02/27/23 History Atorvastatin [Lipitor] 20 mg PO DAILY 01/02/23 02/27/23 History Budesonide-Formot 160-4.5 Mcg 2 puff INHALATION RT-BID 30 Days 01/05/23 02/27/23 Rx [Symbicort 160-4.5 Mcg Inhaler] #1 each lisinopriL [Zestril] 20 mg PO DAILY 30 Days #30 tab 01/05/23 02/27/23 Rx Acetaminophen Tab [Tylenol] 650 mg PO Q6HR PRN tab 01/23/23 02/27/23 Rx amLODIPine [Norvasc] 5 mg PO HS #30 tab 01/23/23 02/27/23 Rx metFORMIN HCL 500 mg PO DAILY #30 tab 01/23/23 02/27/23 Rx oxyBUTYnin chloride 5 mg PO BID 02/27/23 02/27/23 History Allergies Allergy/AdvReac Type Severity Reaction Status Date / Time No Known Allergies Allergy Verified 02/27/23 14:04 Surgical - Exam Vital Signs Temp Pulse Resp BP Pulse Ox 97.8 F 95 22 137/86 90 L 02/27/23 09:57 02/27/23 09:57 02/27/23 09:57 02/27/23 09:57 02/27/23 09:57 - General well developed, well nourished, no distress - Eyes PERRL - ENT normal pinna - Neck no masses - Respiratory normal expansion - Cardiovascular Rhythm: regular - Abdomen Abdomen: soft, non tender Results - Labs 02/28/23 05:12 02/28/23 05:12 Abnormal Lab Results - Last 24 Hours (Table) 02/27/23 02/27/23 02/27/23 Range/Units 11:33 11:33 18:15 WBC 10.7 H (3.8-10.6) k/uL RBC 5.64 H (3.80-5.40) m/uL Hgb 11.0 L D (11.4-16.0) gm/dL Hct (34.0-46.0) % MCV 65.7 L (80.0-100.0) fL MCH 19.4 L (25.0-35.0) pg MCHC 29.6 L (31.0-37.0) g/dL RDW 19.0 H (11.5-15.5) % Neutrophils # 8.7 H (1.3-7.7) k/uL Sodium 134 L (137-145) mmol/L Chloride 97 L (98-107) mmol/L BUN (7-17) mg/dL Creatinine 1.20 H (0.52-1.04) mg/dL Glucose 146 H (74-99) mg/dL POC Glucose (mg/dL) 143 H (70-110) mg/dL Total Bilirubin 1.5 H (0.2-1.3) mg/dL 02/27/23 02/28/23 02/28/23 Range/Units 20:55 05:12 05:12 WBC (3.8-10.6) k/uL RBC (3.80-5.40) m/uL Hgb 9.6 L (11.4-16.0) gm/dL Hct 32.2 L (34.0-46.0) % MCV 66.3 L (80.0-100.0) fL MCH 19.7 L (25.0-35.0) pg MCHC 29.8 L (31.0-37.0) g/dL RDW 18.9 H (11.5-15.5) % Neutrophils # (1.3-7.7) k/uL Sodium 135 L (137-145) mmol/L Chloride (98-107) mmol/L BUN 20 H (7-17) mg/dL Creatinine 1.36 H (0.52-1.04) mg/dL Glucose 124 H (74-99) mg/dL POC Glucose (mg/dL) 132 H (70-110) mg/dL Total Bilirubin (0.2-1.3) mg/dL Diabetes panel 02/27/23 02/28/23 Range/Units 11:33 05:12 Sodium 134 L 135 L (137-145) mmol/L Potassium 4.4 4.2 (3.5-5.1) mmol/L Chloride 97 L 100 (98-107) mmol/L Carbon Dioxide 27 26 (22-30) mmol/L BUN 17 20 H (7-17) mg/dL Creatinine 1.20 H 1.36 H (0.52-1.04) mg/dL Glucose 146 H 124 H (74-99) mg/dL Calcium 9.4 8.7 (8.4-10.2) mg/dL AST 18 (14-36) U/L ALT 13 (4-34) U/L Alkaline Phosphatase 93 (38-126) U/L Total Protein 7.3 (6.3-8.2) g/dL Albumin 4.2 (3.5-5.0) g/dL Calcium panel 02/27/23 02/28/23 Range/Units 11:33 05:12 Calcium 9.4 8.7 (8.4-10.2) mg/dL Albumin 4.2 (3.5-5.0) g/dL Pituitary panel 02/27/23 02/28/23 Range/Units 11:33 05:12 Sodium 134 L 135 L (137-145) mmol/L Potassium 4.4 4.2 (3.5-5.1) mmol/L Chloride 97 L 100 (98-107) mmol/L Carbon Dioxide 27 26 (22-30) mmol/L BUN 17 20 H (7-17) mg/dL Creatinine 1.20 H 1.36 H (0.52-1.04) mg/dL Glucose 146 H 124 H (74-99) mg/dL Calcium 9.4 8.7 (8.4-10.2) mg/dL Adrenal panel 02/27/23 02/28/23 Range/Units 11:33 05:12 Sodium 134 L 135 L (137-145) mmol/L Potassium 4.4 4.2 (3.5-5.1) mmol/L Chloride 97 L 100 (98-107) mmol/L Carbon Dioxide 27 26 (22-30) mmol/L BUN 17 20 H (7-17) mg/dL Creatinine 1.20 H 1.36 H (0.52-1.04) mg/dL Glucose 146 H 124 H (74-99) mg/dL Calcium 9.4 8.7 (8.4-10.2) mg/dL Total Bilirubin 1.5 H (0.2-1.3) mg/dL AST 18 (14-36) U/L ALT 13 (4-34) U/L Alkaline Phosphatase 93 (38-126) U/L Total Protein 7.3 (6.3-8.2) g/dL Albumin 4.2 (3.5-5.0) g/dL Assessment and Plan Assessment: Small bowel structure. Patient most likely has adhesions as the source of her small bowel obstruction. Patient will have nasogastric tube decompression. If she does not improve she may need exploratory laparotomy.
[2023-02-28] MEDS: SYMBICORT 160-4.5 MCG INHALER INHALATION SCH ×2 (07:45→20:42)
[2023-02-28] MEDS: IPRATROPIUM-ALBUTEROL 3 ML NEB INHALATION SCH ×4 (07:45→20:42)
[2023-02-28] MEDS: ATORVASTATIN 20 MG TAB PO SCH (08:18)
[2023-02-28] MEDS: oxyBUTYnin chloride 5 MG TAB PO SCH ×2 (08:18→21:26)
[2023-02-28] MEDS: PANTOPRAZOLE 40 MG/10 ML VIAL IVP SCH (08:19)
[2023-02-28] MEDS: PIPERACILLIN-TAZOBACTAM 3.375 GM in SODIUM CHLORIDE 0.9% 100 ML IVPB SCH ×3 (08:19→23:12)
[2023-02-28] MEDS: INSULIN ASPART (NovoLOG) 100 UNIT/ML VIAL SQ SCH ×4 (08:20→21:26)
[2023-02-28 08:21] LABS: Glucose,Whole Blood 132 mg/dL (70-110)
[2023-02-28 09:00] LABS: Appearance,Urine Clear (Clear); Bacteria,Urine Rare /hpf; Bilirubin,Urine Negative (Negative); Blood,Urine Trace (Negative); Color,Urine Yellow; Glucose,Urine (UA) Negative (Negative); Hyaline Casts,Urine 4 /lpf (0-2); Ketones,Urine Trace (Negative); Leukocyte Esterase,Urine Small (Negative); Mucus,Urine Few /hpf; Nitrite,Urine Negative (Negative); PH, Urine 6.5 (5.0-8.0); Protein,Urine 1+ (Negative); RBC,Urine 1 /hpf (0-5); Specific Gravity,Urine 1.027 (1.001-1.035); Squamous Epithelial Cell,Urine <1 /hpf (0-4); Urobilinogen,Urine <2.0 mg/dL (<2.0); WBC,Urine 3 /hpf (0-5)
[2023-02-28] MEDS ORDERED: lisinopriL 20 MG TAB PO SCH (09:00)
[2023-02-28] MEDS ORDERED: ENOXAPARIN 40 MG/0.4 ML SYRINGE SQ SCH (09:00)
[2023-02-28] MEDS ORDERED: metFORMIN 500 MG TAB PO SCH (09:00)
[2023-02-28 11:31] LABS: Glucose,Whole Blood 117 mg/dL (70-110)
--- NOTE | 2023-02-28 13:54 | XR ---
EXAMINATION TYPE: XR chest 1V portable DATE OF EXAM: 02/28/2023 1:48 PM COMPARISON: Chest radiographs from 01/20/2023 TECHNIQUE: XR chest 1V portable Portable AP radiograph of the chest. CLINICAL INDICATION:Female, 67 years old with history of shortness of breath; FINDINGS: Lungs/Pleura: Bibasilar patchy airspace opacities. No pneumothorax or pleural effusion. Pulmonary vascularity: Unremarkable. Heart/mediastinum: Cardiomediastinal silhouette is unremarkable. Atherosclerotic calcifications are seen in the aorta. Musculoskeletal: No acute osseous pathology. Other findings: None Lines/Tubes: Nasogastric tube with its distal tip in the left upper quadrant. Recommend advancement of 3 cm. IMPRESSION: 1. Bibasilar patchy airspace opacities concerning for pneumonia. 2. NG tube with distal tip in the left upper quadrant. Recommend advancement of 3 cm.
--- NOTE | 2023-02-28 14:14 | P.PN ---
Subjective Progress Note Date: 02/28/23 CHIEF COMPLAINT: Small bowel structure HISTORY OF PRESENT ILLNESS: Patient continues to complain of upper abdominal pain. She has NG tube in place with minimal output. She's had no bowel activity. Urinating without difficulty. She denies any nausea. CT findings just high-grade distal small bowel obstruction likely within the mid to distal ileum. Today's chest x-ray shows NG tube with distal tip in the left upper quadrant. Recommend advancement by 3 cm. Bibasilar patchy airspace opacities concerning for pneumonia. Afebrile. Oxygen saturation 84%. Low-grade temp 99 WBC is 8.4 Hgb 9.6 platelets 158 Na 135 creatinine 1.36 PHYSICAL EXAM: VITAL SIGNS: Reviewed. GENERAL: Well-developed in no acute distress. HEENT: No sclera icterus. Extraocular movements grossly intact. Moist buccal mucosa. Head is atraumatic, normocephalic. ABDOMEN: Soft. Nondistended. Tenderness with palpation of upper abdomen NEUROLOGIC: Alert and oriented. Cranial nerves II through XII grossly intact. ASSESSMENT: 1. Small bowel obstruction PLAN: -Continue NG tube for decompression. NG tube needs to be advanced by 3 cm as noted on CXR. Will discuss with nursing staff to advance NG tube -Keep patient nothing by mouth -Patient tentatively scheduled for exploratory laparotomy with lysis of adhesio ns tomorrow, 03/01/[address] yepez -Continue supportive care Physician Barrel [employer] note has been reviewed by physician. Signing provider agrees with the documented findings, assessment, and plan of care. Objective - Vital Signs Vital signs: Vital Signs Temp 99.0 F 02/28/23 13:25 Pulse 90 02/28/23 13:25 Resp 15 02/28/23 13:25 BP 100/62 02/28/23 13:25 Pulse Ox 84 L 02/28/23 13:25 FiO2 Intake & Output 02/27/23 02/28/23 02/28/23 18:59 06:59 18:59 Intake Total 1140 Balance 1140 Weight 66.224 kg Intake: Intake, IV Titration 1140 Amount Piperacillin-Tazobactam 3 100 .375 gm In Sodium Chloride 0.9% 100 ml @ 25 mls/hr IVPB Q8HR [facility] Rx# :[id number] Sodium Chloride 0.9% 1, 1040 000 ml @ 130 mls/hr IV . Q7H42M [facility] Rx#:[id number] Oral 0 Other: # Voids 1 # Bowel Movements 0 - Labs CBC & Chem 7: 02/28/23 05:12 02/28/23 05:12 Labs: Abnormal Lab Results - Last 24 Hours (Table) 02/27/23 02/27/23 02/27/23 Range/Units 11:22 18:15 20:55 Hgb (11.4-16.0) gm/dL Hct (34.0-46.0) % MCV (80.0-100.0) fL MCH (25.0-35.0) pg MCHC (31.0-37.0) g/dL RDW (11.5-15.5) % Sodium (137-145) mmol/L BUN (7-17) mg/dL Creatinine (0.52-1.04) mg/dL Glucose (74-99) mg/dL POC Glucose (mg/dL) 143 H 132 H (70-110) mg/dL Urine Protein 1+ H (Negative) Urine Ketones Trace H (Negative) Urine Blood Trace H (Negative) Ur Leukocyte Esterase Small H (Negative) Urine Bacteria Rare H (None) /hpf Hyaline Casts 4 H (0-2) /lpf Urine Mucus Few H (None) /hpf 02/28/23 02/28/23 02/28/23 Range/Units 05:12 05:12 08:19 Hgb 9.6 L (11.4-16.0) gm/dL Hct 32.2 L (34.0-46.0) % MCV 66.3 L (80.0-100.0) fL MCH 19.7 L (25.0-35.0) pg MCHC 29.8 L (31.0-37.0) g/dL RDW 18.9 H (11.5-15.5) % Sodium 135 L (137-145) mmol/L BUN 20 H (7-17) mg/dL Creatinine 1.36 H (0.52-1.04) mg/dL Glucose 124 H (74-99) mg/dL POC Glucose (mg/dL) 132 H (70-110) mg/dL Urine Protein (Negative) Urine Ketones (Negative) Urine Blood (Negative) Ur Leukocyte Esterase (Negative) Urine Bacteria (None) /hpf Hyaline Casts (0-2) /lpf Urine Mucus (None) /hpf 02/28/23 Range/Units 11:27 Hgb (11.4-16.0) gm/dL Hct (34.0-46.0) % MCV (80.0-100.0) fL MCH (25.0-35.0) pg MCHC (31.0-37.0) g/dL RDW (11.5-15.5) % Sodium (137-145) mmol/L BUN (7-17) mg/dL Creatinine (0.52-1.04) mg/dL Glucose (74-99) mg/dL POC Glucose (mg/dL) 117 H (70-110) mg/dL Urine Protein (Negative) Urine Ketones (Negative) Urine Blood (Negative) Ur Leukocyte Esterase (Negative) Urine Bacteria (None) /hpf Hyaline Casts (0-2) /lpf Urine Mucus (None) /hpf
[2023-02-28] MEDS ORDERED: FUROSEMIDE 10 MG/ML 4 ML VIAL IV STA (14:38)
[2023-02-28 16:23] LABS: Glucose,Whole Blood 109 mg/dL (70-110)
--- NOTE | 2023-02-28 18:50 | P.PN ---
Subjective Progress Note Date: 02/28/23 - Reason for Consult COPD exacerbation - History of Present Illness 67-year-old female came to emergency department with complaints of left lower quadrant and diffuse abdominal pain going on for about 3 days along with nausea vomiting patient was constipated did have a bowel movement today. Patient had a CT of the abdomen, showed distal small bowel obstruction. There may be adhesions. Patient does have history of COPD continues to smoke declining patch about a pack per day patient has wheezing on exam uses 2-3 L of oxygen at home. Patient does have leukocytosis no fever patient has mildly elevated creatinine and along with low serum sodium. 02/28/2023 Patient is seen and evaluated in follow-up this morning with general surgery as admitting services. Patient was admitted for high-grade small bowel obstruction and continues with NG tube as well as some abdominal tenderness and distention with no significant output noted. Patient is nothing by mouth. Absent bowel sounds noted on exam and plan is for tentative exploratory laparotomy with lysis of adhesions on 03/01/2023. Patient is currently afebrile and being maintained on DuoNeb treatments for COPD exacerbation. Patient is supposed to wear oxygen in the outpatient setting and wears 2-3 L with no significant wheezing noted on exam although diminished breath sounds are bilaterally with coarse rhonchi. Chest x-ray will be obtained as patient has also been maintained on IV hydration as patient was nothing by mouth. Patient is afebrile denies chest pain or worsening shortness of breath. Patient reports her breathing she feels has improved. Patient reports occasional nausea with no vomiting and some abdominal discomfort noted. Review of systems: Constitutional: No reports of fatigue, fever, or chills Cardiovascular: No reports of chest pain or palpitations Respiratory: No reports of shortness of breath or cough GI: No reports of nausea, vomiting, or diarrhea, reports some abdominal pain with distention : No reports of dysuria or retention Neurovascular: No reports of weakness or numbness All medications have been reviewed PHYSICAL EXAMINATION: GENERAL: The patient is alert and oriented x3, not in any acute distress. Well developed, well nourished. Elderly-appearing female HEENT: Pupils are round and equally reacting to light. EOMI. No scleral icterus. No conjunctival pallor. Normocephalic, atraumatic. No pharyngeal erythema. No thyromegaly. CARDIOVASCULAR: S1 and S2 present. No murmurs, rubs, or gallops. PULMONARY: Diminished breath sounds bilaterally with coarse rhonchi and some faint expiratory wheezing noted ABDOMEN: Soft, mild distention, nondistended, absent bowel sounds. No palpable organomegaly. MUSCULOSKELETAL: No joint swelling or deformity. EXTREMITIES: No cyanosis, clubbing, or pedal edema. NEUROLOGICAL: Gross neurological examination did not reveal any focal deficits. SKIN: No rashes. Assessment: -High-grade distal small bowel obstruction, possibly secondary to adhesions -Leukocytosis secondary to assessment 1 -Mild hypovolemic hyponatremia secondary to nausea vomiting, improving although now with worsening kidney functions -acute renal failure secondary to nausea vomiting with prerenal azotemia. -COPD with mild acute exacerbation -Continued ongoing nicotine dependence -Hypertension -Hyperlipidemia -History of CVA -Type 2 diabetes mellitus patient was started on sliding scale insulin -GI prophylaxis -DVT prophylaxis: Lovenox -Full code plan: Recommend patient continue with breathing inhalational treatments and home medications although patient is nothing by mouth currently and continues with an NG tube Patient with continued abdominal pain and distention with no significant improvement in absent bowel sounds planning for exploratory laparotomy with lysis of adhesions on 03/01/2023 Strongly encouraged and discussed complete tobacco cessation Patient currently on 3 L via nasal cannula recommend wean FiO2 as tolerated. Follow-up chest x-ray was ordered likely showing some vascular congestion and will discontinue IV fluids and given a dose of Lasix. Of note NG tube per radiology recommends to advance 3 cm and this was communicated to nursing staff by surgery Recommend follow-up labs in a.m. Patient to continue nothing by mouth We will continue to follow with general surgery during hospitalization. Thank you kindly for this consultation. The impression and plan of care has been dictated by Vika Simon, Nurse Practitioner as directed. Dr. Abigail MD I have performed a history and examination and MDM of this patient, discussed the same with the dictator, and agree with the dictator's assessment and plan as written ,documented as a scribe. Based on total visit time, I have performed more than 50% of the visit. Objective - Vital Signs Vital signs: Vital Signs Temp 98.0 F 02/28/23 08:00 Pulse 80 02/28/23 08:00 Resp 19 02/28/23 08:00 BP 111/63 02/28/23 08:00 Pulse Ox 88 L 02/28/23 08:00 FiO2 Intake & Output 02/27/23 02/28/23 02/28/23 18:59 06:59 18:59 Intake Total 1140 Balance 1140 Weight 66.224 kg Intake: Intake, IV Titration 1140 Amount Piperacillin-Tazobactam 3 100 .375 gm In Sodium Chloride 0.9% 100 ml @ 25 mls/hr IVPB Q8HR [facility] Rx# :[id number] Sodium Chloride 0.9% 1, 1040 000 ml @ 130 mls/hr IV . Q7H42M [facility] Rx#:[id number] Oral 0 Other: # Voids 1 # Bowel Movements 0 - Labs CBC & Chem 7: 02/28/23 05:12 02/28/23 05:12 Labs: Abnormal Lab Results - Last 24 Hours (Table) 02/27/23 02/27/23 02/27/23 Range/Units 11:22 11:33 11:33 WBC 10.7 H (3.8-10.6) k/uL RBC 5.64 H (3.80-5.40) m/uL Hgb 11.0 L D (11.4-16.0) gm/dL Hct (34.0-46.0) % MCV 65.7 L (80.0-100.0) fL MCH 19.4 L (25.0-35.0) pg MCHC 29.6 L (31.0-37.0) g/dL RDW 19.0 H (11.5-15.5) % Neutrophils # 8.7 H (1.3-7.7) k/uL Sodium 134 L (137-145) mmol/L Chloride 97 L (98-107) mmol/L BUN (7-17) mg/dL Creatinine 1.20 H (0.52-1.04) mg/dL Glucose 146 H (74-99) mg/dL POC Glucose (mg/dL) (70-110) mg/dL Total Bilirubin 1.5 H (0.2-1.3) mg/dL Urine Protein 1+ H (Negative) Urine Ketones Trace H (Negative) Urine Blood Trace H (Negative) Ur Leukocyte Esterase Small H (Negative) Urine Bacteria Rare H (None) /hpf Hyaline Casts 4 H (0-2) /lpf Urine Mucus Few H (None) /hpf 02/27/23 02/27/23 02/28/23 Range/Units 18:15 20:55 05:12 WBC (3.8-10.6) k/uL RBC (3.80-5.40) m/uL Hgb 9.6 L (11.4-16.0) gm/dL Hct 32.2 L (34.0-46.0) % MCV 66.3 L (80.0-100.0) fL MCH 19.7 L (25.0-35.0) pg MCHC 29.8 L (31.0-37.0) g/dL RDW 18.9 H (11.5-15.5) % Neutrophils # (1.3-7.7) k/uL Sodium (137-145) mmol/L Chloride (98-107) mmol/L BUN (7-17) mg/dL Creatinine (0.52-1.04) mg/dL Glucose (74-99) mg/dL POC Glucose (mg/dL) 143 H 132 H (70-110) mg/dL Total Bilirubin (0.2-1.3) mg/dL Urine Protein (Negative) Urine Ketones (Negative) Urine Blood (Negative) Ur Leukocyte Esterase (Negative) Urine Bacteria (None) /hpf Hyaline Casts (0-2) /lpf Urine Mucus (None) /hpf 02/28/23 02/28/23 Range/Units 05:12 08:19 WBC (3.8-10.6) k/uL RBC (3.80-5.40) m/uL Hgb (11.4-16.0) gm/dL Hct (34.0-46.0) % MCV (80.0-100.0) fL MCH (25.0-35.0) pg MCHC (31.0-37.0) g/dL RDW (11.5-15.5) % Neutrophils # (1.3-7.7) k/uL Sodium 135 L (137-145) mmol/L Chloride (98-107) mmol/L BUN 20 H (7-17) mg/dL Creatinine 1.36 H (0.52-1.04) mg/dL Glucose 124 H (74-99) mg/dL POC Glucose (mg/dL) 132 H (70-110) mg/dL Total Bilirubin (0.2-1.3) mg/dL Urine Protein (Negative) Urine Ketones (Negative) Urine Blood (Negative) Ur Leukocyte Esterase (Negative) Urine Bacteria (None) /hpf Hyaline Casts (0-2) /lpf Urine Mucus (None) /hpf
[2023-02-28] MEDS: HYDROmorphone 0.5 MG/0.5 ML SYRINGE IVP PRN ×2 (19:20→23:54)
[2023-02-28 20:25] LABS: Glucose,Whole Blood 141 mg/dL (70-110)
[2023-03-01 06:32] LABS: African American GFR (CKD) 39 (>60 ml/min/1.73 sqM); Anion Gap 12 mmol/L; Blood Urea Nitrogen 20 mg/dL (7-17); Calcium 8.7 mg/dL (8.4-10.2); Carbon Dioxide 21 mmol/L (22-30); Chloride 101 mmol/L (98-107); Glucose 158 mg/dL (74-99); Non-African American GFR(CKD) 34 (>60 ml/min/1.73 sqM); Potassium 4.4 mmol/L (3.5-5.1); Sodium 134 mmol/L (137-145)
[2023-03-01 07:09] LABS: Glucose,Whole Blood 137 mg/dL (70-110)
[2023-03-01 07:11] LABS: Anisocytosis Slight; Basophils % (A) 0 %; Eosinophils # (A) 0.1 k/uL (0-0.7); Eosinophils % (A) 1 %; HCT 32.6 % (34.0-46.0); HGB 9.3 gm/dL (11.4-16.0); Hypochromasia Marked; Lymphocytes # (A) 1.1 k/uL (1.0-4.8); Lymphocytes % (A) 13 %; MCH 19.3 pg (25.0-35.0); MCHC 28.7 g/dL (31.0-37.0); MCV 67.3 fL (80.0-100.0); Microcytosis Marked; Monocytes # (A) 0.6 k/uL (0-1.0); Monocytes % (A) 8 %; Neutrophils # (A) 6.3 k/uL (1.3-7.7); Neutrophils % (A) 76 %; Platelet Count 161 k/uL (150-450); Poikilocytosis Moderate; RBC 4.84 m/uL (3.80-5.40); RDW 18.9 % (11.5-15.5); WBC 8.4 k/uL (3.8-10.6)
[2023-03-01] MEDS ORDERED: SODIUM CHLORIDE 0.9% 250 ML IV ONE (07:30)
[2023-03-01] MEDS: SODIUM CHLORIDE 0.9% 1,000 ML IV SCH ×2 (07:50→21:18)
[2023-03-01] MEDS: INSULIN ASPART (NovoLOG) 100 UNIT/ML VIAL SQ SCH ×4 (07:51→21:28)
[2023-03-01] MEDS: PIPERACILLIN-TAZOBACTAM 3.375 GM in SODIUM CHLORIDE 0.9% 100 ML IVPB SCH ×3 (08:49→23:13)
[2023-03-01] MEDS: ENOXAPARIN 30 MG/0.3 ML SYRINGE SQ SCH (08:50)
[2023-03-01] MEDS: ATORVASTATIN 20 MG TAB PO SCH (08:50)
[2023-03-01] MEDS: oxyBUTYnin chloride 5 MG TAB PO SCH ×2 (08:50→21:05)
[2023-03-01] MEDS: PANTOPRAZOLE 40 MG/10 ML VIAL IVP SCH (08:50)
[2023-03-01] MEDS: IPRATROPIUM-ALBUTEROL 3 ML NEB INHALATION SCH ×4 (09:36→20:15)
[2023-03-01] MEDS: SYMBICORT 160-4.5 MCG INHALER INHALATION SCH ×2 (09:36→20:15)
[2023-03-01] MEDS ORDERED: SODIUM CHLORIDE 0.9% 1,000 ML IV ONE ×4 (11:04→13:39)
[2023-03-01] MEDS ORDERED: DEXAMETHASONE SOD PHOSPHATE 4 MG/ML 1 ML VIAL IVP ONE (11:34)
[2023-03-01 11:40] LABS: Glucose,Whole Blood 115 mg/dL (70-110)
[2023-03-01] MEDS ORDERED: ACETAMINOPHEN IV (For NPO) 1,000 MG in EMPTY BAG 1 BAG IVPB STA (11:48)
[2023-03-01] MEDS ORDERED: FUROSEMIDE 10 MG/ML 2 ML VIAL IV ONE (12:13)
[2023-03-01] MEDS ORDERED: FUROSEMIDE 10 MG/ML 2 ML VIAL ONE (12:18)
[2023-03-01] MEDS ORDERED: SODIUM CHLORIDE 0.9% 500 ML 500 ML IV ONE (13:39)
[2023-03-01] MEDS ORDERED: ONDANSETRON 4 MG/2 ML VIAL IVP ONE (13:40)
[2023-03-01 14:03] LABS: ABG HCO3 23 mmol/L (21-25); ABG Oxygen Saturation 96.4 % (94-97); ABG PCO2 35 mmHg (35-45); ABG PH 7.42 (7.35-7.45); ABG PO2 81 mmHg (83-108); ABG TCO2 24 mmol/L (19-24)
[2023-03-01 14:08] LABS: Allen Test Performed? no
--- NOTE | 2023-03-01 14:16 | P.ANPRN ---
Procedure Note - Anesthesia - Invasive Line Right Central Line Time Out Performed: Yes Date of Procedure: 03/01/23 Time of Procedure: 13:00 Location of Patient: PreOp Preparation: Sterile Prep, Sterile Dressing Central Line Location: Internal Jugular Ultrasound Used: Yes Purpose - Visualization and Identification of Vasculature: Yes Needle Guage: 18 Image Stored and Saved: Yes Narrative: Central line placement per sterile protocol utilized. Right Arterial Line Time Out Performed: Yes Date of Procedure: 03/01/23 Time of Procedure: 13:20 Location of Patient: PreOp Preparation: Sterile Prep, Sterile Dressing Arterial Line Location: Radial Ultrasound Used: Yes Purpose - Visualization and Identification of Vasculature: Yes Needle Guage: 20 Image Stored and Saved: Yes Narrative: arterial line placement per sterile protocol utilized.
--- NOTE | 2023-03-01 14:19 | XR ---
EXAMINATION TYPE: XR chest 1V portable DATE OF EXAM: 03/01/2023 COMPARISON: 02/28/2023 INDICATION: CHF volume overload TECHNIQUE: Single frontal view of the chest is obtained. FINDINGS: The heart size is normal. The pulmonary vasculature is normal. Bibasilar infiltrates remain present but improving from comparison. There is placement of a nasogastric tube which extends to the distal third of the esophagus and retur ns towards the thoracic inlet. Repositioning of the nasogastric tube will be required. Report was ca lled to the patient's nurse reports the patient is in surgery. The nurse will try to get the results to surgery. There is a right central venous catheter with the tip in the region of the right atrium. IMPRESSION: 1. Mild improving bibasilar infiltrates, likely atelectasis. 2. Nasogastric tube curled within the distal esophagus.
[2023-03-01] MEDS ORDERED: SUCCINYLCHOLINE CHLORIDE 200 MG/10 ML VIAL IV ONE (14:23)
[2023-03-01] MEDS ORDERED: KETAMINE 10 MG/ML 20 ML VIAL ONE (14:23)
[2023-03-01] MEDS ORDERED: LIDOCAINE 2% INJ 20 MG/ML (2 ML VIAL) ONE (14:23)
[2023-03-01] MEDS ORDERED: PROPOFOL 10 MG/ML 20 ML VIAL IV ONE (14:23)
[2023-03-01] MEDS ORDERED: ROCURONIUM 10 MG/ML (5 ML VIAL) IV ONE (14:23)
--- NOTE | 2023-03-01 15:09 | P.OP ---
Date of Procedure: 03/01/23 Preoperative Diagnosis: Small bowel obstruction Postoperative Diagnosis: Small bowel obstruction secondary to adhesive band causing a closed loop obstruction Procedure(s) Performed: Exploratory laparotomy Lysis of adhesion Anesthesia: DELIO Surgeon: Kareem Earl Estimated Blood Loss (ml): 5 Pathology: none sent Condition: stable Disposition: PACU Description of Procedure: The patient's placed on the operating table in the supine position. She received general endotracheal anesthesia. Her abdomen was prepped and draped usual fashion. The abdomen was entered through midline incision. There were some ascites seen. The small bowel was grossly dilated. The bowel was followed down towards right lower quadrant. In the right lower quadrant there was adhesive band creating a closed loop obstruction. The adhesive band was lysed with finger dissection. The bowel was distally was collapsed. The bowel was run all the way to the level of the cecum. There is no other obstruction seen. This point the area was irrigated. There is no bleeding seen. The fascia was closed loop #1 PDS suture. Skin was closed tahir. Patient top she will well and was sent to the ICU intubated.
[2023-03-01 15:52] LABS: Glucose,Whole Blood 142 mg/dL (70-110)
[2023-03-01] MEDS: NOREPINEPHRINE 4 MG in SODIUM CHLORIDE 0.9% 250 ML IV SCH (16:00)
[2023-03-01 16:30] LABS: ABG Base Excess -6.4 mmol/L; ABG HCO3 20 mmol/L (21-25); ABG Oxygen Saturation 98.4 % (94-97); ABG PCO2 37 mmHg (35-45); ABG PH 7.33 (7.35-7.45); ABG PO2 113 mmHg (83-108); ABG TCO2 21 mmol/L (19-24)
--- NOTE | 2023-03-01 16:30 | XR ---
EXAMINATION TYPE: XR chest 1V portable DATE OF EXAM: 03/01/2023 COMPARISON: 03/01/2023 from earlier in the day HISTORY: SOB, Follow Up FINDINGS: Endotracheal tube is approximately 4.7 cm from the michael. NG tube is seen coursing into the stomach. Right IJ central venous line with its distal tip within the right atrium. No evidence of pneumothora x. No change in bibasilar opacities. Stable appearance of the cardio-mediastinal structures at this time. IMPRESSION: 1. Indwelling tubes and catheters as noted.
[2023-03-01 16:31] LABS: Allen Test Performed? no
[2023-03-01 18:17] LABS: Glucose,Whole Blood 160 mg/dL (70-110)
--- NOTE | 2023-03-01 18:30 | P.PN ---
Subjective Progress Note Date: 03/01/23 - Reason for Consult COPD exacerbation - History of Present Illness 67-year-old female came to emergency department with complaints of left lower quadrant and diffuse abdominal pain going on for about 3 days along with nausea vomiting patient was constipated did have a bowel movement today. Patient had a CT of the abdomen, showed distal small bowel obstruction. There may be adhesions. Patient does have history of COPD continues to smoke declining patch about a pack per day patient has wheezing on exam uses 2-3 L of oxygen at home. Patient does have leukocytosis no fever patient has mildly elevated creatinine and along with low serum sodium. 02/28/2023 Patient is seen and evaluated in follow-up this morning with general surgery as admitting services. Patient was admitted for high-grade small bowel obstruction and continues with NG tube as well as some abdominal tenderness and distention with no significant output noted. Patient is nothing by mouth. Absent bowel sounds noted on exam and plan is for tentative exploratory laparotomy with lysis of adhesions on 03/01/2023. Patient is currently afebrile and being maintained on DuoNeb treatments for COPD exacerbation. Patient is supposed to wear oxygen in the outpatient setting and wears 2-3 L with no significant wheezing noted on exam although diminished breath sounds are bilaterally with coarse rhonchi. Chest x-ray will be obtained as patient has also been maintained on IV hydration as patient was nothing by mouth. Patient is afebrile denies chest pain or worsening shortness of breath. Patient reports her breathing she feels has improved. Patient reports occasional nausea with no vomiting and some abdominal discomfort noted. 03/01/2023 Patient is seen in follow-up this morning reporting she does not feel very well at all and is having some shortness of breath and cough and per nursing staff patient has been hypotensive. Patient did receive a 500 mL bolus and placed on IV fluids with minimal improvement in blood pressure. General surgery who is admitting was contacted and instructed to give a liter bolus of normal saline. Patient is afebrile continues with no bowel sounds noted and continues with abdominal distention and pain she reports. Patient is scheduled for exploratory laparotomy today which is currently pending. Recommend monitoring Accu-Cheks before meals and at bedtime and will hold metformin and continue sliding scale for now. Recommend weaning FiO2 as tolerated although patient is requiring more oxygen and currently on high flow. Patient COPD is somewhat stable and there is no wheezing noted. Kidney function slightly worsened although will follow-up with repeat labs. Review of systems: Constitutional: No reports of fatigue, fever, or chills Cardiovascular: No reports of chest pain or palpitations Respiratory: reports of shortness of breath with cough GI: No reports of nausea, vomiting, or diarrhea, reports increased abdominal pain with continued distention : No reports of dysuria or retention Neurovascular: reports of generalized weakness All medications have been reviewed PHYSICAL EXAMINATION: GENERAL: The patient is alert and oriented x3. Well developed, well nourished. Elderly-appearing female HEENT: Pupils are round and equally reacting to light. EOMI. No scleral icterus. No conjunctival pallor. Normocephalic, atraumatic. No pharyngeal erythema. No thyromegaly. CARDIOVASCULAR: S1 and S2 present. No murmurs, rubs, or gallops. PULMONARY: Diminished breath sounds bilaterally with coarse rhonchi and no wheezing noted ABDOMEN: Soft, increased distention, absent bowel sounds. No palpable organome edy. MUSCULOSKELETAL: No joint swelling or deformity. EXTREMITIES: No cyanosis, clubbing, or pedal edema. NEUROLOGICAL: Gross neurological examination did not reveal any focal deficits. Diffusely weak SKIN: No rashes. Assessment: -High-grade distal small bowel obstruction, possibly secondary to adhesions -Leukocytosis secondary to assessment 1 -Mild hypovolemic hyponatremia secondary to nausea vomiting, improving although now with worsening kidney functions -acute renal failure secondary to nausea vomiting with prerenal azotemia. -COPD with mild acute exacerbation -Acute on chronic hypoxic respiratory failure secondary to COPD and a component of volume overload from IV fluids -Continued ongoing nicotine dependence -Hypertension -Hyperlipidemia -History of CVA -Type 2 diabetes mellitus patient was started on sliding scale insulin -GI prophylaxis -DVT prophylaxis: Lovenox -Full code plan: Recommend patient continue with breathing inhalational treatments and home medications although patient is nothing by mouth currently and continues with an NG tube Patient with continued abdominal pain and distention with no significant improvement and continued absent bowel sounds being taken for exploratory laparotomy today Per nursing staff patient has been hypotensive with worsening kidney functions and patient likely needs emergent surgical intervention Continue with IV hydration per general surgery who has ordered a fluid bolus Patient now requiring increased oxygen demands currently on 9 L high flow and recommend wean FiO2 as tolerated. Recommend emergent chest x-ray as yesterday's x-ray showed volume overload and did receive a dose of Lasix Strongly encouraged and discussed complete tobacco cessation Follow-up chest x-ray also showed the NG tube was not placed correctly and curled up at the tip Recommend follow-up labs in a.m. Patient to continue nothing by mouth and will be advanced per surgery We will continue to follow with general surgery during hospitalization. Thank you kindly for this consultation. The impression and plan of care has been dictated by Vika Simon, Nurse Practitioner as directed. Dr. Abigail MD I have performed a history and examination and MDM of this patient, discussed the same with the dictator, and agree with the dictator's assessment and plan as written ,documented as a scribe. Based on total visit time, I have performed more than 50% of the visit. Objective - Vital Signs Vital signs: Vital Signs Temp 98.5 F 03/01/23 07:05 Pulse 99 03/01/23 07:05 Resp 16 03/01/23 07:05 BP 88/55 03/01/23 07:15 Pulse Ox 93 L 03/01/23 07:44 FiO2 Intake & Output 02/28/23 03/01/23 03/01/23 18:59 06:59 18:59 Intake Total 1440 0 Balance 1440 0 Intake: Intake, IV Titration 1440 Amount Piperacillin-Tazobactam 3 100 .375 gm In Sodium Chloride 0.9% 100 ml @ 25 mls/hr IVPB Q8HR [facility] Rx# :[id number] Sodium Chloride 0.9% 1, 1340 000 ml @ 75 mls/hr IV . [id number] [facility] Rx#:[id number] Oral 0 Other: Voiding Method Toilet Bedside Commode # Voids 1 - Labs CBC & Chem 7: 03/01/23 05:56 03/01/23 05:56 Labs: Abnormal Lab Results - Last 24 Hours (Table) 02/27/23 02/28/23 02/28/23 Range/Units 11:22 11:27 20:23 Hgb (11.4-16.0) gm/dL Hct (34.0-46.0) % MCV (80.0-100.0) fL MCH (25.0-35.0) pg MCHC (31.0-37.0) g/dL RDW (11.5-15.5) % Sodium (137-145) mmol/L Carbon Dioxide (22-30) mmol/L BUN (7-17) mg/dL Creatinine (0.52-1.04) mg/dL Glucose (74-99) mg/dL POC Glucose (mg/dL) 117 H 141 H (70-110) mg/dL Urine Protein 1+ H (Negative) Urine Ketones Trace H (Negative) Urine Blood Trace H (Negative) Ur Leukocyte Esterase Small H (Negative) Urine Bacteria Rare H (None) /hpf Hyaline Casts 4 H (0-2) /lpf Urine Mucus Few H (None) /hpf 03/01/23 03/01/23 03/01/23 Range/Units 05:56 05:56 07:05 Hgb 9.3 L (11.4-16.0) gm/dL Hct 32.6 L (34.0-46.0) % MCV 67.3 L (80.0-100.0) fL MCH 19.3 L (25.0-35.0) pg MCHC 28.7 L (31.0-37.0) g/dL RDW 18.9 H (11.5-15.5) % Sodium 134 L (137-145) mmol/L Carbon Dioxide 21 L (22-30) mmol/L BUN 20 H (7-17) mg/dL Creatinine 1.55 H (0.52-1.04) mg/dL Glucose 158 H (74-99) mg/dL POC Glucose (mg/dL) 137 H (70-110) mg/dL Urine Protein (Negative) Urine Ketones (Negative) Urine Blood (Negative) Ur Leukocyte Esterase (Negative) Urine Bacteria (None) /hpf Hyaline Casts (0-2) /lpf Urine Mucus (None) /hpf
[2023-03-01 21:24] LABS: Glucose,Whole Blood 159 mg/dL (70-110)
[2023-03-01] MEDS: CHLORHEXIDINE GLUCONATE 15 ML CUP MUCOUS MEM SCH (21:28)
[2023-03-02] MEDS ORDERED: IPRATROPIUM-ALBUTEROL 3 ML NEB INHALATION PRN (00:01)
[2023-03-02] MEDS: IPRATROPIUM-ALBUTEROL 3 ML NEB INHALATION SCH ×6 (00:06→20:05)
[2023-03-02] MEDS: HYDROmorphone 0.5 MG/0.5 ML SYRINGE IVP PRN ×3 (00:42→20:57)
--- NOTE | 2023-03-02 03:38 | P.CNPUL ---
History of Present Illness Consult date: 03/02/23 Requesting physician: Kareem Earl Reason for consult: other (ICU management) Chief complaint: Abdominal pain History of present illness: I am seeing this patient in consultation today 03/02/2023 in the intensive care unit for a small bowel obstruction status post operative day #1 for exploratory laparotomy and lysis of adhesions. Patient is a 67-year-old female with past medical history significant for COPD, diabetes mellitus type 2, hypertension, CVA/TIA, and is a current tobacco smoker. Patient has had a recent hospital follow-up for COPD exacerbation with Dr. Morris in the office. PFT in the office is consistent with moderate obstruction. Patient manages her COPD with a Breo-elipta inhaler and when necessary albuterol. Patient reportedly presented to the emergency room on February 27 with complaints of abdominal pain and constipation starting [address] without contrast on arrival showed findings suggestive of high-grade distal small bowel obstruction. Without any evidence of perforation or free air. There was also an infrarenal abdominal aortic aneurysm measuring 3.3 cm. Yesterday afternoon, the patient was taken for exploratory laparotomy for lysis of lesions. The patient is currently intubated to the mechanical ventilator. Most recent chest x-ray shows the endotracheal tube 4.7 cm from the michael, bibasilar opacities concerning for possible pneumonia, NG tube coursing below the diaphragm, and a right IJ central venous line with the distal tip in the right atrium. She is sedated on propofol infusing at 45 mcg/kg/m. She is synchronous. Most recent ABGs show a pO2 of 113, pCO2 of 37, pH of 7.33. Current ventilator settings are assist control, respiratory rate 12, tidal volume 400, FiO2 70%, PEEP of 10. Patient is empirically covered on Zosyn. Most recent CBC includes a WBC count 8.4, hemoglobin 9.3, hematocrit 32.6, platelets 161,000. Most recent BMP shows a sodium 134, potassium 4.4, chloride 101, serum CO2 21, BUN 20, creatinine 1.55, glucose 158. NT proBNP was elevated at 7840. Patient does have acute kidney injury. Normal saline is infusing at 75 mL per hour. Urine output is in order of about 30 MLS per hour. Initially, the patient was on Levophed infusion, however, this has been off since the patient arrived to the intensive care unit. Receiving DVT prophylaxis with Lovenox and GI prophylaxis with Protonix. Patient will be monitored in the intensive care unit. Review of Systems ROS unobtainable: due to endotracheal tube Past Medical History Past Medical History: COPD, CVA/TIA, Hypertension History of Any Multi-Drug Resistant Organisms: None Reported Past Surgical History: No Surgical Hx Reported Past Anesthesia/Blood Transfusion Reactions: No Reported Reaction Past Psychological History: No Psychological Hx Reported Smoking Status: Current every day smoker Past Alcohol Use History: None Reported Past Drug Use History: Marijuana Medications and Allergies Home Medications Medication Instructions Recorded Confirmed Type Albuterol Inhaler [Ventolin Hfa 1 - 2 puff INHALATION RT-Q6H PRN 01/02/23 02/27/23 History Inhaler] Aspirin EC [Ecotrin Low Dose] 81 mg PO DAILY 01/02/23 02/27/23 History Atorvastatin [Lipitor] 20 mg PO DAILY 01/02/23 02/27/23 History Budesonide-Formot 160-4.5 Mcg 2 puff INHALATION RT-BID 30 Days 01/05/23 02/27/23 Rx [Symbicort 160-4.5 Mcg Inhaler] #1 each lisinopriL [Zestril] 20 mg PO DAILY 30 Days #30 tab 01/05/23 02/27/23 Rx Acetaminophen Tab [Tylenol] 650 mg PO Q6HR PRN tab 01/23/23 02/27/23 Rx amLODIPine [Norvasc] 5 mg PO HS #30 tab 01/23/23 02/27/23 Rx metFORMIN HCL 500 mg PO DAILY #30 tab 01/23/23 02/27/23 Rx oxyBUTYnin chloride 5 mg PO BID 02/27/23 02/27/23 History Allergies Allergy/AdvReac Type Severity Reaction Status Date / Time No Known Allergies Allergy Verified 02/27/23 14:04 Physical Exam Vitals: Vital Signs Temp Pulse Pulse Resp BP BP Pulse Ox 03/02/23 01:40 03/02/23 01:00 101 H 12 98 03/02/23 00:30 99 21 96 03/02/23 00:25 101 H 03/02/23 00:06 93 03/02/23 00:00 99.1 F 98 20 98 03/01/23 23:45 98 20 98 03/01/23 23:30 96 15 97 03/01/23 23:15 95 19 97 03/01/23 23:00 96 19 94 L 03/01/23 22:45 96 19 94 L 03/01/23 22:30 94 19 95 03/01/23 22:15 93 20 97 03/01/23 22:00 94 19 96 03/01/23 21:45 93 19 96 03/01/23 21:30 97 21 97 03/01/23 21:15 92 18 97 03/01/23 21:00 89 19 97 03/01/23 20:45 87 19 96 03/01/23 20:30 81 20 97 03/01/23 20:27 85 03/01/23 20:19 03/01/23 20:16 81 03/01/23 20:15 79 20 96 03/01/23 20:00 99.7 F H 84 20 95 03/01/23 19:30 79 17 98 03/01/23 19:20 77 16 97 03/01/23 19:10 81 17 97 03/01/23 19:00 77 17 97 03/01/23 18:50 72 14 95 03/01/23 18:40 74 15 94 L 03/01/23 18:30 77 17 93 L 03/01/23 18:20 76 18 92 L 03/01/23 18:10 80 13 92 L 03/01/23 18:00 74 19 92 L 03/01/23 17:50 77 21 91 L 03/01/23 17:40 75 14 91 L 03/01/23 17:30 75 19 91 L 03/01/23 17:22 03/01/23 17:20 73 19 95 03/01/23 17:10 77 17 95 03/01/23 17:00 76 19 96 03/01/23 16:50 79 21 95 03/01/23 16:40 79 21 95 03/01/23 16:30 81 20 97 03/01/23 16:20 84 23 95 03/01/23 16:15 03/01/23 16:10 86 20 96 03/01/23 16:00 98.1 F 97 18 94 L 03/01/23 15:50 97 03/01/23 15:48 0 L 17 03/01/23 14:14 90 18 94/57 92 L 03/01/23 14:00 89 18 104/61 91 L 03/01/23 13:50 97 18 102/59 93 L 03/01/23 13:24 93 15 91/52 100 03/01/23 12:38 92 15 90/53 89 L 03/01/23 12:27 98.2 F 94 15 89/51 98 03/01/23 11:00 98.5 F 60 16 86/54 97 03/01/23 09:49 92 03/01/23 09:36 90 86/60 94 L 03/01/23 07:44 93 L 03/01/23 07:15 88/55 03/01/23 07:10 81/52 03/01/23 07:05 98.5 F 99 16 69/40 97 FiO2 03/02/23 01:40 50 03/02/23 01:00 60 03/02/23 00:30 60 03/02/23 00:25 03/02/23 00:06 60 03/02/23 00:00 70 03/01/23 23:45 70 03/01/23 23:30 70 03/01/23 23:15 70 03/01/23 23:00 70 03/01/23 22:45 70 03/01/23 22:30 70 03/01/23 22:15 70 03/01/23 22:00 70 03/01/23 21:45 70 03/01/23 21:30 70 03/01/23 21:15 70 03/01/23 21:00 70 03/01/23 20:45 70 03/01/23 20:30 70 03/01/23 20:27 03/01/23 20:19 70 03/01/23 20:16 03/01/23 20:15 70 03/01/23 20:00 70 03/01/23 19:30 03/01/23 19:20 03/01/23 19:10 03/01/23 19:00 03/01/23 18:50 03/01/23 18:40 03/01/23 18:30 03/01/23 18:20 03/01/23 18:10 03/01/23 18:00 03/01/23 17:50 03/01/23 17:40 03/01/23 17:30 03/01/23 17:22 80 03/01/23 17:20 03/01/23 17:10 03/01/23 17:00 03/01/23 16:50 03/01/23 16:40 03/01/23 16:30 03/01/23 16:20 03/01/23 16:15 100 03/01/23 16:10 03/01/23 16:00 100 03/01/23 15:50 100 03/01/23 15:48 03/01/23 14:14 03/01/23 14:00 03/01/23 13:50 03/01/23 13:24 03/01/23 12:38 03/01/23 12:27 03/01/23 11:00 03/01/23 09:49 03/01/23 09:36 03/01/23 07:44 03/01/23 07:15 03/01/23 07:10 03/01/23 07:05 Intake and Output 03/01/23 03/01/23 03/02/23 14:59 22:59 06:59 Intake Total 600 647.906 396.723 Output Total 326 315 100 Balance 274 332.906 296.723 Intake: IV 600 550 325 Piperacillin-Tazobactam 3 100 100 .375 gm In Sodium Chloride 0.9% 100 ml @ 25 mls/hr IVPB Q8HR [facility] Rx# :[id number] Sodium Chloride 0.9% 1, 450 225 000 ml @ 75 mls/hr IV . [id number] [facility] Rx#:[id number] Intake, IV Titration 97.906 71.723 Amount Norepinephrine 4 mg In 0.757 Sodium Chloride 0.9% 250 ml @ 0.03 MCG/KG/MIN 7. 569 mls/hr IV .Q24H [facility] Rx#:[id number] propofoL 1,000 mg In 97.149 71.723 Empty Bag 1 bag @ 15 MCG/ KG/MIN 5.96 mls/hr IV . [id number] [facility] Rx#:[id number] Output: Urine 250 315 100 Post Void Residual 71 Estimated Blood Loss 5 Other: Voiding Method Indwelling Catheter Indwelling Catheter ABP, PAP, CO, CI - Last 8 Hours Arterial Blood Pressure 101/50 Arterial Blood Pressure 145/63 Arterial Blood Pressure 134/60 Arterial Blood Pressure 138/60 Arterial Blood Pressure 141/61 Arterial Blood Pressure 143/60 Arterial Blood Pressure 140/60 Arterial Blood Pressure 142/60 Arterial Blood Pressure 142/59 Arterial Blood Pressure 141/60 Arterial Blood Pressure 141/59 Arterial Blood Pressure 140/59 Arterial Blood Pressure 136/62 Arterial Blood Pressure 126/57 Arterial Blood Pressure 123/57 Arterial Blood Pressure 118/57 Arterial Blood Pressure 113/56 Arterial Blood Pressure 116/57 Arterial Blood Pressure 112/55 Arterial Blood Pressure 106/56 Arterial Blood Pressure 103/55 Arterial Blood Pressure 110/57 Arterial Blood Pressure 108/56 GENERAL EXAM: Intubated to mechanical ventilator, sedated, and synchronous HEAD: Normocephalic and atraumatic EYES: Normal reaction of pupils, equal size. NOSE: Clear with pink turbinates. THROAT: No erythema or exudates. NECK: No masses, no JVD. CHEST: No chest wall deformity. LUNGS: Equal air entry with no crackles, wheeze, rhonchi or dullness. CVS: S1 and S2 normal with no audible murmur, regular rhythm. No extra heart sounds ABDOMEN: Midline abdominal incision, approximated. Small amount of shadowing on dressing. No hepatosplenomegaly, hypoactive bowel sounds, no guarding or rigidity. SPINE: No scoliosis or deformity SKIN: No rashes CENTRAL NERVOUS SYSTEM: No focal deficits, tone is normal in all 4 extremities. Patient is sedated on propofol. Minimal eye opening with verbal stimulation. Does not follow commands. EXTREMITIES: There is no peripheral edema, clubbing, or cyanosis. Peripheral pulses are intact. Results - Laboratory Findings CBC and BMP: 03/01/23 05:56 03/01/23 05:56 ABG ABG pH 7.33 (7.35-7.45) L 03/01/23 16:27 ABG pCO2 37 mmHg (35-45) 03/01/23 16:27 ABG pO2 113 mmHg (83-108) H 03/01/23 16:27 ABG O2 Saturation 98.4 % (94-97) H 03/01/23 16:27 Abnormal lab findings: Abnormal Labs 02/27/23 02/27/23 02/27/23 11:22 11:33 11:33 WBC 10.7 H RBC 5.64 H Hgb 11.0 L D Hct MCV 65.7 L MCH 19.4 L MCHC 29.6 L RDW 19.0 H Neutrophils # 8.7 H ABG pH ABG pO2 ABG HCO3 ABG O2 Saturation Sodium 134 L Chloride 97 L Carbon Dioxide BUN Creatinine 1.20 H Glucose 146 H POC Glucose (mg/dL) Total Bilirubin 1.5 H Urine Protein 1+ H Urine Ketones Trace H Urine Blood Trace H Ur Leukocyte Esterase Small H Urine Bacteria Rare H Hyaline Casts 4 H Urine Mucus Few H 02/27/23 02/27/23 02/28/23 18:15 20:55 05:12 WBC RBC Hgb 9.6 L Hct 32.2 L MCV 66.3 L MCH 19.7 L MCHC 29.8 L RDW 18.9 H Neutrophils # ABG pH ABG pO2 ABG HCO3 ABG O2 Saturation Sodium Chloride Carbon Dioxide BUN Creatinine Glucose POC Glucose (mg/dL) 143 H 132 H Total Bilirubin Urine Protein Urine Ketones Urine Blood Ur Leukocyte Esterase Urine Bacteria Hyaline Casts Urine Mucus 02/28/23 02/28/23 02/28/23 05:12 08:19 11:27 WBC RBC Hgb Hct MCV MCH MCHC RDW Neutrophils # ABG pH ABG pO2 ABG HCO3 ABG O2 Saturation Sodium 135 L Chloride Carbon Dioxide BUN 20 H Creatinine 1.36 H Glucose 124 H POC Glucose (mg/dL) 132 H 117 H Total Bilirubin Urine Protein Urine Ketones Urine Blood Ur Leukocyte Esterase Urine Bacteria Hyaline Casts Urine Mucus 02/28/23 03/01/23 03/01/23 20:23 05:56 05:56 WBC RBC Hgb 9.3 L Hct 32.6 L MCV 67.3 L MCH 19.3 L MCHC 28.7 L RDW 18.9 H Neutrophils # ABG pH ABG pO2 ABG HCO3 ABG O2 Saturation Sodium 134 L Chloride Carbon Dioxide 21 L BUN 20 H Creatinine 1.55 H Glucose 158 H POC Glucose (mg/dL) 141 H Total Bilirubin Urine Protein Urine Ketones Urine Blood Ur Leukocyte Esterase Urine Bacteria Hyaline Casts Urine Mucus 03/01/23 03/01/23 03/01/23 07:05 11:38 13:59 WBC RBC Hgb Hct MCV MCH MCHC RDW Neutrophils # ABG pH ABG pO2 81 L ABG HCO3 ABG O2 Saturation Sodium Chloride Carbon Dioxide BUN Creatinine Glucose POC Glucose (mg/dL) 137 H 115 H Total Bilirubin Urine Protein Urine Ketones Urine Blood Ur Leukocyte Esterase Urine Bacteria Hyaline Casts Urine Mucus 03/01/23 03/01/23 03/01/23 15:50 16:27 18:15 WBC RBC Hgb Hct MCV MCH MCHC RDW Neutrophils # ABG pH 7.33 L ABG pO2 113 H ABG HCO3 20 L ABG O2 Saturation 98.4 H Sodium Chloride Carbon Dioxide BUN Creatinine Glucose POC Glucose (mg/dL) 142 H 160 H Total Bilirubin Urine Protein Urine Ketones Urine Blood Ur Leukocyte Esterase Urine Bacteria Hyaline Casts Urine Mucus 03/01/23 21:23 WBC RBC Hgb Hct MCV MCH MCHC RDW Neutrophils # ABG pH ABG pO2 ABG HCO3 ABG O2 Saturation Sodium Chloride Carbon Dioxide BUN Creatinine Glucose POC Glucose (mg/dL) 159 H Total Bilirubin Urine Protein Urine Ketones Urine Blood Ur Leukocyte Esterase Urine Bacteria Hyaline Casts Urine Mucus - Diagnostic Findings Chest x-ray: image reviewed Assessment and Plan Assessment: Small bowel obstruction status post operative day #1 for exploratory laparotomy and lysis of adhesions. Acute hypoxemic respiratory failure, currently on mechanical ventilator. Chest x-ray shows bibasilar opacities concerning for possible pneumonia. Moderate COPD, stable Acute kidney injury, creatinine currently 1.55 Infrarenal aortic abdominal aneurysm, measuring 3.[address] Diabetes mellitus type 2, [id number] Essential hypertension History of CVA/TIA Chronic nicotine dependence Plan: Patient's medications, labs, chest x-ray reviewed Continue mechanical ventilator at current settings and wean FiO2 to maintain oxygen saturation of 93% or greater Start the patient on a combination of bronchodilators, budesonide, formoterol. Continue empiric antibiotics Procalcitonin level pending Blood and sputum cultures pending Patient did receive a dose of Lasix Repeat chest x-ray in the morning Lovenox for DVT prophylaxis Protonix for GI prophylaxis Blood glucose control per admitting We will continue to follow Patient will be monitored in the intensive care unit I have personally seen and examined the patient, performed the documentation and the assessment and plan as written. Number of minutes spent on the visit:20 Time with Patient: Greater than 30
[2023-03-02 04:51] LABS: Anisocytosis Slight; Basophils % (A) 0 %; Eosinophils % (A) 0 %; HCT 28.6 % (34.0-46.0); HGB 8.3 gm/dL (11.4-16.0); Hypochromasia Marked; Lymphocytes # (A) 0.9 k/uL (1.0-4.8); Lymphocytes % (A) 10 %; MCH 19.2 pg (25.0-35.0); MCHC 29.1 g/dL (31.0-37.0); MCV 66.1 fL (80.0-100.0); Mean Platelet Volume 8.9; Microcytosis Marked; Monocytes # (A) 0.6 k/uL (0-1.0); Monocytes % (A) 7 %; Neutrophils # (A) 7.2 k/uL (1.3-7.7); Neutrophils % (A) 81 %; Platelet Count 135 k/uL (150-450); Poikilocytosis Moderate; RBC 4.32 m/uL (3.80-5.40); RDW 18.9 % (11.5-15.5); WBC 8.9 k/uL (3.8-10.6)
[2023-03-02 05:08] LABS: African American GFR (CKD) 65 (>60 ml/min/1.73 sqM); Anion Gap 9 mmol/L; Blood Urea Nitrogen 20 mg/dL (7-17); Calcium 8.6 mg/dL (8.4-10.2); Carbon Dioxide 19 mmol/L (22-30); Chloride 107 mmol/L (98-107); Glucose 129 mg/dL (74-99); Non-African American GFR(CKD) 56 (>60 ml/min/1.73 sqM); Potassium 4.2 mmol/L (3.5-5.1); Sodium 135 mmol/L (137-145)
[2023-03-02 05:52] LABS: ABG HCO3 21 mmol/L (21-25); ABG Oxygen Saturation 97.5 % (94-97); ABG PCO2 39 mmHg (35-45); ABG PH 7.34 (7.35-7.45); ABG PO2 93 mmHg (83-108); ABG TCO2 22 mmol/L (19-24); Allen Test Performed? Yes
[2023-03-02 06:50] LABS: Glucose,Whole Blood 122 mg/dL (70-110)
[2023-03-02] MEDS: INSULIN ASPART (NovoLOG) 100 UNIT/ML VIAL SQ SCH ×4 (06:58→20:43)
[2023-03-02] MEDS: SODIUM CHLORIDE 0.9% 1,000 ML IV SCH (06:59)
--- NOTE | 2023-03-02 07:23 | XR ---
EXAMINATION TYPE: XR chest 1V portable DATE OF EXAM: 03/02/2023 COMPARISON: 03/01/2023 HISTORY: SOB, Follow Up FINDINGS: Indwelling tubes and catheters are unchanged. No change in bibasilar opacities. Stable appearance of the cardio-mediastinal structures at this time. IMPRESSION: 1. Stable portable chest. Clinical correlation and follow up until resolution is recommended.
[2023-03-02] MEDS: BUDESONIDE 1 MG/2 ML NEBU INHALATION SCH ×2 (07:59→20:05)
[2023-03-02] MEDS: FORMOTEROL FUMARATE 20 MCG/2 ML NEBU INHALATION SCH ×2 (07:59→20:05)
[2023-03-02] MEDS: PIPERACILLIN-TAZOBACTAM 3.375 GM in SODIUM CHLORIDE 0.9% 100 ML IVPB SCH ×2 (08:56→16:51)
[2023-03-02] MEDS: PANTOPRAZOLE 40 MG/10 ML VIAL IVP SCH (09:33)
[2023-03-02] MEDS: CHLORHEXIDINE GLUCONATE 15 ML CUP MUCOUS MEM SCH (09:33)
[2023-03-02] MEDS: ENOXAPARIN 30 MG/0.3 ML SYRINGE SQ SCH (09:34)
[2023-03-02] MEDS: ATORVASTATIN 20 MG TAB PO SCH (09:36)
[2023-03-02] MEDS: oxyBUTYnin chloride 5 MG TAB PO SCH ×2 (09:36→19:51)
[2023-03-02] MEDS: HYDROmorphone 1 MG/ML 1 ML SYRINGE IVP PRN ×2 (10:55→14:28)
[2023-03-02 11:59] LABS: Glucose,Whole Blood 135 mg/dL (70-110)
--- NOTE | 2023-03-02 12:03 | P.PN ---
Subjective Progress Note Date: 03/02/23 CHIEF COMPLAINT: Small bowel structure HISTORY OF PRESENT ILLNESS: Patient currently in the ICU. She is POD# 1, status post exploratory laparotomy with lysis of adhesions for small bowel obstruction secondary to adhesive band causing a closed loop obstruction. She is scheduled to be extubated this morning. They have weaned off the Diprivan. She did open her eyes. Patient's OG tube output 100 mL bilious output through the night. Afebrile. WBC 8.9 hgb 8.3 platelets 135 cr 1.03 PHYSICAL EXAM: VITAL SIGNS: Reviewed. GENERAL: Well-developed in no acute distress. ABDOMEN: Soft. Mildly distended. Incisional dressing clean dry and intact. NEUROLOGIC: Intubated. Able to open eyes. ASSESSMENT: 1. Small bowel obstruction secondary to adhesive band causing a closed loop obstruction status post exploratory laparotomy with lysis of adhesions PLAN: -Continue ICU management -Patient scheduled to be extubated today -Keep patient nothing by mouth -Continue pain management -Continue IV fluid -DVT prophylaxis Lovenox and GI prophylaxis protonix Physician Helicopter Repairer note has been reviewed by physician. Signing provider agrees with the documented findings, assessment, and plan of care. Objective - Vital Signs Vital signs: Vital Signs Temp 98.7 F 03/02/23 08:00 Pulse 102 H 03/02/23 10:00 Resp 14 03/02/23 10:00 BP 106/65 03/02/23 10:00 Pulse Ox 92 L 03/02/23 10:00 FiO2 40 03/02/23 10:00 Intake & Output 03/01/23 03/02/23 03/02/23 18:59 06:59 18:59 Intake Total 514.959 4290.195 433.444 Output Total 536 385 260 Balance 327.605 840.195 173.444 Weight 60 kg 60 kg Intake: IV 850 1000 400 Piperacillin-Tazobactam 3 100 100 100 .375 gm In Sodium Chloride 0.9% 100 ml @ 25 mls/hr IVPB Q8HR [facility] Rx# :[id number] Sodium Chloride 0.9% 1, 150 900 300 000 ml @ 75 mls/hr IV . [id number] [facility] Rx#:[id number] Intake, IV Titration 13.605 225.195 33.444 Amount Norepinephrine 4 mg In 0.757 Sodium Chloride 0.9% 250 ml @ 0.03 MCG/KG/MIN 7. 569 mls/hr IV .Q24H [facility] Rx#:[id number] propofoL 1,000 mg In 12.848 225.195 33.444 Empty Bag 1 bag @ 15 MCG/ KG/MIN 5.96 mls/hr IV . [id number] [facility] Rx#:[id number] Output: Gastric Drainage 50 Urine 460 385 210 Post Void Residual 71 Estimated Blood Loss 5 Other: Voiding Method Indwelling Catheter Indwelling Catheter ABP, PAP, CO, CI - Last Documented Arterial Blood Pressure 90/73 - Labs CBC & Chem 7: 03/02/23 04:38 03/02/23 04:38 Labs: Abnormal Lab Results - Last 24 Hours (Table) 03/01/23 03/01/23 03/01/23 Range/Units 11:38 13:59 15:50 Hgb (11.4-16.0) gm/dL Hct (34.0-46.0) % MCV (80.0-100.0) fL MCH (25.0-35.0) pg MCHC (31.0-37.0) g/dL RDW (11.5-15.5) % Plt Count (150-450) k/uL Lymphocytes # (1.0-4.8) k/uL ABG pH (7.35-7.45) ABG pO2 81 L (83-108) mmHg ABG HCO3 (21-25) mmol/L ABG O2 Saturation (94-97) % Sodium (137-145) mmol/L Carbon Dioxide (22-30) mmol/L BUN (7-17) mg/dL Glucose (74-99) mg/dL POC Glucose (mg/dL) 115 H 142 H (70-110) mg/dL Procalcitonin (0.02-0.09) ng/mL 03/01/23 03/01/23 03/01/23 Range/Units 16:27 18:15 21:23 Hgb (11.4-16.0) gm/dL Hct (34.0-46.0) % MCV (80.0-100.0) fL MCH (25.0-35.0) pg MCHC (31.0-37.0) g/dL RDW (11.5-15.5) % Plt Count (150-450) k/uL Lymphocytes # (1.0-4.8) k/uL ABG pH 7.33 L (7.35-7.45) ABG pO2 113 H (83-108) mmHg ABG HCO3 20 L (21-25) mmol/L ABG O2 Saturation 98.4 H (94-97) % Sodium (137-145) mmol/L Carbon Dioxide (22-30) mmol/L BUN (7-17) mg/dL Glucose (74-99) mg/dL POC Glucose (mg/dL) 160 H 159 H (70-110) mg/dL Procalcitonin (0.02-0.09) ng/mL 03/02/23 03/02/23 03/02/23 Range/Units 04:38 04:38 05:48 Hgb 8.3 L (11.4-16.0) gm/dL Hct 28.6 L (34.0-46.0) % MCV 66.1 L (80.0-100.0) fL MCH 19.2 L (25.0-35.0) pg MCHC 29.1 L (31.0-37.0) g/dL RDW 18.9 H (11.5-15.5) % Plt Count 135 L (150-450) k/uL Lymphocytes # 0.9 L (1.0-4.8) k/uL ABG pH 7.34 L (7.35-7.45) ABG pO2 (83-108) mmHg ABG HCO3 (21-25) mmol/L ABG O2 Saturation 97.5 H (94-97) % Sodium 135 L (137-145) mmol/L Carbon Dioxide 19 L (22-30) mmol/L BUN 20 H (7-17) mg/dL Glucose 129 H (74-99) mg/dL POC Glucose (mg/dL) (70-110) mg/dL Procalcitonin (0.02-0.09) ng/mL 03/02/23 03/02/23 Range/Units 06:00 06:48 Hgb (11.4-16.0) gm/dL Hct (34.0-46.0) % MCV (80.0-100.0) fL MCH (25.0-35.0) pg MCHC (31.0-37.0) g/dL RDW (11.5-15.5) % Plt Count (150-450) k/uL Lymphocytes # (1.0-4.8) k/uL ABG pH (7.35-7.45) ABG pO2 (83-108) mmHg ABG HCO3 (21-25) mmol/L ABG O2 Saturation (94-97) % Sodium (137-145) mmol/L Carbon Dioxide (22-30) mmol/L BUN (7-17) mg/dL Glucose (74-99) mg/dL POC Glucose (mg/dL) 122 H (70-110) mg/dL Procalcitonin 0.15 H (0.02-0.09) ng/mL Microbiology - Last 24 Hours (Table) 03/01/23 20:39 Gram Stain - Preliminary Sputum 02/27/23 16:07 Blood Culture - Preliminary Blood 02/27/23 16:19 Blood Culture - Preliminary Blood
[2023-03-02] MEDS: NOREPINEPHRINE 4 MG in SODIUM CHLORIDE 0.9% 250 ML IV SCH (14:08)
[2023-03-02] MEDS: LACTATED RINGERS 1,000 ML IV SCH ×2 (17:29→18:50)
[2023-03-02 17:31] LABS: Glucose,Whole Blood 136 mg/dL (70-110)
[2023-03-02] MEDS: LACTATED RINGERS 500 ML IV SCH ×2 (18:49→18:51)
--- NOTE | 2023-03-02 18:58 | P.PN ---
Subjective Progress Note Date: 03/02/23 - Reason for Consult COPD exacerbation - History of Present Illness 67-year-old female came to emergency department with complaints of left lower quadrant and diffuse abdominal pain going on for about 3 days along with nausea vomiting patient was constipated did have a bowel movement today. Patient had a CT of the abdomen, showed distal small bowel obstruction. There may be adhesions. Patient does have history of COPD continues to smoke declining patch about a pack per day patient has wheezing on exam uses 2-3 L of oxygen at home. Patient does have leukocytosis no fever patient has mildly elevated creatinine and along with low serum sodium. 02/28/2023 Patient is seen and evaluated in follow-up this morning with general surgery as admitting services. Patient was admitted for high-grade small bowel obstruction and continues with NG tube as well as some abdominal tenderness and distention with no significant output noted. Patient is nothing by mouth. Absent bowel sounds noted on exam and plan is for tentative exploratory laparotomy with lysis of adhesions on 03/01/2023. Patient is currently afebrile and being maintained on DuoNeb treatments for COPD exacerbation. Patient is supposed to wear oxygen in the outpatient setting and wears 2-3 L with no significant wheezing noted on exam although diminished breath sounds are bilaterally with coarse rhonchi. Chest x-ray will be obtained as patient has also been maintained on IV hydration as patient was nothing by mouth. Patient is afebrile denies chest pain or worsening shortness of breath. Patient reports her breathing she feels has improved. Patient reports occasional nausea with no vomiting and some abdominal discomfort noted. 03/01/2023 Patient is seen in follow-up this morning reporting she does not feel very well at all and is having some shortness of breath and cough and per nursing staff patient has been hypotensive. Patient did receive a 500 mL bolus and placed on IV fluids with minimal improvement in blood pressure. General surgery who is admitting was contacted and instructed to give a liter bolus of normal saline. Patient is afebrile continues with no bowel sounds noted and continues with abdominal distention and pain she reports. Patient is scheduled for exploratory laparotomy today which is currently pending. Recommend monitoring Accu-Cheks before meals and at bedtime and will hold metformin and continue sliding scale for now. Recommend weaning FiO2 as tolerated although patient is requiring more oxygen and currently on high flow. Patient COPD is somewhat stable and there is no wheezing noted. Kidney function slightly worsened although will follow-up with repeat labs. 03/02/2023 Patient is seen and evaluated follow-up this morning currently was intubated and recently extubated tolerated well. Patient is currently maintained on 10 L high flow and lung sounds congested with some crackles noted. Patient to continue on breathing treatments Review of systems: Constitutional: No reports of fatigue, fever, or chills Cardiovascular: No reports of chest pain or palpitations Respiratory: reports of shortness of breath with cough GI: No reports of nausea, vomiting, or diarrhea, reports increased abdominal pain with continued distention : No reports of dysuria or retention Neurovascular: reports of generalized weakness All medications have been reviewed PHYSICAL EXAMINATION: GENERAL: The patient is alert and oriented x3. Well developed, well nourished. Elderly-appearing female HEENT: Pupils are round and equally reacting to light. EOMI. No scleral icterus. No conjunctival pallor. Normocephalic, atraumatic. No pharyngeal erythema. No thyromegaly. CARDIOVASCULAR: S1 and S2 present. No murmurs, rubs, or gallops. PULMONARY: Diminished breath sounds bilaterally with coarse rhonchi and no wheezing noted ABDOMEN: Soft, increased distention, absent bowel sounds. No palpable organomegaly. MUSCULOSKELETAL: No joint swelling or deformity. EXTREMITIES: No cyanosis, clubbing, or pedal edema. NEUROLOGICAL: Gross neurological examination did not reveal any focal deficits. Diffusely weak SKIN: No rashes. Assessment: -High-grade distal small bowel obstruction, secondary to adhesions, status post exploratory laparotomy with lysis of adhesions, there was an adhesive band causing a closed loop obstruction. -Status post successful extubation this morning 03/02/2023 -Leukocytosis secondary to assessment 1 -Mild hypovolemic hyponatremia secondary to nausea vomiting, improving -acute renal failure secondary to nausea vomiting with prerenal azotemia. During -COPD with acute exacerbation -Acute on chronic hypoxic respiratory failure secondary to COPD and a component of volume overload from IV fluids -Continued ongoing nicotine dependence -Hypertension -Hyperlipidemia -History of CVA -Type 2 diabetes mellitus patient was started on sliding scale insulin -GI prophylaxis -DVT prophylaxis: Lovenox -Full code plan: Recommend patient continue with breathing inhalational treatments and home med ications Patient is status post exploratory laparotomy with lysis of adhesions for small bowel obstruction secondary to adhesive band causing a closed loop obstruction. Remained intubated overnight with continued NG tube showing 100 mL of output overnight and was recently just excavated this morning successfully currently maintained on 10 L high flow Continue with IV hydration per general surgery and currently remains nothing by mouth per surgery pulmonary subassemblies wirer is now following as well has titrated medications including adding Perforomist and Pulmicort Strongly encouraged and discussed complete tobacco cessation Follow-up chest x-ray ordered in the a.m. and patient is without an NG tube Recommend follow-up labs in a.m. kidney functions are improving and creatinine is 1.0 today continue gentle IV hydration. Patient to continue nothing by mouth and will be advanced per surgery We will continue to follow with general surgery during hospitalization. Thank you kindly for this consultation. The impression and plan of care has been dictated by Vika Simon, Nurse Practitioner as directed. Dr. Abigail MD I have performed a history and examination and MDM of this patient, discussed the same with the dictator, and agree with the dictator's assessment and plan as written ,documented as a scribe. Based on total visit time, I have performed more than 50% of the visit. Objective - Vital Signs Vital signs: Vital Signs Temp 98.7 F 03/02/23 08:00 Pulse 102 H 03/02/23 10:00 Resp 14 03/02/23 10:00 BP 106/65 03/02/23 10:00 Pulse Ox 92 L 03/02/23 10:00 FiO2 40 03/02/23 10:00 Intake & Output 03/01/23 03/02/23 03/02/23 18:59 06:59 18:59 Intake Total 418.539 6559.195 358.444 Output Total 536 385 230 Balance 327.605 840.195 128.444 Weight 60 kg 60 kg Intake: IV 850 1000 325 Piperacillin-Tazobactam 3 100 100 100 .375 gm In Sodium Chloride 0.9% 100 ml @ 25 mls/hr IVPB Q8HR [facility] Rx# :[id number] Sodium Chloride 0.9% 1, 150 900 225 000 ml @ 75 mls/hr IV . [id number] [facility] Rx#:[id number] Intake, IV Titration 13.605 225.195 33.444 Amount Norepinephrine 4 mg In 0.757 Sodium Chloride 0.9% 250 ml @ 0.03 MCG/KG/MIN 7. 569 mls/hr IV .Q24H [facility] Rx#:[id number] propofoL 1,000 mg In 12.848 225.195 33.444 Empty Bag 1 bag @ 15 MCG/ KG/MIN 5.96 mls/hr IV . [id number] [facility] Rx#:[id number] Output: Gastric Drainage 50 Urine 460 385 180 Post Void Residual 71 Estimated Blood Loss 5 Other: Voiding Method Indwelling Catheter Indwelling Catheter ABP, PAP, CO, CI - Last Documented Arterial Blood Pressure 90/73 - Labs CBC & Chem 7: 03/02/23 04:38 03/02/23 04:38 Labs: Abnormal Lab Results - Last 24 Hours (Table) 03/01/23 03/01/23 03/01/23 Range/Units 11:38 13:59 15:50 Hgb (11.4-16.0) gm/dL Hct (34.0-46.0) % MCV (80.0-100.0) fL MCH (25.0-35.0) pg MCHC (31.0-37.0) g/dL RDW (11.5-15.5) % Plt Count (150-450) k/uL Lymphocytes # (1.0-4.8) k/uL ABG pH (7.35-7.45) ABG pO2 81 L (83-108) mmHg ABG HCO3 (21-25) mmol/L ABG O2 Saturation (94-97) % Sodium (137-145) mmol/L Carbon Dioxide (22-30) mmol/L BUN (7-17) mg/dL Glucose (74-99) mg/dL POC Glucose (mg/dL) 115 H 142 H (70-110) mg/dL 03/01/23 03/01/23 03/01/23 Range/Units 16:27 18:15 21:23 Hgb (11.4-16.0) gm/dL Hct (34.0-46.0) % MCV (80.0-100.0) fL MCH (25.0-35.0) pg MCHC (31.0-37.0) g/dL RDW (11.5-15.5) % Plt Count (150-450) k/uL Lymphocytes # (1.0-4.8) k/uL ABG pH 7.33 L (7.35-7.45) ABG pO2 113 H (83-108) mmHg ABG HCO3 20 L (21-25) mmol/L ABG O2 Saturation 98.4 H (94-97) % Sodium (137-145) mmol/L Carbon Dioxide (22-30) mmol/L BUN (7-17) mg/dL Glucose (74-99) mg/dL POC Glucose (mg/dL) 160 H 159 H (70-110) mg/dL 03/02/23 03/02/23 03/02/23 Range/Units 04:38 04:38 05:48 Hgb 8.3 L (11.4-16.0) gm/dL Hct 28.6 L (34.0-46.0) % MCV 66.1 L (80.0-100.0) fL MCH 19.2 L (25.0-35.0) pg MCHC 29.1 L (31.0-37.0) g/dL RDW 18.9 H (11.5-15.5) % Plt Count 135 L (150-450) k/uL Lymphocytes # 0.9 L (1.0-4.8) k/uL ABG pH 7.34 L (7.35-7.45) ABG pO2 (83-108) mmHg ABG HCO3 (21-25) mmol/L ABG O2 Saturation 97.5 H (94-97) % Sodium 135 L (137-145) mmol/L Carbon Dioxide 19 L (22-30) mmol/L BUN 20 H (7-17) mg/dL Glucose 129 H (74-99) mg/dL POC Glucose (mg/dL) (70-110) mg/dL 03/02/23 Range/Units 06:48 Hgb (11.4-16.0) gm/dL Hct (34.0-46.0) % MCV (80.0-100.0) fL MCH (25.0-35.0) pg MCHC (31.0-37.0) g/dL RDW (11.5-15.5) % Plt Count (150-450) k/uL Lymphocytes # (1.0-4.8) k/uL ABG pH (7.35-7.45) ABG pO2 (83-108) mmHg ABG HCO3 (21-25) mmol/L ABG O2 Saturation (94-97) % Sodium (137-145) mmol/L Carbon Dioxide (22-30) mmol/L BUN (7-17) mg/dL Glucose (74-99) mg/dL POC Glucose (mg/dL) 122 H (70-110) mg/dL Microbiology - Last 24 Hours (Table) 03/01/23 20:39 Gram Stain - Preliminary Sputum 02/27/23 16:07 Blood Culture - Preliminary Blood 02/27/23 16:19 Blood Culture - Preliminary Blood
[2023-03-02 20:03] LABS: Glucose,Whole Blood 114 mg/dL (70-110)
[2023-03-03] MEDS: SODIUM CHLORIDE 0.9% 1,000 ML IV SCH ×2 (00:22→15:52)
[2023-03-03] MEDS: PIPERACILLIN-TAZOBACTAM 3.375 GM in SODIUM CHLORIDE 0.9% 100 ML IVPB SCH ×3 (00:23→15:51)
[2023-03-03] MEDS: HYDROmorphone 0.5 MG/0.5 ML SYRINGE IVP PRN ×2 (02:12→16:58)
[2023-03-03 04:24] LABS: African American GFR (CKD) 65 (>60 ml/min/1.73 sqM); Anion Gap 6 mmol/L; Blood Urea Nitrogen 19 mg/dL (7-17); Calcium 8.2 mg/dL (8.4-10.2); Carbon Dioxide 20 mmol/L (22-30); Chloride 111 mmol/L (98-107); Glucose 93 mg/dL (74-99); Non-African American GFR(CKD) 56 (>60 ml/min/1.73 sqM); Potassium 4.2 mmol/L (3.5-5.1); Sodium 137 mmol/L (137-145)
[2023-03-03 04:38] LABS: Anisocytosis Slight; Basophils % (A) 0 %; Eosinophils # (A) 0.1 k/uL (0-0.7); Eosinophils % (A) 1 %; HCT 25.5 % (34.0-46.0); HGB 7.4 gm/dL (11.4-16.0); Hypochromasia Marked; Lymphocytes # (A) 0.9 k/uL (1.0-4.8); Lymphocytes % (A) 11 %; MCH 19.7 pg (25.0-35.0); MCHC 29.1 g/dL (31.0-37.0); MCV 67.7 fL (80.0-100.0); Mean Platelet Volume 8.9; Microcytosis Marked; Monocytes # (A) 0.6 k/uL (0-1.0); Monocytes % (A) 8 %; Neutrophils # (A) 6.2 k/uL (1.3-7.7); Neutrophils % (A) 78 %; Platelet Count 122 k/uL (150-450); Poikilocytosis Moderate; RBC 3.77 m/uL (3.80-5.40); RDW 18.7 % (11.5-15.5)
[2023-03-03] MEDS: INSULIN ASPART (NovoLOG) 100 UNIT/ML VIAL SQ SCH ×3 (06:47→14:00)
[2023-03-03] MEDS: BUDESONIDE 1 MG/2 ML NEBU INHALATION SCH ×2 (08:05→19:57)
[2023-03-03] MEDS: IPRATROPIUM-ALBUTEROL 3 ML NEB INHALATION SCH ×4 (08:05→19:57)
[2023-03-03] MEDS: FORMOTEROL FUMARATE 20 MCG/2 ML NEBU INHALATION SCH ×2 (08:05→19:57)
[2023-03-03] MEDS: ATORVASTATIN 20 MG TAB PO SCH (09:00)
[2023-03-03] MEDS: PANTOPRAZOLE 40 MG/10 ML VIAL IVP SCH (09:00)
[2023-03-03] MEDS: oxyBUTYnin chloride 5 MG TAB PO SCH ×2 (09:00→20:22)
[2023-03-03] MEDS: ENOXAPARIN 40 MG/0.4 ML SYRINGE SQ SCH (09:00)
[2023-03-03 09:07] LABS: Glucose,Whole Blood 73 mg/dL (70-110)
--- NOTE | 2023-03-03 09:13 | XR ---
EXAMINATION TYPE: XR chest 1V portable DATE OF EXAM: 03/03/2023 COMPARISON: 03/02/2023 INDICATION: Tube placement TECHNIQUE: Single frontal view of the chest is obtained. FINDINGS: The heart size is normal. The pulmonary vasculature is normal. Some mild infiltrates in the periphery of the right lower lung field. Minimal subsegmental atelectasi s is likely present at the left base. There is a right central venous catheter with the tip in the right atrium. Nasogastric tube and endot romario tube is been removed. IMPRESSION: 1. Mild infiltrate developing in the right lower lung field. Correlate for atelectasis and pneumonia. 2. Stable subsegmental atelectasis left lung base. 3. Right central venous catheter with tip in the right atrium.
--- NOTE | 2023-03-03 10:14 | P.PN ---
Subjective Progress Note Date: 03/03/23 Principal diagnosis: Bowel obstruction. I am seeing this patient in consultation today 03/02/2023 in the intensive care unit for a small bowel obstruction status post operative day #1 for exploratory laparotomy and lysis of adhesions. Patient is a 67-year-old female with past m edical history significant for COPD, diabetes mellitus type 2, hypertension, CVA/TIA, and is a current tobacco smoker. Patient has had a recent hospital follow-up for COPD exacerbation with Dr. Morris in the office. PFT in the office is consistent with moderate obstruction. Patient manages her COPD with a Breo-elipta inhaler and when necessary albuterol. Patient reportedly presented to the emergency room on February 27 with complaints of abdominal pain and constipation starting [address] without contrast on arrival showed findings suggestive of high-grade distal small bowel obstruction. Without any evidence of perforation or free air. There was also an infrarenal abdominal aortic aneurysm measuring 3.3 cm. Yesterday afternoon, the patient was taken for exploratory laparotomy for lysis of lesions. The patient is currently intubated to the mechanical ventilator. Most recent chest x-ray shows the endotracheal tube 4.7 cm from the michael, bibasilar opacities concerning for possible pneumonia, NG tube coursing below the diaphragm, and a right IJ central venous line with the distal tip in the right atrium. She is sedated on propofol infusing at 45 mcg/kg/m. She is synchronous. Most recent ABGs show a pO2 of 113, pCO2 of 37, pH of 7.33. Current ventilator settings are assist control, respiratory rate 12, tidal volume 400, FiO2 70%, PEEP of 10. Patient is empirically covered on Zosyn. Most recent CBC includes a WBC count 8.4, hemoglobin 9.3, hematocrit 32.6, platelets 161,000. Most recent BMP shows a sodium 134, potassium 4.4, chloride 101, serum CO2 21, BUN 20, creatinine 1.55, glucose 158. NT proBNP was elevated at 7840. Patient does have acute kidney injury. Normal saline is infusing at 75 mL per hour. Urine output is in order of about 30 MLS per hour. Initially, the patient was on Levophed infusion, however, this has been off since the patient arrived to the intensive care unit. Receiving DVT prophylaxis with Lovenox and GI prophylaxis with Protonix. Patient will be monitored in the intensive care unit. Progress note dated 03/03/2023. This is a 67-year-old white female, seen in the intensive care unit, room 255. The patient is postop day #2, status post exploratory laparotomy for bowel obstruction, with lysis of lesions. There was no bowel resection. The patient was extubated yesterday. She is on 8 L high flow oxygen. She's getting saline at 75 mL an hour clinically, he looks well, and can likely move out of the int ensive care unit. White count 8, hemoglobin 7.4, hematocrit 25.5, and platelet count 122,000. Sodium 137, potassium 4.2, chlorides 111, CO2 20, anion gap 6, BUN 19, creatinine 1.03. Calcium is 8.2. Chest x-ray shows either right lower lobe infiltrate or atelectasis. Objective - Vital Signs Vital signs: Vital Signs Temp 98.1 F 03/03/23 08:00 Pulse 100 03/03/23 08:30 Resp 15 03/03/23 08:00 BP 100/66 03/03/23 07:00 Pulse Ox 97 03/03/23 08:00 FiO2 40 03/02/23 10:00 Intake & Output 03/02/23 03/03/23 03/03/23 18:59 06:59 18:59 Intake Total 1958.444 975 250 Output Total 450 405 125 Balance 1508.444 570 125 Weight 60 kg 64.7 kg Intake: IV 925 975 250 Piperacillin-Tazobactam 3 100 100 .375 gm In Sodium Chloride 0.9% 100 ml @ 25 mls/hr IVPB Q8HR [facility] Rx# :[id number] Sodium Chloride 0.9% 1, 825 975 150 000 ml @ 75 mls/hr IV . [id number] [facility] Rx#:[id number] Intake, IV Titration 1033.444 Amount Lactated Ringers 1,000 ml 1000 @ 999 mls/hr IV .Q1H1M [facility] Rx#:[id number] propofoL 1,000 mg In 33.444 Empty Bag 1 bag @ 15 MCG/ KG/MIN 5.96 mls/hr IV . [id number] [facility] Rx#:[id number] Output: Gastric Drainage 50 Urine 400 405 125 Other: Voiding Method Indwelling Catheter Indwelling Catheter # Bowel Movements 0 ABP, PAP, CO, CI - Last Documented Arterial Blood Pressure 101/59 - Exam No acute distress, oriented 3. Currently on high flow nasal oxygen. HEENT examination is grossly unremarkable. Neck supple. Full range of motion. No adenopathy thyromegaly or neck vein distention. Cardiovascular examination reveals regular rhythm rate. S1-S2 normal. No S3 or S4. No discernible murmur noted. Heart sounds are distant. Heart rate 100 bpm. Lungs reveal minimal scattered rhonchi. No wheezes or crackles. Breath sounds equal. Saturations are 97%. Abdomen soft, without bowel sounds. Dressing clean and dry. Extremities are intact. No cyanosis clubbing or edema. Skin is without rash or lesion. Neurologic examination is brief but nonfocal. - Labs CBC & Chem 7: 03/03/23 04:00 03/03/23 04:00 Labs: Abnormal Lab Results - Last 24 Hours (Table) 03/02/23 03/02/23 03/02/23 Range/Units 06:00 11:57 17:29 RBC (3.80-5.40) m/uL Hgb (11.4-16.0) gm/dL Hct (34.0-46.0) % MCV (80.0-100.0) fL MCH (25.0-35.0) pg MCHC (31.0-37.0) g/dL RDW (11.5-15.5) % Plt Count (150-450) k/uL Lymphocytes # (1.0-4.8) k/uL Chloride (98-107) mmol/L Carbon Dioxide (22-30) mmol/L BUN (7-17) mg/dL POC Glucose (mg/dL) 135 H 136 H (70-110) mg/dL Calcium (8.4-10.2) mg/dL Procalcitonin 0.15 H (0.02-0.09) ng/mL 03/02/23 03/03/23 03/03/23 Range/Units 20:01 04:00 04:00 RBC 3.77 L (3.80-5.40) m/uL Hgb 7.4 L (11.4-16.0) gm/dL Hct 25.5 L (34.0-46.0) % MCV 67.7 L (80.0-100.0) fL MCH 19.7 L (25.0-35.0) pg MCHC 29.1 L (31.0-37.0) g/dL RDW 18.7 H (11.5-15.5) % Plt Count 122 L (150-450) k/uL Lymphocytes # 0.9 L (1.0-4.8) k/uL Chloride 111 H (98-107) mmol/L Carbon Dioxide 20 L (22-30) mmol/L BUN 19 H (7-17) mg/dL POC Glucose (mg/dL) 114 H (70-110) mg/dL Calcium 8.2 L (8.4-10.2) mg/dL Procalcitonin (0.02-0.09) ng/mL Microbiology - Last 24 Hours (Table) 02/27/23 16:07 Blood Culture - Preliminary Blood 02/27/23 16:19 Blood Culture - Preliminary Blood 03/01/23 20:39 Gram Stain - Preliminary Sputum Assessment and Plan Assessment: Small bowel obstruction, status post operative day #2 for exploratory laparotomy and lysis of adhesions. Acute hypoxemic respiratory failure, currently on mechanical ventilator. Chest x-ray shows bibasilar opacities concerning for possible pneumonia. Status post extubation, 03/02/2023. Moderate COPD, stable. Acute kidney injury. Infrarenal aortic abdominal aneurysm, measuring 3.3 cm. Diabetes mellitus type 2, [id number]. Essential hypertension. History of CVA/TIA. Chronic nicotine dependence. Plan: Plan dated 03/03/2023. The patient was just extubated yesterday. She remains on high flow nasal c annula, at 8 L. The patient is postop day #2. The patient is receiving saline at 75 mL an hour. We encourage deep breathing, coughing, clearing of secretions. We also recommend he apparently use of the incentive spirometer. Labs, x-rays, and medications are reviewed. Prognosis is guarded. We'll continue to follow the patient, to make sure she has a full recovery. Time with Patient: Greater than 30
--- NOTE | 2023-03-03 11:23 | P.PN ---
Subjective Progress Note Date: 03/03/23 CHIEF COMPLAINT: Small bowel structure HISTORY OF PRESENT ILLNESS: Patient currently in the ICU. She is POD# 2, status post exploratory laparotomy with lysis of adhesions for small bowel obstruction secondary to adhesive band causing a closed loop obstruction. Patient was extubated yesterday. She is currently on 9 L high flow oxygen. Mildly tachycardic. Afebrile. WBC is 8.0 Hgb 7.4 down from 8.3 platelets 122. Sodium is 137 potassium 4.2 creatinine 1.03. Patient denies any bowel movement or flatus. Denies any nausea or vomiting. Patient denies any pain. PHYSICAL EXAM: VITAL SIGNS: Reviewed. GENERAL: Well-developed in no acute distress. ABDOMEN: Soft. Mildly distended. Dressing pulled back. Incision site clean dry and intact. NEUROLOGIC: Intubated. Able to open eyes. ASSESSMENT: 1. Small bowel obstruction secondary to adhesive band causing a closed loop obstruction status post exploratory laparotomy with lysis of adhesions 2. Dilutional anemia PLAN: -Keep patient nothing by mouth until bowel function occurs -Incisional dressing change to Optifoam -Continue ICU management -Continue pain management -Continue IV fluid -DVT prophylaxis Lovenox and GI prophylaxis protonix Physician Comptometrist note has been reviewed by physician. Signing provider agrees with the documented findings, assessment, and plan of care. Objective - Vital Signs Vital signs: Vital Signs Temp 98.1 F 03/03/23 08:00 Pulse 99 03/03/23 11:12 Resp 15 03/03/23 08:00 BP 100/66 03/03/23 07:00 Pulse Ox 97 03/03/23 08:00 FiO2 40 03/02/23 10:00 Intake & Output 03/02/23 03/03/23 03/03/23 18:59 06:59 18:59 Intake Total 1958.444 975 250 Output Total 450 405 125 Balance 1508.444 570 125 Weight 60 kg 64.7 kg 64.7 kg Intake: IV 925 975 250 Piperacillin-Tazobactam 3 100 100 .375 gm In Sodium Chloride 0.9% 100 ml @ 25 mls/hr IVPB Q8HR [facility] Rx# :[id number] Sodium Chloride 0.9% 1, 825 975 150 000 ml @ 75 mls/hr IV . [id number] [facility] Rx#:[id number] Intake, IV Titration 1033.444 Amount Lactated Ringers 1,000 ml 1000 @ 999 mls/hr IV .Q1H1M [facility] Rx#:[id number] propofoL 1,000 mg In 33.444 Empty Bag 1 bag @ 15 MCG/ KG/MIN 5.96 mls/hr IV . [id number] [facility] Rx#:[id number] Output: Gastric Drainage 50 Urine 400 405 125 Other: Voiding Method Indwelling Catheter Indwelling Catheter # Bowel Movements 0 ABP, PAP, CO, CI - Last Documented Arterial Blood Pressure 101/59 - Labs CBC & Chem 7: 03/03/23 04:00 03/03/23 04:00 Labs: Abnormal Lab Results - Last 24 Hours (Table) 03/02/23 03/02/23 03/02/23 Range/Units 11:57 17:29 20:01 RBC (3.80-5.40) m/uL Hgb (11.4-16.0) gm/dL Hct (34.0-46.0) % MCV (80.0-100.0) fL MCH (25.0-35.0) pg MCHC (31.0-37.0) g/dL RDW (11.5-15.5) % Plt Count (150-450) k/uL Lymphocytes # (1.0-4.8) k/uL Chloride (98-107) mmol/L Carbon Dioxide (22-30) mmol/L BUN (7-17) mg/dL POC Glucose (mg/dL) 135 H 136 H 114 H (70-110) mg/dL Calcium (8.4-10.2) mg/dL 03/03/23 03/03/23 Range/Units 04:00 04:00 RBC 3.77 L (3.80-5.40) m/uL Hgb 7.4 L (11.4-16.0) gm/dL Hct 25.5 L (34.0-46.0) % MCV 67.7 L (80.0-100.0) fL MCH 19.7 L (25.0-35.0) pg MCHC 29.1 L (31.0-37.0) g/dL RDW 18.7 H (11.5-15.5) % Plt Count 122 L (150-450) k/uL Lymphocytes # 0.9 L (1.0-4.8) k/uL Chloride 111 H (98-107) mmol/L Carbon Dioxide 20 L (22-30) mmol/L BUN 19 H (7-17) mg/dL POC Glucose (mg/dL) (70-110) mg/dL Calcium 8.2 L (8.4-10.2) mg/dL Microbiology - Last 24 Hours (Table) 02/27/23 16:07 Blood Culture - Preliminary Blood 02/27/23 16:19 Blood Culture - Preliminary Blood 03/01/23 20:39 Gram Stain - Preliminary Sputum
[2023-03-03 12:06] LABS: Glucose,Whole Blood 77 mg/dL (70-110)
[2023-03-03] MEDS: ACETAMINOPHEN IV (For NPO) 1,000 MG in EMPTY BAG 1 BAG IVPB PRN ×2 (12:50→22:33)
[2023-03-03 15:42] LABS: Glucose,Whole Blood 84 mg/dL (70-110)
[2023-03-03 17:59] LABS: Glucose,Whole Blood 75 mg/dL (70-110)
[2023-03-03 20:22] LABS: Glucose,Whole Blood 74 mg/dL (70-110)
[2023-03-03 23:58] LABS: Glucose,Whole Blood 70 mg/dL (70-110)
[2023-03-04] MEDS: SODIUM CHLORIDE 0.9% 1,000 ML IV SCH (00:25)
[2023-03-04] MEDS: PIPERACILLIN-TAZOBACTAM 3.375 GM in SODIUM CHLORIDE 0.9% 100 ML IVPB SCH ×3 (00:37→16:37)
[2023-03-04] MEDS ORDERED: DEXTROSE 50% SYRINGE 50 ML IVP STA (00:43)
[2023-03-04 01:22] LABS: Glucose,Whole Blood 122 mg/dL (70-110)
[2023-03-04 04:21] LABS: Anisocytosis Slight; HCT 26.6 % (34.0-46.0); HGB 7.5 gm/dL (11.4-16.0); Hypochromasia Marked; MCH 19.4 pg (25.0-35.0); MCHC 28.4 g/dL (31.0-37.0); MCV 68.5 fL (80.0-100.0); Microcytosis Marked; Platelet Count 112 k/uL (150-450); Poikilocytosis Moderate; RBC 3.88 m/uL (3.80-5.40); WBC 7.7 k/uL (3.8-10.6)
[2023-03-04 04:24] LABS: Glucose,Whole Blood 74 mg/dL (70-110)
[2023-03-04 04:39] LABS: African American GFR (CKD) 82 (>60 ml/min/1.73 sqM); Anion Gap 9 mmol/L; Blood Urea Nitrogen 15 mg/dL (7-17); Calcium 8.2 mg/dL (8.4-10.2); Carbon Dioxide 20 mmol/L (22-30); Chloride 111 mmol/L (98-107); Glucose 70 mg/dL (74-99); Magnesium 1.7 mg/dL (1.6-2.3); Non-African American GFR(CKD) 71 (>60 ml/min/1.73 sqM); Potassium 3.8 mmol/L (3.5-5.1); Sodium 140 mmol/L (137-145)
--- NOTE | 2023-03-04 05:28 | P.PN ---
Subjective Progress Note Date: 03/03/23 - Reason for Consult COPD exacerbation - History of Present Illness 67-year-old female came to emergency department with complaints of left lower quadrant and diffuse abdominal pain going on for about 3 days along with nausea vomiting patient was constipated did have a bowel movement today. Patient had a CT of the abdomen, showed distal small bowel obstruction. There may be adhesions. Patient does have history of COPD continues to smoke declining patch about a pack per day patient has wheezing on exam uses 2-3 L of oxygen at home. Patient does have leukocytosis no fever patient has mildly elevated creatinine and along with low serum sodium. 02/28/2023 Patient is seen and evaluated in follow-up this morning with general surgery as admitting services. Patient was admitted for high-grade small bowel obstruction and continues with NG tube as well as some abdominal tenderness and distention with no significant output noted. Patient is nothing by mouth. Absent bowel sounds noted on exam and plan is for tentative exploratory laparotomy with lysis of adhesions on 03/01/2023. Patient is currently afebrile and being maintained on DuoNeb treatments for COPD exacerbation. Patient is supposed to wear oxygen in the outpatient setting and wears 2-3 L with no significant wheezing noted on exam although diminished breath sounds are bilaterally with coarse rhonchi. Chest x-ray will be obtained as patient has also been maintained on IV hydration as patient was nothing by mouth. Patient is afebrile denies chest pain or worsening shortness of breath. Patient reports her breathing she feels has improved. Patient reports occasional nausea with no vomiting and some abdominal discomfort noted. 03/01/2023 Patient is seen in follow-up this morning reporting she does not feel very well at all and is having some shortness of breath and cough and per nursing staff patient has been hypotensive. Patient did receive a 500 mL bolus and placed on IV fluids with minimal improvement in blood pressure. General surgery who is admitting was contacted and instructed to give a liter bolus of normal saline. Patient is afebrile continues with no bowel sounds noted and continues with abdominal distention and pain she reports. Patient is scheduled for exploratory laparotomy today which is currently pending. Recommend monitoring Accu-Cheks before meals and at bedtime and will hold metformin and continue sliding scale for now. Recommend weaning FiO2 as tolerated although patient is requiring more oxygen and currently on high flow. Patient COPD is somewhat stable and there is no wheezing noted. Kidney function slightly worsened although will follow-up with repeat labs. 03/02/2023 Patient is seen and evaluated follow-up this morning currently was intubated and recently extubated tolerated well. Patient is currently maintained on 10 L high flow and lung sounds congested with some crackles noted. Patient to continue on breathing treatments and continues to be nothing by mouth for now for surgery. Patient significantly week and will require PT/OT therapy. Patient is afebrile denies chest pain or palpitations. 03/03/2023 Patient is seen and evaluated in follow-up this morning currently on 9 L high flow and titrating accordingly as tolerated. Encouraged incentive spirometer use at least 10 times every hour while awake. Chest x-ray shows some atelectasis with possible infiltrate of the right lung. Patient is continued on Zosyn along with DuoNeb treatments. Family at bedside reports she is chronically supposed to be wearing oxygen outpatient although frequently takes off and is noncompliant. Patient continues to be nothing by mouth with NG tube and will be advanced per surgery. Physical therapy at bedside to work with the patient. Kidney functions have improved and creatinine 1.0 and continued on IV hydration. Recommend a.m. labs. Review of systems: Constitutional: No reports of fatigue, fever, or chills Cardiovascular: No reports of chest pain or palpitations Respiratory: reports of shortness of breath with cough GI: No reports of nausea, vomiting, or diarrhea, reports abdominal tenderness although slightly improved : No reports of dysuria or retention Neurovascular: reports of generalized weakness All medications have been reviewed PHYSICAL EXAMINATION: GENERAL: The patient is alert and oriented x3. Well developed, well nourished. Elderly-appearing female HEENT: Pupils are round and equally reacting to light. EOMI. No scleral icterus. No conjunctival pallor. Normocephalic, atraumatic. No pharyngeal erythema. No thyromegaly. CARDIOVASCULAR: S1 and S2 present. No murmurs, rubs, or gallops. PULMONARY: Diminished breath sounds bilaterally with coarse rhonchi and no whe ezing noted, faint crackles at the bases noted ABDOMEN: Soft, surgical dressing being transitioned to optifoam, absent bowel sounds. No palpable organomegaly. MUSCULOSKELETAL: No joint swelling or deformity. EXTREMITIES: No cyanosis, clubbing, or pedal edema. NEUROLOGICAL: Gross neurological examination did not reveal any focal deficits. Diffusely weak SKIN: No rashes. Assessment: -High-grade distal small bowel obstruction, secondary to adhesions, status post exploratory laparotomy with lysis of adhesions, there was an adhesive band causing a closed loop obstruction. -Status post successful extubation on 03/02/2023 -Leukocytosis secondary to assessment 1 -Mild hypovolemic hyponatremia secondary to nausea vomiting, improving -acute renal failure secondary to nausea vomiting with prerenal azotemia. Improving maintained on gentle IV hydration -COPD with acute exacerbation -Acute on chronic hypoxic respiratory failure secondary to COPD and a component of volume overload from IV fluids -Continued ongoing nicotine dependence -Hypertension -Hyperlipidemia -History of CVA -Type 2 diabetes mellitus patient was started on sliding scale insulin -GI prophylaxis -DVT prophylaxis: Lovenox -Full code plan: Recommend patient continue with breathing inhalational treatments and home medications to be resumed once diet advanced per surgery Patient is status post exploratory laparotomy with lysis of adhesions for small bowel obstruction secondary to adhesive band causing a closed loop obstruction. Patient was extubated successfully currently maintained on 9 L high flow. Patie nt is continued on breathing inhalational treatments with pulmonary following Continue with IV hydration per general surgery and currently remains nothing by mouth per surgery. Will be advanced once bowel functions improve Strongly encouraged and discussed complete tobacco cessation Recommend follow-up labs in a.m. to monitor kidney functions and electrolytes. Recommend replace electrolytes per protocol Patient to continue nothing by mouth and will be advanced per surgery once more bowel activity is noted Patient currently working with physical therapy continues with significant weakness would recommend working with daily We will continue to follow with general surgery during hospitalization. Thank you kindly for this consultation. The impression and plan of care has been dictated by Vika Simon, Nurse Practitioner as directed. Dr. Abigail MD I have performed a history and examination and MDM of this patient, discussed the same with the dictator, and agree with the dictator's assessment and plan as written ,documented as a scribe. Based on total visit time, I have performed more than 50% of the visit. Objective - Vital Signs Vital signs: Vital Signs Temp 98.1 F 03/03/23 08:00 Pulse 100 03/03/23 08:30 Resp 15 03/03/23 08:00 BP 100/66 03/03/23 07:00 Pulse Ox 97 03/03/23 08:00 FiO2 40 03/02/23 10:00 Intake & Output 03/02/23 03/03/23 03/03/23 18:59 06:59 18:59 Intake Total 1958.444 975 250 Output Total 450 405 125 Balance 1508.444 570 125 Weight 60 kg 64.7 kg Intake: IV 925 975 250 Piperacillin-Tazobactam 3 100 100 .375 gm In Sodium Chloride 0.9% 100 ml @ 25 mls/hr IVPB Q8HR [facility] Rx# :[id number] Sodium Chloride 0.9% 1, 825 975 150 000 ml @ 75 mls/hr IV . [id number] [facility] Rx#:[id number] Intake, IV Titration 1033.444 Amount Lactated Ringers 1,000 ml 1000 @ 999 mls/hr IV .[id number] [facility] Rx#:[id number] propofoL 1,000 mg In 33.444 Empty Bag 1 bag @ 15 MCG/ KG/MIN 5.96 mls/hr IV . [id number] [facility] Rx#:[id number] Output: Gastric Drainage 50 Urine 400 405 125 Other: Voiding Method Indwelling Catheter Indwelling Catheter # Bowel Movements 0 ABP, PAP, CO, CI - Last Documented Arterial Blood Pressure 101/59 - Labs CBC & Chem 7: 03/04/23 03:52 03/04/23 03:52 Labs: Abnormal Lab Results - Last 24 Hours (Table) 03/02/23 03/02/23 03/02/23 Range/Units 06:00 11:57 17:29 RBC (3.80-5.40) m/uL Hgb (11.4-16.0) gm/dL Hct (34.0-46.0) % MCV (80.0-100.0) fL MCH (25.0-35.0) pg MCHC (31.0-37.0) g/dL RDW (11.5-15.5) % Plt Count (150-450) k/uL Lymphocytes # (1.0-4.8) k/uL Chloride (98-107) mmol/L Carbon Dioxide (22-30) mmol/L BUN (7-17) mg/dL POC Glucose (mg/dL) 135 H 136 H (70-110) mg/dL Calcium (8.4-10.2) mg/dL Procalcitonin 0.15 H (0.02-0.09) ng/mL 03/02/23 03/03/23 03/03/23 Range/Units 20:01 04:00 04:00 RBC 3.77 L (3.80-5.40) m/uL Hgb 7.4 L (11.4-16.0) gm/dL Hct 25.5 L (34.0-46.0) % MCV 67.7 L (80.0-100.0) fL MCH 19.7 L (25.0-35.0) pg MCHC 29.1 L (31.0-37.0) g/dL RDW 18.7 H (11.5-15.5) % Plt Count 122 L (150-450) k/uL Lymphocytes # 0.9 L (1.0-4.8) k/uL Chloride 111 H (98-107) mmol/L Carbon Dioxide 20 L (22-30) mmol/L BUN 19 H (7-17) mg/dL POC Glucose (mg/dL) 114 H (70-110) mg/dL Calcium 8.2 L (8.4-10.2) mg/dL Procalcitonin (0.02-0.09) ng/mL Microbiology - Last 24 Hours (Table) 02/27/23 16:07 Blood Culture - Preliminary Blood 02/27/23 16:19 Blood Culture - Preliminary Blood 03/01/23 20:39 Gram Stain - Preliminary Sputum
--- NOTE | 2023-03-04 07:02 | XR ---
EXAMINATION TYPE: XR chest 1V portable DATE OF EXAM: 03/04/2023 5:55 AM COMPARISON: Chest radiograph from one day prior. TECHNIQUE: XR chest 1V portable Frontal view of the chest. CLINICAL INDICATION:Female, 67 years old with history of Tube placement; FINDINGS: Lungs/Pleura: Prominent interstitial lung markings are seen scattered throughout the lungs. No eviden ce of focal consolidation, pneumothorax or pleural effusion. Pulmonary vascularity: Unremarkable. Heart/mediastinum: Cardiomediastinal silhouette is unremarkable. Musculoskeletal: No acute osseous pathology. Other findings: Surgical clips over the upper abdomen without dilated loops of bowel to 3.8 cm. IMPRESSION: 1. Increased interstitial lung markings similar to prior. Right central venous catheter is not defin itively visualized however patient is malpositioned. 2. No endotracheal or nasogastric tube visualized.
[2023-03-04] MEDS: FORMOTEROL FUMARATE 20 MCG/2 ML NEBU INHALATION SCH ×2 (07:35→21:15)
[2023-03-04] MEDS: BUDESONIDE 1 MG/2 ML NEBU INHALATION SCH ×2 (07:35→21:15)
[2023-03-04] MEDS: IPRATROPIUM-ALBUTEROL 3 ML NEB INHALATION SCH ×4 (07:36→21:15)
[2023-03-04] MEDS ORDERED: Magnesium Replacement Protocol 1 EACH MISC MISCELLANE PRN (08:20)
[2023-03-04] MEDS ORDERED: MAGNESIUM SULFATE-D5W PMX 1 GM in DEXTROSE/WATER 1 100ML.BAG IVPB ONE (09:00)
--- NOTE | 2023-03-04 09:07 | P.PN ---
Subjective Progress Note Date: 03/04/23 Principal diagnosis: Small bowel obstruction Patient remains in the ICU. States she is doing better today. Less pain. She denies nausea or vomiting. She feels less bloated. No flatus. She remains nothing by mouth. White blood cell count 7.7, hemoglobin 7.5. Objective - Vital Signs Vital signs: Vital Signs Temp 98.4 F 03/04/23 02:00 Pulse 94 03/04/23 08:04 Resp 20 03/04/23 02:00 BP 105/66 03/04/23 02:00 Pulse Ox 96 03/04/23 07:38 FiO2 40 03/02/23 10:00 Intake & Output 03/03/23 03/04/23 03/04/23 18:59 06:59 18:59 Intake Total 1110 925 Output Total 450 625 Balance 660 300 Weight 64.7 kg Intake: IV 1110 925 Invasive Line 4 10 Piperacillin-Tazobactam 3 200 100 .375 gm In Sodium Chloride 0.9% 100 ml @ 25 mls/hr IVPB Q8HR [facility] Rx# :[id number] Sodium Chloride 0.9% 1, 900 825 000 ml @ 75 mls/hr IV . [id number] [facility] Rx#:[id number] Output: Urine 450 625 Other: Voiding Method Indwelling Catheter Indwelling Catheter # Bowel Movements 0 ABP, PAP, CO, CI - Last Documented Arterial Blood Pressure 112/51 - Exam Abdomen: Soft, nondistended, dressing clean and dry, minimal tenderness - Labs CBC & Chem 7: 03/04/23 03:52 03/04/23 03:52 Labs: Abnormal Lab Results - Last 24 Hours (Table) 03/04/23 03/04/23 03/04/23 Range/Units 01:19 03:52 03:52 Hgb 7.5 L (11.4-16.0) gm/dL Hct 26.6 L (34.0-46.0) % MCV 68.5 L (80.0-100.0) fL MCH 19.4 L (25.0-35.0) pg MCHC 28.4 L (31.0-37.0) g/dL RDW 19.0 H (11.5-15.5) % Plt Count 112 L (150-450) k/uL Chloride 111 H (98-107) mmol/L Carbon Dioxide 20 L (22-30) mmol/L Glucose 70 L (74-99) mg/dL POC Glucose (mg/dL) 122 H (70-110) mg/dL Calcium 8.2 L (8.4-10.2) mg/dL Microbiology - Last 24 Hours (Table) 03/01/23 20:39 Gram Stain - Preliminary Sputum Sputum Culture - Preliminary 02/27/23 16:07 Blood Culture - Preliminary Blood 02/27/23 16:19 Blood Culture - Preliminary Blood Assessment and Plan (1) Small bowel obstruction Narrative/Plan: 67-year-old female doing well after recent lysis of adhesions for bowel obstruction. Will begin clear liquids. Increase activity. Monitor for symptoms of nausea. Current Visit: Yes Status: Acute Code(s): K56.609 - UNSP INTESTNL OBST, UNSP TO PARTIAL VERSUS COMPLETE OBST SNOMED Code(s): 456019255
[2023-03-04] MEDS ORDERED: FUROSEMIDE 10 MG/ML 4 ML VIAL IV STA (09:15)
[2023-03-04] MEDS ORDERED: SODIUM CHLORIDE 0.9% 500 ML 500 ML IV SCH (09:30)
[2023-03-04] MEDS: HYDROmorphone 0.5 MG/0.5 ML SYRINGE IVP PRN ×3 (09:50→21:48)
[2023-03-04] MEDS: ENOXAPARIN 40 MG/0.4 ML SYRINGE SQ SCH (09:50)
[2023-03-04] MEDS: ATORVASTATIN 20 MG TAB PO SCH (09:52)
[2023-03-04] MEDS: PANTOPRAZOLE 40 MG/10 ML VIAL IVP SCH (09:52)
[2023-03-04] MEDS: oxyBUTYnin chloride 5 MG TAB PO SCH ×2 (09:52→21:44)
[2023-03-04] MEDS ORDERED: DEXTROSE 50% SYRINGE 50 ML IVP ONE (09:54)
[2023-03-04 09:55] LABS: Glucose,Whole Blood 70 mg/dL (70-110)
[2023-03-04 09:55] LABS: Glucose,Whole Blood 67 mg/dL (70-110)
--- NOTE | 2023-03-04 10:14 | P.PN ---
Subjective Progress Note Date: 03/04/23 Principal diagnosis: Bowel obstruction. I am seeing this patient in consultation today 03/02/2023 in the intensive care unit for a small bowel obstruction status post operative day #1 for exploratory laparotomy and lysis of adhesions. Patient is a 67-year-old female with past m edical history significant for COPD, diabetes mellitus type 2, hypertension, CVA/TIA, and is a current tobacco smoker. Patient has had a recent hospital follow-up for COPD exacerbation with Dr. Morris in the office. PFT in the office is consistent with moderate obstruction. Patient manages her COPD with a Breo-elipta inhaler and when necessary albuterol. Patient reportedly presented to the emergency room on February 27 with complaints of abdominal pain and constipation starting [address] without contrast on arrival showed findings suggestive of high-grade distal small bowel obstruction. Without any evidence of perforation or free air. There was also an infrarenal abdominal aortic aneurysm measuring 3.3 cm. Yesterday afternoon, the patient was taken for exploratory laparotomy for lysis of lesions. The patient is currently intubated to the mechanical ventilator. Most recent chest x-ray shows the endotracheal tube 4.7 cm from the michael, bibasilar opacities concerning for possible pneumonia, NG tube coursing below the diaphragm, and a right IJ central venous line with the distal tip in the right atrium. She is sedated on propofol infusing at 45 mcg/kg/m. She is synchronous. Most recent ABGs show a pO2 of 113, pCO2 of 37, pH of 7.33. Current ventilator settings are assist control, respiratory rate 12, tidal volume 400, FiO2 70%, PEEP of 10. Patient is empirically covered on Zosyn. Most recent CBC includes a WBC count 8.4, hemoglobin 9.3, hematocrit 32.6, platelets 161,000. Most recent BMP shows a sodium 134, potassium 4.4, chloride 101, serum CO2 21, BUN 20, creatinine 1.55, glucose 158. NT proBNP was elevated at 7840. Patient does have acute kidney injury. Normal saline is infusing at 75 mL per hour. Urine output is in order of about 30 MLS per hour. Initially, the patient was on Levophed infusion, however, this has been off since the patient arrived to the intensive care unit. Receiving DVT prophylaxis with Lovenox and GI prophylaxis with Protonix. Patient will be monitored in the intensive care unit. Progress note dated 03/03/2023. This is a 67-year-old white female, seen in the intensive care unit, room 255. The patient is postop day #2, status post exploratory laparotomy for bowel obstruction, with lysis of lesions. There was no bowel resection. The patient was extubated yesterday. She is on 8 L high flow oxygen. She's getting saline at 75 mL an hour clinically, he looks well, and can likely move out of the int ensive care unit. White count 8, hemoglobin 7.4, hematocrit 25.5, and platelet count 122,000. Sodium 137, potassium 4.2, chlorides 111, CO2 20, anion gap 6, BUN 19, creatinine 1.03. Calcium is 8.2. Chest x-ray shows either right lower lobe infiltrate or atelectasis. Progress note dated 03/04/2023. 67-year-old black female, seen in the intensive care unit, room 255. The patient is postop day #3, status post exploratory laparotomy, for bowel obstruction, with lysis of adhesions. There is no need for a bowel resection on this patient. She was extubated on March 02. Currently, she is on a liter high flow oxygen, and saline at 75 mL an hour. Today we'll give her Lasix 40 mg IV push, and change her fluids to KVO. White count 7.7, hemoglobin 7.5, hematocrit 26.6, and platelet count 112,000. Sodium 140, potassium 3.8, chlorides 111, CO2 20, anion gap normal, BUN 15, and creatinine 0.85. The patient's pattern, is consistent with a non-anion gap hyperchloremic metabolic acidosis. M icrobiologic sampling is negative. Chest x-ray shows increased interstitial markings, possibly consistent with interstitial edema. Objective - Vital Signs Vital signs: Vital Signs Temp 98.4 F 03/04/23 02:00 Pulse 94 03/04/23 08:04 Resp 20 03/04/23 02:00 BP 105/66 03/04/23 02:00 Pulse Ox 96 03/04/23 07:38 FiO2 40 03/02/23 10:00 Intake & Output 03/03/23 03/04/23 03/04/23 18:59 06:59 18:59 Intake Total 1110 925 Output Total 450 625 Balance 660 300 Weight 64.7 kg Intake: IV 1110 925 Invasive Line 4 10 Piperacillin-Tazobactam 3 200 100 .375 gm In Sodium Chloride 0.9% 100 ml @ 25 mls/hr IVPB Q8HR [facility] Rx# :[id number] Sodium Chloride 0.9% 1, 900 825 000 ml @ 75 mls/hr IV . [id number] [facility] Rx#:[id number] Output: Urine 450 625 Other: Voiding Method Indwelling Catheter Indwelling Catheter # Bowel Movements 0 ABP, PAP, CO, CI - Last Documented Arterial Blood Pressure 112/51 - Exam No acute distress, oriented 3. Currently on high flow nasal oxygen, at 8 L. HEENT examination is grossly unremarkable. Neck supple. Full range of motion. No adenopathy thyromegaly or neck vein distention. Cardiovascular examination reveals regular rhythm rate. S1-S2 normal. No S3 or S4. No discernible murmur noted. Heart sounds are distant. Heart rate 94 bpm. Lungs reveal minimal scattered rhonchi. No wheezes or crackles. Breath sounds equal. Saturations are 96%. Abdomen soft, without bowel sounds. Dressing clean and dry. Extremities are intact. No cyanosis clubbing or edema. Skin is without rash or lesion. Neurologic examination is brief but nonfocal. - Labs CBC & Chem 7: 03/04/23 03:52 03/04/23 03:52 Labs: Abnormal Lab Results - Last 24 Hours (Table) 03/04/23 03/04/23 03/04/23 Range/Units 01:19 03:52 03:52 Hgb 7.5 L (11.4-16.0) gm/dL Hct 26.6 L (34.0-46.0) % MCV 68.5 L (80.0-100.0) fL MCH 19.4 L (25.0-35.0) pg MCHC 28.4 L (31.0-37.0) g/dL RDW 19.0 H (11.5-15.5) % Plt Count 112 L (150-450) k/uL Chloride 111 H (98-107) mmol/L Carbon Dioxide 20 L (22-30) mmol/L Glucose 70 L (74-99) mg/dL POC Glucose (mg/dL) 122 H (70-110) mg/dL Calcium 8.2 L (8.4-10.2) mg/dL 03/04/23 Range/Units 09:52 Hgb (11.4-16.0) gm/dL Hct (34.0-46.0) % MCV (80.0-100.0) fL MCH (25.0-35.0) pg MCHC (31.0-37.0) g/dL RDW (11.5-15.5) % Plt Count (150-450) k/uL Chloride (98-107) mmol/L Carbon Dioxide (22-30) mmol/L Glucose (74-99) mg/dL POC Glucose (mg/dL) 67 L (70-110) mg/dL Calcium (8.4-10.2) mg/dL Microbiology - Last 24 Hours (Table) 03/01/23 20:39 Gram Stain - Preliminary Sputum Sputum Culture - Preliminary 02/27/23 16:07 Blood Culture - Preliminary Blood 02/27/23 16:19 Blood Culture - Preliminary Blood Assessment and Plan Assessment: Small bowel obstruction, POD #3 for exploratory laparotomy and lysis of adhesions. Acute hypoxemic respiratory failure. S/P successful extubation, 03/02/2023. Moderate COPD, stable. Acute kidney injury. Infrarenal aortic abdominal aneurysm, measuring 3.3 cm. Diabetes mellitus type 2, [id number]. Essential hypertension. History of CVA/TIA. Chronic nicotine dependence. Plan: Plan dated 03/03/2023. The patient was just extubated yesterday. She remains on high flow nasal cannula, at 8 L. The patient is postop day #2. The patient is receiving saline at 75 mL an hour. We encourage deep breathing, coughing, clearing of secretions. We also recommend he apparently use of the incentive spirometer. Labs, x-rays, and medications are reviewed. Prognosis is guarded. We'll continue to follow the patient, to make sure she has a full recovery. Plan dated 03/04/2023. The patient will remain a ICU patient. The patient will not be transferred out of the floor. The patient is going to receive some Lasix, IV push, 40 mg. We will drop back the IV fluids from 75 mL an hour, to 10 mL an hour. Labs, x- rays, and medications are reviewed. The patient is postop day #3, status post exploratory laparotomy, with lysis of adhesions. There was no bowel resection. We will continue to follow the patient, and make recommendations along the way. Prognosis is guarded. Time with Patient: Less than 30
[2023-03-04 10:21] LABS: Glucose,Whole Blood 135 mg/dL (70-110)
[2023-03-04] MEDS: D5-0.45% NACL WITH KCL 20MEQ/L 1,000 ML IV SCH (11:00)
[2023-03-04 11:32] LABS: Glucose,Whole Blood 146 mg/dL (70-110)
--- NOTE | 2023-03-04 14:35 | XR ---
EXAMINATION TYPE: XR chest 1V portable DATE OF EXAM: 03/04/2023 2:14 PM COMPARISON: Chest radiographs from TECHNIQUE: XR chest 1V portable Frontal view of the chest. CLINICAL INDICATION:Female, 67 years old with history of SOB; FINDINGS: Lungs/Pleura: Similar bibasilar interstitial opacities. There increased lucency along apices. There i s no evidence of pleural effusion, focal consolidation, or pneumothorax. Pulmonary vascularity: Unremarkable. Heart/mediastinum: Cardiomediastinal silhouette is unremarkable. Musculoskeletal: No acute osseous pathology. Other findings: None IMPRESSION: 1. Basilar atelectasis versus fibrotic change. 2. COPD changes.
--- NOTE | 2023-03-04 14:51 | P.PN ---
Subjective Progress Note Date: 03/04/23 67-year-old female came to emergency department with complaints of left lower quadrant and diffuse abdominal pain going on for about 3 days along with nausea vomiting patient was constipated did have a bowel movement today. Patient had a CT of the abdomen, showed distal small bowel obstruction. There may be adhesions. Patient does have history of COPD continues to smoke declining patch about a pack per day patient has wheezing on exam uses 2-3 L of oxygen at home. Patient does have leukocytosis no fever patient has mildly elevated creatinine and along with low serum sodium. 02/28/2023 Patient is seen and evaluated in follow-up this morning with general surgery as admitting services. Patient was admitted for high-grade small bowel obstruction and continues with NG tube as well as some abdominal tenderness and distention with no significant output noted. Patient is nothing by mouth. Absent bowel sounds noted on exam and plan is for tentative exploratory laparotomy with lysis of adhesions on 03/01/2023. Patient is currently afebrile and being maintained on DuoNeb treatments for COPD exacerbation. Patient is supposed to wear oxygen in the outpatient setting and wears 2-3 L with no significant wheezing noted on exam although diminished breath sounds are bilaterally with coarse rhonchi. Chest x-ray will be obtained as patient has also been maintained on IV hydration as patient was nothing by mouth. Patient is afebrile denies chest pain or worsening shortness of breath. Patient reports her breathing she feels has improved. Patient reports occasional nausea with no vomiting and some abdominal discomfort noted. 03/01/2023 Patient is seen in follow-up this morning reporting she does not feel very well at all and is having some shortness of breath and cough and per nursing staff patient has been hypotensive. Patient did receive a 500 mL bolus and placed on IV fluids with minimal improvement in blood pressure. General surgery who is admitting was contacted and instructed to give a liter bolus of normal saline. Patient is afebrile continues with no bowel sounds noted and continues with abdominal distention and pain she reports. Patient is scheduled for exploratory laparotomy today which is currently pending. Recommend monitoring Accu-Cheks before meals and at bedtime and will hold metformin and continue sliding scale for now. Recommend weaning FiO2 as tolerated although patient is requiring more oxygen and currently on high flow. Patient COPD is somewhat stable and there is no wheezing noted. Kidney function slightly worsened although will follow-up with repeat labs. 03/02/2023 Patient is seen and evaluated follow-up this morning currently was intubated and recently extubated tolerated well. Patient is currently maintained on 10 L high flow and lung sounds congested with some crackles noted. Patient to continue on breathing treatments and continues to be nothing by mouth for now for surgery. Patient significantly week and will require PT/OT therapy. Patient is afebrile denies chest pain or palpitations. 03/03/2023 Patient is seen and evaluated in follow-up this morning currently on 9 L high flow and titrating accordingly as tolerated. Encouraged incentive spirometer use at least 10 times every hour while awake. Chest x-ray shows some atelectasis with possible infiltrate of the right lung. Patient is continued on Zosyn along with DuoNeb treatments. Family at bedside reports she is chronically supposed to be wearing oxygen outpatient although frequently takes off and is noncompliant. Patient continues to be nothing by mouth with NG tube and will be advanced per surgery. Physical therapy at bedside to work with the patient. Kidney functions have improved and creatinine 1.0 and continued on IV hydration. Recommend a.m. labs. 03/04/2023 Patient is evaluated today in the intensive care unit sitting up in the chair. No acute complaints does not report abdominal pain today. Continues on high flow oxygen at 9 L nasal cannula nd was given a dose of IV lasix today. IV fluids have been decreased to KVO. Chest xray follo up reveals basilar atelectasis versus fibrotic change and COPD changes. Continues on IV zosyn at this time. Labs remain stable. NG tube in place and patient has bowel sounds. Review of systems: Constitutional: No reports of fatigue, fever, or chills Cardiovascular: No reports of chest pain or palpitations Respiratory: reports of shortness of breath with cough GI: No reports of nausea, vomiting, or diarrhea, reports abdominal tenderness although slightly improved : No reports of dysuria or retention Neurovascular: reports of generalized weakness All medications have been reviewed PHYSICAL EXAMINATION: GENERAL: The patient is alert and oriented x3. Well developed, well nourished. Elderly-appearing female HEENT: Pupils are round and equally reacting to light. EOMI. No scleral icterus. No conjunctival pallor. Normocephalic, atraumatic. No pharyngeal erythema. No thyromegaly. CARDIOVASCULAR: S1 and S2 present. No murmurs, rubs, or gallops. PULMONARY: Diminished breath sounds bilaterally with coarse rhonchi and no wheezing noted, faint crackles at the bases noted ABDOMEN: Soft, surgical dressing being transitioned to optifoam, absent bowel sounds. No palpable organomegaly. MUSCULOSKELETAL: No joint swelling or deformity. EXTREMITIES: No cyanosis, clubbing, or pedal edema. NEUROLOGICAL: Gross neurological examination did not reveal any focal deficits. Diffusely weak SKIN: No rashes. Assessment: -High-grade distal small bowel obstruction, secondary to adhesions, status post exploratory laparotomy with lysis of adhesions, there was an adhesive band causing a closed loop obstruction. -Status post successful extubation on 03/02/2023 -Leukocytosis secondary to assessment 1 resolved -Mild hypovolemic hyponatremia secondary to nausea vomiting, improving -acute renal failure secondary to nausea vomiting with prerenal azotemia. Improving maintained on gentle IV hydration -COPD with acute exacerbation -Acute on chronic hypoxic respiratory failure secondary to COPD and a component of volume overload from IV fluids -Continued ongoing nicotine dependence -Hypertension -Hyperlipidemia -History of CVA -Type 2 diabetes mellitus patient was started on sliding scale insulin -GI prophylaxis -DVT prophylaxis: Lovenox -Full code plan: Recommend home medications to be resumed once diet advanced per surgery Patient was extubated successfully currently maintained on 9 L high flow. Patient is continued on breathing inhalational treatments with pulmonary following Currently remains nothing by mouth per surgery. Will be advanced once bowel functions improve and cleared with primary services Fluids have been decreased to KVO and patient has been given a dose of IV lasix today Strongly encouraged and discussed complete tobacco cessation Recommend follow-up labs in a.m. to monitor kidney functions and electrolytes. Recommend replace electrolytes per protocol Patient currently working with physical therapy continues with significant weakness would recommend working with daily We will continue to follow with general surgery during hospitalization. Thank you kindly for this consultation. The impression and plan of care has been dictated by Aileen Martell, Nurse Practitioner as directed. Dr. Abigail MD I have performed a history and physical examination and medical decision making of this patient, discussed the same with the dictator, and agree with the dictators assessment and plan as written, documented as a scribe. Based on total visit time, I have performed more than 50% of this visit. Objective - Vital Signs Vital signs: Vital Signs Temp 97.9 F 03/04/23 12:00 Pulse 106 H 03/04/23 14:00 Resp 19 03/04/23 14:00 BP 104/67 03/04/23 14:00 Pulse Ox 88 L 03/04/23 14:00 FiO2 40 03/02/23 10:00 Intake & Output 03/03/23 03/04/23 03/04/23 18:59 06:59 18:59 Intake Total 1110 925 525 Output Total 894 121 3626 Balance 660 300 -1005 Weight 64.7 kg Intake: IV 1110 925 170 D5-0.45% NaCl with KCl 60 20Meq/l 1,000 ml @ 20 mls /hr IV .Q24H [facility] Rx#: [id number] Invasive Line 4 10 Piperacillin-Tazobactam 3 200 100 100 .375 gm In Sodium Chloride 0.9% 100 ml @ 25 mls/hr IVPB Q8HR [facility] Rx# :[id number] Sodium Chloride 0.9% 1, 900 825 10 000 ml @ 75 mls/hr IV . [id number] [facility] Rx#:[id number] Intake, IV Titration 100 Amount Magnesium Sulfate-D5w Pmx 100 1 gm In Dextrose/Water 1 100ml.bag @ 100 mls/hr IVPB ONCE ONE Rx#: [id number] Oral 255 Output: Urine [id number] [id number] Other: Voiding Method Indwelling Catheter Indwelling Catheter Indwelling Catheter # Bowel Movements 0 ABP, PAP, CO, CI - Last Documented Arterial Blood Pressure 112/51 - Labs CBC & Chem 7: 03/04/23 03:52 03/04/23 03:52 Labs: Abnormal Lab Results - Last 24 Hours (Table) 03/04/23 03/04/23 03/04/23 Range/Units 01:19 03:52 03:52 Hgb 7.5 L (11.4-16.0) gm/dL Hct 26.6 L (34.0-46.0) % MCV 68.5 L (80.0-100.0) fL MCH 19.4 L (25.0-35.0) pg MCHC 28.4 L (31.0-37.0) g/dL RDW 19.0 H (11.5-15.5) % Plt Count 112 L (150-450) k/uL Chloride 111 H (98-107) mmol/L Carbon Dioxide 20 L (22-30) mmol/L Glucose 70 L (74-99) mg/dL POC Glucose (mg/dL) 122 H (70-110) mg/dL Calcium 8.2 L (8.4-10.2) mg/dL 03/04/23 03/04/23 03/04/23 Range/Units 09:52 10:18 11:30 Hgb (11.4-16.0) gm/dL Hct (34.0-46.0) % MCV (80.0-100.0) fL MCH (25.0-35.0) pg MCHC (31.0-37.0) g/dL RDW (11.5-15.5) % Plt Count (150-450) k/uL Chloride (98-107) mmol/L Carbon Dioxide (22-30) mmol/L Glucose (74-99) mg/dL POC Glucose (mg/dL) 67 L 135 H 146 H (70-110) mg/dL Calcium (8.4-10.2) mg/dL Microbiology - Last 24 Hours (Table) 03/01/23 20:39 Gram Stain - Final Sputum Sputum Culture - Final 02/27/23 16:07 Blood Culture - Preliminary Blood 02/27/23 16:19 Blood Culture - Preliminary Blood Assessment and Plan Time with Patient: Less than 30
[2023-03-04 16:45] LABS: Glucose,Whole Blood 137 mg/dL (70-110)
[2023-03-04 21:14] LABS: Glucose,Whole Blood 93 mg/dL (70-110)
[2023-03-05 00:15] LABS: Glucose,Whole Blood 116 mg/dL (70-110)
[2023-03-05] MEDS: PIPERACILLIN-TAZOBACTAM 3.375 GM in SODIUM CHLORIDE 0.9% 100 ML IVPB SCH ×3 (00:15→15:12)
[2023-03-05] MEDS ORDERED: FUROSEMIDE 10 MG/ML 2 ML VIAL IV ONE (02:13)
[2023-03-05 04:23] LABS: African American GFR (CKD) 87 (>60 ml/min/1.73 sqM); Anion Gap 8 mmol/L; Blood Urea Nitrogen 10 mg/dL (7-17); Calcium 8.2 mg/dL (8.4-10.2); Carbon Dioxide 26 mmol/L (22-30); Chloride 106 mmol/L (98-107); Glucose 109 mg/dL (74-99); Magnesium 1.5 mg/dL (1.6-2.3); Non-African American GFR(CKD) 75 (>60 ml/min/1.73 sqM); Potassium 3.6 mmol/L (3.5-5.1); Sodium 140 mmol/L (137-145)
[2023-03-05 04:40] LABS: Anisocytosis Slight; Basophils % (A) 0 %; Eosinophils # (A) 0.1 k/uL (0-0.7); Eosinophils % (A) 1 %; HCT 27.6 % (34.0-46.0); HGB 8.1 gm/dL (11.4-16.0); Hypochromasia Marked; Lymphocytes % (A) 11 %; MCH 19.5 pg (25.0-35.0); MCHC 29.3 g/dL (31.0-37.0); MCV 66.5 fL (80.0-100.0); Mean Platelet Volume 9.2; Microcytosis Marked; Monocytes # (A) 0.7 k/uL (0-1.0); Monocytes % (A) 8 %; Neutrophils # (A) 6.7 k/uL (1.3-7.7); Neutrophils % (A) 77 %; Platelet Count 136 k/uL (150-450); Poikilocytosis Moderate; RBC 4.16 m/uL (3.80-5.40); RDW 18.9 % (11.5-15.5); WBC 8.7 k/uL (3.8-10.6)
[2023-03-05] MEDS: IPRATROPIUM-ALBUTEROL 3 ML NEB INHALATION SCH ×4 (07:34→20:52)
[2023-03-05] MEDS: FORMOTEROL FUMARATE 20 MCG/2 ML NEBU INHALATION SCH ×2 (07:34→20:52)
[2023-03-05] MEDS: BUDESONIDE 1 MG/2 ML NEBU INHALATION SCH ×2 (07:34→20:52)
[2023-03-05] MEDS: HYDROmorphone 1 MG/ML 1 ML SYRINGE IVP PRN ×2 (08:43→13:01)
--- NOTE | 2023-03-05 09:04 | P.PN ---
Subjective Progress Note Date: 03/05/23 Principal diagnosis: Small bowel obstruction Patient doing about the same today. She is tolerating her clear liquids. She denies pain. No nausea or vomiting. No flatus or bowel movement yet. Pulmonary status is stable. Objective - Vital Signs Vital signs: Vital Signs Temp 98.6 F 03/05/23 08:00 Pulse 98 03/05/23 08:07 Resp 24 03/05/23 08:00 BP 103/65 03/05/23 08:00 Pulse Ox 99 03/05/23 08:00 FiO2 40 03/02/23 10:00 Intake & Output 03/04/23 03/05/23 03/05/23 18:59 06:59 18:59 Intake Total 685 280 40 Output Total 19640 425 Balance -1280 -1550 -385 Weight 63.8 kg 65.4 kg Intake: IV 330 280 40 D5-0.45% NaCl with KCl 120 180 40 20Meq/l 1,000 ml @ 20 mls /hr IV .Q24H [facility] Rx#: [id number] Piperacillin-Tazobactam 3 200 100 .375 gm In Sodium Chloride 0.9% 100 ml @ 25 mls/hr IVPB Q8HR [facility] Rx# :[id number] Sodium Chloride 0.9% 1, 10 000 ml @ 75 mls/hr IV . [id number] [facility] Rx#:[id number] Intake, IV Titration 100 Amount Magnesium Sulfate-D5w Pmx 100 1 gm In Dextrose/Water 1 100ml.bag @ 100 mls/hr IVPB ONCE ONE Rx#: [id number] Oral 255 Output: Urine 19640 425 Other: Voiding Method Indwelling Catheter Indwelling Catheter ABP, PAP, CO, CI - Last Documented Arterial Blood Pressure 112/51 - Exam Abdomen: Soft, nondistended, dressing clean and dry, minimal tenderness - Labs CBC & Chem 7: 03/05/23 03:49 03/05/23 03:49 Labs: Abnormal Lab Results - Last 24 Hours (Table) 03/04/23 03/04/23 03/04/23 Range/Units 09:52 10:18 11:30 Hgb (11.4-16.0) gm/dL Hct (34.0-46.0) % MCV (80.0-100.0) fL MCH (25.0-35.0) pg MCHC (31.0-37.0) g/dL RDW (11.5-15.5) % Plt Count (150-450) k/uL Glucose (74-99) mg/dL POC Glucose (mg/dL) 67 L 135 H 146 H (70-110) mg/dL Calcium (8.4-10.2) mg/dL Magnesium (1.6-2.3) mg/dL 03/04/23 03/05/23 03/05/23 Range/Units 16:43 00:13 03:49 Hgb (11.4-16.0) gm/dL Hct (34.0-46.0) % MCV (80.0-100.0) fL MCH (25.0-35.0) pg MCHC (31.0-37.0) g/dL RDW (11.5-15.5) % Plt Count (150-450) k/uL Glucose 109 H (74-99) mg/dL POC Glucose (mg/dL) 137 H 116 H (70-110) mg/dL Calcium 8.2 L (8.4-10.2) mg/dL Magnesium 1.5 L (1.6-2.3) mg/dL 03/05/23 Range/Units 03:49 Hgb 8.1 L (11.4-16.0) gm/dL Hct 27.6 L (34.0-46.0) % MCV 66.5 L (80.0-100.0) fL MCH 19.5 L (25.0-35.0) pg MCHC 29.3 L (31.0-37.0) g/dL RDW 18.9 H (11.5-15.5) % Plt Count 136 L (150-450) k/uL Glucose (74-99) mg/dL POC Glucose (mg/dL) (70-110) mg/dL Calcium (8.4-10.2) mg/dL Magnesium (1.6-2.3) mg/dL Microbiology - Last 24 Hours (Table) 03/01/23 20:39 Gram Stain - Final Sputum Sputum Culture - Final Assessment and Plan (1) Small bowel obstruction Narrative/Plan: Continue supportive care. Continue clear liquids only for now. Increase activity. Await full return of bowel function. Current Visit: Yes Status: Acute Code(s): K56.609 - UNSP INTESTNL OBST, UNSP TO PARTIAL VERSUS COMPLETE OBST SNOMED Code(s): 523967388
[2023-03-05] MEDS: methylPREDNISolone SOD SUCCI 125 MG/2 ML VIAL IV SCH ×3 (09:59→17:24)
[2023-03-05] MEDS: oxyBUTYnin chloride 5 MG TAB PO SCH ×2 (10:00→20:21)
[2023-03-05] MEDS: ENOXAPARIN 40 MG/0.4 ML SYRINGE SQ SCH (10:04)
[2023-03-05] MEDS: PANTOPRAZOLE 40 MG/10 ML VIAL IVP SCH (10:04)
[2023-03-05] MEDS: ATORVASTATIN 20 MG TAB PO SCH (10:04)
[2023-03-05] MEDS: MAGNESIUM SULFATE-D5W PMX 1 GM in DEXTROSE/WATER 1 100ML.BAG IVPB SCH ×2 (10:16→11:49)
--- NOTE | 2023-03-05 10:33 | P.PN ---
Subjective Progress Note Date: 03/05/23 Principal diagnosis: Bowel obstruction. I am seeing this patient in consultation today 03/02/2023 in the intensive care unit for a small bowel obstruction status post operative day #1 for exploratory laparotomy and lysis of adhesions. Patient is a 67-year-old female with past m edical history significant for COPD, diabetes mellitus type 2, hypertension, CVA/TIA, and is a current tobacco smoker. Patient has had a recent hospital follow-up for COPD exacerbation with Dr. Morris in the office. PFT in the office is consistent with moderate obstruction. Patient manages her COPD with a Breo-elipta inhaler and when necessary albuterol. Patient reportedly presented to the emergency room on February 27 with complaints of abdominal pain and constipation starting [address] without contrast on arrival showed findings suggestive of high-grade distal small bowel obstruction. Without any evidence of perforation or free air. There was also an infrarenal abdominal aortic aneurysm measuring 3.3 cm. Yesterday afternoon, the patient was taken for exploratory laparotomy for lysis of lesions. The patient is currently intubated to the mechanical ventilator. Most recent chest x-ray shows the endotracheal tube 4.7 cm from the michael, bibasilar opacities concerning for possible pneumonia, NG tube coursing below the diaphragm, and a right IJ central venous line with the distal tip in the right atrium. She is sedated on propofol infusing at 45 mcg/kg/m. She is synchronous. Most recent ABGs show a pO2 of 113, pCO2 of 37, pH of 7.33. Current ventilator settings are assist control, respiratory rate 12, tidal volume 400, FiO2 70%, PEEP of 10. Patient is empirically covered on Zosyn. Most recent CBC includes a WBC count 8.4, hemoglobin 9.3, hematocrit 32.6, platelets 161,000. Most recent BMP shows a sodium 134, potassium 4.4, chloride 101, serum CO2 21, BUN 20, creatinine 1.55, glucose 158. NT proBNP was elevated at 7840. Patient does have acute kidney injury. Normal saline is infusing at 75 mL per hour. Urine output is in order of about 30 MLS per hour. Initially, the patient was on Levophed infusion, however, this has been off since the patient arrived to the intensive care unit. Receiving DVT prophylaxis with Lovenox and GI prophylaxis with Protonix. Patient will be monitored in the intensive care unit. Progress note dated 03/03/2023. This is a 67-year-old white female, seen in the intensive care unit, room 255. The patient is postop day #2, status post exploratory laparotomy for bowel obstruction, with lysis of lesions. There was no bowel resection. The patient was extubated yesterday. She is on 8 L high flow oxygen. She's getting saline at 75 mL an hour clinically, he looks well, and can likely move out of the int ensive care unit. White count 8, hemoglobin 7.4, hematocrit 25.5, and platelet count 122,000. Sodium 137, potassium 4.2, chlorides 111, CO2 20, anion gap 6, BUN 19, creatinine 1.03. Calcium is 8.2. Chest x-ray shows either right lower lobe infiltrate or atelectasis. Progress note dated 03/04/2023. 67-year-old black female, seen in the intensive care unit, room 255. The patient is postop day #3, status post exploratory laparotomy, for bowel obstruction, with lysis of adhesions. There is no need for a bowel resection on this patient. She was extubated on March 02. Currently, she is on a liter high flow oxygen, and saline at 75 mL an hour. Today we'll give her Lasix 40 mg IV push, and change her fluids to KVO. White count 7.7, hemoglobin 7.5, hematocrit 26.6, and platelet count 112,000. Sodium 140, potassium 3.8, chlorides 111, CO2 20, anion gap normal, BUN 15, and creatinine 0.85. The patient's pattern, is consistent with a non-anion gap hyperchloremic metabolic acidosis. M icrobiologic sampling is negative. Chest x-ray shows increased interstitial markings, possibly consistent with interstitial edema. Progress note dated 03/05/2023. 67-year-old black female, seen today in room 255. The patient is postop day #4, status post exploratory laparotomy, for bowel obstruction, with lysis of adhesions. The patient did not require a bowel resection. The patient had been doing relatively well. She was extubated on March 02. Unfortunately, her oxygen requirements have gone up. Yesterday, we gave her some diuretics, which did not really seem to make a difference. She did diurese though. We did order a D- dimer test, which was elevated, and the patient will go for a computed tomography scan of the chest, to rule out pulmonary embolism. Currently, the patient's on 15 L high flow oxygen. She's getting D5 with half-normal saline with 20 mEq of potassium chloride, at 20 mL an hour. White count 8.7, hemoglobin 8.1, hematocrit 27.6, and platelet count 136,000. D-dimer was elevated at 3.7. Sodium 140 potassium 3.6, chlorides 106, CO2 26, BUN 10, creatinine 0.81. Magnesium is 1.5. Chest x-ray revealed some bibasilar atelectasis. Objective - Vital Signs Vital signs: Vital Signs Temp 98.6 F 03/05/23 08:00 Pulse 96 03/05/23 10:00 Resp 12 03/05/23 10:00 BP 94/69 03/05/23 10:00 Pulse Ox 92 L 03/05/23 10:00 FiO2 40 03/02/23 10:00 Intake & Output 03/04/23 03/05/23 03/05/23 18:59 06:59 18:59 Intake Total 685 280 180 Output Total 1964 1830 570 Balance -1280 -1550 -390 Weight 63.8 kg 65.4 kg Intake: IV 330 280 180 D5-0.45% NaCl with KCl 120 180 80 20Meq/l 1,000 ml @ 20 mls /hr IV .Q24H [facility] Rx#: [id number] Piperacillin-Tazobactam 3 200 100 100 .375 gm In Sodium Chloride 0.9% 100 ml @ 25 mls/hr IVPB Q8HR [facility] Rx# :[id number] Sodium Chloride 0.9% 1, 10 000 ml @ 75 mls/hr IV . [id number] [facility] Rx#:[id number] Intake, IV Titration 100 Amount Magnesium Sulfate-D5w Pmx 100 1 gm In Dextrose/Water 1 100ml.bag @ 100 mls/hr IVPB ONCE ONE Rx#: [id number] Oral 255 Output: Urine 19640 570 Other: Voiding Method Indwelling Catheter Indwelling Catheter ABP, PAP, CO, CI - Last Documented Arterial Blood Pressure 112/51 - Exam No acute distress, oriented 3. Currently on high flow nasal oxygen, at 15 L. HEENT examination is grossly unremarkable. Neck supple. Full range of motion. No adenopathy thyromegaly or neck vein distention. Cardiovascular examination reveals regular rhythm rate. S1-S2 normal. No S3 or S4. No discernible murmur noted. Heart sounds are distant. Heart rate 96 bpm. Lungs reveal minimal scattered rhonchi. No wheezes or crackles. Breath sounds equal. Saturations are 93%. Abdomen soft, without bowel sounds. Dressing clean and dry. Extremities are intact. No cyanosis clubbing or edema. Skin is without rash or lesion. Neurologic examination is brief but nonfocal. - Labs CBC & Chem 7: 03/05/23 03:49 03/05/23 03:49 Labs: Abnormal Lab Results - Last 24 Hours (Table) 03/04/23 03/04/23 03/05/23 Range/Units 11:30 16:43 00:13 Hgb (11.4-16.0) gm/dL Hct (34.0-46.0) % MCV (80.0-100.0) fL MCH (25.0-35.0) pg MCHC (31.0-37.0) g/dL RDW (11.5-15.5) % Plt Count (150-450) k/uL D-Dimer (<0.60) mg/L FEU Glucose (74-99) mg/dL POC Glucose (mg/dL) 146 H 137 H 116 H (70-110) mg/dL Calcium (8.4-10.2) mg/dL Magnesium (1.6-2.3) mg/dL 03/05/23 03/05/23 03/05/23 Range/Units 03:49 03:49 09:17 Hgb 8.1 L (11.4-16.0) gm/dL Hct 27.6 L (34.0-46.0) % MCV 66.5 L (80.0-100.0) fL MCH 19.5 L (25.0-35.0) pg MCHC 29.3 L (31.0-37.0) g/dL RDW 18.9 H (11.5-15.5) % Plt Count 136 L (150-450) k/uL D-Dimer 3.70 H (<0.60) mg/L FEU Glucose 109 H (74-99) mg/dL POC Glucose (mg/dL) (70-110) mg/dL Calcium 8.2 L (8.4-10.2) mg/dL Magnesium 1.5 L (1.6-2.3) mg/dL Microbiology - Last 24 Hours (Table) 03/01/23 20:39 Gram Stain - Final Sputum Sputum Culture - Final Assessment and Plan Assessment: Small bowel obstruction, POD #4 for exploratory laparotomy and lysis of adhesio ns. Acute hypoxemic respiratory failure, likely related to underlying COPD, some bibasilar atelectasis, and possible pulmonary embolism. CT angiogram is pending. S/P successful extubation, 03/02/2023. Moderate COPD, stable. Acute kidney injury. Infrarenal aortic abdominal aneurysm, measuring 3.3 cm. Diabetes mellitus type 2, [id number]-[id number]. Essential hypertension. History of CVA/TIA. Chronic nicotine dependence. Plan: Plan dated 03/03/2023. The patient was just extubated yesterday. She remains on high flow nasal cannula, at 8 L. The patient is postop day #2. The patient is receiving saline at 75 mL an hour. We encourage deep breathing, coughing, clearing of secretions. We also recommend he apparently use of the incentive spirometer. Labs, x-rays, and medications are reviewed. Prognosis is guarded. We'll continue to follow the patient, to make sure she has a full recovery. Plan dated 03/04/2023. The patient will remain a ICU patient. The patient will not be transferred out of the floor. The patient is going to receive some Lasix, IV push, 40 mg. We will drop back the IV fluids from 75 mL an hour, to 10 mL an hour. Labs, x- rays, and medications are reviewed. The patient is postop day #3, status post exploratory laparotomy, with lysis of adhesions. There was no bowel resection. We will continue to follow the patient, and make recommendations along the way. Prognosis is guarded. Plan dated 03/05/2023. The patient will be sent for a CT angiogram to rule out pulmonary embolism. She will also be given some Solu-Medrol 60 mg every 6. The d-dimer was elevated at 3.7. Microbiologic studies are thus far negative. She's been increased to 15 L high flow oxygen. We will continue to follow the patient and make recommendations along the way. Prognosis is guarded. Today is postop day #4. Time with Patient: Greater than 30
[2023-03-05] MEDS ORDERED: Potassium Replacement Protocol 1 EACH MISC MISCELLANE PRN (11:18)
[2023-03-05 11:45] LABS: Glucose,Whole Blood 211 mg/dL (70-110)
[2023-03-05] MEDS: D5-0.45% NACL WITH KCL 20MEQ/L 1,000 ML IV SCH (11:50)
[2023-03-05] MEDS ORDERED: POTASSIUM BICARBONATE/CIT AC 20 MEQ TABLET.EFF NG-TUBE SCH (12:00)
[2023-03-05] MEDS ORDERED: DEXTROSE 50% SYRINGE 50 ML IVP PRN ×2 (12:27)
--- NOTE | 2023-03-05 12:31 | P.PN ---
Subjective Progress Note Date: 03/05/23 67-year-old female came to emergency department with complaints of left lower quadrant and diffuse abdominal pain going on for about 3 days along with nausea vomiting patient was constipated did have a bowel movement today. Patient had a CT of the abdomen, showed distal small bowel obstruction. There may be adhesions. Patient does have history of COPD continues to smoke declining patch about a pack per day patient has wheezing on exam uses 2-3 L of oxygen at home. Patient does have leukocytosis no fever patient has mildly elevated creatinine and along with low serum sodium. 02/28/2023 Patient is seen and evaluated in follow-up this morning with general surgery as admitting services. Patient was admitted for high-grade small bowel obstruction and continues with NG tube as well as some abdominal tenderness and distention with no significant output noted. Patient is nothing by mouth. Absent bowel sounds noted on exam and plan is for tentative exploratory laparotomy with lysis of adhesions on 03/01/2023. Patient is currently afebrile and being maintained on DuoNeb treatments for COPD exacerbation. Patient is supposed to wear oxygen in the outpatient setting and wears 2-3 L with no significant wheezing noted on exam although diminished breath sounds are bilaterally with coarse rhonchi. Chest x-ray will be obtained as patient has also been maintained on IV hydration as patient was nothing by mouth. Patient is afebrile denies chest pain or worsening shortness of breath. Patient reports her breathing she feels has improved. Patient reports occasional nausea with no vomiting and some abdominal discomfort noted. 03/01/2023 Patient is seen in follow-up this morning reporting she does not feel very well at all and is having some shortness of breath and cough and per nursing staff patient has been hypotensive. Patient did receive a 500 mL bolus and placed on IV fluids with minimal improvement in blood pressure. General surgery who is admitting was contacted and instructed to give a liter bolus of normal saline. Patient is afebrile continues with no bowel sounds noted and continues with abdominal distention and pain she reports. Patient is scheduled for exploratory laparotomy today which is currently pending. Recommend monitoring Accu-Cheks before meals and at bedtime and will hold metformin and continue sliding scale for now. Recommend weaning FiO2 as tolerated although patient is requiring more oxygen and currently on high flow. Patient COPD is somewhat stable and there is no wheezing noted. Kidney function slightly worsened although will follow-up with repeat labs. 03/02/2023 Patient is seen and evaluated follow-up this morning currently was intubated and recently extubated tolerated well. Patient is currently maintained on 10 L high flow and lung sounds congested with some crackles noted. Patient to continue on breathing treatments and continues to be nothing by mouth for now for surgery. Patient significantly week and will require PT/OT therapy. Patient is afebrile denies chest pain or palpitations. 03/03/2023 Patient is seen and evaluated in follow-up this morning currently on 9 L high flow and titrating accordingly as tolerated. Encouraged incentive spirometer use at least 10 times every hour while awake. Chest x-ray shows some atelectasis with possible infiltrate of the right lung. Patient is continued on Zosyn along with DuoNeb treatments. Family at bedside reports she is chronically supposed to be wearing oxygen outpatient although frequently takes off and is noncompliant. Patient continues to be nothing by mouth with NG tube and will be advanced per surgery. Physical therapy at bedside to work with the patient. Kidney functions have improved and creatinine 1.0 and continued on IV hydration. Recommend a.m. labs. 03/04/2023 Patient is evaluated today in the intensive care unit sitting up in the chair. No acute complaints does not report abdominal pain today. Continues on high flow oxygen at 9 L nasal cannula nd was given a dose of IV lasix today. IV fluids have been decreased to KVO. Chest xray follo up reveals basilar atelectasis versus fibrotic change and COPD changes. Continues on IV zosyn at this time. Labs remain stable. NG tube in place and patient has bowel sounds. 03/05/2023 Patient has been evaluated today in the intensive care unit sitting up in bed. NG tube discontinue continues on 9-10L of oxygen nasal cannula. Bowel sounds are increased today starting on clear liquid diet. Not passing much gas and no bowel movement. Receiving IV lasix dose daily. Continues on IV steroids, continues on IV zosynLabs today show normal white count 8.7, hgb 8.1, sodium 140, potassium 3.6, stable kidney function. Patient did have elevated D-Dimer today 3.70. Magnesium 1.5. Glucose is increased and patient will be started on sliding scale insulin. Review of systems: Constitutional: No reports of fatigue, fever, or chills Cardiovascular: No reports of chest pain or palpitations Respiratory: reports of shortness of breath with cough GI: No reports of nausea, vomiting, or diarrhea, reports abdominal tenderness although slightly improved : No reports of dysuria or retention Neurovascular: reports of generalized weakness All medications have been reviewed PHYSICAL EXAMINATION: GENERAL: The patient is alert and oriented x3. Well developed, well nourished. Elderly-appearing female HEENT: Pupils are round and equally reacting to light. EOMI. No scleral icterus. No conjunctival pallor. Normocephalic, atraumatic. No pharyngeal erythema. No thyromegaly. CARDIOVASCULAR: S1 and S2 present. No murmurs, rubs, or gallops. PULMONARY: Diminished breath sounds bilaterally with coarse rhonchi and no wheezing noted, faint crackles at the bases noted ABDOMEN: Soft, surgical dressing being transitioned to optifoam, Hypoactive bowel sounds. No palpable organomegaly. MUSCULOSKELETAL: No joint swelling or deformity. EXTREMITIES: No cyanosis, clubbing, or pedal edema. NEUROLOGICAL: Gross neurological examination did not reveal any focal deficits. Diffusely weak SKIN: No rashes. Assessment: -High-grade distal small bowel obstruction, secondary to adhesions, status post exploratory laparotomy with lysis of adhesions, there was an adhesive band causing a closed loop obstruction. -Status post successful extubation on 03/02/2023 -Leukocytosis secondary to assessment 1 resolved -Mild hypovolemic hyponatremia secondary to nausea vomiting, improving -acute renal failure secondary to nausea vomiting with prerenal azotemia. Improved with gentle hydration. -COPD with acute exacerbation -Acute on chronic hypoxic respiratory failure secondary to COPD and a component of volume overload from IV fluids -Elevated D Dimer rule out PE. -Continued ongoing nicotine dependence -Hypertension -Hyperlipidemia -History of CVA -Type 2 diabetes mellitus patient was started on sliding scale insulin -GI prophylaxis -DVT prophylaxis: Lovenox -Full code plan: Recommend home medications to be resumed once diet advanced per surgery patient had clear liquid for breakfast if tolerating will resume home medications. Patient was extubated successfully currently maintained on 9 L high flow. Patient is continued on breathing inhalational treatments with pulmonary following Fluids have been decreased to KVO patient received a dose of IV lasix at 0200. CT angiography rule out PE ordered Strongly encouraged and discussed complete tobacco cessation Recommend follow-up labs in a.m. to monitor kidney functions and electrolytes. Recommend replace electrolytes per protocol Patient currently working with physical therapy continues with significant weakness would recommend working with daily We will continue to follow with general surgery during hospitalization. Thank you kindly for this consultation. The impression and plan of care has been dictated by Aileen Martell, Nurse Practitioner as directed. Dr. Abigail MD I have performed a history and physical examination and medical decision making of this patient, discussed the same with the dictator, and agree with the dictators assessment and plan as written, documented as a scribe. Based on total visit time, I have performed more than 50% of this visit. Objective - Vital Signs Vital signs: Vital Signs Temp 97.8 F 03/05/23 12:00 Pulse 89 03/05/23 12:00 Resp 12 03/05/23 12:00 BP 102/71 03/05/23 12:00 Pulse Ox 90 L 03/05/23 12:00 FiO2 40 03/02/23 10:00 Intake & Output 03/04/23 03/05/23 03/05/23 18:59 06:59 18:59 Intake Total 685 280 420 Output Total 1964 1830 620 Balance -1280 -1550 -200 Weight 63.8 kg 65.4 kg Intake: IV 330 280 220 D5-0.45% NaCl with KCl 120 180 120 20Meq/l 1,000 ml @ 20 mls /hr IV .Q24H [facility] Rx#: [id number] Piperacillin-Tazobactam 3 200 100 100 .375 gm In Sodium Chloride 0.9% 100 ml @ 25 mls/hr IVPB Q8HR [facility] Rx# :[id number] Sodium Chloride 0.9% 1, 10 000 ml @ 75 mls/hr IV . [id number] [facility] Rx#:[id number] Intake, IV Titration 100 200 Amount Magnesium Sulfate-D5w Pmx 100 1 gm In Dextrose/Water 1 100ml.bag @ 100 mls/hr IVPB ONCE ONE Rx#: [id number] Magnesium Sulfate-D5w Pmx 200 1 gm In Dextrose/Water 1 100ml.bag @ 100 mls/hr IVPB Q1H [facility] Rx#: [id number] Oral 255 Output: Urine 1965 1830 620 Other: Voiding Method Indwelling Catheter Indwelling Catheter ABP, PAP, CO, CI - Last Documented Arterial Blood Pressure 112/51 - Labs CBC & Chem 7: 03/05/23 03:49 03/05/23 03:49 Labs: Abnormal Lab Results - Last 24 Hours (Table) 03/04/23 03/05/23 03/05/23 Range/Units 16:43 00:13 03:49 Hgb (11.4-16.0) gm/dL Hct (34.0-46.0) % MCV (80.0-100.0) fL MCH (25.0-35.0) pg MCHC (31.0-37.0) g/dL RDW (11.5-15.5) % Plt Count (150-450) k/uL D-Dimer (<0.60) mg/L FEU Glucose 109 H (74-99) mg/dL POC Glucose (mg/dL) 137 H 116 H (70-110) mg/dL Calcium 8.2 L (8.4-10.2) mg/dL Magnesium 1.5 L (1.6-2.3) mg/dL 03/05/23 03/05/23 03/05/23 Range/Units 03:49 09:17 11:43 Hgb 8.1 L (11.4-16.0) gm/dL Hct 27.6 L (34.0-46.0) % MCV 66.5 L (80.0-100.0) fL MCH 19.5 L (25.0-35.0) pg MCHC 29.3 L (31.0-37.0) g/dL RDW 18.9 H (11.5-15.5) % Plt Count 136 L (150-450) k/uL D-Dimer 3.70 H (<0.60) mg/L FEU Glucose (74-99) mg/dL POC Glucose (mg/dL) 211 H (70-110) mg/dL Calcium (8.4-10.2) mg/dL Magnesium (1.6-2.3) mg/dL Microbiology - Last 24 Hours (Table) 03/01/23 20:39 Gram Stain - Final Sputum Sputum Culture - Final Assessment and Plan Time with Patient: Less than 30
[2023-03-05] MEDS: INSULIN ASPART (NovoLOG) 100 UNIT/ML VIAL SQ SCH ×3 (12:50→20:21)
--- NOTE | 2023-03-05 14:02 | CT ---
EXAMINATION TYPE: CT angio chest CT DLP: 282.2 mGycm, Automated exposure control for dose reduction was used. DATE OF EXAM: 03/05/2023 1:26 PM COMPARISON: CT 03/05/2023 CLINICAL INDICATION:Female, 67 years old with history of Hypoxemia, elevated d dimer; SOB, elevated d dimer TECHNIQUE/CONTRAST: CTA scan of the thorax is performed with IV Contrast, patient injected with 100 mL of Isovue 370, pul monary embolism protocol. MIP images are created and reviewed [facility] FINDINGS: Pulmonary Artery: There is no evidence for a filling defect within the pulmonary vasculature to sugge st acute pulmonary embolism. The pulmonary artery is increased in size measuring up to 3.4 cm. Lungs/Pleura: Thickening of interlobular septa. No pneumothorax. Trace right pleural effusion. Left m ajor fissure intrafissural lymph node. Airway: Large airways are patent. Heart: The heart is mildly enlarged for size. Mild to moderate coronary artery atherosclerosis. Vasculature: Moderate atherosclerotic calcifications are present throughout the aorta and its branche s. Reflux of contrast and IVC suggestive of cardiac dysfunction. Mediastinum: No gross evidence of adenopathy. Musculoskeletal: Mild degenerative disc disease changes are present throughout the thoracolumbar spin e. Soft Tissues: Unremarkable. Lower neck: No significant findings. Upper Abdomen: No significant findings. IMPRESSION: 1. No evidence of pulmonary embolism. 2. Cardiomegaly with trace right pleural effusion, pulmonary hypertension and pulmonary vascular sincere estion correlate with serum BNP.
[2023-03-05 17:15] LABS: Glucose,Whole Blood 169 mg/dL (70-110)
[2023-03-05 20:15] LABS: Glucose,Whole Blood 210 mg/dL (70-110)
[2023-03-05] MEDS ORDERED: FUROSEMIDE 10 MG/ML 4 ML VIAL IV STA (23:24)
[2023-03-06] MEDS: PIPERACILLIN-TAZOBACTAM 3.375 GM in SODIUM CHLORIDE 0.9% 100 ML IVPB SCH ×5 (00:11→23:48)
[2023-03-06] MEDS: methylPREDNISolone SOD SUCCI 125 MG/2 ML VIAL IV SCH ×5 (00:12→23:47)
[2023-03-06 00:26] LABS: Glucose,Whole Blood 132 mg/dL (70-110)
[2023-03-06] MEDS: HYDROmorphone 0.5 MG/0.5 ML SYRINGE IVP PRN (04:31)
[2023-03-06 04:41] LABS: Glucose,Whole Blood 191 mg/dL (70-110)
[2023-03-06] MEDS: D5-0.45% NACL WITH KCL 20MEQ/L 1,000 ML IV SCH (06:34)
[2023-03-06 06:51] LABS: Glucose,Whole Blood 166 mg/dL (70-110)
[2023-03-06] MEDS: INSULIN ASPART (NovoLOG) 100 UNIT/ML VIAL SQ SCH ×4 (06:52→21:08)
--- NOTE | 2023-03-06 07:19 | XR ---
EXAMINATION TYPE: XR chest 1V portable DATE OF EXAM: 03/06/2023 5:22 AM COMPARISON: Chest radiographs from 03/04/2023 TECHNIQUE: XR chest 1V portable Frontal view of the chest. CLINICAL INDICATION:Female, 67 years old with history of dyspnea; FINDINGS: Lungs/Pleura: Bibasilar atelectasis. There is flattening of the diaphragm with increased lucency of t he lungs. No evidence of pneumothorax, pleural effusion or focal consolidation. Pulmonary vascularity: Unremarkable. Heart/mediastinum: Cardiomediastinal silhouette is prominent in size. Musculoskeletal: No acute osseous pathology. IMPRESSION: Improved aeration of the lung bases persistent bibasilar atelectasis. COPD changes.
[2023-03-06 07:28] LABS: Anisocytosis Slight; Basophils % (A) 0 %; Eosinophils % (A) 0 %; HCT 26.6 % (34.0-46.0); HGB 7.7 gm/dL (11.4-16.0); Hypochromasia Marked; Lymphocytes % (A) 13 %; MCH 19.2 pg (25.0-35.0); MCHC 28.7 g/dL (31.0-37.0); MCV 66.7 fL (80.0-100.0); Mean Platelet Volume 8.7; Microcytosis Marked; Monocytes # (A) 0.2 k/uL (0-1.0); Monocytes % (A) 2 %; Neutrophils # (A) 6.6 k/uL (1.3-7.7); Neutrophils % (A) 83 %; Platelet Count 126 k/uL (150-450); Poikilocytosis Moderate; RBC 3.99 m/uL (3.80-5.40); RDW 18.8 % (11.5-15.5); WBC 7.9 k/uL (3.8-10.6)
[2023-03-06 07:48] LABS: African American GFR (CKD) >90 (>60 ml/min/1.73 sqM); Anion Gap 7 mmol/L; Blood Urea Nitrogen 13 mg/dL (7-17); Calcium 8.5 mg/dL (8.4-10.2); Carbon Dioxide 24 mmol/L (22-30); Chloride 103 mmol/L (98-107); Glucose 151 mg/dL (74-99); Non-African American GFR(CKD) 88 (>60 ml/min/1.73 sqM); Sodium 134 mmol/L (137-145)
[2023-03-06 07:50] LABS: Magnesium 1.6 mg/dL (1.6-2.3); Potassium 4.5 mmol/L (3.5-5.1)
[2023-03-06] MEDS: ENOXAPARIN 40 MG/0.4 ML SYRINGE SQ SCH (07:52)
[2023-03-06] MEDS: ATORVASTATIN 20 MG TAB PO SCH (07:54)
[2023-03-06] MEDS: PANTOPRAZOLE 40 MG/10 ML VIAL IVP SCH (07:54)
[2023-03-06] MEDS: oxyBUTYnin chloride 5 MG TAB PO SCH ×2 (07:55→21:08)
[2023-03-06 08:01] LABS: Glucose,Whole Blood 185 mg/dL (70-110)
[2023-03-06] MEDS: BUDESONIDE 1 MG/2 ML NEBU INHALATION SCH ×2 (08:48→20:18)
[2023-03-06] MEDS: FORMOTEROL FUMARATE 20 MCG/2 ML NEBU INHALATION SCH ×2 (08:48→20:18)
[2023-03-06] MEDS: IPRATROPIUM-ALBUTEROL 3 ML NEB INHALATION SCH ×4 (08:48→20:18)
[2023-03-06] MEDS: MAGNESIUM SULFATE-D5W PMX 1 GM in DEXTROSE/WATER 1 100ML.BAG IVPB SCH ×2 (08:57→10:00)
--- NOTE | 2023-03-06 09:12 | P.PN ---
Subjective Progress Note Date: 03/06/23 I am seeing this patient in consultation today 03/02/2023 in the intensive care unit for a small bowel obstruction status post operative day #1 for exploratory laparotomy and lysis of adhesions. Patient is a 67-year-old female with past medical history significant for COPD, diabetes mellitus type 2, hypertension, CVA/TIA, and is a current tobacco smoker. Patient has had a recent hospital follow-up for COPD exacerbation with Dr. Morris in the office. PFT in the office is consistent with moderate obstruction. Patient manages her COPD with a Breo-elipta inhaler and when necessary albuterol. Patient reportedly presented to the emergency room on February 27 with complaints of abdominal pain and c onstipation starting [address] without contrast on arrival showed findings suggestive of high-grade distal small bowel obstruction. Without any evidence of perforation or free air. There was also an infrarenal abdominal aortic aneurysm measuring 3.3 cm. Yesterday afternoon, the patient was taken for exploratory laparotomy for lysis of lesions. The patient is currently intubated to the mechanical ventilator. Most recent chest x-ray shows the endotracheal tube 4.7 cm from the michael, bibasilar opacities concerning for possible pneumonia, NG tube coursing below the diaphragm, and a right IJ central venous line with the distal tip in the right atrium. She is sedated on propofol infusing at 45 mcg/kg/m. She is synchronous. Most recent ABGs show a pO2 of 113, pCO2 of 37, pH of 7.33. Current ventilator settings are assist control, respiratory rate 12, tidal volume 400, FiO2 70%, PEEP of 10. Patient is empirically covered on Zosyn. Most recent CBC includes a WBC count 8.4, hemoglobin 9.3, hematocrit 32.6, platelets 161,000. Most recent BMP shows a sodium 134, potassium 4.4, chloride 101, serum CO2 21, BUN 20, creatinine 1.55, glucose 158. NT proBNP was elevated at 7840. Patient does have acute kidney injury. Normal saline is infusing at 75 mL per hour. Urine output is in order of about 30 MLS per hour. Initially, the patient was on Levophed infusion, ho wever, this has been off since the patient arrived to the intensive care unit. Receiving DVT prophylaxis with Lovenox and GI prophylaxis with Protonix. Patient will be monitored in the intensive care unit. Progress note dated 03/03/2023. This is a 67-year-old white female, seen in the intensive care unit, room 255. The patient is postop day #2, status post exploratory laparotomy for bowel obs truction, with lysis of lesions. There was no bowel resection. The patient was extubated yesterday. She is on 8 L high flow oxygen. She's getting saline at 75 mL an hour clinically, he looks well, and can likely move out of the intensive care unit. White count 8, hemoglobin 7.4, hematocrit 25.5, and platelet count 122,000. Sodium 137, potassium 4.2, chlorides 111, CO2 20, anion gap 6, BUN 19, creatinine 1.03. Calcium is 8.2. Chest x-ray shows either right lower lobe infiltrate or atelectasis. Progress note dated 03/04/2023. 67-year-old black female, seen in the intensive care unit, room 255. The patient is postop day #3, status post exploratory laparotomy, for bowel obstruction, with lysis of adhesions. There is no need for a bowel resection on this patient. She was extubated on March 02. Currently, she is on a liter high flow oxygen, and saline at 75 mL an hour. Today we'll give her Lasix 40 mg IV push, and change her fluids to KVO. White count 7.7, hemoglobin 7.5, hematocrit 26.6, and platelet count 112,000. Sodium 140, potassium 3.8, chlorides 111, CO2 20, anion gap normal, BUN 15, and creatinine 0.85. The patient's pattern, is consistent with a non-anion gap hyperchloremic metabolic acidosis. Microbiologic sampling is negative. Chest x-ray shows increased interstitial markings, possibly consistent with interstitial edema. Progress note dated 03/05/2023. 67-year-old black female, seen today in room 255. The patient is postop day #4, status post exploratory laparotomy, for bowel obstruction, with lysis of adhesions. The patient did not require a bowel resection. The patient had been doing relatively well. She was extubated on March 02. Unfortunately, her oxygen requirements have gone up. Yesterday, we gave her some diuretics, which did not really seem to make a difference. She did diurese though. We did order a D- dimer test, which was elevated, and the patient will go for a computed tomography scan of the chest, to rule out pulmonary embolism. Currently, the patient's on 15 L high flow oxygen. She's getting D5 with half-normal saline with 20 mEq of potassium chloride, at 20 mL an hour. White count 8.7, hemoglobin 8.1, hematocrit 27.6, and platelet count 136,000. D-dimer was elevated at 3.7. Sodium 140 potassium 3.6, chlorides 106, CO2 26, BUN 10, creatinine 0.81. Magnesium is 1.5. Chest x-ray revealed some bibasilar atele ctasis. On 03/06/2023, the patient is being seen in follow-up in the intensive care unit. The patient is postop day #5 she underwent a ex-lap and lysis of adhesions. Bowel sounds are distant and hypoactive. The patient is passing bowel movements yet. She has not passed any flatus yet. She was given clear liquid diet by the general surgery. No nausea. No emesis. No abdominal pain or distention. Hemodynamically stable. She is still hypoxemic and she is alternating between a BiPAP at pressures of 10/5 with an FiO2 of 60% and a high flow oxygen at 15 L. There was a concern for a pulmonary embolism. D-dimer was elevated and the patient underwent a CT angiogram that showed no evidence of any pulmonary embolism. There was some nonspecific mediastinal and hilar lymph nodes noted and there was background emphysema and some interstitial edema. The patient was given a dose of Lasix and she diuresed adequately. Over the past 24 hours, she is -2.8 L and she started to drop her urine output. Meanwhile, she had an acute kidney injury the time of presentation which essentially recovered and the creatinine is normalized. The patient is awake and alert and communicating. Abdominal wound is dry clean and intact. The patient is on D5 half-normal saline at rate of 20 mL an hour. The patient is on IV Zosyn. The patient remains on DuoNeb neb blotchiness on the clock and IV Solu-Medrol 60 mg every 6 hours. She is also on accommodation Perforomist and Pulmicort neb blotchiness treatments. She is on IV Dilaudid. Echocardiogram shows a moderate to severe pulmonary hypertension, preserved LV function. She does wear the BiPAP overnight. She is using this in the spirometer which is falling approximately 1000 Objective - Vital Signs Vital signs: Vital Signs Temp 97.7 F 03/06/23 08:00 Pulse 80 03/06/23 08:48 Resp 18 03/06/23 08:48 BP 128/94 03/06/23 08:00 Pulse Ox 94 L 03/06/23 08:46 FiO2 60 03/06/23 08:44 Intake & Output 03/05/23 03/06/23 03/06/23 18:59 06:59 18:59 Intake Total 690 360 120 Output Total 787 1145 30 Balance -97 -785 90 Weight 67.358 kg Intake: IV 440 360 120 D5-0.45% NaCl with KCl 240 260 20 20Meq/l 1,000 ml @ 20 mls /hr IV .Q24H [facility] Rx#: [id number] Piperacillin-Tazobactam 3 200 100 100 .375 gm In Sodium Chloride 0.9% 100 ml @ 25 mls/hr IVPB Q8HR [facility] Rx# :[id number] Intake, IV Titration 200 Amount Magnesium Sulfate-D5w Pmx 200 1 gm In Dextrose/Water 1 100ml.bag @ 100 mls/hr IVPB Q1H [facility] Rx#: [id number] Oral 50 Output: Urine 787 1145 30 Other: Voiding Method Indwelling Catheter Indwelling Catheter Indwelling Catheter ABP, PAP, CO, CI - Last Documented Arterial Blood Pressure 112/51 - Exam No acute distress, oriented 3. Currently on high flow nasal oxygen, at 15 L. HEENT examination is grossly unremarkable. Neck supple. Full range of motion. No adenopathy thyromegaly or neck vein distention. Cardiovascular examination reveals regular rhythm rate. S1-S2 normal. No S3 or S4. No discernible murmur noted. Heart sounds are distant. Lungs reveal minimal scattered rhonchi. No wheezes or crackles. Breath sounds equal. Abdomen soft, without bowel sounds. Dressing clean and dry. The patient has no abdominal distention. Abdominal wound is clean. No direct tenderness or rebound tenderness or guarding. Extremities are intact. No cyanosis clubbing or edema. Skin is without rash or lesion. Neurologic examination is brief but nonfocal. - Labs CBC & Chem 7: 03/06/23 06:45 03/06/23 06:45 Labs: Abnormal Lab Results - Last 24 Hours (Table) 03/05/23 03/05/23 03/05/23 Range/Units 09:17 11:43 17:14 Hgb (11.4-16.0) gm/dL Hct (34.0-46.0) % MCV (80.0-100.0) fL MCH (25.0-35.0) pg MCHC (31.0-37.0) g/dL RDW (11.5-15.5) % Plt Count (150-450) k/uL D-Dimer 3.70 H (<0.60) mg/L FEU Sodium (137-145) mmol/L Glucose (74-99) mg/dL POC Glucose (mg/dL) 211 H 169 H (70-110) mg/dL 03/05/23 03/06/23 03/06/23 Range/Units 20:13 00:24 04:40 Hgb (11.4-16.0) gm/dL Hct (34.0-46.0) % MCV (80.0-100.0) fL MCH (25.0-35.0) pg MCHC (31.0-37.0) g/dL RDW (11.5-15.5) % Plt Count (150-450) k/uL D-Dimer (<0.60) mg/L FEU Sodium (137-145) mmol/L Glucose (74-99) mg/dL POC Glucose (mg/dL) 210 H 132 H 191 H (70-110) mg/dL 03/06/23 03/06/23 03/06/23 Range/Units 06:45 06:45 06:50 Hgb 7.7 L (11.4-16.0) gm/dL Hct 26.6 L (34.0-46.0) % MCV 66.7 L (80.0-100.0) fL MCH 19.2 L (25.0-35.0) pg MCHC 28.7 L (31.0-37.0) g/dL RDW 18.8 H (11.5-15.5) % Plt Count 126 L (150-450) k/uL D-Dimer (<0.60) mg/L FEU Sodium 134 L (137-145) mmol/L Glucose 151 H (74-99) mg/dL POC Glucose (mg/dL) 166 H (70-110) mg/dL 03/06/23 Range/Units 08:00 Hgb (11.4-16.0) gm/dL Hct (34.0-46.0) % MCV (80.0-100.0) fL MCH (25.0-35.0) pg MCHC (31.0-37.0) g/dL RDW (11.5-15.5) % Plt Count (150-450) k/uL D-Dimer (<0.60) mg/L FEU Sodium (137-145) mmol/L Glucose (74-99) mg/dL POC Glucose (mg/dL) 185 H (70-110) mg/dL Microbiology - Last 24 Hours (Table) 02/27/23 16:07 Blood Culture - Final Blood 02/27/23 16:19 Blood Culture - Final Blood Assessment and Plan Plan: Small bowel obstruction, POD #5 for exploratory laparotomy and lysis of adhesions. Acute hypoxemic respiratory failure, likely related to underlying COPD, some bibasilar atelectasis, and possible pulmonary embolism. CT angiogram was completed and showed no evidence of any pulmonary embolism. There is evidence of COPD and some atelectatic change in the lung bases bilaterally and evidence of pulmonary arterial hypertension. Patient was extubated on 03/02/2023. The patient remains on high flow oxygen at 15 L nasal cannula Moderate COPD, stable. Moderate to severe pulmonary hypertension with a PA pressure of 54 mmHg Acute kidney injury, recovered and the patient renal function has normalized Infrarenal aortic abdominal aneurysm, measuring 3.3 cm. Diabetes mellitus type 2, [id number]. Essential hypertension. History of CVA/TIA. Chronic nicotine dependence. Plan Continue using the intensive spirometer. Give the patient another dose of Lasix 40 mg IV Keep the patient KVO for now Monitor the bowel sounds and bowel activinitor abolic activity Monitor the bowel activity Continue IV Zosyn Continue bronchodilators and steroids Gen. surgeries on the case mobility We'll continue to follow
[2023-03-06] MEDS ORDERED: FUROSEMIDE 10 MG/ML 4 ML VIAL IV STA (09:19)
--- NOTE | 2023-03-06 11:07 | P.PN ---
Subjective Progress Note Date: 03/06/23 CHIEF COMPLAINT: Small bowel structure HISTORY OF PRESENT ILLNESS: Patient is POD# 5, status post exploratory laparotomy with lysis of adhesions for small bowel obstruction secondary to adhesive band causing a closed loop obstruction. Patient remains in the ICU. She is requiring about 15 L of oxygen. She was on BiPAP through the night. She's followed closely by pulmonary service. She is receiving IV Lasix. PE has been ruled out. She does have pulmonary hypertension. Patient denies any abdominal pain. She sitting at bedside chair. She still had no bowel movement or flatus. Denies any nausea or vomiting. She is currently on a clear liquid diet. Afebrile. WBC is 7.9 Hgb 7.7 platelets 126 symptoms 134 potassium 4.5 creatinine 0.71 magnesium 1.6 and being replaced. Chest x-ray improved aeration of the lung bases persistent bibasilar atelectasis. COPD changes. PHYSICAL EXAM: VITAL SIGNS: Reviewed. GENERAL: Well-developed in no acute distress. ABDOMEN: Soft. Nondistended. Dressing clean dry and intact NEUROLOGIC: Awake and alert and orientated 3 ASSESSMENT: 1. Small bowel obstruction secondary to adhesive band causing a closed loop obstruction status post exploratory laparotomy with lysis of adhesions 2. Dilutional anemia PLAN: -Continue clear liquid diet -Encourage patient to increase activity level -Continue ICU management -Continue supportive care -DVT prophylaxis Lovenox and GI prophylaxis protonix Physician [employer] Blocking Operator note has been reviewed by physician. Signing provider agrees with the documented findings, assessment, and plan of care. Objective - Vital Signs Vital signs: Vital Signs Temp 97.7 F 03/06/23 08:00 Pulse 91 03/06/23 10:00 Resp 20 03/06/23 10:00 BP 117/80 03/06/23 10:00 Pulse Ox 93 L 03/06/23 10:00 FiO2 60 03/06/23 08:44 Intake & Output 03/05/23 03/06/23 03/06/23 18:59 06:59 18:59 Intake Total 690 360 240 Output Total 787 1145 60 Balance -97 -785 180 Weight 67.358 kg 67.358 kg Intake: IV 440 360 140 D5-0.45% NaCl with KCl 240 260 40 20Meq/l 1,000 ml @ 20 mls /hr IV .Q24H [facility] Rx#: [id number] Piperacillin-Tazobactam 3 200 100 100 .375 gm In Sodium Chloride 0.9% 100 ml @ 25 mls/hr IVPB Q8HR [facility] Rx# :[id number] Intake, IV Titration 200 100 Amount Magnesium Sulfate-D5w Pmx 200 1 gm In Dextrose/Water 1 100ml.bag @ 100 mls/hr IVPB Q1H [facility] Rx#: [id number] Magnesium Sulfate-D5w Pmx 100 1 gm In Dextrose/Water 1 100ml.bag @ 100 mls/hr IVPB Q1H [facility] Rx#: [id number] Oral 50 Output: Urine 787 1145 60 Other: Voiding Method Indwelling Catheter Indwelling Catheter Indwelling Catheter ABP, PAP, CO, CI - Last Documented Arterial Blood Pressure 112/51 - Labs CBC & Chem 7: 03/06/23 06:45 03/06/23 06:45 Labs: Abnormal Lab Results - Last 24 Hours (Table) 03/05/23 03/05/23 03/05/23 Range/Units 11:43 17:14 20:13 Hgb (11.4-16.0) gm/dL Hct (34.0-46.0) % MCV (80.0-100.0) fL MCH (25.0-35.0) pg MCHC (31.0-37.0) g/dL RDW (11.5-15.5) % Plt Count (150-450) k/uL Sodium (137-145) mmol/L Glucose (74-99) mg/dL POC Glucose (mg/dL) 211 H 169 H 210 H (70-110) mg/dL 03/06/23 03/06/23 03/06/23 Range/Units 00:24 04:40 06:45 Hgb (11.4-16.0) gm/dL Hct (34.0-46.0) % MCV (80.0-100.0) fL MCH (25.0-35.0) pg MCHC (31.0-37.0) g/dL RDW (11.5-15.5) % Plt Count (150-450) k/uL Sodium 134 L (137-145) mmol/L Glucose 151 H (74-99) mg/dL POC Glucose (mg/dL) 132 H 191 H (70-110) mg/dL 03/06/23 03/06/23 03/06/23 Range/Units 06:45 06:50 08:00 Hgb 7.7 L (11.4-16.0) gm/dL Hct 26.6 L (34.0-46.0) % MCV 66.7 L (80.0-100.0) fL MCH 19.2 L (25.0-35.0) pg MCHC 28.7 L (31.0-37.0) g/dL RDW 18.8 H (11.5-15.5) % Plt Count 126 L (150-450) k/uL Sodium (137-145) mmol/L Glucose (74-99) mg/dL POC Glucose (mg/dL) 166 H 185 H (70-110) mg/dL Microbiology - Last 24 Hours (Table) 02/27/23 16:07 Blood Culture - Final Blood 02/27/23 16:19 Blood Culture - Final Blood
[2023-03-06 11:33] LABS: Glucose,Whole Blood 186 mg/dL (70-110)
[2023-03-06 11:42] LABS: Glucose,Whole Blood 184 mg/dL (70-110)
[2023-03-06] MEDS: METOCLOPRAMIDE 5 MG/ML 2 ML VIAL IVP SCH ×3 (12:02→23:47)
[2023-03-06 16:29] LABS: Glucose,Whole Blood 143 mg/dL (70-110)
[2023-03-06] MEDS ORDERED: SODIUM CHLORIDE 0.65% NASAL SPRAY 44 ML BTL NASAL PRN (17:02)
[2023-03-06 20:14] LABS: Glucose,Whole Blood 195 mg/dL (70-110)
[2023-03-07] MEDS ORDERED: PIPERACILLIN-TAZOBACTAM 3.375 GM in SODIUM CHLORIDE 0.9% 100 ML IVPB SCH ×2
--- NOTE | 2023-03-07 04:37 | P.PN ---
Subjective Progress Note Date: 03/06/23 67-year-old female came to emergency department with complaints of left lower quadrant and diffuse abdominal pain going on for about 3 days along with nausea vomiting patient was constipated did have a bowel movement today. Patient had a CT of the abdomen, showed distal small bowel obstruction. There may be adhesions. Patient does have history of COPD continues to smoke declining patch about a pack per day patient has wheezing on exam uses 2-3 L of oxygen at home. Patient does have leukocytosis no fever patient has mildly elevated creatinine and along with low serum sodium. 02/28/2023 Patient is seen and evaluated in follow-up this morning with general surgery as admitting services. Patient was admitted for high-grade small bowel obstruction and continues with NG tube as well as some abdominal tenderness and distention with no significant output noted. Patient is nothing by mouth. Absent bowel sounds noted on exam and plan is for tentative exploratory laparotomy with lysis of adhesions on 03/01/2023. Patient is currently afebrile and being maintained on DuoNeb treatments for COPD exacerbation. Patient is supposed to wear oxygen in the outpatient setting and wears 2-3 L with no significant wheezing noted on exam although diminished breath sounds are bilaterally with coarse rhonchi. Chest x-ray will be obtained as patient has also been maintained on IV hydration as patient was nothing by mouth. Patient is afebrile denies chest pain or worsening shortness of breath. Patient reports her breathing she feels has improved. Patient reports occasional nausea with no vomiting and some abdominal discomfort noted. 03/01/2023 Patient is seen in follow-up this morning reporting she does not feel very well at all and is having some shortness of breath and cough and per nursing staff patient has been hypotensive. Patient did receive a 500 mL bolus and placed on IV fluids with minimal improvement in blood pressure. General surgery who is admitting was contacted and instructed to give a liter bolus of normal saline. Patient is afebrile continues with no bowel sounds noted and continues with abdominal distention and pain she reports. Patient is scheduled for exploratory laparotomy today which is currently pending. Recommend monitoring Accu-Cheks before meals and at bedtime and will hold metformin and continue sliding scale for now. Recommend weaning FiO2 as tolerated although patient is requiring more oxygen and currently on high flow. Patient COPD is somewhat stable and there is no wheezing noted. Kidney function slightly worsened although will follow-up with repeat labs. 03/02/2023 Patient is seen and evaluated follow-up this morning currently was intubated and recently extubated tolerated well. Patient is currently maintained on 10 L high flow and lung sounds congested with some crackles noted. Patient to continue on breathing treatments and continues to be nothing by mouth for now for surgery. Patient significantly week and will require PT/OT therapy. Patient is afebrile denies chest pain or palpitations. 03/03/2023 Patient is seen and evaluated in follow-up this morning currently on 9 L high flow and titrating accordingly as tolerated. Encouraged incentive spirometer use at least 10 times every hour while awake. Chest x-ray shows some atelectasis with possible infiltrate of the right lung. Patient is continued on Zosyn along with DuoNeb treatments. Family at bedside reports she is chronically supposed to be wearing oxygen outpatient although frequently takes off and is noncompliant. Patient continues to be nothing by mouth with NG tube and will be advanced per surgery. Physical therapy at bedside to work with the patient. Kidney functions have improved and creatinine 1.0 and continued on IV hydration. Recommend a.m. labs. 03/04/2023 Patient is evaluated today in the intensive care unit sitting up in the chair. No acute complaints does not report abdominal pain today. Continues on high flow oxygen at 9 L nasal cannula nd was given a dose of IV lasix today. IV fluids have been decreased to KVO. Chest xray follo up reveals basilar atelectasis versus fibrotic change and COPD changes. Continues on IV zosyn at this time. Labs remain stable. NG tube in place and patient has bowel sounds. 03/05/2023 Patient has been evaluated today in the intensive care unit sitting up in bed. NG tube discontinue continues on 9-10L of oxygen nasal cannula. Bowel sounds are increased today starting on clear liquid diet. Not passing much gas and no bowel movement. Receiving IV lasix dose daily. Continues on IV steroids, continues on IV zosynLabs today show normal white count 8.7, hgb 8.1, sodium 140, potassium 3.6, stable kidney function. Patient did have elevated D-Dimer today 3.70. Magnesium 1.5. Glucose is increased and patient will be started on sliding scale insulin. 03/06/2023 Patient is seen and evaluated in follow-up today and remains in the ICU with multiple medical consultations following. Patient continued on 12 L high flow currently with oxygen saturations above 95%. Patient desats quickly requiring high flow. Recommend weaning FiO2 as tolerated. Patient also continues with DuoNeb treatments along with inhaled steroids and IV steroids with pulmonary following closely. Patient is currently on clear liquids per surgery and tolerating requesting an advance in diet. Awaiting improved bowel function. Encouraged increased activity as tolerated and recommended physical therapy daily. Chest x-ray shows some improvement in aeration and was given a dose of IV Lasix today. Patient continues on IV Zosyn and sputum culture initially was negative. Patient with copious amounts of thick green sputum noted at the bedside, recommend repeat sputum culture sent. Review of systems: Constitutional: No reports of fatigue, fever, or chills Cardiovascular: No reports of chest pain or palpitations Respiratory: reports of shortness of breath with continued cough and sputum production GI: No reports of nausea, vomiting, or diarrhea, reports abdominal tenderness improved : No reports of dysuria or retention Neurovascular: reports of generalized weakness All medications have been reviewed PHYSICAL EXAMINATION: GENERAL: The patient is alert and oriented x3. Well developed, well nourished. Elderly-appearing female HEENT: Pupils are round and equally reacting to light. EOMI. No scleral icterus. No conjunctival pallor. Normocephalic, atraumatic. No pharyngeal erythema. No th yromegaly. CARDIOVASCULAR: S1 and S2 present. No murmurs, rubs, or gallops. PULMONARY: Diminished breath sounds bilaterally with coarse rhonchi and no wheezing noted, faint crackles at the bases noted ABDOMEN: Soft, surgical dressing being transitioned to optifoam, Hypoactive bowel sounds. No palpable organomegaly. MUSCULOSKELETAL: No joint swelling or deformity. EXTREMITIES: No cyanosis, clubbing, or pedal edema. NEUROLOGICAL: Gross neurological examination did not reveal any focal deficits. Diffusely weak SKIN: No rashes. Assessment: -High-grade distal small bowel obstruction, secondary to adhesions, status post exploratory laparotomy with lysis of adhesions, there was an adhesive band causing a closed loop obstruction. -Status post successful extubation on 03/02/2023 -Leukocytosis secondary to assessment 1 resolved -Mild hypovolemic hyponatremia secondary to nausea vomiting, improving -acute renal failure secondary to nausea vomiting with prerenal azotemia. Improved with gentle hydration. -COPD with acute exacerbation -Acute on chronic hypoxic respiratory failure secondary to COPD and a component of volume overload from IV fluids -Elevated D Dimer ruled out PE on CTA. -Continued ongoing nicotine dependence -Hypertension -Hyperlipidemia -History of CVA -Type 2 diabetes mellitus patient was started on sliding scale insulin -GI prophylaxis -DVT prophylaxis: Lovenox -Full code plan: Home medications reviewed and resumed as appropriate. Patient is tolerating clear liquid diet being slowly advanced per surgery Patient was extubated successfully currently maintained on 12-13 L high flow. Patient is continued on breathing inhalational treatments with pulmonary following along with DuoNeb treatments and steroids for COPD exacerbation Recommend another dose of IV Lasix today CT angiography ruled out PE Strongly encouraged and discussed complete tobacco cessation Recommend follow-up labs in a.m. to monitor kidney functions and electrolytes. Recommend replace electrolytes per protocol. Magnesium 1.6 and will be replaced with follow-up labs in a.m. Recommend continue weaning FiO2 as tolerated. Patient chronically supposed to wear 2-3 L outpatient via nasal cannula. Patient is using intermittent BiPAP as needed at night Encouraged incentive spirometer and continue using at least 10 times every hour while awake Patient currently working with physical therapy continues with significant weakness would recommend working with daily We will continue to follow with general surgery during hospitalization. Thank you kindly for this consultation. The impression and plan of care has been dictated by Vika Simon, Nurse Practitioner as directed. Dr. Ja MD I have performed a history and examination and MDM of this patient, discussed the same with the dictator, and agree with the dictator's assessment and plan as written ,documented as a scribe. Based on total visit time, I have performed more than 50% of the visit. Objective - Vital Signs Vital signs: Vital Signs Temp 97.7 F 03/06/23 12:00 Pulse 105 H 03/06/23 15:00 Resp 18 03/06/23 15:00 BP 107/77 03/06/23 15:00 Pulse Ox 90 L 03/06/23 15:00 FiO2 60 03/06/23 08:44 Intake & Output 03/05/23 03/06/23 03/06/23 18:59 06:59 18:59 Intake Total 690 360 480 Output Total 191 1145 910 Balance -97 -785 -430 Weight 67.358 kg 67.358 kg Intake: IV 440 360 280 D5-0.45% NaCl with KCl 240 260 180 20Meq/l 1,000 ml @ 20 mls /hr IV .Q24H [facility] Rx#: [id number] Piperacillin-Tazobactam 3 200 100 100 .375 gm In Sodium Chloride 0.9% 100 ml @ 25 mls/hr IVPB Q8HR [facility] Rx# :[id number] Intake, IV Titration 200 200 Amount Magnesium Sulfate-D5w Pmx 200 1 gm In Dextrose/Water 1 100ml.bag @ 100 mls/hr IVPB Q1H [facility] Rx#: [id number] Magnesium Sulfate-D5w Pmx 200 1 gm In Dextrose/Water 1 100ml.bag @ 100 mls/hr IVPB Q1H [facility] Rx#: [id number] Oral 50 Output: Urine 787 1145 910 Other: Voiding Method Indwelling Catheter Indwelling Catheter Indwelling Catheter ABP, PAP, CO, CI - Last Documented Arterial Blood Pressure 112/51 - Labs CBC & Chem 7: 03/06/23 06:45 03/06/23 06:45 Labs: Abnormal Lab Results - Last 24 Hours (Table) 03/05/23 03/05/23 03/06/23 Range/Units 17:14 20:13 00:24 Hgb (11.4-16.0) gm/dL Hct (34.0-46.0) % MCV (80.0-100.0) fL MCH (25.0-35.0) pg MCHC (31.0-37.0) g/dL RDW (11.5-15.5) % Plt Count (150-450) k/uL Sodium (137-145) mmol/L Glucose (74-99) mg/dL POC Glucose (mg/dL) 169 H 210 H 132 H (70-110) mg/dL Hemoglobin A1c (<=6.0) % 03/06/23 03/06/23 03/06/23 Range/Units 04:40 06:45 06:45 Hgb (11.4-16.0) gm/dL Hct (34.0-46.0) % MCV (80.0-100.0) fL MCH (25.0-35.0) pg MCHC (31.0-37.0) g/dL RDW (11.5-15.5) % Plt Count (150-450) k/uL Sodium 134 L (137-145) mmol/L Glucose 151 H (74-99) mg/dL POC Glucose (mg/dL) 191 H (70-110) mg/dL Hemoglobin A1c 6.7 H (<=6.0) % 03/06/23 03/06/23 03/06/23 Range/Units 06:45 06:50 08:00 Hgb 7.7 L (11.4-16.0) gm/dL Hct 26.6 L (34.0-46.0) % MCV 66.7 L (80.0-100.0) fL MCH 19.2 L (25.0-35.0) pg MCHC 28.7 L (31.0-37.0) g/dL RDW 18.8 H (11.5-15.5) % Plt Count 126 L (150-450) k/uL Sodium (137-145) mmol/L Glucose (74-99) mg/dL POC Glucose (mg/dL) 166 H 185 H (70-110) mg/dL Hemoglobin A1c (<=6.0) % 03/06/23 03/06/23 Range/Units 11:32 11:40 Hgb (11.4-16.0) gm/dL Hct (34.0-46.0) % MCV (80.0-100.0) fL MCH (25.0-35.0) pg MCHC (31.0-37.0) g/dL RDW (11.5-15.5) % Plt Count (150-450) k/uL Sodium (137-145) mmol/L Glucose (74-99) mg/dL POC Glucose (mg/dL) 186 H 184 H (70-110) mg/dL Hemoglobin A1c (<=6.0) % Microbiology - Last 24 Hours (Table) 02/27/23 16:07 Blood Culture - Final Blood 02/27/23 16:19 Blood Culture - Final Blood
[2023-03-07] MEDS: METOCLOPRAMIDE 5 MG/ML 2 ML VIAL IVP SCH ×3 (05:57→17:36)
[2023-03-07] MEDS: methylPREDNISolone SOD SUCCI 125 MG/2 ML VIAL IV SCH (05:58)
[2023-03-07 06:07] LABS: African American GFR (CKD) 74 (>60 ml/min/1.73 sqM); Anion Gap 10 mmol/L; Blood Urea Nitrogen 15 mg/dL (7-17); Carbon Dioxide 28 mmol/L (22-30); Chloride 96 mmol/L (98-107); Glucose 153 mg/dL (74-99); Magnesium 1.8 mg/dL (1.6-2.3); Non-African American GFR(CKD) 64 (>60 ml/min/1.73 sqM); Potassium 3.6 mmol/L (3.5-5.1); Sodium 134 mmol/L (137-145)
[2023-03-07 06:14] LABS: Anisocytosis Slight; HCT 27.6 % (34.0-46.0); HGB 8.2 gm/dL (11.4-16.0); Hypochromasia Marked; MCH 19.5 pg (25.0-35.0); MCHC 29.6 g/dL (31.0-37.0); Mean Platelet Volume 8.5; Microcytosis Marked; Platelet Count 152 k/uL (150-450); Poikilocytosis Moderate; RBC 4.18 m/uL (3.80-5.40); RDW 18.8 % (11.5-15.5); WBC 13.2 k/uL (3.8-10.6)
[2023-03-07 06:40] LABS: Glucose,Whole Blood 153 mg/dL (70-110)
[2023-03-07] MEDS: INSULIN ASPART (NovoLOG) 100 UNIT/ML VIAL SQ SCH ×4 (07:08→21:27)
--- NOTE | 2023-03-07 07:34 | XR ---
EXAMINATION TYPE: XR chest 1V portable DATE OF EXAM: 03/07/2023 Comparison: 03/06/2023 Clinical History: 67-year-old female shortness of breath Findings: The heart is upper limits of normal in size. Mild arthritic arch calcifications. Mild patchy left bas ilar opacity is unchanged. Otherwise, no consolidation or pleural effusion. Partially visualized skin tahir projecting over the upper abdomen. Impression: Borderline heart size. Similar mild patchy atelectasis versus infiltrate at the left base.
[2023-03-07] MEDS: ENOXAPARIN 40 MG/0.4 ML SYRINGE SQ SCH (08:33)
[2023-03-07] MEDS: PIPERACILLIN-TAZOBACTAM 3.375 GM in SODIUM CHLORIDE 0.9% 100 ML IVPB SCH ×2 (08:34→15:43)
[2023-03-07] MEDS: ATORVASTATIN 20 MG TAB PO SCH (08:34)
[2023-03-07] MEDS: PANTOPRAZOLE 40 MG/10 ML VIAL IVP SCH (08:34)
[2023-03-07] MEDS: FORMOTEROL FUMARATE 20 MCG/2 ML NEBU INHALATION SCH ×2 (08:42→20:41)
[2023-03-07] MEDS: BUDESONIDE 1 MG/2 ML NEBU INHALATION SCH ×2 (08:42→20:41)
[2023-03-07] MEDS: IPRATROPIUM-ALBUTEROL 3 ML NEB INHALATION SCH ×4 (08:42→20:41)
--- NOTE | 2023-03-07 09:03 | P.PN ---
Subjective Progress Note Date: 03/07/23 I am seeing this patient in consultation today 03/02/2023 in the intensive care unit for a small bowel obstruction status post operative day #1 for exploratory laparotomy and lysis of adhesions. Patient is a 67-year-old female with past medical history significant for COPD, diabetes mellitus type 2, hypertension, CVA/TIA, and is a current tobacco smoker. Patient has had a recent hospital follow-up for COPD exacerbation with Dr. Morris in the office. PFT in the office is consistent with moderate obstruction. Patient manages her COPD with a Breo-elipta inhaler and when necessary albuterol. Patient reportedly presented to the emergency room on February 27 with complaints of abdominal pain and c onstipation starting [address] without contrast on arrival showed findings suggestive of high-grade distal small bowel obstruction. Without any evidence of perforation or free air. There was also an infrarenal abdominal aortic aneurysm measuring 3.3 cm. Yesterday afternoon, the patient was taken for exploratory laparotomy for lysis of lesions. The patient is currently intubated to the mechanical ventilator. Most recent chest x-ray shows the endotracheal tube 4.7 cm from the michael, bibasilar opacities concerning for possible pneumonia, NG tube coursing below the diaphragm, and a right IJ central venous line with the distal tip in the right atrium. She is sedated on propofol infusing at 45 mcg/kg/m. She is synchronous. Most recent ABGs show a pO2 of 113, pCO2 of 37, pH of 7.33. Current ventilator settings are assist control, respiratory rate 12, tidal volume 400, FiO2 70%, PEEP of 10. Patient is empirically covered on Zosyn. Most recent CBC includes a WBC count 8.4, hemoglobin 9.3, hematocrit 32.6, platelets 161,000. Most recent BMP shows a sodium 134, potassium 4.4, chloride 101, serum CO2 21, BUN 20, creatinine 1.55, glucose 158. NT proBNP was elevated at 7840. Patient does have acute kidney injury. Normal saline is infusing at 75 mL per hour. Urine output is in order of about 30 MLS per hour. Initially, the patient was on Levophed infusion, ho wever, this has been off since the patient arrived to the intensive care unit. Receiving DVT prophylaxis with Lovenox and GI prophylaxis with Protonix. Patient will be monitored in the intensive care unit. Progress note dated 03/03/2023. This is a 67-year-old white female, seen in the intensive care unit, room 255. The patient is postop day #2, status post exploratory laparotomy for bowel obs truction, with lysis of lesions. There was no bowel resection. The patient was extubated yesterday. She is on 8 L high flow oxygen. She's getting saline at 75 mL an hour clinically, he looks well, and can likely move out of the intensive care unit. White count 8, hemoglobin 7.4, hematocrit 25.5, and platelet count 122,000. Sodium 137, potassium 4.2, chlorides 111, CO2 20, anion gap 6, BUN 19, creatinine 1.03. Calcium is 8.2. Chest x-ray shows either right lower lobe infiltrate or atelectasis. Progress note dated 03/04/2023. 67-year-old black female, seen in the intensive care unit, room 255. The patient is postop day #3, status post exploratory laparotomy, for bowel obstruction, with lysis of adhesions. There is no need for a bowel resection on this patient. She was extubated on March 02. Currently, she is on a liter high flow oxygen, and saline at 75 mL an hour. Today we'll give her Lasix 40 mg IV push, and change her fluids to KVO. White count 7.7, hemoglobin 7.5, hematocrit 26.6, and platelet count 112,000. Sodium 140, potassium 3.8, chlorides 111, CO2 20, anion gap normal, BUN 15, and creatinine 0.85. The patient's pattern, is consistent with a non-anion gap hyperchloremic metabolic acidosis. Microbiologic sampling is negative. Chest x-ray shows increased interstitial markings, possibly consistent with interstitial edema. Progress note dated 03/05/2023. 67-year-old black female, seen today in room 255. The patient is postop day #4, status post exploratory laparotomy, for bowel obstruction, with lysis of adhesions. The patient did not require a bowel resection. The patient had been doing relatively well. She was extubated on March 02. Unfortunately, her oxygen requirements have gone up. Yesterday, we gave her some diuretics, which did not really seem to make a difference. She did diurese though. We did order a D- dimer test, which was elevated, and the patient will go for a computed tomography scan of the chest, to rule out pulmonary embolism. Currently, the patient's on 15 L high flow oxygen. She's getting D5 with half-normal saline with 20 mEq of potassium chloride, at 20 mL an hour. White count 8.7, hemoglobin 8.1, hematocrit 27.6, and platelet count 136,000. D-dimer was elevated at 3.7. Sodium 140 potassium 3.6, chlorides 106, CO2 26, BUN 10, creatinine 0.81. Magnesium is 1.5. Chest x-ray revealed some bibasilar atele ctasis. On 03/06/2023, the patient is being seen in follow-up in the intensive care unit. The patient is postop day #5 she underwent a ex-lap and lysis of adhesions. Bowel sounds are distant and hypoactive. The patient is passing bowel movements yet. She has not passed any flatus yet. She was given clear liquid diet by the general surgery. No nausea. No emesis. No abdominal pain or distention. Hemodynamically stable. She is still hypoxemic and she is alternating between a BiPAP at pressures of 10/5 with an FiO2 of 60% and a high flow oxygen at 15 L. There was a concern for a pulmonary embolism. D-dimer was elevated and the patient underwent a CT angiogram that showed no evidence of any pulmonary embolism. There was some nonspecific mediastinal and hilar lymph nodes noted and there was background emphysema and some interstitial edema. The patient was given a dose of Lasix and she diuresed adequately. Over the past 24 hours, she is -2.8 L and she started to drop her urine output. Meanwhile, she had an acute kidney injury the time of presentation which essentially recovered and the creatinine is normalized. The patient is awake and alert and communicating. Abdominal wound is dry clean and intact. The patient is on D5 half-normal saline at rate of 20 mL an hour. The patient is on IV Zosyn. The patient remains on DuoNeb neb blotchiness on the clock and IV Solu-Medrol 60 mg every 6 hours. She is also on accommodation Perforomist and Pulmicort neb blotchiness treatments. She is on IV Dilaudid. Echocardiogram shows a moderate to severe pulmonary hypertension, preserved LV function. She does wear the BiPAP overnight. She is using this in the spirometer which is falling approximately 1000 03/07/2023, the patient is still elevated. The patient is postop day #6. The patient has been weaned down to 6 L of oxygen nasal cannula. She is using her bronchodilators. Unfortunately, no active bowel sounds are flatness or bowel movements yet. Nevertheless, the abdomen is nondistended. No nausea. No emesis each is tolerating clear liquid diet at this point in time. She is breathing comfortably. She was given a dose of Lasix yesterday and the patient produced adequate urine output and she has been negative fluid balance over the past 24 hours. On her blood work, the WBC count is at 13.2 with hemoglobin of 8.2. Sodiums of 134, potassium is at 3.6 with a BUN of 15 and a creatinine of 0.9. She remains on IV Zosyn. She remains on IV Solu-Medrol 60 mg every 6 hours on bronchodilators around the clock. She is on Lovenox 40 mg subcu portably prophylaxis. She is communicating. She is using the incentive spirometer. Awake and alert. No focal neurological deficits. Objective - Vital Signs Vital signs: Vital Signs Temp 98.1 F 03/07/23 08:00 Pulse 78 03/07/23 08:52 Resp 22 03/07/23 08:00 BP 153/98 03/07/23 08:00 Pulse Ox 98 03/07/23 08:00 FiO2 60 03/07/23 00:44 Intake & Output 03/06/23 03/07/23 03/07/23 18:59 06:59 18:59 Intake Total 640 220 140 Output Total 1065 560 145 Balance -425 -340 -5 Weight 67.358 kg 65.6 kg Intake: IV 440 220 140 D5-0.45% NaCl with KCl 240 220 40 20Meq/l 1,000 ml @ 20 mls /hr IV .Q24H [facility] Rx#: [id number] Piperacillin-Tazobactam 3 200 100 .375 gm In Sodium Chloride 0.9% 100 ml @ 25 mls/hr IVPB Q8HR [facility] Rx# :[id number] Intake, IV Titration 200 Amount Magnesium Sulfate-D5w Pmx 200 1 gm In Dextrose/Water 1 100ml.bag @ 100 mls/hr IVPB Q1H [facility] Rx#: [id number] Output: Urine 1065 560 145 Other: Voiding Method Indwelling Catheter Indwelling Catheter ABP, PAP, CO, CI - Last Documented Arterial Blood Pressure 112/51 - Exam No acute distress, oriented 3. Currently on high flow nasal oxygen, at 5 L. HEENT examination is grossly unremarkable. Neck supple. Full range of motion. No adenopathy thyromegaly or neck vein distention. Cardiovascular examination reveals regular rhythm rate. S1-S2 normal. No S3 or S4. No discernible murmur noted. Heart sounds are distant. Lungs reveal minimal scattered rhonchi. No wheezes or crackles. Breath sounds equal. Abdomen soft, without bowel sounds. Dressing clean and dry. The patient has no abdominal distention. Abdominal wound is clean. No direct tenderness or rebou nd tenderness or guarding. Extremities are intact. No cyanosis clubbing or edema. Skin is without rash or lesion. Neurologic examination is brief but nonfocal. - Labs CBC & Chem 7: 03/07/23 04:38 03/07/23 04:38 Labs: Abnormal Lab Results - Last 24 Hours (Table) 03/06/23 03/06/23 03/06/23 Range/Units 06:45 11:32 11:40 WBC (3.8-10.6) k/uL Hgb (11.4-16.0) gm/dL Hct (34.0-46.0) % MCV (80.0-100.0) fL MCH (25.0-35.0) pg MCHC (31.0-37.0) g/dL RDW (11.5-15.5) % Sodium (137-145) mmol/L Chloride (98-107) mmol/L Glucose (74-99) mg/dL POC Glucose (mg/dL) 186 H 184 H (70-110) mg/dL Hemoglobin A1c 6.7 H (<=6.0) % 03/06/23 03/06/23 03/07/23 Range/Units 16:28 20:13 04:38 WBC (3.8-10.6) k/uL Hgb (11.4-16.0) gm/dL Hct (34.0-46.0) % MCV (80.0-100.0) fL MCH (25.0-35.0) pg MCHC (31.0-37.0) g/dL RDW (11.5-15.5) % Sodium 134 L (137-145) mmol/L Chloride 96 L (98-107) mmol/L Glucose 153 H (74-99) mg/dL POC Glucose (mg/dL) 143 H 195 H (70-110) mg/dL Hemoglobin A1c (<=6.0) % 03/07/23 03/07/23 Range/Units 04:38 06:38 WBC 13.2 H (3.8-10.6) k/uL Hgb 8.2 L (11.4-16.0) gm/dL Hct 27.6 L (34.0-46.0) % MCV 66.0 L (80.0-100.0) fL MCH 19.5 L (25.0-35.0) pg MCHC 29.6 L (31.0-37.0) g/dL RDW 18.8 H (11.5-15.5) % Sodium (137-145) mmol/L Chloride (98-107) mmol/L Glucose (74-99) mg/dL POC Glucose (mg/dL) 153 H (70-110) mg/dL Hemoglobin A1c (<=6.0) % Assessment and Plan Plan: Small bowel obstruction, POD #6 for exploratory laparotomy and lysis of adhesions. Acute hypoxemic respiratory failure, likely related to underlying COPD, some bibasilar atelectasis, and possible pulmonary embolism. CT angiogram was completed and showed no evidence of any pulmonary embolism. There is evidence of COPD and some atelectatic change in the lung bases bilaterally and evidence of pulmonary arterial hypertension. Patient was extubated on 03/02/2023. The patient is improving. She has been weaned down to 5 L. The same time, the patient uses 3 L oxygen nasal cannula at home and she has chronic hypoxic respiratory failure. Moderate COPD, stable. Moderate to severe pulmonary hypertension with a PA pressure of 54 mmHg Acute kidney injury, recovered and the patient renal function has normalized Infrarenal aortic abdominal aneurysm, measuring 3.3 cm. Diabetes mellitus type 2, [id number]. Essential hypertension. History of CVA/TIA. Chronic nicotine dependence. Plan Continue using the intensive spirometer. Wean down FiO2 to 5 L Keep the patient KVO for now Monitor the bowel sounds are essentially hypoactive and no bowel movements yet Monitor the bowel activity Continue IV Zosyn Continue bronchodilators and steroids, wean down the Solu-Medrol 20 mg every 12 hours Ambulate the patient Gen. surgeries on the case Increase mobility We'll continue to follow
[2023-03-07] MEDS: oxyBUTYnin chloride 5 MG TAB PO SCH ×2 (10:28→21:27)
--- NOTE | 2023-03-07 10:57 | P.PN ---
Subjective Progress Note Date: 03/07/23 CHIEF COMPLAINT: Small bowel structure HISTORY OF PRESENT ILLNESS: Patient is POD# 6, status post exploratory laparotomy with lysis of adhesions for small bowel obstruction secondary to adhesive band causing a closed loop obstruction. Patient remains in the ICU. Her oxygen level is down to 8 liters. Pulmonary service is working on weaning patient down on oxygen requirements. She is sitting at bedside chair. She denies any abdominal pain. Still has had no bowel activity. Afebrile. White count did jump up from 7.9-13.2 patient is on steroids. Hemoglobin is stable at 8.2. WBC 134 potassium 3.6 creatinine 0.92 magnesium 1.8 PHYSICAL EXAM: VITAL SIGNS: Reviewed. GENERAL: Well-developed in no acute distress. ABDOMEN: Soft. Nondistended. Dressing clean dry and intact NEUROLOGIC: Awake and alert and orientated 3 ASSESSMENT: 1. Small bowel obstruction secondary to adhesive band causing a closed loop obstruction status post exploratory laparotomy with lysis of adhesions 2. Dilutional anemia PLAN: -Continue clear liquid diet -Encourage patient to increase activity level -Encourage patient to use incentive spirometer -Continue ICU management -Continue supportive care -DVT prophylaxis Lovenox and GI prophylaxis protonix [employer]ician [employer] note has been reviewed by physician. Signing provider agrees with the documented findings, assessment, and plan of care. Objective - Vital Signs Vital signs: Vital Signs Temp 98.1 F 03/07/23 08:00 Pulse 89 03/07/23 10:00 Resp 18 03/07/23 10:00 BP 148/100 03/07/23 10:00 Pulse Ox 98 03/07/23 08:00 FiO2 60 03/07/23 00:44 Intake & Output 03/06/23 03/07/23 03/07/23 18:59 06:59 18:59 Intake Total 640 220 300 Output Total 1065 560 240 Balance -425 -340 60 Weight 67.358 kg 65.6 kg Intake: IV 440 220 180 D5-0.45% NaCl with KCl 240 220 80 20Meq/l 1,000 ml @ 20 mls /hr IV .Q24H [facility] Rx#: [id number] Piperacillin-Tazobactam 3 200 100 .375 gm In Sodium Chloride 0.9% 100 ml @ 25 mls/hr IVPB Q8HR [facility] Rx# :[id number] Intake, IV Titration 200 Amount Magnesium Sulfate-D5w Pmx 200 1 gm In Dextrose/Water 1 100ml.bag @ 100 mls/hr IVPB Q1H [facility] Rx#: [id number] Oral 120 Output: Urine 1065 560 240 Other: Voiding Method Indwelling Catheter Indwelling Catheter ABP, PAP, CO, CI - Last Documented Arterial Blood Pressure 112/51 - Labs CBC & Chem 7: 03/07/23 04:38 03/07/23 04:38 Labs: Abnormal Lab Results - Last 24 Hours (Table) 03/06/23 03/06/23 03/06/23 Range/Units 06:45 11:32 11:40 WBC (3.8-10.6) k/uL Hgb (11.4-16.0) gm/dL Hct (34.0-46.0) % MCV (80.0-100.0) fL MCH (25.0-35.0) pg MCHC (31.0-37.0) g/dL RDW (11.5-15.5) % Sodium (137-145) mmol/L Chloride (98-107) mmol/L Glucose (74-99) mg/dL POC Glucose (mg/dL) 186 H 184 H (70-110) mg/dL Hemoglobin A1c 6.7 H (<=6.0) % 03/06/23 03/06/23 03/07/23 Range/Units 16:28 20:13 04:38 WBC (3.8-10.6) k/uL Hgb (11.4-16.0) gm/dL Hct (34.0-46.0) % MCV (80.0-100.0) fL MCH (25.0-35.0) pg MCHC (31.0-37.0) g/dL RDW (11.5-15.5) % Sodium 134 L (137-145) mmol/L Chloride 96 L (98-107) mmol/L Glucose 153 H (74-99) mg/dL POC Glucose (mg/dL) 143 H 195 H (70-110) mg/dL Hemoglobin A1c (<=6.0) % 03/07/23 03/07/23 Range/Units 04:38 06:38 WBC 13.2 H (3.8-10.6) k/uL Hgb 8.2 L (11.4-16.0) gm/dL Hct 27.6 L (34.0-46.0) % MCV 66.0 L (80.0-100.0) fL MCH 19.5 L (25.0-35.0) pg MCHC 29.6 L (31.0-37.0) g/dL RDW 18.8 H (11.5-15.5) % Sodium (137-145) mmol/L Chloride (98-107) mmol/L Glucose (74-99) mg/dL POC Glucose (mg/dL) 153 H (70-110) mg/dL Hemoglobin A1c (<=6.0) %
[2023-03-07 11:39] LABS: Glucose,Whole Blood 154 mg/dL (70-110)
[2023-03-07] MEDS: methylPREDNISolone SOD SUCCI 40 MG/ML 1 ML VIAL IV SCH ×2 (12:25→17:36)
[2023-03-07] MEDS: HYDROmorphone 0.5 MG/0.5 ML SYRINGE IVP PRN (15:42)
[2023-03-07] MEDS: D5-0.45% NACL WITH KCL 20MEQ/L 1,000 ML IV SCH (15:43)
--- NOTE | 2023-03-07 16:01 | P.PN ---
Subjective Progress Note Date: 03/07/23 67-year-old female came to emergency department with complaints of left lower quadrant and diffuse abdominal pain going on for about 3 days along with nausea vomiting patient was constipated did have a bowel movement today. Patient had a CT of the abdomen, showed distal small bowel obstruction. There may be adhesions. Patient does have history of COPD continues to smoke declining patch about a pack per day patient has wheezing on exam uses 2-3 L of oxygen at home. Patient does have leukocytosis no fever patient has mildly elevated creatinine and along with low serum sodium. 02/28/2023 Patient is seen and evaluated in follow-up this morning with general surgery as admitting services. Patient was admitted for high-grade small bowel obstruction and continues with NG tube as well as some abdominal tenderness and distention with no significant output noted. Patient is nothing by mouth. Absent bowel sounds noted on exam and plan is for tentative exploratory laparotomy with lysis of adhesions on 03/01/2023. Patient is currently afebrile and being maintained on DuoNeb treatments for COPD exacerbation. Patient is supposed to wear oxygen in the outpatient setting and wears 2-3 L with no significant wheezing noted on exam although diminished breath sounds are bilaterally with coarse rhonchi. Chest x-ray will be obtained as patient has also been maintained on IV hydration as patient was nothing by mouth. Patient is afebrile denies chest pain or worsening shortness of breath. Patient reports her breathing she feels has improved. Patient reports occasional nausea with no vomiting and some abdominal discomfort noted. 03/01/2023 Patient is seen in follow-up this morning reporting she does not feel very well at all and is having some shortness of breath and cough and per nursing staff patient has been hypotensive. Patient did receive a 500 mL bolus and placed on IV fluids with minimal improvement in blood pressure. General surgery who is admitting was contacted and instructed to give a liter bolus of normal saline. Patient is afebrile continues with no bowel sounds noted and continues with abdominal distention and pain she reports. Patient is scheduled for exploratory laparotomy today which is currently pending. Recommend monitoring Accu-Cheks before meals and at bedtime and will hold metformin and continue sliding scale for now. Recommend weaning FiO2 as tolerated although patient is requiring more oxygen and currently on high flow. Patient COPD is somewhat stable and there is no wheezing noted. Kidney function slightly worsened although will follow-up with repeat labs. 03/02/2023 Patient is seen and evaluated follow-up this morning currently was intubated and recently extubated tolerated well. Patient is currently maintained on 10 L high flow and lung sounds congested with some crackles noted. Patient to continue on breathing treatments and continues to be nothing by mouth for now for surgery. Patient significantly week and will require PT/OT therapy. Patient is afebrile denies chest pain or palpitations. 03/03/2023 Patient is seen and evaluated in follow-up this morning currently on 9 L high flow and titrating accordingly as tolerated. Encouraged incentive spirometer use at least 10 times every hour while awake. Chest x-ray shows some atelectasis with possible infiltrate of the right lung. Patient is continued on Zosyn along with DuoNeb treatments. Family at bedside reports she is chronically supposed to be wearing oxygen outpatient although frequently takes off and is noncompliant. Patient continues to be nothing by mouth with NG tube and will be advanced per surgery. Physical therapy at bedside to work with the patient. Kidney functions have improved and creatinine 1.0 and continued on IV hydration. Recommend a.m. labs. 03/04/2023 Patient is evaluated today in the intensive care unit sitting up in the chair. No acute complaints does not report abdominal pain today. Continues on high flow oxygen at 9 L nasal cannula nd was given a dose of IV lasix today. IV fluids have been decreased to KVO. Chest xray follo up reveals basilar atelectasis versus fibrotic change and COPD changes. Continues on IV zosyn at this time. Labs remain stable. NG tube in place and patient has bowel sounds. 03/05/2023 Patient has been evaluated today in the intensive care unit sitting up in bed. NG tube discontinue continues on 9-10L of oxygen nasal cannula. Bowel sounds are increased today starting on clear liquid diet. Not passing much gas and no bowel movement. Receiving IV lasix dose daily. Continues on IV steroids, continues on IV zosynLabs today show normal white count 8.7, hgb 8.1, sodium 140, potassium 3.6, stable kidney function. Patient did have elevated D-Dimer today 3.70. Magnesium 1.5. Glucose is increased and patient will be started on sliding scale insulin. 03/06/2023 Patient is seen and evaluated in follow-up today and remains in the ICU with multiple medical consultations following. Patient continued on 12 L high flow currently with oxygen saturations above 95%. Patient desats quickly requiring high flow. Recommend weaning FiO2 as tolerated. Patient also continues with DuoNeb treatments along with inhaled steroids and IV steroids with pulmonary following closely. Patient is currently on clear liquids per surgery and tolerating requesting an advance in diet. Awaiting improved bowel function. Encouraged increased activity as tolerated and recommended physical therapy daily. Chest x-ray shows some improvement in aeration and was given a dose of IV Lasix today. Patient continues on IV Zosyn and sputum culture initially was negative. Patient with copious amounts of thick green sputum noted at the bedside, recommend repeat sputum culture sent. 03/07/2023 Patient is seen and evaluated in follow-up today continues to be in the ICU and has been titrating FiO2 as tolerated with pulmonary following closely. Patient is maintained on DuoNeb treatments along with steroids and antibiotics in the form of Zosyn and will continue. Patient is currently maintained on gentle IV hydration in the form of dextrose with half normal saline and potassium. Patient has been titrated down to 5 L high flow recommend continue weaning FiO2 as tolerated. Strongly encouraged incentive spirometer and continued physical therapy daily. Patient's diet is being advanced to full liquids today. Recommend follow-up labs along with a chest x-ray in the a.m. Patient is afebrile denies chest pain or worsening shortness of breath. Patient reports to feeling hungry and reports to passing some gas. No bowel movement as of yet. Would recommend removal of indwelling Masters catheter and monitor for any retention. Review of systems: Constitutional: No reports of fatigue, fever, or chills Cardiovascular: No reports of chest pain or palpitations Respiratory: reports of shortness of breath with continued cough and sputum production although feels is improving GI: No reports of nausea, vomiting, or diarrhea, reports abdominal tenderness improved and reports to feeling hungry : No reports of dysuria or retention Neurovascular: reports of generalized weakness All medications have been reviewed PHYSICAL EXAMINATION: GENERAL: The patient is alert and oriented x3. Well developed, well nourished. Elderly-appearing female HEENT: Pupils are round and equally reacting to light. EOMI. No scleral icterus. No conjunctival pallor. Normocephalic, atraumatic. No pharyngeal erythema. No thyromegaly. CARDIOVASCULAR: S1 and S2 present. No murmurs, rubs, or gallops. PULMONARY: Diminished breath sounds bilaterally with coarse rhonchi and no wheezing noted, faint crackles at the bases noted ABDOMEN: Soft, surgical dressing intact with sluggish bowel sounds. No palpable organomegaly. MUSCULOSKELETAL: No joint swelling or deformity. EXTREMITIES: No cyanosis, clubbing, or pedal edema. NEUROLOGICAL: Gross neurological examination did not reveal any focal deficits. Diffusely weak SKIN: No rashes. Assessment: -High-grade distal small bowel obstruction, secondary to adhesions, status post exploratory laparotomy with lysis of adhesions, there was an adhesive band caus ing a closed loop obstruction. -Status post successful extubation on 03/02/2023 -Leukocytosis secondary to assessment 1 and possible component of IV steroid induced -Mild hypovolemic hyponatremia secondary to nausea vomiting, improving -acute renal failure secondary to nausea vomiting with prerenal azotemia. Improved with gentle hydration. -COPD with acute exacerbation -Acute on chronic hypoxic respiratory failure secondary to COPD and a component of volume overload from IV fluids -Elevated D Dimer ruled out PE on CTA. -Continued ongoing nicotine dependence -Hypertension -Hyperlipidemia -History of CVA -Type 2 diabetes mellitus patient was started on sliding scale insulin -GI prophylaxis -DVT prophylaxis: Lovenox -Full code plan: Home medications reviewed and resumed as appropriate. Patient is tolerating clear liquid diet being slowly advanced per surgery. Patient will be receiving full liquids today. Titrating FiO2 as tolerated and patient is currently maintained on 5 L high flow. Recommend to wean FiO2 and continue with incentive spirometer use Strongly encouraged and discussed complete tobacco cessation Recommend follow-up labs in a.m. to monitor kidney functions and electrolytes. Recommend replace electrolytes per protocol. Chest x-ray ordered for the a.m. as well. Recommend continue weaning FiO2 as tolerated. Patient chronically supposed to wear 2-3 L outpatient via nasal cannula. Family at patient's bedside who she is currently staying with reports she is noncompliant with oxygen use. Encouraged incentive spirometer and continue using at least 10 times every hour while awake Patient currently working with physical therapy continues with significant weakness would recommend working with daily We will continue to follow with general surgery during hospitalization. Thank you kindly for this consultation. The impression and plan of care has been dictated by Vika Simon, Nurse Practitioner as directed. Dr. Ja MD I have performed a history and examination and MDM of this patient, discussed the same with the dictator, and agree with the dictator's assessment and plan as written ,documented as a scribe. Based on total visit time, I have performed more than 50% of the visit. Objective - Vital Signs Vital signs: Vital Signs Temp 98.2 F 03/07/23 12:00 Pulse 105 H 03/07/23 13:00 Resp 20 03/07/23 13:00 BP 137/86 03/07/23 13:00 Pulse Ox 90 L 03/07/23 12:00 FiO2 60 03/07/23 00:44 Intake & Output 03/06/23 03/07/23 03/07/23 18:59 06:59 18:59 Intake Total 640 220 720 Output Total 1065 560 450 Balance -425 -340 270 Weight 67.358 kg 65.6 kg Intake: IV 440 220 240 D5-0.45% NaCl with KCl 240 220 140 20Meq/l 1,000 ml @ 20 mls /hr IV .Q24H [facility] Rx#: [id number] Piperacillin-Tazobactam 3 200 100 .375 gm In Sodium Chloride 0.9% 100 ml @ 25 mls/hr IVPB Q8HR [facility] Rx# :[id number] Intake, IV Titration 200 Amount Magnesium Sulfate-D5w Pmx 200 1 gm In Dextrose/Water 1 100ml.bag @ 100 mls/hr IVPB Q1H [facility] Rx#: [id number] Oral 480 Output: Urine 1065 560 450 Other: Voiding Method Indwelling Catheter Indwelling Catheter Indwelling Catheter ABP, PAP, CO, CI - Last Documented Arterial Blood Pressure 112/51 - Labs CBC & Chem 7: 03/07/23 04:38 03/07/23 04:38 Labs: Abnormal Lab Results - Last 24 Hours (Table) 03/06/23 03/06/23 03/07/23 Range/Units 16:28 20:13 04:38 WBC (3.8-10.6) k/uL Hgb (11.4-16.0) gm/dL Hct (34.0-46.0) % MCV (80.0-100.0) fL MCH (25.0-35.0) pg MCHC (31.0-37.0) g/dL RDW (11.5-15.5) % Sodium 134 L (137-145) mmol/L Chloride 96 L (98-107) mmol/L Glucose 153 H (74-99) mg/dL POC Glucose (mg/dL) 143 H 195 H (70-110) mg/dL 03/07/23 03/07/23 03/07/23 Range/Units 04:38 06:38 11:37 WBC 13.2 H (3.8-10.6) k/uL Hgb 8.2 L (11.4-16.0) gm/dL Hct 27.6 L (34.0-46.0) % MCV 66.0 L (80.0-100.0) fL MCH 19.5 L (25.0-35.0) pg MCHC 29.6 L (31.0-37.0) g/dL RDW 18.8 H (11.5-15.5) % Sodium (137-145) mmol/L Chloride (98-107) mmol/L Glucose (74-99) mg/dL POC Glucose (mg/dL) 153 H 154 H (70-110) mg/dL
[2023-03-07 16:49] LABS: Glucose,Whole Blood 164 mg/dL (70-110)
[2023-03-07 21:00] LABS: Glucose,Whole Blood 180 mg/dL (70-110)
[2023-03-08] MEDS: methylPREDNISolone SOD SUCCI 40 MG/ML 1 ML VIAL IV SCH ×4 (05:56→18:03)
[2023-03-08] MEDS: PIPERACILLIN-TAZOBACTAM 3.375 GM in SODIUM CHLORIDE 0.9% 100 ML IVPB SCH ×3 (05:56→16:24)
[2023-03-08] MEDS: METOCLOPRAMIDE 5 MG/ML 2 ML VIAL IVP SCH ×4 (05:56→18:03)
[2023-03-08 06:13] LABS: Anisocytosis Slight; HCT 30.3 % (34.0-46.0); HGB 8.5 gm/dL (11.4-16.0); Hypochromasia Marked; MCH 19.3 pg (25.0-35.0); MCHC 28.2 g/dL (31.0-37.0); MCV 68.4 fL (80.0-100.0); Mean Platelet Volume 9.3; Microcytosis Marked; Platelet Count 149 k/uL (150-450); Poikilocytosis Slight; RBC 4.43 m/uL (3.80-5.40); RDW 18.6 % (11.5-15.5); WBC 13.2 k/uL (3.8-10.6)
[2023-03-08 06:14] LABS: African American GFR (CKD) >90 (>60 ml/min/1.73 sqM); Anion Gap 12 mmol/L; Blood Urea Nitrogen 15 mg/dL (7-17); Calcium 9.1 mg/dL (8.4-10.2); Carbon Dioxide 24 mmol/L (22-30); Chloride 99 mmol/L (98-107); Glucose 165 mg/dL (74-99); Non-African American GFR(CKD) 81 (>60 ml/min/1.73 sqM); Potassium 3.7 mmol/L (3.5-5.1); Sodium 135 mmol/L (137-145)
[2023-03-08 06:25] LABS: Glucose,Whole Blood 181 mg/dL (70-110)
[2023-03-08] MEDS: INSULIN ASPART (NovoLOG) 100 UNIT/ML VIAL SQ SCH ×4 (07:12→21:15)
--- NOTE | 2023-03-08 07:34 | XR ---
EXAMINATION TYPE: XR chest 1V portable DATE OF EXAM: 03/08/2023 COMPARISON: 03/07/2023 INDICATION: Short of breath TECHNIQUE: Single frontal view of the chest is obtained. FINDINGS: The heart size is normal. The pulmonary vasculature is normal. The lungs are clear. IMPRESSION: 1. No acute pulmonary process.
[2023-03-08] MEDS: PANTOPRAZOLE 40 MG/10 ML VIAL IVP SCH (08:02)
[2023-03-08] MEDS: oxyBUTYnin chloride 5 MG TAB PO SCH ×2 (08:02→21:15)
[2023-03-08] MEDS: ENOXAPARIN 40 MG/0.4 ML SYRINGE SQ SCH (08:02)
[2023-03-08] MEDS: ATORVASTATIN 20 MG TAB PO SCH (08:02)
[2023-03-08] MEDS: BUDESONIDE 1 MG/2 ML NEBU INHALATION SCH ×2 (08:26→21:13)
[2023-03-08] MEDS: FORMOTEROL FUMARATE 20 MCG/2 ML NEBU INHALATION SCH ×2 (08:26→21:13)
[2023-03-08] MEDS: IPRATROPIUM-ALBUTEROL 3 ML NEB INHALATION SCH ×4 (08:26→21:14)
--- NOTE | 2023-03-08 09:10 | P.PN ---
Subjective Progress Note Date: 03/08/23 I am seeing this patient in consultation today 03/02/2023 in the intensive care unit for a small bowel obstruction status post operative day #1 for exploratory laparotomy and lysis of adhesions. Patient is a 67-year-old female with past medical history significant for COPD, diabetes mellitus type 2, hypertension, CVA/TIA, and is a current tobacco smoker. Patient has had a recent hospital follow-up for COPD exacerbation with Dr. Morris in the office. PFT in the office is consistent with moderate obstruction. Patient manages her COPD with a Breo-elipta inhaler and when necessary albuterol. Patient reportedly presented to the emergency room on February 27 with complaints of abdominal pain and c onstipation starting [address] without contrast on arrival showed findings suggestive of high-grade distal small bowel obstruction. Without any evidence of perforation or free air. There was also an infrarenal abdominal aortic aneurysm measuring 3.3 cm. Yesterday afternoon, the patient was taken for exploratory laparotomy for lysis of lesions. The patient is currently intubated to the mechanical ventilator. Most recent chest x-ray shows the endotracheal tube 4.7 cm from the michael, bibasilar opacities concerning for possible pneumonia, NG tube coursing below the diaphragm, and a right IJ central venous line with the distal tip in the right atrium. She is sedated on propofol infusing at 45 mcg/kg/m. She is synchronous. Most recent ABGs show a pO2 of 113, pCO2 of 37, pH of 7.33. Current ventilator settings are assist control, respiratory rate 12, tidal volume 400, FiO2 70%, PEEP of 10. Patient is empirically covered on Zosyn. Most recent CBC includes a WBC count 8.4, hemoglobin 9.3, hematocrit 32.6, platelets 161,000. Most recent BMP shows a sodium 134, potassium 4.4, chloride 101, serum CO2 21, BUN 20, creatinine 1.55, glucose 158. NT proBNP was elevated at 7840. Patient does have acute kidney injury. Normal saline is infusing at 75 mL per hour. Urine output is in order of about 30 MLS per hour. Initially, the patient was on Levophed infusion, ho wever, this has been off since the patient arrived to the intensive care unit. Receiving DVT prophylaxis with Lovenox and GI prophylaxis with Protonix. Patient will be monitored in the intensive care unit. Progress note dated 03/03/2023. This is a 67-year-old white female, seen in the intensive care unit, room 255. The patient is postop day #2, status post exploratory laparotomy for bowel obs truction, with lysis of lesions. There was no bowel resection. The patient was extubated yesterday. She is on 8 L high flow oxygen. She's getting saline at 75 mL an hour clinically, he looks well, and can likely move out of the intensive care unit. White count 8, hemoglobin 7.4, hematocrit 25.5, and platelet count 122,000. Sodium 137, potassium 4.2, chlorides 111, CO2 20, anion gap 6, BUN 19, creatinine 1.03. Calcium is 8.2. Chest x-ray shows either right lower lobe infiltrate or atelectasis. Progress note dated 03/04/2023. 67-year-old black female, seen in the intensive care unit, room 255. The patient is postop day #3, status post exploratory laparotomy, for bowel obstruction, with lysis of adhesions. There is no need for a bowel resection on this patient. She was extubated on March 02. Currently, she is on a liter high flow oxygen, and saline at 75 mL an hour. Today we'll give her Lasix 40 mg IV push, and change her fluids to KVO. White count 7.7, hemoglobin 7.5, hematocrit 26.6, and platelet count 112,000. Sodium 140, potassium 3.8, chlorides 111, CO2 20, anion gap normal, BUN 15, and creatinine 0.85. The patient's pattern, is consistent with a non-anion gap hyperchloremic metabolic acidosis. Microbiologic sampling is negative. Chest x-ray shows increased interstitial markings, possibly consistent with interstitial edema. Progress note dated 03/05/2023. 67-year-old black female, seen today in room 255. The patient is postop day #4, status post exploratory laparotomy, for bowel obstruction, with lysis of adhesions. The patient did not require a bowel resection. The patient had been doing relatively well. She was extubated on March 02. Unfortunately, her oxygen requirements have gone up. Yesterday, we gave her some diuretics, which did not really seem to make a difference. She did diurese though. We did order a D- dimer test, which was elevated, and the patient will go for a computed tomography scan of the chest, to rule out pulmonary embolism. Currently, the patient's on 15 L high flow oxygen. She's getting D5 with half-normal saline with 20 mEq of potassium chloride, at 20 mL an hour. White count 8.7, hemoglobin 8.1, hematocrit 27.6, and platelet count 136,000. D-dimer was elevated at 3.7. Sodium 140 potassium 3.6, chlorides 106, CO2 26, BUN 10, creatinine 0.81. Magnesium is 1.5. Chest x-ray revealed some bibasilar atele ctasis. On 03/06/2023, the patient is being seen in follow-up in the intensive care unit. The patient is postop day #5 she underwent a ex-lap and lysis of adhesions. Bowel sounds are distant and hypoactive. The patient is passing bowel movements yet. She has not passed any flatus yet. She was given clear liquid diet by the general surgery. No nausea. No emesis. No abdominal pain or distention. Hemodynamically stable. She is still hypoxemic and she is alternating between a BiPAP at pressures of 10/5 with an FiO2 of 60% and a high flow oxygen at 15 L. There was a concern for a pulmonary embolism. D-dimer was elevated and the patient underwent a CT angiogram that showed no evidence of any pulmonary embolism. There was some nonspecific mediastinal and hilar lymph nodes noted and there was background emphysema and some interstitial edema. The patient was given a dose of Lasix and she diuresed adequately. Over the past 24 hours, she is -2.8 L and she started to drop her urine output. Meanwhile, she had an acute kidney injury the time of presentation which essentially recovered and the creatinine is normalized. The patient is awake and alert and communicating. Abdominal wound is dry clean and intact. The patient is on D5 half-normal saline at rate of 20 mL an hour. The patient is on IV Zosyn. The patient remains on DuoNeb neb blotchiness on the clock and IV Solu-Medrol 60 mg every 6 hours. She is also on accommodation Perforomist and Pulmicort neb blotchiness treatments. She is on IV Dilaudid. Echocardiogram shows a moderate to severe pulmonary hypertension, preserved LV function. She does wear the BiPAP overnight. She is using this in the spirometer which is falling approximately 1000 03/07/2023, the patient is still elevated. The patient is postop day #6. The patient has been weaned down to 6 L of oxygen nasal cannula. She is using her bronchodilators. Unfortunately, no active bowel sounds are flatness or bowel movements yet. Nevertheless, the abdomen is nondistended. No nausea. No emesis each is tolerating clear liquid diet at this point in time. She is breathing comfortably. She was given a dose of Lasix yesterday and the patient produced adequate urine output and she has been negative fluid balance over the past 24 hours. On her blood work, the WBC count is at 13.2 with hemoglobin of 8.2. Sodiums of 134, potassium is at 3.6 with a BUN of 15 and a creatinine of 0.9. She remains on IV Zosyn. She remains on IV Solu-Medrol 60 mg every 6 hours on bronchodilators around the clock. She is on Lovenox 40 mg subcu portably prophylaxis. She is communicating. She is using the incentive spirometer. Awake and alert. No focal neurological deficits. 03/08/2023, the patient is postop day #7. This morning she is on 5 L of oxygen by nasal cannula. No signs of any significant respiratory distress. She still recovering from her abdominal surgery which included ex-lap and lysis of adhesion. The patient is hemodynamically stable. No nausea. No emesis. Bowel sounds are hypoactive. No bowel movements yet. She still taking clear liquid diet and she is using the incentive spirometer. She remains on IV Zosyn. Awake and alert and communicating. He is on bronchodilators. Solu-Medrol has been weaned off. She is taking 20 mg of IV Solu-Medrol every 12 hours. She remains on IV Zosyn.Blood work from today shows an elderly sick of 13.2 with a hemoglobin of 8.5 and a platelet count of 149. BUN is at 50 with a creatinine of 0.7 and a sodium level is at 135. Glucose at 181. IV fluids are currently at D5 half-normal saline with potassium at the rate of 20 mL an hour. The fluid balance has been -765 mL over the past 24 hours. Objective - Vital Signs Vital signs: Vital Signs Temp 97.9 F 03/07/23 20:00 Pulse 89 03/08/23 08:43 Resp 18 03/08/23 00:00 BP 167/100 03/08/23 07:00 Pulse Ox 96 03/08/23 08:26 FiO2 60 03/07/23 00:44 Intake & Output 03/07/23 03/08/23 03/08/23 18:59 06:59 18:59 Intake Total 1280 240 20 Output Total 710 600 700 Balance 570 -360 -680 Intake: IV 340 240 20 D5-0.45% NaCl with KCl 240 240 20 20Meq/l 1,000 ml @ 20 mls /hr IV .Q24H [facility] Rx#: [id number] Piperacillin-Tazobactam 3 100 .375 gm In Sodium Chloride 0.9% 100 ml @ 25 mls/hr IVPB Q8HR [facility] Rx# :[id number] Intake, IV Titration 100 Amount Piperacillin-Tazobactam 3 100 .375 gm In Sodium Chloride 0.9% 100 ml @ 25 mls/hr IVPB Q8HR [facility] Rx# :[id number] Oral 840 Output: Urine 710 600 700 Other: Voiding Method Indwelling Catheter Indwelling Catheter # Voids 1 ABP, PAP, CO, CI - Last Documented Arterial Blood Pressure 112/51 - Exam No acute distress, oriented 3. Currently on high flow nasal oxygen, at 5 L. HEENT examination is grossly unremarkable. Neck supple. Full range of motion. No adenopathy thyromegaly or neck vein distention. Cardiovascular examination reveals regular rhythm rate. S1-S2 normal. No S3 or S4. No discernible murmur noted. Heart sounds are distant. Lungs reveal minimal scattered rhonchi. No wheezes or crackles. Breath sounds equal. Abdomen soft, without bowel sounds. Dressing clean and dry. The patient has no abdominal distention. Abdominal wound is clean. No direct tenderness or rebound tenderness or guarding. Extremities are intact. No cyanosis clubbing or edema. Skin is without rash or lesion. Neurologic examination is brief but nonfocal. - Labs CBC & Chem 7: 03/08/23 05:10 03/08/23 05:10 Labs: Abnormal Lab Results - Last 24 Hours (Table) 03/07/23 03/07/23 03/07/23 Range/Units 11:37 16:47 20:58 WBC (3.8-10.6) k/uL Hgb (11.4-16.0) gm/dL Hct (34.0-46.0) % MCV (80.0-100.0) fL MCH (25.0-35.0) pg MCHC (31.0-37.0) g/dL RDW (11.5-15.5) % Plt Count (150-450) k/uL Sodium (137-145) mmol/L Glucose (74-99) mg/dL POC Glucose (mg/dL) 154 H 164 H 180 H (70-110) mg/dL 03/08/23 03/08/23 03/08/23 Range/Units 05:10 05:10 06:24 WBC 13.2 H (3.8-10.6) k/uL Hgb 8.5 L (11.4-16.0) gm/dL Hct 30.3 L (34.0-46.0) % MCV 68.4 L (80.0-100.0) fL MCH 19.3 L (25.0-35.0) pg MCHC 28.2 L (31.0-37.0) g/dL RDW 18.6 H (11.5-15.5) % Plt Count 149 L (150-450) k/uL Sodium 135 L (137-145) mmol/L Glucose 165 H (74-99) mg/dL POC Glucose (mg/dL) 181 H (70-110) mg/dL Assessment and Plan Plan: Small bowel obstruction, POD #7 for exploratory laparotomy and lysis of adhesions. Acute hypoxemic respiratory failure, likely related to underlying COPD, some bibasilar atelectasis, and possible pulmonary embolism. CT angiogram was completed and showed no evidence of any pulmonary embolism. There is evidence of COPD and some atelectatic change in the lung bases bilaterally and evidence of pulmonary arterial hypertension. Patient was extubated on 03/02/2023. The patient is improving. She has been weaned down to 5 L. The same time, the patient uses 3 L oxygen nasal cannula at home and she has chronic hypoxic respiratory failure. She remains on bronchodilators. IV Solu-Medrol has been weaned down to 20 mg every 12 hours. Moderate COPD, stable. Moderate to severe pulmonary hypertension with a PA pressure of 54 mmHg Acute kidney injury, recovered and the patient renal function has normalized Infrarenal aortic abdominal aneurysm, measuring 3.3 cm. Diabetes mellitus type 2, [id number]. Essential hypertension. History of CVA/TIA. Chronic nicotine dependence. Plan Continue using the intensive spirometer. Wean down FiO2 to 5 L Keep the patient KVO for now Advance diet as tolerated Monitor the bowel sounds are essentially hypoactive and no bowel movements yet Monitor the bowel activity Continue IV Zosyn Continue e Solu-Medrol 20 mg every 12 hours Restart Norvasc 10 mg by mouth daily for that the blood pressure control Ambulate the patient Ambulate the patient Gen. surgeries on the case Increase mobility We'll continue to follow
[2023-03-08 11:26] LABS: Glucose,Whole Blood 133 mg/dL (70-110)
--- NOTE | 2023-03-08 12:01 | P.PN ---
Subjective Progress Note Date: 03/08/23 CHIEF COMPLAINT: Small bowel structure HISTORY OF PRESENT ILLNESS: Patient is POD# 7, status post exploratory laparotomy with lysis of adhesions for small bowel obstruction secondary to adhesive band causing a closed loop obstruction. Patient remains in the ICU. Her oxygen level is down to 5 liters. Pulmonary service is working on weaning patient down on oxygen requirements. She is sitting at bedside chair. She denies any abdominal pain. Patient is probably started having flatus. Her diet was advanced to full liquids yesterday. She has tolerated this well. She denies any nausea or vomiting. Afebrile. WBC is at 13.2 she is on Zosyn. hgb 8.5 PHYSICAL EXAM: VITAL SIGNS: Reviewed. GENERAL: Well-developed in no acute distress. ABDOMEN: Soft. Nondistended. Dressing clean dry and intact NEUROLOGIC: Awake and alert and orientated 3 ASSESSMENT: 1. Small bowel obstruction secondary to adhesive band causing a closed loop obstruction status post exploratory laparotomy with lysis of adhesions 2. Dilutional anemia PLAN: -continue Full liquids -Encourage patient to increase activity level -Encourage patient to use incentive spirometer -Continue antibiotic -Continue ICU management -Continue supportive care -DVT prophylaxis Lovenox and GI prophylaxis protonix Physician Blast [employer] Driller note has been reviewed by physician. Signing provider agrees with the documented findings, assessment, and plan of care. Objective - Vital Signs Vital signs: Vital Signs Temp 97.9 F 03/07/23 20:00 Pulse 89 03/08/23 11:11 Resp 18 03/08/23 11:00 BP 153/99 03/08/23 11:00 Pulse Ox 91 L 03/08/23 11:00 FiO2 60 03/07/23 00:44 Intake & Output 03/07/23 03/08/23 03/08/23 18:59 06:59 18:59 Intake Total 1280 240 20 Output Total 710 600 900 Balance 570 -360 -880 Intake: IV 340 240 20 D5-0.45% NaCl with KCl 240 240 20 20Meq/l 1,000 ml @ 20 mls /hr IV .Q24H [facility] Rx#: [id number] Piperacillin-Tazobactam 3 100 .375 gm In Sodium Chloride 0.9% 100 ml @ 25 mls/hr IVPB Q8HR [facility] Rx# :[id number] Intake, IV Titration 100 Amount Piperacillin-Tazobactam 3 100 .375 gm In Sodium Chloride 0.9% 100 ml @ 25 mls/hr IVPB Q8HR [facility] Rx# :[id number] Oral 840 Output: Urine 710 600 900 Other: Voiding Method Indwelling Catheter Indwelling Catheter # Voids 1 ABP, PAP, CO, CI - Last Documented Arterial Blood Pressure 112/51 - Labs CBC & Chem 7: 03/08/23 05:10 03/08/23 05:10 Labs: Abnormal Lab Results - Last 24 Hours (Table) 03/07/23 03/07/23 03/08/23 Range/Units 16:47 20:58 05:10 WBC 13.2 H (3.8-10.6) k/uL Hgb 8.5 L (11.4-16.0) gm/dL Hct 30.3 L (34.0-46.0) % MCV 68.4 L (80.0-100.0) fL MCH 19.3 L (25.0-35.0) pg MCHC 28.2 L (31.0-37.0) g/dL RDW 18.6 H (11.5-15.5) % Plt Count 149 L (150-450) k/uL Sodium (137-145) mmol/L Glucose (74-99) mg/dL POC Glucose (mg/dL) 164 H 180 H (70-110) mg/dL 03/08/23 03/08/23 03/08/23 Range/Units 05:10 06:24 11:25 WBC (3.8-10.6) k/uL Hgb (11.4-16.0) gm/dL Hct (34.0-46.0) % MCV (80.0-100.0) fL MCH (25.0-35.0) pg MCHC (31.0-37.0) g/dL RDW (11.5-15.5) % Plt Count (150-450) k/uL Sodium 135 L (137-145) mmol/L Glucose 165 H (74-99) mg/dL POC Glucose (mg/dL) 181 H 133 H (70-110) mg/dL
[2023-03-08] MEDS: amLODIPine 10 MG TAB PO SCH (13:42)
--- NOTE | 2023-03-08 16:00 | P.PN ---
Subjective Progress Note Date: 03/08/23 67-year-old female came to emergency department with complaints of left lower quadrant and diffuse abdominal pain going on for about 3 days along with nausea vomiting patient was constipated did have a bowel movement today. Patient had a CT of the abdomen, showed distal small bowel obstruction. There may be adhesions. Patient does have history of COPD continues to smoke declining patch about a pack per day patient has wheezing on exam uses 2-3 L of oxygen at home. Patient does have leukocytosis no fever patient has mildly elevated creatinine and along with low serum sodium. 02/28/2023 Patient is seen and evaluated in follow-up this morning with general surgery as admitting services. Patient was admitted for high-grade small bowel obstruction and continues with NG tube as well as some abdominal tenderness and distention with no significant output noted. Patient is nothing by mouth. Absent bowel sounds noted on exam and plan is for tentative exploratory laparotomy with lysis of adhesions on 03/01/2023. Patient is currently afebrile and being maintained on DuoNeb treatments for COPD exacerbation. Patient is supposed to wear oxygen in the outpatient setting and wears 2-3 L with no significant wheezing noted on exam although diminished breath sounds are bilaterally with coarse rhonchi. Chest x-ray will be obtained as patient has also been maintained on IV hydration as patient was nothing by mouth. Patient is afebrile denies chest pain or worsening shortness of breath. Patient reports her breathing she feels has improved. Patient reports occasional nausea with no vomiting and some abdominal discomfort noted. 03/01/2023 Patient is seen in follow-up this morning reporting she does not feel very well at all and is having some shortness of breath and cough and per nursing staff patient has been hypotensive. Patient did receive a 500 mL bolus and placed on IV fluids with minimal improvement in blood pressure. General surgery who is admitting was contacted and instructed to give a liter bolus of normal saline. Patient is afebrile continues with no bowel sounds noted and continues with abdominal distention and pain she reports. Patient is scheduled for exploratory laparotomy today which is currently pending. Recommend monitoring Accu-Cheks before meals and at bedtime and will hold metformin and continue sliding scale for now. Recommend weaning FiO2 as tolerated although patient is requiring more oxygen and currently on high flow. Patient COPD is somewhat stable and there is no wheezing noted. Kidney function slightly worsened although will follow-up with repeat labs. 03/02/2023 Patient is seen and evaluated follow-up this morning currently was intubated and recently extubated tolerated well. Patient is currently maintained on 10 L high flow and lung sounds congested with some crackles noted. Patient to continue on breathing treatments and continues to be nothing by mouth for now for surgery. Patient significantly week and will require PT/OT therapy. Patient is afebrile denies chest pain or palpitations. 03/03/2023 Patient is seen and evaluated in follow-up this morning currently on 9 L high flow and titrating accordingly as tolerated. Encouraged incentive spirometer use at least 10 times every hour while awake. Chest x-ray shows some atelectasis with possible infiltrate of the right lung. Patient is continued on Zosyn along with DuoNeb treatments. Family at bedside reports she is chronically supposed to be wearing oxygen outpatient although frequently takes off and is noncompliant. Patient continues to be nothing by mouth with NG tube and will be advanced per surgery. Physical therapy at bedside to work with the patient. Kidney functions have improved and creatinine 1.0 and continued on IV hydration. Recommend a.m. labs. 03/04/2023 Patient is evaluated today in the intensive care unit sitting up in the chair. No acute complaints does not report abdominal pain today. Continues on high flow oxygen at 9 L nasal cannula nd was given a dose of IV lasix today. IV fluids have been decreased to KVO. Chest xray follo up reveals basilar atelectasis versus fibrotic change and COPD changes. Continues on IV zosyn at this time. Labs remain stable. NG tube in place and patient has bowel sounds. 03/05/2023 Patient has been evaluated today in the intensive care unit sitting up in bed. NG tube discontinue continues on 9-10L of oxygen nasal cannula. Bowel sounds are increased today starting on clear liquid diet. Not passing much gas and no bowel movement. Receiving IV lasix dose daily. Continues on IV steroids, continues on IV zosynLabs today show normal white count 8.7, hgb 8.1, sodium 140, potassium 3.6, stable kidney function. Patient did have elevated D-Dimer today 3.70. Magnesium 1.5. Glucose is increased and patient will be started on sliding scale insulin. 03/06/2023 Patient is seen and evaluated in follow-up today and remains in the ICU with multiple medical consultations following. Patient continued on 12 L high flow currently with oxygen saturations above 95%. Patient desats quickly requiring high flow. Recommend weaning FiO2 as tolerated. Patient also continues with DuoNeb treatments along with inhaled steroids and IV steroids with pulmonary following closely. Patient is currently on clear liquids per surgery and tolerating requesting an advance in diet. Awaiting improved bowel function. Encouraged increased activity as tolerated and recommended physical therapy daily. Chest x-ray shows some improvement in aeration and was given a dose of IV Lasix today. Patient continues on IV Zosyn and sputum culture initially was negative. Patient with copious amounts of thick green sputum noted at the bedside, recommend repeat sputum culture sent. 03/07/2023 Patient is seen and evaluated in follow-up today continues to be in the ICU and has been titrating FiO2 as tolerated with pulmonary following closely. Patient is maintained on DuoNeb treatments along with steroids and antibiotics in the form of Zosyn and will continue. Patient is currently maintained on gentle IV hydration in the form of dextrose with half normal saline and potassium. Patient has been titrated down to 5 L high flow recommend continue weaning FiO2 as tolerated. Strongly encouraged incentive spirometer and continued physical therapy daily. Patient's diet is being advanced to full liquids today. Recommend follow-up labs along with a chest x-ray in the a.m. Patient is afebrile denies chest pain or worsening shortness of breath. Patient reports to feeling hungry and reports to passing some gas. No bowel movement as of yet. Would recommend removal of indwelling Masters catheter and monitor for any retention. 03/08/2023 Patient is seen and evaluated in follow-up continues in the ICU may possibly be a candidate for transfer to the stepdown unit and recommend continue monitoring respiratory status. Patient's diet has been advanced to full liquids and tolerating and reports to passing some gas with no bowel movement as of yet. Patient is maintained on 5 L via nasal cannula chronically wears 2-3 L outpatient although is noncompliant with this. Patient with weakness would recommend working with physical therapy daily as patient plans on returning home with family once stabilized discharge. Patient is currently afebrile and WBC remains the same at 13.2, hemoglobin is improved at 8.5 today. Kidney functions have drastically improved and blood sugars are well-controlled at this time. Chest x-ray shows no acute process. Encouraged increased activity as tolerated and recommend continuing to use incentive spirometer at least 10 times every hour while awake. Review of systems: Constitutional: No reports of fatigue, fever, or chills Cardiovascular: No reports of chest pain or palpitations Respiratory: reports of shortness of breath with continued cough and sputum production although feels is improving GI: No reports of nausea, vomiting, or diarrhea, reports abdominal tenderness is improved : No reports of dysuria or retention Neurovascular: reports of generalized weakness All medications have been reviewed PHYSICAL EXAMINATION: GENERAL: The patient is alert and oriented x3. Well developed, well nourished. Elderly-appearing female HEENT: Pupils are round and equally reacting to light. EOMI. No scleral icterus. No conjunctival pallor. Normocephalic, atraumatic. No pharyngeal erythema. No thyromegaly. CARDIOVASCULAR: S1 and S2 present. No murmurs, rubs, or gallops. PULMONARY: Diminished breath sounds bilaterally with coarse rhonchi and no wheezing noted, faint crackles at the bases noted ABDOMEN: Soft, surgical dressing intact with sluggish bowel sounds. No palpable organomegaly. MUSCULOSKELETAL: No joint swelling or deformity. EXTREMITIES: No cyanosis, clubbing, or pedal edema. NEUROLOGICAL: Gross neurological examination did not reveal any focal deficits. Diffusely weak SKIN: No rashes. Assessment: -High-grade distal small bowel obstruction, secondary to adhesions, status post exploratory laparotomy with lysis of adhesions, there was an adhesive band causing a closed loop obstruction. -Status post successful extubation on 03/02/2023 -Leukocytosis secondary to assessment 1 and possible component of IV steroid ind uced -Mild hypovolemic hyponatremia secondary to nausea vomiting, improving -acute renal failure secondary to nausea vomiting with prerenal azotemia. Improved with gentle hydration. -COPD with acute exacerbation -Acute on chronic hypoxic respiratory failure secondary to COPD and a component of volume overload from IV fluids -Elevated D Dimer ruled out PE on CTA. -Continued ongoing nicotine dependence -Hypertension -Hyperlipidemia -History of CVA -Type 2 diabetes mellitus patient was started on sliding scale insulin -GI prophylaxis -DVT prophylaxis: Lovenox -Full code plan: Home medications reviewed and resumed as appropriate. Patient is tolerating full liquids and slowly being advanced per surgery. Titrating FiO2 as tolerated and patient is currently maintained on 5 L via nasal cannula. Recommend to wean FiO2 and continue with incentive spirometer use Recommend continue weaning FiO2 as tolerated. Patient chronically supposed to wear 2-3 L outpatient via nasal cannula. Family at patient's bedside who she is currently staying with reports she is noncompliant with oxygen use. Encouraged incentive spirometer and continue using at least 10 times every hour while awake Patient currently working with physical therapy continues with significant weakness would recommend working with daily. Patient reports plan is to return home with family and not willing to go to rehab Patient reports to passing gas although no bowel movement as of yet. We will continue to follow with general surgery during hospitalization. Thank you kindly for this consultation. The impression and plan of care has been dictated by Vika Simon, Nurse Practitioner as directed. Dr. Ja MD I have performed a history and examination and MDM of this patient, discussed the same with the dictator, and agree with the dictator's assessment and plan as written ,documented as a scribe. Based on total visit time, I have performed more than 50% of the visit. Objective - Vital Signs Vital signs: Vital Signs Temp 97.9 F 03/07/23 20:00 Pulse 89 03/08/23 08:43 Resp 18 03/08/23 00:00 BP 167/100 03/08/23 07:00 Pulse Ox 96 03/08/23 08:26 FiO2 60 03/07/23 00:44 Intake & Output 03/07/23 03/08/23 03/08/23 18:59 06:59 18:59 Intake Total 1280 240 20 Output Total 710 600 700 Balance 570 -360 -680 Intake: IV 340 240 20 D5-0.45% NaCl with KCl 240 240 20 20Meq/l 1,000 ml @ 20 mls /hr IV .Q24H [facility] Rx#: [id number] Piperacillin-Tazobactam 3 100 .375 gm In Sodium Chloride 0.9% 100 ml @ 25 mls/hr IVPB Q8HR [facility] Rx# :[id number] Intake, IV Titration 100 Amount Piperacillin-Tazobactam 3 100 .375 gm In Sodium Chloride 0.9% 100 ml @ 25 mls/hr IVPB Q8HR [facility] Rx# :[id number] Oral 840 Output: Urine 710 600 700 Other: Voiding Method Indwelling Catheter Indwelling Catheter # Voids 1 ABP, PAP, CO, CI - Last Documented Arterial Blood Pressure 112/51 - Labs CBC & Chem 7: 03/08/23 05:10 03/08/23 05:10 Labs: Abnormal Lab Results - Last 24 Hours (Table) 03/07/23 03/07/23 03/07/23 Range/Units 11:37 16:47 20:58 WBC (3.8-10.6) k/uL Hgb (11.4-16.0) gm/dL Hct (34.0-46.0) % MCV (80.0-100.0) fL MCH (25.0-35.0) pg MCHC (31.0-37.0) g/dL RDW (11.5-15.5) % Plt Count (150-450) k/uL Sodium (137-145) mmol/L Glucose (74-99) mg/dL POC Glucose (mg/dL) 154 H 164 H 180 H (70-110) mg/dL 03/08/23 03/08/23 03/08/23 Range/Units 05:10 05:10 06:24 WBC 13.2 H (3.8-10.6) k/uL Hgb 8.5 L (11.4-16.0) gm/dL Hct 30.3 L (34.0-46.0) % MCV 68.4 L (80.0-100.0) fL MCH 19.3 L (25.0-35.0) pg MCHC 28.2 L (31.0-37.0) g/dL RDW 18.6 H (11.5-15.5) % Plt Count 149 L (150-450) k/uL Sodium 135 L (137-145) mmol/L Glucose 165 H (74-99) mg/dL POC Glucose (mg/dL) 181 H (70-110) mg/dL
[2023-03-08 16:26] LABS: Glucose,Whole Blood 225 mg/dL (70-110)
[2023-03-08] MEDS: D5-0.45% NACL WITH KCL 20MEQ/L 1,000 ML IV SCH (17:36)
[2023-03-08 20:32] LABS: Glucose,Whole Blood 155 mg/dL (70-110)
[2023-03-09] MEDS: methylPREDNISolone SOD SUCCI 40 MG/ML 1 ML VIAL IV SCH ×4 (00:10→17:05)
[2023-03-09] MEDS: PIPERACILLIN-TAZOBACTAM 3.375 GM in SODIUM CHLORIDE 0.9% 100 ML IVPB SCH ×3 (00:10→16:48)
[2023-03-09] MEDS: METOCLOPRAMIDE 5 MG/ML 2 ML VIAL IVP SCH ×4 (00:10→17:05)
[2023-03-09 05:08] LABS: Anisocytosis Slight; HCT 27.3 % (34.0-46.0); HGB 7.7 gm/dL (11.4-16.0); Hypochromasia Marked; MCH 18.7 pg (25.0-35.0); MCHC 28.2 g/dL (31.0-37.0); MCV 66.2 fL (80.0-100.0); Mean Platelet Volume 8.7; Microcytosis Marked; Platelet Count 138 k/uL (150-450); Poikilocytosis Moderate; RBC 4.12 m/uL (3.80-5.40); RDW 18.3 % (11.5-15.5)
[2023-03-09 05:26] LABS: African American GFR (CKD) >90 (>60 ml/min/1.73 sqM); Anion Gap 6 mmol/L; Blood Urea Nitrogen 15 mg/dL (7-17); Calcium 8.8 mg/dL (8.4-10.2); Carbon Dioxide 28 mmol/L (22-30); Chloride 102 mmol/L (98-107); Glucose 137 mg/dL (74-99); Non-African American GFR(CKD) 80 (>60 ml/min/1.73 sqM); Potassium 3.8 mmol/L (3.5-5.1); Sodium 136 mmol/L (137-145)
[2023-03-09 06:09] LABS: Glucose,Whole Blood 135 mg/dL (70-110)
[2023-03-09] MEDS: INSULIN ASPART (NovoLOG) 100 UNIT/ML VIAL SQ SCH ×4 (06:11→21:07)
[2023-03-09] MEDS: IPRATROPIUM-ALBUTEROL 3 ML NEB INHALATION SCH ×4 (08:20→20:42)
[2023-03-09] MEDS: FORMOTEROL FUMARATE 20 MCG/2 ML NEBU INHALATION SCH ×2 (08:20→20:42)
[2023-03-09] MEDS: BUDESONIDE 1 MG/2 ML NEBU INHALATION SCH ×2 (08:20→20:42)
--- NOTE | 2023-03-09 08:59 | P.PN ---
Subjective Progress Note Date: 03/09/23 I am seeing this patient in consultation today 03/02/2023 in the intensive care unit for a small bowel obstruction status post operative day #1 for exploratory laparotomy and lysis of adhesions. Patient is a 67-year-old female with past medical history significant for COPD, diabetes mellitus type 2, hypertension, CVA/TIA, and is a current tobacco smoker. Patient has had a recent hospital follow-up for COPD exacerbation with Dr. Morris in the office. PFT in the office is consistent with moderate obstruction. Patient manages her COPD with a Breo-elipta inhaler and when necessary albuterol. Patient reportedly presented to the emergency room on February 27 with complaints of abdominal pain and c onstipation starting [address] without contrast on arrival showed findings suggestive of high-grade distal small bowel obstruction. Without any evidence of perforation or free air. There was also an infrarenal abdominal aortic aneurysm measuring 3.3 cm. Yesterday afternoon, the patient was taken for exploratory laparotomy for lysis of lesions. The patient is currently intubated to the mechanical ventilator. Most recent chest x-ray shows the endotracheal tube 4.7 cm from the michael, bibasilar opacities concerning for possible pneumonia, NG tube coursing below the diaphragm, and a right IJ central venous line with the distal tip in the right atrium. She is sedated on propofol infusing at 45 mcg/kg/m. She is synchronous. Most recent ABGs show a pO2 of 113, pCO2 of 37, pH of 7.33. Current ventilator settings are assist control, respiratory rate 12, tidal volume 400, FiO2 70%, PEEP of 10. Patient is empirically covered on Zosyn. Most recent CBC includes a WBC count 8.4, hemoglobin 9.3, hematocrit 32.6, platelets 161,000. Most recent BMP shows a sodium 134, potassium 4.4, chloride 101, serum CO2 21, BUN 20, creatinine 1.55, glucose 158. NT proBNP was elevated at 7840. Patient does have acute kidney injury. Normal saline is infusing at 75 mL per hour. Urine output is in order of about 30 MLS per hour. Initially, the patient was on Levophed infusion, ho wever, this has been off since the patient arrived to the intensive care unit. Receiving DVT prophylaxis with Lovenox and GI prophylaxis with Protonix. Patient will be monitored in the intensive care unit. Progress note dated 03/03/2023. This is a 67-year-old white female, seen in the intensive care unit, room 255. The patient is postop day #2, status post exploratory laparotomy for bowel obs truction, with lysis of lesions. There was no bowel resection. The patient was extubated yesterday. She is on 8 L high flow oxygen. She's getting saline at 75 mL an hour clinically, he looks well, and can likely move out of the intensive care unit. White count 8, hemoglobin 7.4, hematocrit 25.5, and platelet count 122,000. Sodium 137, potassium 4.2, chlorides 111, CO2 20, anion gap 6, BUN 19, creatinine 1.03. Calcium is 8.2. Chest x-ray shows either right lower lobe infiltrate or atelectasis. Progress note dated 03/04/2023. 67-year-old black female, seen in the intensive care unit, room 255. The patient is postop day #3, status post exploratory laparotomy, for bowel obstruction, with lysis of adhesions. There is no need for a bowel resection on this patient. She was extubated on March 02. Currently, she is on a liter high flow oxygen, and saline at 75 mL an hour. Today we'll give her Lasix 40 mg IV push, and change her fluids to KVO. White count 7.7, hemoglobin 7.5, hematocrit 26.6, and platelet count 112,000. Sodium 140, potassium 3.8, chlorides 111, CO2 20, anion gap normal, BUN 15, and creatinine 0.85. The patient's pattern, is consistent with a non-anion gap hyperchloremic metabolic acidosis. Microbiologic sampling is negative. Chest x-ray shows increased interstitial markings, possibly consistent with interstitial edema. Progress note dated 03/05/2023. 67-year-old black female, seen today in room 255. The patient is postop day #4, status post exploratory laparotomy, for bowel obstruction, with lysis of adhesions. The patient did not require a bowel resection. The patient had been doing relatively well. She was extubated on March 02. Unfortunately, her oxygen requirements have gone up. Yesterday, we gave her some diuretics, which did not really seem to make a difference. She did diurese though. We did order a D- dimer test, which was elevated, and the patient will go for a computed tomography scan of the chest, to rule out pulmonary embolism. Currently, the patient's on 15 L high flow oxygen. She's getting D5 with half-normal saline with 20 mEq of potassium chloride, at 20 mL an hour. White count 8.7, hemoglobin 8.1, hematocrit 27.6, and platelet count 136,000. D-dimer was elevated at 3.7. Sodium 140 potassium 3.6, chlorides 106, CO2 26, BUN 10, creatinine 0.81. Magnesium is 1.5. Chest x-ray revealed some bibasilar atele ctasis. On 03/06/2023, the patient is being seen in follow-up in the intensive care unit. The patient is postop day #5 she underwent a ex-lap and lysis of adhesions. Bowel sounds are distant and hypoactive. The patient is passing bowel movements yet. She has not passed any flatus yet. She was given clear liquid diet by the general surgery. No nausea. No emesis. No abdominal pain or distention. Hemodynamically stable. She is still hypoxemic and she is alternating between a BiPAP at pressures of 10/5 with an FiO2 of 60% and a high flow oxygen at 15 L. There was a concern for a pulmonary embolism. D-dimer was elevated and the patient underwent a CT angiogram that showed no evidence of any pulmonary embolism. There was some nonspecific mediastinal and hilar lymph nodes noted and there was background emphysema and some interstitial edema. The patient was given a dose of Lasix and she diuresed adequately. Over the past 24 hours, she is -2.8 L and she started to drop her urine output. Meanwhile, she had an acute kidney injury the time of presentation which essentially recovered and the creatinine is normalized. The patient is awake and alert and communicating. Abdominal wound is dry clean and intact. The patient is on D5 half-normal saline at rate of 20 mL an hour. The patient is on IV Zosyn. The patient remains on DuoNeb neb blotchiness on the clock and IV Solu-Medrol 60 mg every 6 hours. She is also on accommodation Perforomist and Pulmicort neb blotchiness treatments. She is on IV Dilaudid. Echocardiogram shows a moderate to severe pulmonary hypertension, preserved LV function. She does wear the BiPAP overnight. She is using this in the spirometer which is falling approximately 1000 03/07/2023, the patient is still elevated. The patient is postop day #6. The patient has been weaned down to 6 L of oxygen nasal cannula. She is using her bronchodilators. Unfortunately, no active bowel sounds are flatness or bowel movements yet. Nevertheless, the abdomen is nondistended. No nausea. No emesis each is tolerating clear liquid diet at this point in time. She is breathing comfortably. She was given a dose of Lasix yesterday and the patient produced adequate urine output and she has been negative fluid balance over the past 24 hours. On her blood work, the WBC count is at 13.2 with hemoglobin of 8.2. Sodiums of 134, potassium is at 3.6 with a BUN of 15 and a creatinine of 0.9. She remains on IV Zosyn. She remains on IV Solu-Medrol 60 mg every 6 hours on bronchodilators around the clock. She is on Lovenox 40 mg subcu portably prophylaxis. She is communicating. She is using the incentive spirometer. Awake and alert. No focal neurological deficits. 03/08/2023, the patient is postop day #7. This morning she is on 5 L of oxygen by nasal cannula. No signs of any significant respiratory distress. She still recovering from her abdominal surgery which included ex-lap and lysis of adhesion. The patient is hemodynamically stable. No nausea. No emesis. Bowel sounds are hypoactive. No bowel movements yet. She still taking clear liquid diet and she is using the incentive spirometer. She remains on IV Zosyn. Awake and alert and communicating. He is on bronchodilators. Solu-Medrol has been weaned off. She is taking 20 mg of IV Solu-Medrol every 12 hours. She remains on IV Zosyn.Blood work from today shows an elderly sick of 13.2 with a hemoglobin of 8.5 and a platelet count of 149. BUN is at 50 with a creatinine of 0.7 and a sodium level is at 135. Glucose at 181. IV fluids are currently at D5 half-normal saline with potassium at the rate of 20 mL an hour. The fluid balance has been -765 mL over the past 24 hours. 03/09/2023, the patient is postop day #8. She is calm and comfortable and she is currently on oxygen at 5 L nasal cannula. Breathing is quite comfortable at this point in time. We haven't seen or witness any bowel movements yet. The patient has no abdominal distention. Bowel sounds are still hypoactive. She is on clear liquid diet. She is ambulating. Surgical once is striking and intact. No nausea. No emesis. She is passing gas however. No other significant events overnight.Her WBC count is at 11 with a hemoglobin of 7.7 and a platelet count of 138. BUN is a 15 with a creatinine of 0.7 and a sodium level is at 136. There is a drop in the hemoglobin from 8.5 down to 7.7 on today's evaluation. Nevertheless, there is no evidence of any GI bleed. The patient remains on bronchodilators, Pulmicort Respules, IV Solu-Medrol 20 mg every 12 hours and IV Zosyn. IV fluids are essentially running at 20 mL an hour of D5 half-normal saline along with potassium supplements. Objective - Vital Signs Vital signs: Vital Signs Temp 98.3 F 03/09/23 08:20 Pulse 62 03/09/23 08:44 Resp 18 03/09/23 08:20 BP 126/79 03/09/23 08:20 Pulse Ox 100 03/09/23 08:26 FiO2 60 03/07/23 00:44 Intake & Output 03/08/23 03/09/23 03/09/23 18:59 06:59 18:59 Intake Total 220 160 Output Total 1800 250 Balance -1580 -90 Weight 65.6 kg 63.2 kg Intake: IV 20 160 D5-0.45% NaCl with KCl 20 160 20Meq/l 1,000 ml @ 20 mls /hr IV .Q24H [facility] Rx#: [id number] Oral 200 Output: Urine 1800 250 Other: Voiding Method Toilet Toilet Bedside Commode Bedside Commode # Voids 1 ABP, PAP, CO, CI - Last Documented Arterial Blood Pressure 112/51 - Exam No acute distress, oriented 3. Currently on high flow nasal oxygen, at 5 L. HEENT examination is grossly unremarkable. Neck supple. Full range of motion. No adenopathy thyromegaly or neck vein distention. Cardiovascular examination reveals regular rhythm rate. S1-S2 normal. No S3 or S4. No discernible murmur noted. Heart sounds are distant. Lungs reveal minimal scattered rhonchi. No wheezes or crackles. Breath sounds equal. Abdomen soft, without bowel sounds. Dressing clean and dry. The patient has no abdominal distention. Abdominal wound is clean. No direct tenderness or rebound tenderness or guarding. Extremities are intact. No cyanosis clubbing or edema. Skin is without rash or lesion. Neurologic examination is brief but nonfocal. - Labs CBC & Chem 7: 03/09/23 04:24 03/09/23 04:24 Labs: Abnormal Lab Results - Last 24 Hours (Table) 03/08/23 03/08/23 03/08/23 Range/Units 11:25 16:25 20:30 WBC (3.8-10.6) k/uL Hgb (11.4-16.0) gm/dL Hct (34.0-46.0) % MCV (80.0-100.0) fL MCH (25.0-35.0) pg MCHC (31.0-37.0) g/dL RDW (11.5-15.5) % Plt Count (150-450) k/uL Sodium (137-145) mmol/L Glucose (74-99) mg/dL POC Glucose (mg/dL) 133 H 225 H 155 H (70-110) mg/dL 03/09/23 03/09/23 03/09/23 Range/Units 04:24 04:24 06:08 WBC 11.0 H (3.8-10.6) k/uL Hgb 7.7 L (11.4-16.0) gm/dL Hct 27.3 L (34.0-46.0) % MCV 66.2 L (80.0-100.0) fL MCH 18.7 L (25.0-35.0) pg MCHC 28.2 L (31.0-37.0) g/dL RDW 18.3 H (11.5-15.5) % Plt Count 138 L (150-450) k/uL Sodium 136 L (137-145) mmol/L Glucose 137 H (74-99) mg/dL POC Glucose (mg/dL) 135 H (70-110) mg/dL Assessment and Plan Plan: Small bowel obstruction, POD #8 for exploratory laparotomy and lysis of adhesions. Acute hypoxemic respiratory failure, likely related to underlying COPD, some bibasilar atelectasis, and possible pulmonary embolism. CT angiogram was completed and showed no evidence of any pulmonary embolism. There is evidence of COPD and some atelectatic change in the lung bases bilaterally and evidence of pulmonary arterial hypertension. Patient was extubated on 03/02/2023. The patient is improving. She has been weaned down to 5 L. The same time, the pa tient uses 3 L oxygen nasal cannula at home and she has chronic hypoxic respiratory failure. She remains on bronchodilators. IV Solu-Medrol has been weaned down to 20 mg every 12 hours. Moderate COPD, stable. Moderate to severe pulmonary hypertension with a PA pressure of 54 mmHg Acute kidney injury, recovered and the patient renal function has normalized Infrarenal aortic abdominal aneurysm, measuring 3.3 cm. Diabetes mellitus type 2, [id number]. Essential hypertension. History of CVA/TIA. Chronic nicotine dependence. Plan No issues with pain Continue using the intensive spirometer. Wean down FiO2 to 5 L Keep the patient KVO for now Advance diet as tolerated Monitor the bowel sounds are essentially hypoactive and no bowel movements yet Monitor the bowel activity Continue IV Zosyn Continue e Solu-Medrol 20 mg every 12 hours Norvasc 10 mg by mouth daily for that the blood pressure control Ambulate the patient Ambulate the patient Gen. surgeries on the case Increase mobility We'll continue to follow 8 transferred to medical surgical floor
[2023-03-09] MEDS: ENOXAPARIN 40 MG/0.4 ML SYRINGE SQ SCH (09:54)
[2023-03-09] MEDS: PANTOPRAZOLE 40 MG/10 ML VIAL IVP SCH (09:54)
[2023-03-09] MEDS: oxyBUTYnin chloride 5 MG TAB PO SCH ×2 (09:54→21:07)
[2023-03-09] MEDS: ATORVASTATIN 20 MG TAB PO SCH (09:55)
[2023-03-09] MEDS: amLODIPine 10 MG TAB PO SCH (09:55)
[2023-03-09] MEDS: ACETAMINOPHEN TAB 325 MG TAB PO PRN ×2 (10:16→23:16)
[2023-03-09 11:52] LABS: Glucose,Whole Blood 226 mg/dL (70-110)
--- NOTE | 2023-03-09 13:02 | P.PN ---
Subjective Progress Note Date: 03/09/23 CHIEF COMPLAINT: Small bowel structure HISTORY OF PRESENT ILLNESS: Patient is POD# 8, status post exploratory laparotomy with lysis of adhesions for small bowel obstruction secondary to adhesive band causing a closed loop obstruction. Patient remains in the ICU. Patient continues to require high levels of oxygen. She is having more flatus. She tolerated the full liquids. No bowel movement yet. Denies abdominal pain afebrile. WBC is down from 13-11 Hgb of 7.7 sodium 136 potassium 3.8 creatinine 0.77 Patient seen and examined with Dr. yepez PHYSICAL EXAM: VITAL SIGNS: Reviewed. GENERAL: Well-developed in no acute distress. ABDOMEN: Soft. Nondistended. Dressing clean dry and intact NEUROLOGIC: Awake and alert and orientated 3 ASSESSMENT: 1. Small bowel obstruction secondary to adhesive band causing a closed loop obstruction status post exploratory laparotomy with lysis of adhesions 2. Dilutional anemia PLAN: -continue Full liquids -Encourage patient to increase activity level -Encourage patient to use incentive spirometer -Continue antibiotic -Continue ICU management -Continue supportive care -DVT prophylaxis Lovenox and GI prophylaxis protonix Physician Clinical Documentation Developer note has been reviewed by physician. Signing provider agrees with the documented findings, assessment, and plan of care. Objective - Vital Signs Vital signs: Vital Signs Temp 97.9 F 03/09/23 12:00 Pulse 99 03/09/23 12:00 Resp 24 03/09/23 12:00 BP 119/104 03/09/23 12:00 Pulse Ox 91 L 03/09/23 12:00 FiO2 60 03/07/23 00:44 Intake & Output 03/08/23 03/09/23 03/09/23 18:59 06:59 18:59 Intake Total 220 160 Output Total 1800 250 Balance -1580 -90 Weight 65.6 kg 63.2 kg Intake: IV 20 160 D5-0.45% NaCl with KCl 20 160 20Meq/l 1,000 ml @ 20 mls /hr IV .Q24H [facility] Rx#: [id number] Oral 200 Output: Urine 1800 250 Other: Voiding Method Toilet Toilet Bedside Commode Bedside Commode # Voids 1 ABP, PAP, CO, CI - Last Documented Arterial Blood Pressure 112/51 - Labs CBC & Chem 7: 03/09/23 04:24 03/09/23 04:24 Labs: Abnormal Lab Results - Last 24 Hours (Table) 03/08/23 03/08/23 03/09/23 Range/Units 16:25 20:30 04:24 WBC 11.0 H (3.8-10.6) k/uL Hgb 7.7 L (11.4-16.0) gm/dL Hct 27.3 L (34.0-46.0) % MCV 66.2 L (80.0-100.0) fL MCH 18.7 L (25.0-35.0) pg MCHC 28.2 L (31.0-37.0) g/dL RDW 18.3 H (11.5-15.5) % Plt Count 138 L (150-450) k/uL Sodium (137-145) mmol/L Glucose (74-99) mg/dL POC Glucose (mg/dL) 225 H 155 H (70-110) mg/dL 03/09/23 03/09/23 03/09/23 Range/Units 04:24 06:08 11:51 WBC (3.8-10.6) k/uL Hgb (11.4-16.0) gm/dL Hct (34.0-46.0) % MCV (80.0-100.0) fL MCH (25.0-35.0) pg MCHC (31.0-37.0) g/dL RDW (11.5-15.5) % Plt Count (150-450) k/uL Sodium 136 L (137-145) mmol/L Glucose 137 H (74-99) mg/dL POC Glucose (mg/dL) 135 H 226 H (70-110) mg/dL
--- NOTE | 2023-03-09 15:24 | P.PN ---
Subjective Progress Note Date: 03/09/23 67-year-old female came to emergency department with complaints of left lower quadrant and diffuse abdominal pain going on for about 3 days along with nausea vomiting patient was constipated did have a bowel movement today. Patient had a CT of the abdomen, showed distal small bowel obstruction. There may be adhesions. Patient does have history of COPD continues to smoke declining patch about a pack per day patient has wheezing on exam uses 2-3 L of oxygen at home. Patient does have leukocytosis no fever patient has mildly elevated creatinine and along with low serum sodium. 02/28/2023 Patient is seen and evaluated in follow-up this morning with general surgery as admitting services. Patient was admitted for high-grade small bowel obstruction and continues with NG tube as well as some abdominal tenderness and distention with no significant output noted. Patient is nothing by mouth. Absent bowel sounds noted on exam and plan is for tentative exploratory laparotomy with lysis of adhesions on 03/01/2023. Patient is currently afebrile and being maintained on DuoNeb treatments for COPD exacerbation. Patient is supposed to wear oxygen in the outpatient setting and wears 2-3 L with no significant wheezing noted on exam although diminished breath sounds are bilaterally with coarse rhonchi. Chest x-ray will be obtained as patient has also been maintained on IV hydration as patient was nothing by mouth. Patient is afebrile denies chest pain or worsening shortness of breath. Patient reports her breathing she feels has improved. Patient reports occasional nausea with no vomiting and some abdominal discomfort noted. 03/01/2023 Patient is seen in follow-up this morning reporting she does not feel very well at all and is having some shortness of breath and cough and per nursing staff patient has been hypotensive. Patient did receive a 500 mL bolus and placed on IV fluids with minimal improvement in blood pressure. General surgery who is admitting was contacted and instructed to give a liter bolus of normal saline. Patient is afebrile continues with no bowel sounds noted and continues with abdominal distention and pain she reports. Patient is scheduled for exploratory laparotomy today which is currently pending. Recommend monitoring Accu-Cheks before meals and at bedtime and will hold metformin and continue sliding scale for now. Recommend weaning FiO2 as tolerated although patient is requiring more oxygen and currently on high flow. Patient COPD is somewhat stable and there is no wheezing noted. Kidney function slightly worsened although will follow-up with repeat labs. 03/02/2023 Patient is seen and evaluated follow-up this morning currently was intubated and recently extubated tolerated well. Patient is currently maintained on 10 L high flow and lung sounds congested with some crackles noted. Patient to continue on breathing treatments and continues to be nothing by mouth for now for surgery. Patient significantly week and will require PT/OT therapy. Patient is afebrile denies chest pain or palpitations. 03/03/2023 Patient is seen and evaluated in follow-up this morning currently on 9 L high flow and titrating accordingly as tolerated. Encouraged incentive spirometer use at least 10 times every hour while awake. Chest x-ray shows some atelectasis with possible infiltrate of the right lung. Patient is continued on Zosyn along with DuoNeb treatments. Family at bedside reports she is chronically supposed to be wearing oxygen outpatient although frequently takes off and is noncompliant. Patient continues to be nothing by mouth with NG tube and will be advanced per surgery. Physical therapy at bedside to work with the patient. Kidney functions have improved and creatinine 1.0 and continued on IV hydration. Recommend a.m. labs. 03/04/2023 Patient is evaluated today in the intensive care unit sitting up in the chair. No acute complaints does not report abdominal pain today. Continues on high flow oxygen at 9 L nasal cannula nd was given a dose of IV lasix today. IV fluids have been decreased to KVO. Chest xray follo up reveals basilar atelectasis versus fibrotic change and COPD changes. Continues on IV zosyn at this time. Labs remain stable. NG tube in place and patient has bowel sounds. 03/05/2023 Patient has been evaluated today in the intensive care unit sitting up in bed. NG tube discontinue continues on 9-10L of oxygen nasal cannula. Bowel sounds are increased today starting on clear liquid diet. Not passing much gas and no bowel movement. Receiving IV lasix dose daily. Continues on IV steroids, continues on IV zosynLabs today show normal white count 8.7, hgb 8.1, sodium 140, potassium 3.6, stable kidney function. Patient did have elevated D-Dimer today 3.70. Magnesium 1.5. Glucose is increased and patient will be started on sliding scale insulin. 03/06/2023 Patient is seen and evaluated in follow-up today and remains in the ICU with multiple medical consultations following. Patient continued on 12 L high flow currently with oxygen saturations above 95%. Patient desats quickly requiring high flow. Recommend weaning FiO2 as tolerated. Patient also continues with DuoNeb treatments along with inhaled steroids and IV steroids with pulmonary following closely. Patient is currently on clear liquids per surgery and tolerating requesting an advance in diet. Awaiting improved bowel function. Encouraged increased activity as tolerated and recommended physical therapy daily. Chest x-ray shows some improvement in aeration and was given a dose of IV Lasix today. Patient continues on IV Zosyn and sputum culture initially was negative. Patient with copious amounts of thick green sputum noted at the bedside, recommend repeat sputum culture sent. 03/07/2023 Patient is seen and evaluated in follow-up today continues to be in the ICU and has been titrating FiO2 as tolerated with pulmonary following closely. Patient is maintained on DuoNeb treatments along with steroids and antibiotics in the form of Zosyn and will continue. Patient is currently maintained on gentle IV hydration in the form of dextrose with half normal saline and potassium. Patient has been titrated down to 5 L high flow recommend continue weaning FiO2 as tolerated. Strongly encouraged incentive spirometer and continued physical therapy daily. Patient's diet is being advanced to full liquids today. Recommend follow-up labs along with a chest x-ray in the a.m. Patient is afebrile denies chest pain or worsening shortness of breath. Patient reports to feeling hungry and reports to passing some gas. No bowel movement as of yet. Would recommend removal of indwelling Masters catheter and monitor for any retention. 03/08/2023 Patient is seen and evaluated in follow-up continues in the ICU may possibly be a candidate for transfer to the stepdown unit and recommend continue monitoring respiratory status. Patient's diet has been advanced to full liquids and tolerating and reports to passing some gas with no bowel movement as of yet. Patient is maintained on 5 L via nasal cannula chronically wears 2-3 L outpatient although is noncompliant with this. Patient with weakness would recommend working with physical therapy daily as patient plans on returning home with family once stabilized discharge. Patient is currently afebrile and WBC remains the same at 13.2, hemoglobin is improved at 8.5 today. Kidney functions have drastically improved and blood sugars are well-controlled at this time. Chest x-ray shows no acute process. Encouraged increased activity as tolerated and recommend continuing to use incentive spirometer at least 10 times every hour while awake. 03/09/2023 Patient is seen and evaluated in follow-up continues to be in the ICU has been up and walking with assistance and continues with weakness although working with physical therapy. Patient is currently maintained on 4-5 L high flow via nasal cannula and has been requiring more oxygen and per nursing staff patient was placed on 10 L high flow. Patient is passing gas with no bowel movement as of yet and is maintained on full liquids. Patient continues on breathing inhalational treatments along with DuoNeb's and continued on the lower dose IV steroids as well as Zosyn. Cultures have been negative. Encouraged increased activity as tolerated along with continued incentive spirometer use. Review of systems: Constitutional: No reports of fatigue, fever, or chills Cardiovascular: No reports of chest pain or palpitations Respiratory: reports of shortness of breath with continued cough and sputum production although feels is improving GI: No reports of nausea, vomiting,, reports passing gas with no bowel movement as of yet, reports abdominal tenderness is improved : No reports of dysuria or retention Neurovascular: reports of generalized weakness All medications have been reviewed PHYSICAL EXAMINATION: GENERAL: The patient is alert and oriented x3. Well developed, well nourished. Elderly-appearing female HEENT: Pupils are round and equally reacting to light. EOMI. No scleral icterus. No conjunctival pallor. Normocephalic, atraumatic. No pharyngeal erythema. No thyromegaly. CARDIOVASCULAR: S1 and S2 present. No murmurs, rubs, or gallops. PULMONARY: Diminished breath sounds bilaterally with coarse rhonchi and no wheezing noted, faint crackles at the bases noted ABDOMEN: Soft, surgical dressing intact with sluggish bowel sounds. No palpable organomegaly. MUSCULOSKELETAL: No joint swelling or deformity. EXTREMITIES: No cyanosis, clubbing, or pedal edema. NEUROLOGICAL: Gross neurological examination did not reveal any focal deficits. Diffusely weak SKIN: No rashes. Assessment: -High-grade distal small bowel obstruction, secondary to adhesions, status post exploratory laparotomy with lysis of adhesions, there was an adhesive band causing a closed loop obstruction. -Status post successful extubation on 03/02/2023 -Leukocytosis secondary to assessment 1 and possible component of IV steroid induced -Mild hypovolemic hyponatremia secondary to nausea vomiting, improving -acute renal failure secondary to nausea vomiting with prerenal azotemia. Improved with gentle hydration. -COPD with acute exacerbation -Acute on chronic hypoxic respiratory failure secondary to COPD and a component of volume overload from IV fluids -Elevated D Dimer ruled out PE on CTA. -Continued ongoing nicotine dependence -Hypertension -Hyperlipidemia -History of CVA -Type 2 diabetes mellitus patient was started on sliding scale insulin -GI prophylaxis -DVT prophylaxis: Lovenox -Full code plan: Home medications reviewed and resumed as appropriate. Patient is tolerating full liquids and slowly being advanced per surgery. Patient is having gas with no bowel movement and would recommend encouraged increased activity as tolerated with frequent walking Titrating FiO2 as tolerated and patient is currently maintained on 10 L high flow via nasal cannula. Recommend to wean FiO2 and continue with incentive spirometer use Recommend continue weaning FiO2 as tolerated. Patient chronically supposed to wear 2-3 L outpatient via nasal cannula. Family at patient's bedside who she is currently staying with reports she is noncompliant with oxygen use. Encouraged incentive spirometer and continue using at least 10 times every hour while awake Patient currently working with physical therapy continues with significant weakness would recommend working with daily. Patient reports plan is to return home with family and not willing to go to rehab Patient reports to passing more gas although no bowel movement as of yet. Recommend labs in the a.m. along with a chest x-ray. We will continue to follow with general surgery during hospitalization. Thank you kindly for this consultation. The impression and plan of care has been dictated by Vika Simon, Nurse Practitioner as directed. Dr. Ja MD I have performed a history and examination and MDM of this patient, discussed the same with the dictator, and agree with the dictator's assessment and plan as written ,documented as a scribe. Based on total visit time, I have performed more than 50% of the visit. Objective - Vital Signs Vital signs: Vital Signs Temp 97.9 F 03/09/23 12:00 Pulse 92 03/09/23 15:18 Resp 24 03/09/23 12:00 BP 119/104 03/09/23 12:00 Pulse Ox 91 L 03/09/23 12:00 FiO2 60 03/07/23 00:44 Intake & Output 03/08/23 03/09/23 03/09/23 18:59 06:59 18:59 Intake Total 220 160 320 Output Total 1800 250 Balance -1580 -90 320 Weight 65.6 kg 63.2 kg Intake: IV 20 160 120 D5-0.45% NaCl with KCl 20 160 120 20Meq/l 1,000 ml @ 20 mls /hr IV .Q24H [facility] Rx#: [id number] Oral 200 200 Output: Urine 1800 250 Other: Voiding Method Toilet Toilet Toilet Bedside Commode Bedside Commode Bedside Commode # Voids 1 1 ABP, PAP, CO, CI - Last Documented Arterial Blood Pressure 112/51 - Labs CBC & Chem 7: 03/09/23 04:24 03/09/23 04:24 Labs: Abnormal Lab Results - Last 24 Hours (Table) 03/08/23 03/08/23 03/09/23 Range/Units 16:25 20:30 04:24 WBC 11.0 H (3.8-10.6) k/uL Hgb 7.7 L (11.4-16.0) gm/dL Hct 27.3 L (34.0-46.0) % MCV 66.2 L (80.0-100.0) fL MCH 18.7 L (25.0-35.0) pg MCHC 28.2 L (31.0-37.0) g/dL RDW 18.3 H (11.5-15.5) % Plt Count 138 L (150-450) k/uL Sodium (137-145) mmol/L Glucose (74-99) mg/dL POC Glucose (mg/dL) 225 H 155 H (70-110) mg/dL 03/09/23 03/09/23 03/09/23 Range/Units 04:24 06:08 11:51 WBC (3.8-10.6) k/uL Hgb (11.4-16.0) gm/dL Hct (34.0-46.0) % MCV (80.0-100.0) fL MCH (25.0-35.0) pg MCHC (31.0-37.0) g/dL RDW (11.5-15.5) % Plt Count (150-450) k/uL Sodium 136 L (137-145) mmol/L Glucose 137 H (74-99) mg/dL POC Glucose (mg/dL) 135 H 226 H (70-110) mg/dL
[2023-03-09 16:47] LABS: Glucose,Whole Blood 246 mg/dL (70-110)
[2023-03-09] MEDS ORDERED: Potassium Replacement Protocol 1 EACH MISC MISCELLANE PRN (16:59)
[2023-03-09] MEDS: POTASSIUM BICARBONATE/CIT AC 20 MEQ TABLET.EFF NG-TUBE SCH ×2 (17:29→17:54)
[2023-03-09 21:04] LABS: Glucose,Whole Blood 214 mg/dL (70-110)
[2023-03-10] MEDS: METOCLOPRAMIDE 5 MG/ML 2 ML VIAL IVP SCH ×5 (00:08→23:54)
[2023-03-10] MEDS: methylPREDNISolone SOD SUCCI 40 MG/ML 1 ML VIAL IV SCH ×3 (00:09→12:40)
[2023-03-10] MEDS: PIPERACILLIN-TAZOBACTAM 3.375 GM in SODIUM CHLORIDE 0.9% 100 ML IVPB SCH ×4 (00:09→23:54)
[2023-03-10] MEDS: BUDESONIDE 1 MG/2 ML NEBU INHALATION SCH ×2 (07:36→21:42)
[2023-03-10] MEDS: FORMOTEROL FUMARATE 20 MCG/2 ML NEBU INHALATION SCH ×2 (07:36→21:42)
[2023-03-10] MEDS: IPRATROPIUM-ALBUTEROL 3 ML NEB INHALATION SCH ×4 (07:36→21:42)
[2023-03-10 07:56] LABS: Glucose,Whole Blood 162 mg/dL (70-110)
[2023-03-10] MEDS: ENOXAPARIN 40 MG/0.4 ML SYRINGE SQ SCH (08:18)
[2023-03-10] MEDS: oxyBUTYnin chloride 5 MG TAB PO SCH ×2 (08:18→20:01)
[2023-03-10] MEDS: INSULIN ASPART (NovoLOG) 100 UNIT/ML VIAL SQ SCH ×4 (08:18→20:08)
[2023-03-10] MEDS: PANTOPRAZOLE 40 MG/10 ML VIAL IVP SCH (08:18)
[2023-03-10] MEDS: amLODIPine 10 MG TAB PO SCH (08:18)
[2023-03-10] MEDS: ATORVASTATIN 20 MG TAB PO SCH (08:18)
--- NOTE | 2023-03-10 09:59 | P.PN ---
Subjective 67-year-old female came to emergency department with complaints of left lower quadrant and diffuse abdominal pain going on for about 3 days along with nausea vomiting patient was constipated did have a bowel movement today. Patient had a CT of the abdomen, showed distal small bowel obstruction. There may be adhesions. Patient does have history of COPD continues to smoke declining patch about a pack per day patient has wheezing on exam uses 2-3 L of oxygen at home. Patient does have leukocytosis no fever patient has mildly elevated creatinine and along with low serum sodium. 03/10/2023 This is a pleasant 67 years old female who presents with high-grade small bowel obstruction secondary to adhesive months status post exploratory laparotomy and lysis of adhesions on 03/01. Also with evidence of acute COPD exacerbation and acute and chronic hypoxic respiratory failure. She was recently transferred from the ICU to the general medical floor yesterday. She still on liquid diet which she tolerates, just a little small bowel movement this morning with no significant abdominal pain or tenderness, no significant dyspnea at rest. She says her PCP is Dr. Ware'ada Borjas's and she cannot recall her shoe puller but she confirms she has 3 L of oxygen at home. No labs from today Extremities on Solu-Medrol 20 mg twice daily and Zosyn CTA of the chest: No PE CTA of the abdomen and pelvis on admission showing high-grade bowel obstruction Problemcalcitonin 0.15. Objective - Vital Signs Vital signs: Vital Signs Temp 98.7 F 03/10/23 08:15 Pulse 83 03/10/23 08:15 Resp 16 03/10/23 08:15 BP 124/70 03/10/23 08:15 Pulse Ox 94 L 03/10/23 08:15 FiO2 60 03/07/23 00:44 Intake & Output 03/09/23 03/10/23 03/10/23 18:59 06:59 18:59 Intake Total 570 Output Total 250 450 Balance 320 -450 Weight 63.9 kg Intake: IV 370 D5-0.45% NaCl with KCl 370 20Meq/l 1,000 ml @ 20 mls /hr IV .Q24H [facility] Rx#: [id number] Oral 200 Output: Urine 250 450 Other: Voiding Method Toilet Toilet Bedside Commode Bedside Commode # Voids 1 # Bowel Movements 1 ABP, PAP, CO, CI - Last Documented Arterial Blood Pressure 112/51 - Exam GENERAL: The patient is alert and oriented x3, not in any acute distress. Well developed, well nourished. HEENT: Pupils are round and equally reacting to light. EOMI. No scleral icterus. No conjunctival pallor. Normocephalic, atraumatic. No pharyngeal erythema. No thyromegaly. CARDIOVASCULAR: S1 and S2 present. No murmurs, rubs, or gallops. PULMONARY: Chest is clear to auscultation, no wheezing or crackles. ABDOMEN: Soft, nontender, nondistended, normoactive bowel sounds. No palpable organomegaly. MUSCULOSKELETAL: No joint swelling or deformity. EXTREMITIES: No cyanosis, clubbing, or pedal edema. NEUROLOGICAL: Gross neurological examination did not reveal any focal deficits. SKIN: No rashes. no petechiae. - Labs CBC & Chem 7: 03/09/23 04:24 03/09/23 04:24 Labs: Abnormal Lab Results - Last 24 Hours (Table) 03/09/23 03/09/23 03/09/23 Range/Units 11:51 16:46 21:02 POC Glucose (mg/dL) 226 H 246 H 214 H (70-110) mg/dL 03/10/23 Range/Units 07:53 POC Glucose (mg/dL) 162 H (70-110) mg/dL Assessment and Plan Assessment: High-grade bowel obstruction status post exploratory lysis laparotomy and lysis of adhesions on 03/01 Acute COPD exacerbation Acute and chronic hypoxic respiratory failure Pulmonary hypertension Plan: Continue with Zosyn Continue with Solu-Medrol Pulmonary consult Surgery team consult Labs and medication were reviewed.. Continue same treatment. Continue with symptomatic treatment. Resume home medication. Monitor labs and vitals. DVT and GI prophylaxis. Further recommendations as per clinical course of the patient DVT prophylaxis: Subcutaneous Lovenox GI Prophylaxis: Ppi PT/OT: Pending Prognosis is guarded
[2023-03-10] MEDS ORDERED: bisacodyL 10 MG SUPP RECTAL STA (10:23)
[2023-03-10] MEDS: D5-0.45% NACL WITH KCL 20MEQ/L 1,000 ML IV SCH (10:30)
--- NOTE | 2023-03-10 11:24 | P.PN ---
Subjective Progress Note Date: 03/10/23 CHIEF COMPLAINT: Small bowel structure HISTORY OF PRESENT ILLNESS: Patient is POD# 9, status post exploratory laparotomy with lysis of adhesions for small bowel obstruction secondary to adhesive band causing a closed loop obstruction. Patient is currently on the cardiac floor. She was transferred out of the ICU yesterday. She still had no bowel movement. She is having flatus. Denies any abdominal pain. She is sitting in bed comfortably. Afebrile Patient seen and examined with Dr. yepez PHYSICAL EXAM: VITAL SIGNS: Reviewed. GENERAL: Well-developed in no acute distress. ABDOMEN: Soft. Nondistended. Dressing clean dry and intact NEUROLOGIC: Awake and alert and orientated 3 ASSESSMENT: 1. Small bowel obstruction secondary to adhesive band causing a closed loop obstruction status post exploratory laparotomy with lysis of adhesions 2. Dilutional anemia 3. COPD 4. Atelectasis PLAN: -continue Full liquids until patient has a bowel movement -Colace and Dulcolax suppository ordered -Encourage patient to increase activity level -Encourage patient to use incentive spirometer -Continue antibiotic -Continue supportive care -DVT prophylaxis Lovenox and GI prophylaxis protonix Physician Bath Tester note has been reviewed by physician. Signing provider agrees with the documented findings, assessment, and plan of care. Objective - Vital Signs Vital signs: Vital Signs Temp 98.7 F 03/10/23 08:15 Pulse 83 03/10/23 08:15 Resp 16 03/10/23 08:15 BP 124/70 03/10/23 08:15 Pulse Ox 94 L 03/10/23 08:15 FiO2 60 03/07/23 00:44 Intake & Output 03/09/23 03/10/23 03/10/23 18:59 06:59 18:59 Intake Total 570 Output Total 250 450 Balance 320 -450 Weight 63.9 kg Intake: IV 370 D5-0.45% NaCl with KCl 370 20Meq/l 1,000 ml @ 20 mls /hr IV .Q24H [facility] Rx#: [id number] Oral 200 Output: Urine 250 450 Other: Voiding Method Toilet Toilet Toilet Bedside Commode Bedside Commode Bedside Commode # Voids 1 # Bowel Movements 1 ABP, PAP, CO, CI - Last Documented Arterial Blood Pressure 112/51 - Labs CBC & Chem 7: 03/09/23 04:24 03/09/23 04:24 Labs: Abnormal Lab Results - Last 24 Hours (Table) 03/09/23 03/09/23 03/09/23 Range/Units 11:51 16:46 21:02 POC Glucose (mg/dL) 226 H 246 H 214 H (70-110) mg/dL 03/10/23 Range/Units 07:53 POC Glucose (mg/dL) 162 H (70-110) mg/dL
[2023-03-10 12:01] LABS: Glucose,Whole Blood 144 mg/dL (70-110)
[2023-03-10] MEDS: DOCUSATE 100 MG CAP PO SCH ×2 (12:40→20:01)
[2023-03-10 13:04] VITALS: BMI 27.5
--- NOTE | 2023-03-10 13:44 | P.PN ---
Subjective Progress Note Date: 03/10/23 I am seeing this patient in consultation today 03/02/2023 in the intensive care unit for a small bowel obstruction status post operative day #1 for exploratory laparotomy and lysis of adhesions. Patient is a 67-year-old female with past medical history significant for COPD, diabetes mellitus type 2, hypertension, CVA/TIA, and is a current tobacco smoker. Patient has had a recent hospital follow-up for COPD exacerbation with Dr. Morris in the office. PFT in the office is consistent with moderate obstruction. Patient manages her COPD with a Breo-elipta inhaler and when necessary albuterol. Patient reportedly presented to the emergency room on February 27 with complaints of abdominal pain and c onstipation starting [address] without contrast on arrival showed findings suggestive of high-grade distal small bowel obstruction. Without any evidence of perforation or free air. There was also an infrarenal abdominal aortic aneurysm measuring 3.3 cm. Yesterday afternoon, the patient was taken for exploratory laparotomy for lysis of lesions. The patient is currently intubated to the mechanical ventilator. Most recent chest x-ray shows the endotracheal tube 4.7 cm from the michael, bibasilar opacities concerning for possible pneumonia, NG tube coursing below the diaphragm, and a right IJ central venous line with the distal tip in the right atrium. She is sedated on propofol infusing at 45 mcg/kg/m. She is synchronous. Most recent ABGs show a pO2 of 113, pCO2 of 37, pH of 7.33. Current ventilator settings are assist control, respiratory rate 12, tidal volume 400, FiO2 70%, PEEP of 10. Patient is empirically covered on Zosyn. Most recent CBC includes a WBC count 8.4, hemoglobin 9.3, hematocrit 32.6, platelets 161,000. Most recent BMP shows a sodium 134, potassium 4.4, chloride 101, serum CO2 21, BUN 20, creatinine 1.55, glucose 158. NT proBNP was elevated at 7840. Patient does have acute kidney injury. Normal saline is infusing at 75 mL per hour. Urine output is in order of about 30 MLS per hour. Initially, the patient was on Levophed infusion, ho wever, this has been off since the patient arrived to the intensive care unit. Receiving DVT prophylaxis with Lovenox and GI prophylaxis with Protonix. Patient will be monitored in the intensive care unit. Progress note dated 03/03/2023. This is a 67-year-old white female, seen in the intensive care unit, room 255. The patient is postop day #2, status post exploratory laparotomy for bowel obs truction, with lysis of lesions. There was no bowel resection. The patient was extubated yesterday. She is on 8 L high flow oxygen. She's getting saline at 75 mL an hour clinically, he looks well, and can likely move out of the intensive care unit. White count 8, hemoglobin 7.4, hematocrit 25.5, and platelet count 122,000. Sodium 137, potassium 4.2, chlorides 111, CO2 20, anion gap 6, BUN 19, creatinine 1.03. Calcium is 8.2. Chest x-ray shows either right lower lobe infiltrate or atelectasis. Progress note dated 03/04/2023. 67-year-old black female, seen in the intensive care unit, room 255. The patient is postop day #3, status post exploratory laparotomy, for bowel obstruction, with lysis of adhesions. There is no need for a bowel resection on this patient. She was extubated on March 02. Currently, she is on a liter high flow oxygen, and saline at 75 mL an hour. Today we'll give her Lasix 40 mg IV push, and change her fluids to KVO. White count 7.7, hemoglobin 7.5, hematocrit 26.6, and platelet count 112,000. Sodium 140, potassium 3.8, chlorides 111, CO2 20, anion gap normal, BUN 15, and creatinine 0.85. The patient's pattern, is consistent with a non-anion gap hyperchloremic metabolic acidosis. Microbiologic sampling is negative. Chest x-ray shows increased interstitial markings, possibly consistent with interstitial edema. Progress note dated 03/05/2023. 67-year-old black female, seen today in room 255. The patient is postop day #4, status post exploratory laparotomy, for bowel obstruction, with lysis of adhesions. The patient did not require a bowel resection. The patient had been doing relatively well. She was extubated on March 02. Unfortunately, her oxygen requirements have gone up. Yesterday, we gave her some diuretics, which did not really seem to make a difference. She did diurese though. We did order a D- dimer test, which was elevated, and the patient will go for a computed tomography scan of the chest, to rule out pulmonary embolism. Currently, the patient's on 15 L high flow oxygen. She's getting D5 with half-normal saline with 20 mEq of potassium chloride, at 20 mL an hour. White count 8.7, hemoglobin 8.1, hematocrit 27.6, and platelet count 136,000. D-dimer was elevated at 3.7. Sodium 140 potassium 3.6, chlorides 106, CO2 26, BUN 10, creatinine 0.81. Magnesium is 1.5. Chest x-ray revealed some bibasilar atele ctasis. On 03/06/2023, the patient is being seen in follow-up in the intensive care unit. The patient is postop day #5 she underwent a ex-lap and lysis of adhesions. Bowel sounds are distant and hypoactive. The patient is passing bowel movements yet. She has not passed any flatus yet. She was given clear liquid diet by the general surgery. No nausea. No emesis. No abdominal pain or distention. Hemodynamically stable. She is still hypoxemic and she is alternating between a BiPAP at pressures of 10/5 with an FiO2 of 60% and a high flow oxygen at 15 L. There was a concern for a pulmonary embolism. D-dimer was elevated and the patient underwent a CT angiogram that showed no evidence of any pulmonary embolism. There was some nonspecific mediastinal and hilar lymph nodes noted and there was background emphysema and some interstitial edema. The patient was given a dose of Lasix and she diuresed adequately. Over the past 24 hours, she is -2.8 L and she started to drop her urine output. Meanwhile, she had an acute kidney injury the time of presentation which essentially recovered and the creatinine is normalized. The patient is awake and alert and communicating. Abdominal wound is dry clean and intact. The patient is on D5 half-normal saline at rate of 20 mL an hour. The patient is on IV Zosyn. The patient remains on DuoNeb neb blotchiness on the clock and IV Solu-Medrol 60 mg every 6 hours. She is also on accommodation Perforomist and Pulmicort neb blotchiness treatments. She is on IV Dilaudid. Echocardiogram shows a moderate to severe pulmonary hypertension, preserved LV function. She does wear the BiPAP overnight. She is using this in the spirometer which is falling approximately 1000 03/07/2023, the patient is still elevated. The patient is postop day #6. The patient has been weaned down to 6 L of oxygen nasal cannula. She is using her bronchodilators. Unfortunately, no active bowel sounds are flatness or bowel movements yet. Nevertheless, the abdomen is nondistended. No nausea. No emesis each is tolerating clear liquid diet at this point in time. She is breathing comfortably. She was given a dose of Lasix yesterday and the patient produced adequate urine output and she has been negative fluid balance over the past 24 hours. On her blood work, the WBC count is at 13.2 with hemoglobin of 8.2. Sodiums of 134, potassium is at 3.6 with a BUN of 15 and a creatinine of 0.9. She remains on IV Zosyn. She remains on IV Solu-Medrol 60 mg every 6 hours on bronchodilators around the clock. She is on Lovenox 40 mg subcu portably prophylaxis. She is communicating. She is using the incentive spirometer. Awake and alert. No focal neurological deficits. 03/08/2023, the patient is postop day #7. This morning she is on 5 L of oxygen by nasal cannula. No signs of any significant respiratory distress. She still recovering from her abdominal surgery which included ex-lap and lysis of adhesion. The patient is hemodynamically stable. No nausea. No emesis. Bowel sounds are hypoactive. No bowel movements yet. She still taking clear liquid diet and she is using the incentive spirometer. She remains on IV Zosyn. Awake and alert and communicating. He is on bronchodilators. Solu-Medrol has been weaned off. She is taking 20 mg of IV Solu-Medrol every 12 hours. She remains on IV Zosyn.Blood work from today shows an elderly sick of 13.2 with a hemoglobin of 8.5 and a platelet count of 149. BUN is at 50 with a creatinine of 0.7 and a sodium level is at 135. Glucose at 181. IV fluids are currently at D5 half-normal saline with potassium at the rate of 20 mL an hour. The fluid balance has been -765 mL over the past 24 hours. 03/09/2023, the patient is postop day #8. She is calm and comfortable and she is currently on oxygen at 5 L nasal cannula. Breathing is quite comfortable at this point in time. We haven't seen or witness any bowel movements yet. The patient has no abdominal distention. Bowel sounds are still hypoactive. She is on clear liquid diet. She is ambulating. Surgical once is striking and intact. No nausea. No emesis. She is passing gas however. No other significant events overnight.Her WBC count is at 11 with a hemoglobin of 7.7 and a platelet count of 138. BUN is a 15 with a creatinine of 0.7 and a sodium level is at 136. There is a drop in the hemoglobin from 8.5 down to 7.7 on today's evaluation. Nevertheless, there is no evidence of any GI bleed. The patient remains on bronchodilators, Pulmicort Respules, IV Solu-Medrol 20 mg every 12 hours and IV Zosyn. IV fluids are essentially running at 20 mL an hour of D5 half-normal saline along with potassium supplements. On today's evaluation of 03/10/2023, patient is postop day #9. No new complaints for now. She is passing bowel movement. No nausea or emesis. Surgical one-sided dry clean and intact. Afebrile. Using incentive spirometer. She remains on 5 L of O2 nasal cannula. No new labs are available from today. Labs from yesterday were stable. She left the intensive care unit yesterday she is currently on a medical surgical floor of [facility] [place] for DVT prophylaxis on bronchodilators. Objective - Vital Signs Vital signs: Vital Signs Temp 98.7 F 03/10/23 08:15 Pulse 83 03/10/23 08:15 Resp 16 03/10/23 08:15 BP 124/70 03/10/23 08:15 Pulse Ox 94 L 03/10/23 08:15 FiO2 60 03/07/23 00:44 Intake & Output 03/09/23 03/10/23 03/10/23 18:59 06:59 18:59 Intake Total 570 Output Total 250 450 Balance 320 -450 Weight 63.9 kg Intake: IV 370 D5-0.45% NaCl with KCl 370 20Meq/l 1,000 ml @ 20 mls /hr IV .Q24H PENDING SALE TO [facility] Rx#: [id number] Oral 200 Output: Urine 250 450 Other: Voiding Method Toilet Toilet Toilet Bedside Commode Bedside Commode Bedside Commode # Voids 1 # Bowel Movements 1 ABP, PAP, CO, CI - Last Documented Arterial Blood Pressure 112/51 - Exam No acute distress, oriented 3. Currently on high flow nasal oxygen, at 5 L. HEENT examination is grossly unremarkable. Neck supple. Full range of motion. No adenopathy thyromegaly or neck vein distention. Cardiovascular examination reveals regular rhythm rate. S1-S2 normal. No S3 or S4. No discernible murmur noted. Heart sounds are distant. Lungs reveal minimal scattered rhonchi. No wheezes or crackles. Breath sounds equal. Abdomen soft, without bowel sounds. Dressing clean and dry. The patient has no abdominal distention. Abdominal wound is clean. No direct tenderness or rebound tenderness or guarding. Extremities are intact. No cyanosis clubbing or edema. Skin is without rash or lesion. Neurologic examination is brief but nonfocal. - Labs CBC & Chem 7: 03/09/23 04:24 03/09/23 04:24 Labs: Abnormal Lab Results - Last 24 Hours (Table) 03/09/23 03/09/23 03/09/23 Range/Units 11:51 16:46 21:02 POC Glucose (mg/dL) 226 H 246 H 214 H (70-110) mg/dL 03/10/23 Range/Units 07:53 POC Glucose (mg/dL) 162 H (70-110) mg/dL Assessment and Plan Plan: Small bowel obstruction, POD #8 for exploratory laparotomy and lysis of adhesions. Stable, passing bowel movements, clear surgical wound site Acute hypoxemic respiratory failure, likely related to underlying COPD, some bibasilar atelectasis, and possible pulmonary embolism. CT angiogram was completed and showed no evidence of any pulmonary embolism. There is evidence of COPD and some atelectatic change in the lung bases bilaterally and evidence of pulmonary arterial hypertension. Patient was extubated on 03/02/2023. The patient is improving. She has been weaned down to 5 L. The same time, the patient uses 3 L oxygen nasal cannula at home and she has chronic hypoxic r espiratory failure. She remains on bronchodilators. IV Solu-Medrol has been weaned down to 20 mg every 12 hours. Moderate COPD, stable. Moderate to severe pulmonary hypertension with a PA pressure of 54 mmHg Acute kidney injury, recovered and the patient renal function has normalized Infrarenal aortic abdominal aneurysm, measuring 3.3 cm. Diabetes mellitus type 2, [id number]. Essential hypertension. History of CVA/TIA. Chronic nicotine dependence. Plan No issues with pain Continue using the intensive spirometer. Wean down FiO2 to 5 L Keep the patient KVO for now Advance diet as tolerated Start IV Solu-Medrol and start the patient on prednisone 20 mg by mouth daily Monitor the bowel activity Continue IV Zosyn Continue Norvasc 10 mg by mouth daily for that the blood pressure control Ambulate the patient Ambulate the patient Gen. surgeries on the case Increase mobility We'll continue to follow
[2023-03-10 16:48] LABS: Glucose,Whole Blood 168 mg/dL (70-110)
[2023-03-10] MEDS: HYDROmorphone 0.5 MG/0.5 ML SYRINGE IVP PRN (20:01)
[2023-03-10 20:08] LABS: Glucose,Whole Blood 164 mg/dL (70-110)
[2023-03-11 06:07] LABS: Glucose,Whole Blood 106 mg/dL (70-110)
[2023-03-11] MEDS: INSULIN ASPART (NovoLOG) 100 UNIT/ML VIAL SQ SCH ×4 (06:21→20:29)
[2023-03-11] MEDS: METOCLOPRAMIDE 5 MG/ML 2 ML VIAL IVP SCH ×4 (06:34→23:35)
[2023-03-11] MEDS: ACETAMINOPHEN TAB 325 MG TAB PO PRN (06:38)
[2023-03-11] MEDS: BUDESONIDE 1 MG/2 ML NEBU INHALATION SCH ×2 (07:34→21:25)
[2023-03-11] MEDS: FORMOTEROL FUMARATE 20 MCG/2 ML NEBU INHALATION SCH ×2 (07:34→21:25)
[2023-03-11] MEDS: IPRATROPIUM-ALBUTEROL 3 ML NEB INHALATION SCH ×4 (07:35→21:25)
[2023-03-11 08:29] LABS: Anisocytosis Slight; Basophils % (A) 0 %; Eosinophils # (A) 0.1 k/uL (0-0.7); Eosinophils % (A) 1 %; HCT 28.7 % (34.0-46.0); HGB 8.7 gm/dL (11.4-16.0); Hypochromasia Marked; Lymphocytes # (A) 2.4 k/uL (1.0-4.8); Lymphocytes % (A) 18 %; MCHC 30.2 g/dL (31.0-37.0); MCV 66.4 fL (80.0-100.0); Mean Platelet Volume 9.8; Microcytosis Marked; Monocytes # (A) 0.6 k/uL (0-1.0); Monocytes % (A) 5 %; Neutrophils # (A) 9.7 k/uL (1.3-7.7); Neutrophils % (A) 74 %; Platelet Count 134 k/uL (150-450); Poikilocytosis Moderate; RBC 4.32 m/uL (3.80-5.40); RDW 18.6 % (11.5-15.5); WBC 13.1 k/uL (3.8-10.6)
[2023-03-11] MEDS: ATORVASTATIN 20 MG TAB PO SCH (09:22)
[2023-03-11] MEDS: PIPERACILLIN-TAZOBACTAM 3.375 GM in SODIUM CHLORIDE 0.9% 100 ML IVPB SCH ×3 (09:22→23:35)
[2023-03-11] MEDS: amLODIPine 10 MG TAB PO SCH (09:22)
[2023-03-11] MEDS: ENOXAPARIN 40 MG/0.4 ML SYRINGE SQ SCH (09:22)
[2023-03-11] MEDS: oxyBUTYnin chloride 5 MG TAB PO SCH ×2 (09:22→20:29)
[2023-03-11] MEDS: predniSONE 20 MG TAB PO SCH (09:22)
[2023-03-11] MEDS: PANTOPRAZOLE 40 MG/10 ML VIAL IVP SCH (09:22)
[2023-03-11] MEDS: DOCUSATE 100 MG CAP PO SCH ×2 (09:22→20:29)
[2023-03-11 11:28] LABS: Glucose,Whole Blood 140 mg/dL (70-110)
--- NOTE | 2023-03-11 13:10 | P.PN ---
Subjective Progress Note Date: 03/11/23 I am seeing this patient in consultation today 03/02/2023 in the intensive care unit for a small bowel obstruction status post operative day #1 for exploratory laparotomy and lysis of adhesions. Patient is a 67-year-old female with past medical history significant for COPD, diabetes mellitus type 2, hypertension, CVA/TIA, and is a current tobacco smoker. Patient has had a recent hospital follow-up for COPD exacerbation with Dr. Morris in the office. PFT in the office is consistent with moderate obstruction. Patient manages her COPD with a Breo-elipta inhaler and when necessary albuterol. Patient reportedly presented to the emergency room on February 27 with complaints of abdominal pain and c onstipation starting [address] without contrast on arrival showed findings suggestive of high-grade distal small bowel obstruction. Without any evidence of perforation or free air. There was also an infrarenal abdominal aortic aneurysm measuring 3.3 cm. Yesterday afternoon, the patient was taken for exploratory laparotomy for lysis of lesions. The patient is currently intubated to the mechanical ventilator. Most recent chest x-ray shows the endotracheal tube 4.7 cm from the michael, bibasilar opacities concerning for possible pneumonia, NG tube coursing below the diaphragm, and a right IJ central venous line with the distal tip in the right atrium. She is sedated on propofol infusing at 45 mcg/kg/m. She is synchronous. Most recent ABGs show a pO2 of 113, pCO2 of 37, pH of 7.33. Current ventilator settings are assist control, respiratory rate 12, tidal volume 400, FiO2 70%, PEEP of 10. Patient is empirically covered on Zosyn. Most recent CBC includes a WBC count 8.4, hemoglobin 9.3, hematocrit 32.6, platelets 161,000. Most recent BMP shows a sodium 134, potassium 4.4, chloride 101, serum CO2 21, BUN 20, creatinine 1.55, glucose 158. NT proBNP was elevated at 7840. Patient does have acute kidney injury. Normal saline is infusing at 75 mL per hour. Urine output is in order of about 30 MLS per hour. Initially, the patient was on Levophed infusion, ho wever, this has been off since the patient arrived to the intensive care unit. Receiving DVT prophylaxis with Lovenox and GI prophylaxis with Protonix. Patient will be monitored in the intensive care unit. Progress note dated 03/03/2023. This is a 67-year-old white female, seen in the intensive care unit, room 255. The patient is postop day #2, status post exploratory laparotomy for bowel obs truction, with lysis of lesions. There was no bowel resection. The patient was extubated yesterday. She is on 8 L high flow oxygen. She's getting saline at 75 mL an hour clinically, he looks well, and can likely move out of the intensive care unit. White count 8, hemoglobin 7.4, hematocrit 25.5, and platelet count 122,000. Sodium 137, potassium 4.2, chlorides 111, CO2 20, anion gap 6, BUN 19, creatinine 1.03. Calcium is 8.2. Chest x-ray shows either right lower lobe infiltrate or atelectasis. Progress note dated 03/04/2023. 67-year-old black female, seen in the intensive care unit, room 255. The patient is postop day #3, status post exploratory laparotomy, for bowel obstruction, with lysis of adhesions. There is no need for a bowel resection on this patient. She was extubated on March 02. Currently, she is on a liter high flow oxygen, and saline at 75 mL an hour. Today we'll give her Lasix 40 mg IV push, and change her fluids to KVO. White count 7.7, hemoglobin 7.5, hematocrit 26.6, and platelet count 112,000. Sodium 140, potassium 3.8, chlorides 111, CO2 20, anion gap normal, BUN 15, and creatinine 0.85. The patient's pattern, is consistent with a non-anion gap hyperchloremic metabolic acidosis. Microbiologic sampling is negative. Chest x-ray shows increased interstitial markings, possibly consistent with interstitial edema. Progress note dated 03/05/2023. 67-year-old black female, seen today in room 255. The patient is postop day #4, status post exploratory laparotomy, for bowel obstruction, with lysis of adhesions. The patient did not require a bowel resection. The patient had been doing relatively well. She was extubated on March 02. Unfortunately, her oxygen requirements have gone up. Yesterday, we gave her some diuretics, which did not really seem to make a difference. She did diurese though. We did order a D- dimer test, which was elevated, and the patient will go for a computed tomography scan of the chest, to rule out pulmonary embolism. Currently, the patient's on 15 L high flow oxygen. She's getting D5 with half-normal saline with 20 mEq of potassium chloride, at 20 mL an hour. White count 8.7, hemoglobin 8.1, hematocrit 27.6, and platelet count 136,000. D-dimer was elevated at 3.7. Sodium 140 potassium 3.6, chlorides 106, CO2 26, BUN 10, creatinine 0.81. Magnesium is 1.5. Chest x-ray revealed some bibasilar atele ctasis. On 03/06/2023, the patient is being seen in follow-up in the intensive care unit. The patient is postop day #5 she underwent a ex-lap and lysis of adhesions. Bowel sounds are distant and hypoactive. The patient is passing bowel movements yet. She has not passed any flatus yet. She was given clear liquid diet by the general surgery. No nausea. No emesis. No abdominal pain or distention. Hemodynamically stable. She is still hypoxemic and she is alternating between a BiPAP at pressures of 10/5 with an FiO2 of 60% and a high flow oxygen at 15 L. There was a concern for a pulmonary embolism. D-dimer was elevated and the patient underwent a CT angiogram that showed no evidence of any pulmonary embolism. There was some nonspecific mediastinal and hilar lymph nodes noted and there was background emphysema and some interstitial edema. The patient was given a dose of Lasix and she diuresed adequately. Over the past 24 hours, she is -2.8 L and she started to drop her urine output. Meanwhile, she had an acute kidney injury the time of presentation which essentially recovered and the creatinine is normalized. The patient is awake and alert and communicating. Abdominal wound is dry clean and intact. The patient is on D5 half-normal saline at rate of 20 mL an hour. The patient is on IV Zosyn. The patient remains on DuoNeb neb blotchiness on the clock and IV Solu-Medrol 60 mg every 6 hours. She is also on accommodation Perforomist and Pulmicort neb blotchiness treatments. She is on IV Dilaudid. Echocardiogram shows a moderate to severe pulmonary hypertension, preserved LV function. She does wear the BiPAP overnight. She is using this in the spirometer which is falling approximately 1000 03/07/2023, the patient is still elevated. The patient is postop day #6. The patient has been weaned down to 6 L of oxygen nasal cannula. She is using her bronchodilators. Unfortunately, no active bowel sounds are flatness or bowel movements yet. Nevertheless, the abdomen is nondistended. No nausea. No emesis each is tolerating clear liquid diet at this point in time. She is breathing comfortably. She was given a dose of Lasix yesterday and the patient produced adequate urine output and she has been negative fluid balance over the past 24 hours. On her blood work, the WBC count is at 13.2 with hemoglobin of 8.2. Sodiums of 134, potassium is at 3.6 with a BUN of 15 and a creatinine of 0.9. She remains on IV Zosyn. She remains on IV Solu-Medrol 60 mg every 6 hours on bronchodilators around the clock. She is on Lovenox 40 mg subcu portably prophylaxis. She is communicating. She is using the incentive spirometer. Awake and alert. No focal neurological deficits. 03/08/2023, the patient is postop day #7. This morning she is on 5 L of oxygen by nasal cannula. No signs of any significant respiratory distress. She still recovering from her abdominal surgery which included ex-lap and lysis of adhesion. The patient is hemodynamically stable. No nausea. No emesis. Bowel sounds are hypoactive. No bowel movements yet. She still taking clear liquid diet and she is using the incentive spirometer. She remains on IV Zosyn. Awake and alert and communicating. He is on bronchodilators. Solu-Medrol has been weaned off. She is taking 20 mg of IV Solu-Medrol every 12 hours. She remains on IV Zosyn.Blood work from today shows an elderly sick of 13.2 with a hemoglobin of 8.5 and a platelet count of 149. BUN is at 50 with a creatinine of 0.7 and a sodium level is at 135. Glucose at 181. IV fluids are currently at D5 half-normal saline with potassium at the rate of 20 mL an hour. The fluid balance has been -765 mL over the past 24 hours. 03/09/2023, the patient is postop day #8. She is calm and comfortable and she is currently on oxygen at 5 L nasal cannula. Breathing is quite comfortable at this point in time. We haven't seen or witness any bowel movements yet. The patient has no abdominal distention. Bowel sounds are still hypoactive. She is on clear liquid diet. She is ambulating. Surgical once is striking and intact. No nausea. No emesis. She is passing gas however. No other significant events overnight.Her WBC count is at 11 with a hemoglobin of 7.7 and a platelet count of 138. BUN is a 15 with a creatinine of 0.7 and a sodium level is at 136. There is a drop in the hemoglobin from 8.5 down to 7.7 on today's evaluation. Nevertheless, there is no evidence of any GI bleed. The patient remains on bronchodilators, Pulmicort Respules, IV Solu-Medrol 20 mg every 12 hours and IV Zosyn. IV fluids are essentially running at 20 mL an hour of D5 half-normal saline along with potassium supplements. On today's evaluation of 03/10/2023, patient is postop day #9. No new complaints for now. She is passing bowel movement. No nausea or emesis. Surgical one-sided dry clean and intact. Afebrile. Using incentive spirometer. She remains on 5 L of O2 nasal cannula. No new labs are available from today. Labs from yesterday were stable. She left the intensive care unit yesterday she is currently on a medical surgical floor of Zosy and Lovenox for DVT prophylaxis on bronchodilators. 03/11/2020, the patient is postop day #10. Ambulating. Respiratory status is stable. No new complaints. No nausea or vomiting. No abdominal pain. The surgical wound site remains clean. She is on prednisone burst taper. She is also on bronchodilators. She is still on IV Zosyn. Labs are showing a white second 15.1 with a hemoglobin of 8.7. Objective - Vital Signs Vital signs: Vital Signs Temp 97.8 F 03/11/23 09:20 Pulse 79 03/11/23 09:20 Resp 18 03/11/23 09:20 BP 108/71 03/11/23 09:20 Pulse Ox 96 03/11/23 09:20 FiO2 21 03/11/23 07:38 Intake & Output 03/10/23 03/11/23 03/11/23 18:59 06:59 18:59 Intake Total 200 Output Total 200 Balance 200 -200 Weight 63.9 kg Intake: Oral 200 Output: Urine 200 Other: Voiding Method Toilet Bedside Commode # Voids 3 1 # Bowel Movements 1 ABP, PAP, CO, CI - Last Documented Arterial Blood Pressure 112/51 - Exam No acute distress, oriented 3. Currently on high flow nasal oxygen, at 5 L. HEENT examination is grossly unremarkable. Neck supple. Full range of motion. No adenopathy thyromegaly or neck vein distention. Cardiovascular examination reveals regular rhythm rate. S1-S2 normal. No S3 or S4. No discernible murmur noted. Heart sounds are distant. Lungs reveal minimal scattered rhonchi. No wheezes or crackles. Breath sounds equal. Abdomen soft, without bowel sounds. Dressing clean and dry. The patient has no abdominal distention. Abdominal wound is clean. No direct tenderness or rebound tenderness or guarding. Extremities are intact. No cyanosis clubbing or edema. Skin is without rash or lesion. Neurologic examination is brief but nonfocal. - Labs CBC & Chem 7: 03/11/23 07:37 03/09/23 04:24 Labs: Abnormal Lab Results - Last 24 Hours (Table) 03/10/23 03/10/23 03/10/23 Range/Units 11:59 16:47 20:05 WBC (3.8-10.6) k/uL Hgb (11.4-16.0) gm/dL Hct (34.0-46.0) % MCV (80.0-100.0) fL MCH (25.0-35.0) pg MCHC (31.0-37.0) g/dL RDW (11.5-15.5) % Plt Count (150-450) k/uL Neutrophils # (1.3-7.7) k/uL POC Glucose (mg/dL) 144 H 168 H 164 H (70-110) mg/dL 03/11/23 Range/Units 07:37 WBC 13.1 H (3.8-10.6) k/uL Hgb 8.7 L (11.4-16.0) gm/dL Hct 28.7 L (34.0-46.0) % MCV 66.4 L (80.0-100.0) fL MCH 20.0 L (25.0-35.0) pg MCHC 30.2 L (31.0-37.0) g/dL RDW 18.6 H (11.5-15.5) % Plt Count 134 L (150-450) k/uL Neutrophils # 9.7 H (1.3-7.7) k/uL POC Glucose (mg/dL) (70-110) mg/dL Assessment and Plan Plan: Small bowel obstruction, POD #10 for exploratory laparotomy and lysis of adhesions. Stable, passing bowel movements, clear surgical wound site Acute hypoxemic respiratory failure, likely related to underlying COPD, some bibasilar atelectasis, and possible pulmonary embolism. CT angiogram was completed and showed no evidence of any pulmonary embolism. There is evidence of COPD and some atelectatic change in the lung bases bilaterally and evidence of pulmonary arterial hypertension. Patient was extubated on 03/02/2023. Currently, the patient's on 5 L Moderate COPD, stable. Moderate to severe pulmonary hypertension with a PA pressure of 54 mmHg Acute kidney injury, recovered and the patient renal function has normalized Infrarenal aortic abdominal aneurysm, measuring 3.3 cm. Diabetes mellitus type 2, [id number]. Essential hypertension. History of CVA/TIA. Chronic nicotine dependence. Plan No issues with pain Continue using the intensive spirometer. Wean down FiO2 to 5 L Keep the patient KVO for now Advance diet as tolerated prednisone 20 mg by mouth daily Monitor the bowel activity Continue IV Zosyn Norvasc 10 mg by mouth daily for that the blood pressure control Ambulate the patient Ambulate the patient Gen. surgeries on the case Increase mobility We'll continue to follow
[2023-03-11 16:16] LABS: Glucose,Whole Blood 270 mg/dL (70-110)
--- NOTE | 2023-03-11 16:38 | P.PN ---
Subjective Progress Note Date: 03/11/23 CHIEF COMPLAINT: Bowel obstruction HISTORY OF PRESENT ILLNESS: The patient is a 67-year-old female status post lysis of adhesions. She is on clear liquid diet. Patient reports no bowel movement. ROS: No reports of nausea and vomiting. No bowel movements. No fevers or chills. No new chest pain. No productive sputum PHYSICAL EXAM: VITAL SIGNS: Reviewed CONSTITUTIONAL: Well developed and in no acute distress. EYES: Conjuctivae without sclera icterus. Extraocular movements grossly intact. HEAD, EARS, NOSE, THROAT: Moist buccal mucosa. Head is atraumatic, normocephalic. Hears conversational speech. No nasal drainage. RESPIRATORY: Non-labored respirations and equal bilateral excursions. CARDIOVASCULAR: Palpable 2+ radial pulses. ABDOMEN: Dressing intact. No infection. MUSCULOSKELETAL: No gross deformity of the lower extremities noted. No clubbing. No cyanosis. SKIN: Good skin turgor. Well perfused. NEUROLOGIC: Cranial nerves II through XII grossly intact. No focal or lateral izing signs. PSYCH: Appropriate affect. Alert and oriented to person. CLINICAL LABS: Reviewed. WBC elevated 11.0 to 13.1 ASSESSMENT: 1. Small bowel obstruction 2. Ileus PLAN: 1. Continue full liquid diet 2. Await resolution of ileus. Objective - Vital Signs Vital signs: Vital Signs Temp 97.8 F 03/11/23 16:24 Pulse 66 03/11/23 16:24 Resp 16 03/11/23 16:24 BP 124/76 03/11/23 16:24 Pulse Ox 93 L 03/11/23 16:24 FiO2 21 03/11/23 07:38 Intake & Output 03/10/23 03/11/23 03/11/23 18:59 06:59 18:59 Intake Total 200 0 Output Total 200 200 Balance 200 -200 -200 Weight 63.9 kg Intake: Oral 200 0 Output: Urine 200 200 Other: Voiding Method Toilet Toilet Bedside Commode Bedside Commode # Voids 3 1 1 # Bowel Movements 1 ABP, PAP, CO, CI - Last Documented Arterial Blood Pressure 112/51 - Labs CBC & Chem 7: 03/11/23 07:37 03/09/23 04:24 Labs: Abnormal Lab Results - Last 24 Hours (Table) 03/10/23 03/10/23 03/11/23 Range/Units 16:47 20:05 07:37 WBC 13.1 H (3.8-10.6) k/uL Hgb 8.7 L (11.4-16.0) gm/dL Hct 28.7 L (34.0-46.0) % MCV 66.4 L (80.0-100.0) fL MCH 20.0 L (25.0-35.0) pg MCHC 30.2 L (31.0-37.0) g/dL RDW 18.6 H (11.5-15.5) % Plt Count 134 L (150-450) k/uL Neutrophils # 9.7 H (1.3-7.7) k/uL POC Glucose (mg/dL) 168 H 164 H (70-110) mg/dL 03/11/23 03/11/23 Range/Units 11:26 16:15 WBC (3.8-10.6) k/uL Hgb (11.4-16.0) gm/dL Hct (34.0-46.0) % MCV (80.0-100.0) fL MCH (25.0-35.0) pg MCHC (31.0-37.0) g/dL RDW (11.5-15.5) % Plt Count (150-450) k/uL Neutrophils # (1.3-7.7) k/uL POC Glucose (mg/dL) 140 H 270 H (70-110) mg/dL
--- NOTE | 2023-03-11 18:47 | P.PN ---
Subjective 67-year-old female came to emergency department with complaints of left lower quadrant and diffuse abdominal pain going on for about 3 days along with nausea vomiting patient was constipated did have a bowel movement today. Patient had a CT of the abdomen, showed distal small bowel obstruction. There may be adhesions. Patient does have history of COPD continues to smoke declining patch about a pack per day patient has wheezing on exam uses 2-3 L of oxygen at home. Patient does have leukocytosis no fever patient has mildly elevated creatinine and along with low serum sodium. 03/10/2023 This is a pleasant 67 years old female who presents with high-grade small bowel obstruction secondary to adhesive months status post exploratory laparotomy and lysis of adhesions on 03/01. Also with evidence of acute COPD exacerbation and acute and chronic hypoxic respiratory failure. She was recently transferred from the ICU to the general medical floor yesterday. She still on liquid diet which she tolerates, just a little small bowel movement this morning with no significant abdominal pain or tenderness, no significant dyspnea at rest. She says her PCP is Dr. 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 No labs from today Extremities on Solu-Medrol 20 mg twice daily and Zosyn CTA of the chest: No PE CTA of the abdomen and pelvis on admission showing high-grade bowel obstruction Problemcalcitonin 0.15. 03/11/2023 Patient still has normal bowel movement although she tolerates liquid diet. She was placed on Colace by surgery team. Patient with no significant abdominal pain. She took one small dose of Dilaudid this morning She remains on Zosyn for perforated bowel Prednisone switch to 20 mg She still on 5 L of oxygen compared to 3 L at home Tomorrow is last dose of Zosyn. Check procalcitonin Objective - Vital Signs Vital signs: Vital Signs Temp 97.8 F 03/11/23 09:20 Pulse 84 03/11/23 11:15 Resp 18 03/11/23 09:20 BP 108/71 03/11/23 09:20 Pulse Ox 96 03/11/23 09:20 FiO2 21 03/11/23 07:38 Intake & Output 03/10/23 03/11/23 03/11/23 18:59 06:59 18:59 Intake Total 200 0 Output Total 200 200 Balance 200 -200 -200 Weight 63.9 kg Intake: Oral 200 0 Output: Urine 200 200 Other: Voiding Method Toilet Toilet Bedside Commode Bedside Commode # Voids 3 1 1 # Bowel Movements 1 ABP, PAP, CO, CI - Last Documented Arterial Blood Pressure 112/51 - Exam GENERAL: The patient is alert and oriented x3, not in any acute distress. Well developed, well nourished. HEENT: Pupils are round and equally reacting to light. EOMI. No scleral icterus. No conjunctival pallor. Normocephalic, atraumatic. No pharyngeal erythema. No thyromegaly. CARDIOVASCULAR: S1 and S2 present. No murmurs, rubs, or gallops. PULMONARY: Chest is clear to auscultation, no wheezing or crackles. ABDOMEN: Soft, nontender, nondistended, normoactive bowel sounds. No palpable organomegaly. MUSCULOSKELETAL: No joint swelling or deformity. EXTREMITIES: No cyanosis, clubbing, or pedal edema. NEUROLOGICAL: Gross neurological examination did not reveal any focal deficits. SKIN: No rashes. no petechiae. - Labs CBC & Chem 7: 03/11/23 07:37 03/09/23 04:24 Labs: Abnormal Lab Results - Last 24 Hours (Table) 03/10/23 03/10/23 03/11/23 Range/Units 16:47 20:05 07:37 WBC 13.1 H (3.8-10.6) k/uL Hgb 8.7 L (11.4-16.0) gm/dL Hct 28.7 L (34.0-46.0) % MCV 66.4 L (80.0-100.0) fL MCH 20.0 L (25.0-35.0) pg MCHC 30.2 L (31.0-37.0) g/dL RDW 18.6 H (11.5-15.5) % Plt Count 134 L (150-450) k/uL Neutrophils # 9.7 H (1.3-7.7) k/uL POC Glucose (mg/dL) 168 H 164 H (70-110) mg/dL 03/11/23 Range/Units 11:26 WBC (3.8-10.6) k/uL Hgb (11.4-16.0) gm/dL Hct (34.0-46.0) % MCV (80.0-100.0) fL MCH (25.0-35.0) pg MCHC (31.0-37.0) g/dL RDW (11.5-15.5) % Plt Count (150-450) k/uL Neutrophils # (1.3-7.7) k/uL POC Glucose (mg/dL) 140 H (70-110) mg/dL Assessment and Plan Assessment: High-grade bowel obstruction status post exploratory lysis laparotomy and lysis of adhesions on 03/01 Acute COPD exacerbation Acute and chronic hypoxic respiratory failure Pulmonary hypertension Plan: Continue with Zosyn Continue with Solu-Medrol Pulmonary consult Surgery team consult Labs and medication were reviewed.. Continue same treatment. Continue with symptomatic treatment. Resume home medication. Monitor labs and vitals. DVT and GI prophylaxis. Further recommendations as per clinical course of the patient DVT prophylaxis: Subcutaneous Lovenox GI Prophylaxis: Ppi PT/OT: Pending Prognosis is guarded
[2023-03-11 20:20] LABS: Glucose,Whole Blood 167 mg/dL (70-110)
[2023-03-12 06:03] LABS: Glucose,Whole Blood 95 mg/dL (70-110)
[2023-03-12] MEDS: INSULIN ASPART (NovoLOG) 100 UNIT/ML VIAL SQ SCH ×4 (06:13→20:37)
[2023-03-12] MEDS: METOCLOPRAMIDE 5 MG/ML 2 ML VIAL IVP SCH ×3 (06:14→18:23)
[2023-03-12] MEDS: BUDESONIDE 1 MG/2 ML NEBU INHALATION SCH ×2 (08:23→20:28)
[2023-03-12] MEDS: IPRATROPIUM-ALBUTEROL 3 ML NEB INHALATION SCH ×4 (08:23→20:28)
[2023-03-12] MEDS: FORMOTEROL FUMARATE 20 MCG/2 ML NEBU INHALATION SCH ×2 (08:23→20:28)
[2023-03-12] MEDS: PIPERACILLIN-TAZOBACTAM 3.375 GM in SODIUM CHLORIDE 0.9% 100 ML IVPB SCH ×2 (08:31→15:21)
[2023-03-12] MEDS: predniSONE 20 MG TAB PO SCH (08:32)
[2023-03-12] MEDS: ENOXAPARIN 40 MG/0.4 ML SYRINGE SQ SCH (08:32)
[2023-03-12] MEDS: DOCUSATE 100 MG CAP PO SCH ×2 (08:32→20:37)
[2023-03-12] MEDS: PANTOPRAZOLE 40 MG/10 ML VIAL IVP SCH (08:32)
[2023-03-12] MEDS: ATORVASTATIN 20 MG TAB PO SCH (08:33)
[2023-03-12] MEDS: amLODIPine 10 MG TAB PO SCH (08:33)
[2023-03-12] MEDS: oxyBUTYnin chloride 5 MG TAB PO SCH ×2 (08:33→20:37)
[2023-03-12 11:39] LABS: Glucose,Whole Blood 106 mg/dL (70-110)
--- NOTE | 2023-03-12 12:11 | P.PN ---
Subjective Progress Note Date: 03/12/23 I am seeing this patient in consultation today 03/02/2023 in the intensive care unit for a small bowel obstruction status post operative day #1 for exploratory laparotomy and lysis of adhesions. Patient is a 67-year-old female with past medical history significant for COPD, diabetes mellitus type 2, hypertension, CVA/TIA, and is a current tobacco smoker. Patient has had a recent hospital follow-up for COPD exacerbation with Dr. Morris in the office. PFT in the office is consistent with moderate obstruction. Patient manages her COPD with a Breo-elipta inhaler and when necessary albuterol. Patient reportedly presented to the emergency room on February 27 with complaints of abdominal pain and c onstipation starting [address] without contrast on arrival showed findings suggestive of high-grade distal small bowel obstruction. Without any evidence of perforation or free air. There was also an infrarenal abdominal aortic aneurysm measuring 3.3 cm. Yesterday afternoon, the patient was taken for exploratory laparotomy for lysis of lesions. The patient is currently intubated to the mechanical ventilator. Most recent chest x-ray shows the endotracheal tube 4.7 cm from the michael, bibasilar opacities concerning for possible pneumonia, NG tube coursing below the diaphragm, and a right IJ central venous line with the distal tip in the right atrium. She is sedated on propofol infusing at 45 mcg/kg/m. She is synchronous. Most recent ABGs show a pO2 of 113, pCO2 of 37, pH of 7.33. Current ventilator settings are assist control, respiratory rate 12, tidal volume 400, FiO2 70%, PEEP of 10. Patient is empirically covered on Zosyn. Most recent CBC includes a WBC count 8.4, hemoglobin 9.3, hematocrit 32.6, platelets 161,000. Most recent BMP shows a sodium 134, potassium 4.4, chloride 101, serum CO2 21, BUN 20, creatinine 1.55, glucose 158. NT proBNP was elevated at 7840. Patient does have acute kidney injury. Normal saline is infusing at 75 mL per hour. Urine output is in order of about 30 MLS per hour. Initially, the patient was on Levophed infusion, ho wever, this has been off since the patient arrived to the intensive care unit. Receiving DVT prophylaxis with Lovenox and GI prophylaxis with Protonix. Patient will be monitored in the intensive care unit. Progress note dated 03/03/2023. This is a 67-year-old white female, seen in the intensive care unit, room 255. The patient is postop day #2, status post exploratory laparotomy for bowel obs truction, with lysis of lesions. There was no bowel resection. The patient was extubated yesterday. She is on 8 L high flow oxygen. She's getting saline at 75 mL an hour clinically, he looks well, and can likely move out of the intensive care unit. White count 8, hemoglobin 7.4, hematocrit 25.5, and platelet count 122,000. Sodium 137, potassium 4.2, chlorides 111, CO2 20, anion gap 6, BUN 19, creatinine 1.03. Calcium is 8.2. Chest x-ray shows either right lower lobe infiltrate or atelectasis. Progress note dated 03/04/2023. 67-year-old black female, seen in the intensive care unit, room 255. The patient is postop day #3, status post exploratory laparotomy, for bowel obstruction, with lysis of adhesions. There is no need for a bowel resection on this patient. She was extubated on March 02. Currently, she is on a liter high flow oxygen, and saline at 75 mL an hour. Today we'll give her Lasix 40 mg IV push, and change her fluids to KVO. White count 7.7, hemoglobin 7.5, hematocrit 26.6, and platelet count 112,000. Sodium 140, potassium 3.8, chlorides 111, CO2 20, anion gap normal, BUN 15, and creatinine 0.85. The patient's pattern, is consistent with a non-anion gap hyperchloremic metabolic acidosis. Microbiologic sampling is negative. Chest x-ray shows increased interstitial markings, possibly consistent with interstitial edema. Progress note dated 03/05/2023. 67-year-old black female, seen today in room 255. The patient is postop day #4, status post exploratory laparotomy, for bowel obstruction, with lysis of adhesions. The patient did not require a bowel resection. The patient had been doing relatively well. She was extubated on March 02. Unfortunately, her oxygen requirements have gone up. Yesterday, we gave her some diuretics, which did not really seem to make a difference. She did diurese though. We did order a D- dimer test, which was elevated, and the patient will go for a computed tomography scan of the chest, to rule out pulmonary embolism. Currently, the patient's on 15 L high flow oxygen. She's getting D5 with half-normal saline with 20 mEq of potassium chloride, at 20 mL an hour. White count 8.7, hemoglobin 8.1, hematocrit 27.6, and platelet count 136,000. D-dimer was elevated at 3.7. Sodium 140 potassium 3.6, chlorides 106, CO2 26, BUN 10, creatinine 0.81. Magnesium is 1.5. Chest x-ray revealed some bibasilar atele ctasis. On 03/06/2023, the patient is being seen in follow-up in the intensive care unit. The patient is postop day #5 she underwent a ex-lap and lysis of adhesions. Bowel sounds are distant and hypoactive. The patient is passing bowel movements yet. She has not passed any flatus yet. She was given clear liquid diet by the general surgery. No nausea. No emesis. No abdominal pain or distention. Hemodynamically stable. She is still hypoxemic and she is alternating between a BiPAP at pressures of 10/5 with an FiO2 of 60% and a high flow oxygen at 15 L. There was a concern for a pulmonary embolism. D-dimer was elevated and the patient underwent a CT angiogram that showed no evidence of any pulmonary embolism. There was some nonspecific mediastinal and hilar lymph nodes noted and there was background emphysema and some interstitial edema. The patient was given a dose of Lasix and she diuresed adequately. Over the past 24 hours, she is -2.8 L and she started to drop her urine output. Meanwhile, she had an acute kidney injury the time of presentation which essentially recovered and the creatinine is normalized. The patient is awake and alert and communicating. Abdominal wound is dry clean and intact. The patient is on D5 half-normal saline at rate of 20 mL an hour. The patient is on IV Zosyn. The patient remains on DuoNeb neb blotchiness on the clock and IV Solu-Medrol 60 mg every 6 hours. She is also on accommodation Perforomist and Pulmicort neb blotchiness treatments. She is on IV Dilaudid. Echocardiogram shows a moderate to severe pulmonary hypertension, preserved LV function. She does wear the BiPAP overnight. She is using this in the spirometer which is falling approximately 1000 03/07/2023, the patient is still elevated. The patient is postop day #6. The patient has been weaned down to 6 L of oxygen nasal cannula. She is using her bronchodilators. Unfortunately, no active bowel sounds are flatness or bowel movements yet. Nevertheless, the abdomen is nondistended. No nausea. No emesis each is tolerating clear liquid diet at this point in time. She is breathing comfortably. She was given a dose of Lasix yesterday and the patient produced adequate urine output and she has been negative fluid balance over the past 24 hours. On her blood work, the WBC count is at 13.2 with hemoglobin of 8.2. Sodiums of 134, potassium is at 3.6 with a BUN of 15 and a creatinine of 0.9. She remains on IV Zosyn. She remains on IV Solu-Medrol 60 mg every 6 hours on bronchodilators around the clock. She is on Lovenox 40 mg subcu portably prophylaxis. She is communicating. She is using the incentive spirometer. Awake and alert. No focal neurological deficits. 03/08/2023, the patient is postop day #7. This morning she is on 5 L of oxygen by nasal cannula. No signs of any significant respiratory distress. She still recovering from her abdominal surgery which included ex-lap and lysis of adhesion. The patient is hemodynamically stable. No nausea. No emesis. Bowel sounds are hypoactive. No bowel movements yet. She still taking clear liquid diet and she is using the incentive spirometer. She remains on IV Zosyn. Awake and alert and communicating. He is on bronchodilators. Solu-Medrol has been weaned off. She is taking 20 mg of IV Solu-Medrol every 12 hours. She remains on IV Zosyn.Blood work from today shows an elderly sick of 13.2 with a hemoglobin of 8.5 and a platelet count of 149. BUN is at 50 with a creatinine of 0.7 and a sodium level is at 135. Glucose at 181. IV fluids are currently at D5 half-normal saline with potassium at the rate of 20 mL an hour. The fluid balance has been -765 mL over the past 24 hours. 03/09/2023, the patient is postop day #8. She is calm and comfortable and she is currently on oxygen at 5 L nasal cannula. Breathing is quite comfortable at this point in time. We haven't seen or witness any bowel movements yet. The patient has no abdominal distention. Bowel sounds are still hypoactive. She is on clear liquid diet. She is ambulating. Surgical once is striking and intact. No nausea. No emesis. She is passing gas however. No other significant events overnight.Her WBC count is at 11 with a hemoglobin of 7.7 and a platelet count of 138. BUN is a 15 with a creatinine of 0.7 and a sodium level is at 136. There is a drop in the hemoglobin from 8.5 down to 7.7 on today's evaluation. Nevertheless, there is no evidence of any GI bleed. The patient remains on bronchodilators, Pulmicort Respules, IV Solu-Medrol 20 mg every 12 hours and IV Zosyn. IV fluids are essentially running at 20 mL an hour of D5 half-normal saline along with potassium supplements. On today's evaluation of 03/10/2023, patient is postop day #9. No new complaints for now. She is passing bowel movement. No nausea or emesis. Surgical one-sided dry clean and intact. Afebrile. Using incentive spirometer. She remains on 5 L of O2 nasal cannula. No new labs are available from today. Labs from yesterday were stable. She left the intensive care unit yesterday she is currently on a medical surgical floor of Zosyn and Lovenox for DVT prophylaxis on bronchodilators. 03/11/2020, the patient is postop day #10. Ambulating. Respiratory status is stable. No new complaints. No nausea or vomiting. No abdominal pain. The surgical wound site remains clean. She is on prednisone burst taper. She is also on bronchodilators. She is still on IV Zosyn. Labs are showing a white second 15.1 with a hemoglobin of 8.7. 03/12/2023, the patient is postop day #11. She is passing bowel movements. No nausea or vomiting. No new complaints. She is stable. No respiratory difficulties. Objective - Vital Signs Vital signs: Vital Signs Temp 98.2 F 03/12/23 08:29 Pulse 77 03/12/23 08:29 Resp 18 03/12/23 08:29 BP 114/69 03/12/23 08:29 Pulse Ox 92 L 03/12/23 08:29 FiO2 21 03/11/23 07:38 Intake & Output 03/11/23 03/12/23 03/12/23 18:59 06:59 18:59 Intake Total 0 120 Output Total 200 200 Balance -200 -200 120 Intake: Oral 0 120 Output: Urine 200 200 Other: Voiding Method Toilet Toilet Bedside Commode Bedside Commode # Voids 1 1 # Bowel Movements 1 ABP, PAP, CO, CI - Last Documented Arterial Blood Pressure 112/51 - Exam No acute distress, oriented 3. Currently on high flow nasal oxygen, at 5 L. HEENT examination is grossly unremarkable. Neck supple. Full range of motion. No adenopathy thyromegaly or neck vein distention. Cardiovascular examination reveals regular rhythm rate. S1-S2 normal. No S3 or S4. No discernible murmur noted. Heart sounds are distant. Lungs reveal minimal scattered rhonchi. No wheezes or crackles. Breath sounds equal. Abdomen soft, without bowel sounds. Dressing clean and dry. The patient has no abdominal distention. Abdominal wound is clean. No direct tenderness or rebound tenderness or guarding. Extremities are intact. No cyanosis clubbing or edema. Skin is without rash or lesion. Neurologic examination is brief but nonfocal. - Labs CBC & Chem 7: 03/11/23 07:37 03/09/23 04:24 Labs: Abnormal Lab Results - Last 24 Hours (Table) 03/11/23 03/11/23 03/11/23 Range/Units 11:26 16:15 20:17 POC Glucose (mg/dL) 140 H 270 H 167 H (70-110) mg/dL Assessment and Plan Plan: Small bowel obstruction, POD #10 for exploratory laparotomy and lysis of adhesions. Stable, passing bowel movements, clear surgical wound site Acute hypoxemic respiratory failure, likely related to underlying COPD, some bibasilar atelectasis, and possible pulmonary embolism. CT angiogram was completed and showed no evidence of any pulmonary embolism. There is evidence of COPD and some atelectatic change in the lung bases bilaterally and evidence of pulmonary arterial hypertension. Patient was extubated on 03/02/2023. Currently, the patient's on 5 L Moderate COPD, stable. Moderate to severe pulmonary hypertension with a PA pressure of 54 mmHg Acute kidney injury, recovered and the patient renal function has normalized Infrarenal aortic abdominal aneurysm, measuring 3.3 cm. Diabetes mellitus type 2, [id number]. Essential hypertension. History of CVA/TIA. Chronic nicotine dependence. Plan Clinically stable No active bowel issues Surgical one-sided dry No issues with pain Continue using the intensive spirometer. Wean down FiO2 to 5 L Keep the patient KVO for now Advance diet as tolerated prednisone 10 mg by mouth daily Pulmonary critical care services will sign off
[2023-03-12] MEDS: ACETAMINOPHEN TAB 325 MG TAB PO PRN (12:32)
[2023-03-12] MEDS ORDERED: SENNOSIDES 8.6 MG TAB PO STA (14:37)
--- NOTE | 2023-03-12 14:40 | P.PN ---
Subjective 67-year-old female came to emergency department with complaints of left lower quadrant and diffuse abdominal pain going on for about 3 days along with nausea vomiting patient was constipated did have a bowel movement today. Patient had a CT of the abdomen, showed distal small bowel obstruction. There may be adhesions. Patient does have history of COPD continues to smoke declining patch about a pack per day patient has wheezing on exam uses 2-3 L of oxygen at home. Patient does have leukocytosis no fever patient has mildly elevated creatinine and along with low serum sodium. 03/10/2023 This is a pleasant 67 years old female who presents with high-grade small bowel obstruction secondary to adhesive months status post exploratory laparotomy and lysis of adhesions on 03/01. Also with evidence of acute COPD exacerbation and acute and chronic hypoxic respiratory failure. She was recently transferred from the ICU to the general medical floor yesterday. She still on liquid diet which she tolerates, just a little small bowel movement this morning with no significant abdominal pain or tenderness, no significant dyspnea at rest. She says her PCP is Dr. Kevin Borjas's and she cannot recall her sales marketing coordinator but she confirms she has 3 L of oxygen at home. No labs from today Extremities on Solu-Medrol 20 mg twice daily and Zosyn CTA of the chest: No PE CTA of the abdomen and pelvis on admission showing high-grade bowel obstruction Problemcalcitonin 0.15. 03/11/2023 Patient still has normal bowel movement although she tolerates liquid diet. She was placed on Colace by surgery team. Patient with no significant abdominal pain. She took one small dose of Dilaudid this morning She remains on Zosyn for perforated bowel Prednisone switch to 20 mg She still on 5 L of oxygen compared to 3 L at home Tomorrow is last dose of Zosyn. Check procalcitonin 03/12/2023 patient today looks better more energetic sitting in chair and wants to go home. However she still on liquid diet and had no bowel movement. She tolerates diet well. Give senna 2 tablets once and continue with Colace COPD significantly improving and currently on 10 mg of prednisone and pulmonary team signed off the case Objective - Vital Signs Vital signs: Vital Signs Temp 98.2 F 03/12/23 08:29 Pulse 70 03/12/23 12:00 Resp 16 03/12/23 12:00 BP 106/62 03/12/23 12:00 Pulse Ox 94 L 03/12/23 12:00 FiO2 21 03/11/23 07:38 Intake & Output 03/11/23 03/12/23 03/12/23 18:59 06:59 18:59 Intake Total 0 120 Output Total 200 200 Balance -200 -200 120 Intake: Oral 0 120 Output: Urine 200 200 Other: Voiding Method Toilet Toilet Toilet Bedside Commode Bedside Commode Bedside Commode # Voids 1 1 1 # Bowel Movements 1 1 ABP, PAP, CO, CI - Last Documented Arterial Blood Pressure 112/51 - Exam GENERAL: The patient is alert and oriented x3, not in any acute distress. Well developed, well nourished. HEENT: Pupils are round and equally reacting to light. EOMI. No scleral icterus. No conjunctival pallor. Normocephalic, atraumatic. No pharyngeal erythema. No thyromegaly. CARDIOVASCULAR: S1 and S2 present. No murmurs, rubs, or gallops. PULMONARY: Chest is clear to auscultation, no wheezing or crackles. ABDOMEN: Soft, nontender, nondistended, normoactive bowel sounds. No palpable organomegaly. MUSCULOSKELETAL: No joint swelling or deformity. EXTREMITIES: No cyanosis, clubbing, or pedal edema. NEUROLOGICAL: Gross neurological examination did not reveal any focal deficits. SKIN: No rashes. no petechiae. - Labs CBC & Chem 7: 03/11/23 07:37 03/09/23 04:24 Labs: Abnormal Lab Results - Last 24 Hours (Table) 03/11/23 03/11/23 Range/Units 16:15 20:17 POC Glucose (mg/dL) 270 H 167 H (70-110) mg/dL Assessment and Plan Assessment: High-grade bowel obstruction status post exploratory lysis laparotomy and lysis of adhesions on 03/01 Acute COPD exacerbation Acute and chronic hypoxic respiratory failure Pulmonary hypertension Plan: Patient finished her Zosyn, Protonix calcitonin is negative. From medicine review we will keep was on the patient while off antibiotics Continue prednisone taper, currently on 10 mg Pulmonary consult sent of the case Surgery team consult for the primary team Add senna tabs x2 Labs and medication were reviewed.. Continue same treatment. Continue with symptomatic treatment. Resume home medication. Monitor labs and vitals. DVT and GI prophylaxis. Further recommendations as per clinical course of the patient DVT prophylaxis: Subcutaneous Lovenox GI Prophylaxis: Ppi PT/OT: Pending Prognosis is guarded
[2023-03-12 16:41] LABS: Glucose,Whole Blood 162 mg/dL (70-110)
[2023-03-12 20:24] LABS: Glucose,Whole Blood 125 mg/dL (70-110)
--- NOTE | 2023-03-12 21:00 | P.PN ---
Subjective Progress Note Date: 03/12/23 CHIEF COMPLAINT: Bowel obstruction HISTORY OF PRESENT ILLNESS: The patient is a 67-year-old female status post lysis of adhesions. She had a bowel movement. "I want to eat." ROS: No reports of nausea and vomiting. No bowel movements. No fevers or chills. No new chest pain. No productive sputum PHYSICAL EXAM: VITAL SIGNS: Reviewed CONSTITUTIONAL: Well developed and in no acute distress. EYES: Conjuctivae without sclera icterus. Extraocular movements grossly intact. HEAD, EARS, NOSE, THROAT: Moist buccal mucosa. Head is atraumatic, normocephalic. Hears conversational speech. No nasal drainage. RESPIRATORY: Non-labored respirations and equal bilateral excursions. CARDIOVASCULAR: Palpable 2+ radial pulses. ABDOMEN: Dressing intact. No infection. MUSCULOSKELETAL: No gross deformity of the lower extremities noted. No clubbing. No cyanosis. SKIN: Good skin turgor. Well perfused. NEUROLOGIC: Cranial nerves II through XII grossly intact. No focal or lateralizing signs. PSYCH: Appropriate affect. Alert and oriented to person. CLINICAL LABS: Reviewed. ASSESSMENT: 1. Small bowel obstruction 2. Ileus now resolved PLAN: 1. Advance diet to low fiber. Objective - Vital Signs Vital signs: Vital Signs Temp 97.6 F 03/12/23 15:20 Pulse 62 03/12/23 20:48 Resp 16 03/12/23 15:24 BP 110/68 03/12/23 15:20 Pulse Ox 98 03/12/23 20:31 FiO2 21 03/11/23 07:38 Intake & Output 03/12/23 03/12/23 03/13/23 06:59 18:59 06:59 Intake Total 120 Output Total 200 Balance -200 120 Intake: Oral 120 Output: Urine 200 Other: Voiding Method Toilet Toilet Toilet Bedside Commode Bedside Commode Bedside Commode # Voids 1 2 # Bowel Movements 1 2 ABP, PAP, CO, CI - Last Documented Arterial Blood Pressure 112/51 - Labs CBC & Chem 7: 03/11/23 07:37 03/09/23 04:24 Labs: Abnormal Lab Results - Last 24 Hours (Table) 03/12/23 03/12/23 Range/Units 16:40 20:21 POC Glucose (mg/dL) 162 H 125 H (70-110) mg/dL
[2023-03-13] MEDS: METOCLOPRAMIDE 5 MG/ML 2 ML VIAL IVP SCH ×5 (01:01→23:46)
[2023-03-13] MEDS: PIPERACILLIN-TAZOBACTAM 3.375 GM in SODIUM CHLORIDE 0.9% 100 ML IVPB SCH ×3 (01:01→17:32)
[2023-03-13 06:06] LABS: Glucose,Whole Blood 88 mg/dL (70-110)
[2023-03-13] MEDS: INSULIN ASPART (NovoLOG) 100 UNIT/ML VIAL SQ SCH ×4 (06:22→20:51)
[2023-03-13] MEDS ORDERED: predniSONE 10 MG TAB PO SCH (09:00)
[2023-03-13] MEDS: BUDESONIDE 1 MG/2 ML NEBU INHALATION SCH ×2 (09:07→21:14)
[2023-03-13] MEDS: IPRATROPIUM-ALBUTEROL 3 ML NEB INHALATION SCH ×4 (09:07→21:14)
[2023-03-13] MEDS: FORMOTEROL FUMARATE 20 MCG/2 ML NEBU INHALATION SCH ×2 (09:08→21:14)
[2023-03-13] MEDS: DOCUSATE 100 MG CAP PO SCH ×2 (09:14→20:51)
[2023-03-13] MEDS: oxyBUTYnin chloride 5 MG TAB PO SCH ×2 (09:14→20:51)
[2023-03-13] MEDS: amLODIPine 10 MG TAB PO SCH (09:14)
[2023-03-13] MEDS: ATORVASTATIN 20 MG TAB PO SCH (09:14)
[2023-03-13] MEDS: ENOXAPARIN 40 MG/0.4 ML SYRINGE SQ SCH (09:14)
[2023-03-13] MEDS: PANTOPRAZOLE 40 MG/10 ML VIAL IVP SCH (09:15)
[2023-03-13 11:31] LABS: Glucose,Whole Blood 142 mg/dL (70-110)
--- NOTE | 2023-03-13 11:36 | P.PN ---
Subjective 67-year-old female came to emergency department with complaints of left lower quadrant and diffuse abdominal pain going on for about 3 days along with nausea vomiting patient was constipated did have a bowel movement today. Patient had a CT of the abdomen, showed distal small bowel obstruction. There may be adhesions. Patient does have history of COPD continues to smoke declining patch about a pack per day patient has wheezing on exam uses 2-3 L of oxygen at home. Patient does have leukocytosis no fever patient has mildly elevated creatinine and along with low serum sodium. 03/10/2023 This is a pleasant 67 years old female who presents with high-grade small bowel obstruction secondary to adhesive months status post exploratory laparotomy and lysis of adhesions on 03/01. Also with evidence of acute COPD exacerbation and acute and chronic hypoxic respiratory failure. She was recently transferred from the ICU to the general medical floor yesterday. She still on liquid diet which she tolerates, just a little small bowel movement this morning with no significant abdominal pain or tenderness, no significant dyspnea at rest. She says her PCP is Dr. 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 No labs from today Extremities on Solu-Medrol 20 mg twice daily and Zosyn CTA of the chest: No PE CTA of the abdomen and pelvis on admission showing high-grade bowel obstruction Problemcalcitonin 0.15. 03/11/2023 Patient still has normal bowel movement although she tolerates liquid diet. She was placed on Colace by surgery team. Patient with no significant abdominal pain. She took one small dose of Dilaudid this morning She remains on Zosyn for perforated bowel Prednisone switch to 20 mg She still on 5 L of oxygen compared to 3 L at home Tomorrow is last dose of Zosyn. Check procalcitonin 03/12/2023 patient today looks better more energetic sitting in chair and wants to go home. However she still on liquid diet and had no bowel movement. She tolerates diet well. Give senna 2 tablets once and continue with Colace COPD significantly improving and currently on 10 mg of prednisone and pulmonary team signed off the case 03/13/2023 Patient tolerates diet well, no dyspnea. He had 2 bowel movements after senna and Colace as provided for him. Patient remains on Zosyn now but he is afebrile and pro-calcitonin is negative. Management of antibiotic is deferred to surgery primary team But looks like patient overall improvement and becoming medically stable she has mild bilateral leg swelling secondary to IV fluids she received, consults to elevate leg at bed side, restrict salt and water intake and use is planned Objective - Vital Signs Vital signs: Vital Signs Temp 97.9 F 03/13/23 04:00 Pulse 68 03/13/23 09:37 Resp 17 03/13/23 04:00 BP 107/67 03/13/23 04:00 Pulse Ox 88 L 03/13/23 09:11 FiO2 21 03/11/23 07:38 Intake & Output 03/12/23 03/13/23 03/13/23 18:59 06:59 18:59 Intake Total 120 110 Balance 120 110 Intake: Oral 120 110 Other: Voiding Method Toilet Toilet Bedside Commode Bedside Commode # Voids 2 1 # Bowel Movements 2 1 ABP, PAP, CO, CI - Last Documented Arterial Blood Pressure 112/51 - Exam GENERAL: The patient is alert and oriented x3, not in any acute distress. Well developed, well nourished. HEENT: Pupils are round and equally reacting to light. EOMI. No scleral icterus. No conjunctival pallor. Normocephalic, atraumatic. No pharyngeal erythema. No thyromegaly. CARDIOVASCULAR: S1 and S2 present. No murmurs, rubs, or gallops. PULMONARY: Chest is clear to auscultation, no wheezing or crackles. ABDOMEN: Soft, nontender, nondistended, normoactive bowel sounds. No palpable organomegaly. MUSCULOSKELETAL: No joint swelling or deformity. EXTREMITIES: No cyanosis, clubbing, or pedal edema. NEUROLOGICAL: Gross neurological examination did not reveal any focal deficits. SKIN: No rashes. no petechiae. - Labs CBC & Chem 7: 03/11/23 07:37 03/09/23 04:24 Labs: Abnormal Lab Results - Last 24 Hours (Table) 03/12/23 03/12/23 03/13/23 Range/Units 16:40 20:21 11:29 POC Glucose (mg/dL) 162 H 125 H 142 H (70-110) mg/dL Assessment and Plan Assessment: High-grade bowel obstruction status post exploratory lysis laparotomy and lysis of adhesions on 03/01 Acute COPD exacerbation Acute and chronic hypoxic respiratory failure Pulmonary hypertension Plan: Patient finished her Zosyn, Protonix calcitonin is negative. Differential antibiotic management to surgery team Continue prednisone taper, currently on 10 mg Surgery team consult for the primary team Continue with laxatives when necessary Labs and medication were reviewed.. Continue same treatment. Continue with symptomatic treatment. Resume home medication. Monitor labs and vitals. DVT and GI prophylaxis. Further recommendations as per clinical course of the patient DVT prophylaxis: Subcutaneous Lovenox GI Prophylaxis: Ppi PT/OT: Pending Prognosis is guarded Patient is medically stable Thank you for consulting us
--- NOTE | 2023-03-13 13:17 | P.PN ---
Subjective Progress Note Date: 03/13/23 Principal diagnosis: Acute hypoxemic respiratory failure, likely related to underlying COPD, some bibasilar atelectasis, and possible pulmonary embolism. CT angiogram was completed and showed no evidence of any pulmonary embolism. There is evidence of COPD and some atelectatic change in the lung bases bilaterally and evidence of pulmonary arterial hypertension. I am seeing this patient in consultation today 03/02/2023 in the intensive care unit for a small bowel obstruction status post operative day #1 for exploratory laparotomy and lysis of adhesions. Patient is a 67-year-old female with past medical history significant for COPD, diabetes mellitus type 2, hypertension, CVA/TIA, and is a current tobacco smoker. Patient has had a recent hospital follow-up for COPD exacerbation with Dr. Morris in the office. PFT in the office is consistent with moderate obstruction. Patient manages her COPD with a Breo-elipta inhaler and when necessary albuterol. Patient reportedly presented to the emergency room on February 27 with complaints of abdominal pain and constipation starting [address] without contrast on arrival showed findings suggestive of high-grade distal small bowel obstruction. Without any evidence of perforation or free air. There was also an infrarenal abdominal aortic aneurysm measuring 3.3 cm. Yesterday afternoon, the patient was taken for exploratory laparotomy for lysis of lesions. The patient is currently intubated to the mechanical ventilator. Most recent chest x-ray shows the endotracheal tube 4.7 cm from the michael, bibasilar opacities concerning for possible pneumonia, NG tube coursing below the diaphragm, and a right IJ central venous line with the distal tip in the right atrium. She is sedated on propofol infusing at 45 mcg/kg/m. She is synchronous. Most recent ABGs show a pO2 of 113, pCO2 of 37, pH of 7.33. Current ventilator settings are assist control, respiratory rate 12, tidal volume 400, FiO2 70%, PEEP of 10. Patient is empirically covered on Zosyn. Most recent CBC includes a WBC count 8.4, hemoglobin 9.3, hematocrit 32.6, platelets 161,000. Most recent BMP shows a sodium 134, potassium 4.4, chloride 101, serum CO2 21, BUN 20, creatinine 1.55, glucose 158. NT proBNP was elevated at 7840. Patient does have acute kidney injury. Normal saline is infusing at 75 mL per hour. Urine output is in order of about 30 MLS per hour. Initially, the patient was on Levophed infusion, however, this has been off since the patient arrived to the intensive care unit. Receiving DVT prophylaxis with Lovenox and GI prophylaxis with Protonix. Patient will be monitored in the intensive care unit. Progress note dated 03/03/2023. This is a 67-year-old white female, seen in the intensive care unit, room 255. The patient is postop day #2, status post exploratory laparotomy for bowel obstruction, with lysis of lesions. There was no bowel resection. The patient was extubated yesterday. She is on 8 L high flow oxygen. She's getting saline at 75 mL an hour clinically, he looks well, and can likely move out of the intensive care unit. White count 8, hemoglobin 7.4, hematocrit 25.5, and platelet count 122,000. Sodium 137, potassium 4.2, chlorides 111, CO2 20, anion gap 6, BUN 19, creatinine 1.03. Calcium is 8.2. Chest x-ray shows either right lower lobe infiltrate or atelectasis. Progress note dated 03/04/2023. 67-year-old black female, seen in the intensive care unit, room 255. The patient is postop day #3, status post exploratory laparotomy, for bowel obstruction, with lysis of adhesions. There is no need for a bowel resection on this patient. She was extubated on March 02. Currently, she is on a liter high flow oxygen, and saline at 75 mL an hour. Today we'll give her Lasix 40 mg IV push, and change her fluids to KVO. White count 7.7, hemoglobin 7.5, hematocrit 26.6, and platelet count 112,000. Sodium 140, potassium 3.8, chlorides 111, CO2 20, anion gap normal, BUN 15, and creatinine 0.85. The patient's pattern, is consistent with a non-anion gap hyperchloremic metabolic acidosis. Microbiologic sampling is negative. Chest x-ray shows increased interstitial markings, possibly consistent with interstitial edema. Progress note dated 03/05/2023. 67-year-old black female, seen today in room 255. The patient is postop day #4, status post exploratory laparotomy, for bowel obstruction, with lysis of adhesions. The patient did not require a bowel resection. The patient had been doing relatively well. She was extubated on March 02. Unfortunately, her oxygen requirements have gone up. Yesterday, we gave her some diuretics, which did not really seem to make a difference. She did diurese though. We did order a D- dimer test, which was elevated, and the patient will go for a computed tomography scan of the chest, to rule out pulmonary embolism. Currently, the patient's on 15 L high flow oxygen. She's getting D5 with half-normal saline with 20 mEq of potassium chloride, at 20 mL an hour. White count 8.7, hemoglobi n 8.1, hematocrit 27.6, and platelet count 136,000. D-dimer was elevated at 3.7. Sodium 140 potassium 3.6, chlorides 106, CO2 26, BUN 10, creatinine 0.81. Magnesium is 1.5. Chest x-ray revealed some bibasilar atelectasis. On 03/06/2023, the patient is being seen in follow-up in the intensive care unit. The patient is postop day #5 she underwent a ex-lap and lysis of adhesions. Bowel sounds are distant and hypoactive. The patient is passing bowel movements yet. She has not passed any flatus yet. She was given clear liquid diet by the general surgery. No nausea. No emesis. No abdominal pain or distention. Hemodynamically stable. She is still hypoxemic and she is alternating between a BiPAP at pressures of 10/5 with an FiO2 of 60% and a high flow oxygen at 15 L. There was a concern for a pulmonary embolism. D-dimer was elevated and the patient underwent a CT angiogram that showed no evidence of any pulmonary embolism. There was some nonspecific mediastinal and hilar lymph nodes noted and there was background emphysema and some interstitial edema. The patient was given a dose of Lasix and she diuresed adequately. Over the past 24 hours, she is -2.8 L and she started to drop her urine output. Meanwhile, she had an acute kidney injury the time of presentation which essentially recovered and the creatinine is normalized. The patient is awake and alert and commun icating. Abdominal wound is dry clean and intact. The patient is on D5 half- normal saline at rate of 20 mL an hour. The patient is on IV Zosyn. The patient remains on DuoNeb neb blotchiness on the clock and IV Solu-Medrol 60 mg every 6 hours. She is also on accommodation Perforomist and Pulmicort neb blotchiness treatments. She is on IV Dilaudid. Echocardiogram shows a moderate to severe pulmonary hypertension, preserved LV function. She does wear the BiPAP overnight. She is using this in the spirometer which is falling approximately 1000 03/07/2023, the patient is still elevated. The patient is postop day #6. The patient has been weaned down to 6 L of oxygen nasal cannula. She is using her bronchodilators. Unfortunately, no active bowel sounds are flatness or bowel movements yet. Nevertheless, the abdomen is nondistended. No nausea. No emesis each is tolerating clear liquid diet at this point in time. She is breathing comfortably. She was given a dose of Lasix yesterday and the patient produced adequate urine output and she has been negative fluid balance over the past 24 hours. On her blood work, the WBC count is at 13.2 with hemoglobin of 8.2. Sodiums of 134, potassium is at 3.6 with a BUN of 15 and a creatinine of 0.9. She remains on IV Zosyn. She remains on IV Solu-Medrol 60 mg every 6 hours on bronchodilators around the clock. She is on Lovenox 40 mg subcu portably prophylaxis. She is communicating. She is using the incentive spirometer. Awake and alert. No focal neurological deficits. 03/08/2023, the patient is postop day #7. This morning she is on 5 L of oxygen by nasal cannula. No signs of any significant respiratory distress. She still recovering from her abdominal surgery which included ex-lap and lysis of adhesion. The patient is hemodynamically stable. No nausea. No emesis. Bowel sounds are hypoactive. No bowel movements yet. She still taking clear liquid diet and she is using the incentive spirometer. She remains on IV Zosyn. Awake and alert and communicating. He is on bronchodilators. Solu-Medrol has been weaned off. She is taking 20 mg of IV Solu-Medrol every 12 hours. She remains on IV Zosyn.Blood work from today shows an elderly sick of 13.2 with a hemoglobin of 8.5 and a platelet count of 149. BUN is at 50 with a creatinine of 0.7 and a sodium level is at 135. Glucose at 181. IV fluids are currently at D5 half-normal saline with potassium at the rate of 20 mL an hour. The fluid balance has been -765 mL over the past 24 hours. 03/09/2023, the patient is postop day #8. She is calm and comfortable and she is currently on oxygen at 5 L nasal cannula. Breathing is quite comfortable at this point in time. We haven't seen or witness any bowel movements yet. The patient has no abdominal distention. Bowel sounds are still hypoactive. She is on clear liquid diet. She is ambulating. Surgical once is striking and intact. No nausea. No emesis. She is passing gas however. No other significant events overnight.Her WBC count is at 11 with a hemoglobin of 7.7 and a platelet count of 138. BUN is a 15 with a creatinine of 0.7 and a sodium level is at 136. There is a drop in the hemoglobin from 8.5 down to 7.7 on today's evaluation. Nevertheless, there is no evidence of any GI bleed. The patient remains on bronchodilators, Pulmicort Respules, IV Solu-Medrol 20 mg every 12 hours and IV Zosyn. IV fluids are essentially running at 20 mL an hour of D5 half-normal saline along with potassium supplements. On today's evaluation of 03/10/2023, patient is postop day #9. No new complaints for now. She is passing bowel movement. No nausea or emesis. Surgical one-sided dry clean and intact. Afebrile. Using incentive spirometer. She remains on 5 L of O2 nasal cannula. No new labs are available from today. Labs from yesterday were stable. She left the intensive care unit yesterday she is currently on a medical surgical floor of [facility] for DVT prophylaxis on bronchodilators. 03/11/2020, the patient is postop day #10. Ambulating. Respiratory status is stable. No new complaints. No nausea or vomiting. No abdominal pain. The surgical wound site remains clean. She is on prednisone burst taper. She is also on bronchodilators. She is still on IV Zosyn. Labs are showing a white second 15.1 with a hemoglobin of 8.7. 03/12/2023, the patient is postop day #11. She is passing bowel movements. No nausea or vomiting. No new complaints. She is stable. No respiratory difficulties. Reevaluated today on , patient is now postoperative day #12. Doing well overall, however on physical examination she continues to have significant rhonchi and wheezes bilaterally. We'll place back on Solu-Medrol, continue updrafts, will transition from prednisone to Solu-Medrol again. Objective - Vital Signs Vital signs: Vital Signs Temp 97.9 F 03/13/23 04:00 Pulse 70 03/13/23 13:05 Resp 17 03/13/23 04:00 BP 107/67 03/13/23 04:00 Pulse Ox 88 L 03/13/23 09:11 FiO2 21 03/11/23 07:38 Intake & Output 03/12/23 03/13/23 03/13/23 18:59 06:59 18:59 Intake Total 120 110 Balance 120 110 Intake: Oral 120 110 Other: Voiding Method Toilet Toilet Bedside Commode Bedside Commode # Voids 2 1 # Bowel Movements 2 1 ABP, PAP, CO, CI - Last Documented Arterial Blood Pressure 112/51 - Exam Physical Exam: Revealed a 67-year-old female on 5 L nasal cannula, not in distress. HEENT:[Neck is supple.] [No neck masses.] [No thyromegaly.] [No JVD.] Chest: [Diffuse rhonchi and wheezes noted throughout. Cardiac Exam: [Normal S1 and S2, no S3 gallop, no murmur.] Abdomen: [Soft, nontender, no megaly, no rebound, no guarding, normal bowel sounds.] Extremities: [No clubbing, no edema, no cyanosis.] Neurological Exam: [No focal neurologic deficit.] Alert oriented 3 Psychiatric: Normal mood affect and normal mental status examination. Skin: No rash - Labs CBC & Chem 7: 03/11/23 07:37 03/09/23 04:24 Labs: Abnormal Lab Results - Last 24 Hours (Table) 03/12/23 03/12/23 03/13/23 Range/Units 16:40 20:21 11:29 POC Glucose (mg/dL) 162 H 125 H 142 H (70-110) mg/dL Assessment and Plan Assessment: Impression: High-grade bowel obstruction status post exploratory lysis laparotomy and lysis of adhesions on 03/01 Acute COPD exacerbation Acute and chronic hypoxic respiratory failure Pulmonary hypertension Chronic nicotine dependence History of CVA/TIA Benign essential hypertension Recommendation: Hold on discharge today. Continue bronchodilators Transitioned back to Solu-Medrol. Continue oxygen and titrate accordingly Continue GI and DVT prophylaxis We will continue to follow. Discussed condition with internal medicine on the case. Time with Patient: Less than 30
[2023-03-13 16:27] LABS: Glucose,Whole Blood 161 mg/dL (70-110)
--- NOTE | 2023-03-13 16:27 | P.PN ---
Subjective Progress Note Date: 03/13/23 CHIEF COMPLAINT: Small bowel structure HISTORY OF PRESENT ILLNESS: Patient is status post exploratory laparotomy with lysis of adhesions for small bowel obstruction secondary to adhesive band causing a closed loop obstruction on 03/01/23. Patient is currently on the cardiac floor. Patient has been having bowel movements. She is tolerating a low fiber diet. She is afebrile. Patient's by pulmonary service this afternoon and her respiratory status again has worsened and they have restarted IV stero ids. Afebrile Patient seen and examined with Dr. yepez PHYSICAL EXAM: VITAL SIGNS: Reviewed. GENERAL: Well-developed in no acute distress. ABDOMEN: Soft. Nondistended. Dressing clean dry and intact NEUROLOGIC: Awake and alert and orientated 3 ASSESSMENT: 1. Small bowel obstruction secondary to adhesive band causing a closed loop obstruction status post exploratory laparotomy with lysis of adhesions 2. Dilutional anemia 3. COPD 4. Atelectasis PLAN: -Continue low fiber diet -Continue Colace -Encourage patient to increase activity level -Encourage patient to use incentive spirometer -Continue supportive care -Discharge when cleared by pulmonary service -We'll have nursing staff remove every other staple from abdominal incision -DVT prophylaxis Lovenox and GI prophylaxis protonix Physician Gate Shear Operator note has been reviewed by physician. Signing provider agrees with the documented findings, assessment, and plan of care. Objective - Vital Signs Vital signs: Vital Signs Temp 97.9 F 03/13/23 04:00 Pulse 70 03/13/23 13:05 Resp 17 03/13/23 04:00 BP 107/67 03/13/23 04:00 Pulse Ox 88 L 03/13/23 09:11 FiO2 21 03/11/23 07:38 Intake & Output 03/12/23 03/13/23 03/13/23 18:59 06:59 18:59 Intake Total 120 110 Balance 120 110 Intake: Oral 120 110 Other: Voiding Method Toilet Toilet Bedside Commode Bedside Commode # Voids 2 1 # Bowel Movements 2 1 ABP, PAP, CO, CI - Last Documented Arterial Blood Pressure 112/51 - Labs CBC & Chem 7: 03/11/23 07:37 03/09/23 04:24 Labs: Abnormal Lab Results - Last 24 Hours (Table) 03/12/23 03/12/23 03/13/23 Range/Units 16:40 20:21 11:29 POC Glucose (mg/dL) 162 H 125 H 142 H (70-110) mg/dL
[2023-03-13] MEDS: methylPREDNISolone SOD SUCCI 125 MG/2 ML VIAL IV SCH ×2 (17:42→23:46)
[2023-03-13] MEDS: ACETAMINOPHEN TAB 325 MG TAB PO PRN (17:44)
[2023-03-13 20:02] LABS: Glucose,Whole Blood 219 mg/dL (70-110)
[2023-03-14 05:55] LABS: Glucose,Whole Blood 243 mg/dL (70-110)
[2023-03-14] MEDS: METOCLOPRAMIDE 5 MG/ML 2 ML VIAL IVP SCH ×4 (06:11→23:23)
[2023-03-14] MEDS: INSULIN ASPART (NovoLOG) 100 UNIT/ML VIAL SQ SCH ×4 (06:11→21:03)
[2023-03-14] MEDS: methylPREDNISolone SOD SUCCI 125 MG/2 ML VIAL IV SCH (06:11)
[2023-03-14 08:11] LABS: Anisocytosis Slight; Basophils % (A) 0 %; Eosinophils % (A) 0 %; HCT 26.3 % (34.0-46.0); HGB 7.6 gm/dL (11.4-16.0); Hypochromasia Marked; Lymphocytes # (A) 0.7 k/uL (1.0-4.8); Lymphocytes % (A) 8 %; MCH 19.3 pg (25.0-35.0); MCV 66.3 fL (80.0-100.0); Mean Platelet Volume 9.4; Microcytosis Marked; Monocytes # (A) 0.3 k/uL (0-1.0); Monocytes % (A) 3 %; Neutrophils # (A) 7.8 k/uL (1.3-7.7); Neutrophils % (A) 88 %; Platelet Count 133 k/uL (150-450); Poikilocytosis Moderate; RBC 3.97 m/uL (3.80-5.40); WBC 8.9 k/uL (3.8-10.6)
[2023-03-14] MEDS: IPRATROPIUM-ALBUTEROL 3 ML NEB INHALATION SCH ×4 (09:21→21:09)
[2023-03-14] MEDS: BUDESONIDE 1 MG/2 ML NEBU INHALATION SCH ×2 (09:22→21:08)
[2023-03-14] MEDS: FORMOTEROL FUMARATE 20 MCG/2 ML NEBU INHALATION SCH ×2 (09:22→21:09)
[2023-03-14] MEDS: ATORVASTATIN 20 MG TAB PO SCH (10:27)
[2023-03-14] MEDS: DOCUSATE 100 MG CAP PO SCH ×2 (10:27→21:03)
[2023-03-14] MEDS: ENOXAPARIN 40 MG/0.4 ML SYRINGE SQ SCH (10:27)
[2023-03-14] MEDS: amLODIPine 10 MG TAB PO SCH (10:27)
[2023-03-14] MEDS: oxyBUTYnin chloride 5 MG TAB PO SCH ×2 (10:27→21:03)
[2023-03-14] MEDS: ACETAMINOPHEN TAB 325 MG TAB PO PRN (10:29)
[2023-03-14] MEDS: PANTOPRAZOLE 40 MG/10 ML VIAL IVP SCH (10:30)
[2023-03-14 11:46] LABS: Glucose,Whole Blood 227 mg/dL (70-110)
--- NOTE | 2023-03-14 13:05 | P.PN ---
Subjective Progress Note Date: 03/14/23 Principal diagnosis: Acute hypoxemic respiratory failure, likely related to underlying COPD, bibasilar atelectasis I am seeing this patient in consultation today 03/02/2023 in the intensive care unit for a small bowel obstruction status post operative day #1 for exploratory laparotomy and lysis of adhesions. Patient is a 67-year-old female with past m edical history significant for COPD, diabetes mellitus type 2, hypertension, CVA/TIA, and is a current tobacco smoker. Patient has had a recent hospital follow-up for COPD exacerbation with Dr. Morris in the office. PFT in the office is consistent with moderate obstruction. Patient manages her COPD with a Breo-elipta inhaler and when necessary albuterol. Patient reportedly presented to the emergency room on February 27 with complaints of abdominal pain and constipation starting [address] without contrast on arrival showed findings suggestive of high-grade distal small bowel obstruction. Without any evidence of perforation or free air. There was also an infrarenal abdominal aortic aneurysm measuring 3.3 cm. Yesterday afternoon, the patient was taken for exploratory laparotomy for lysis of lesions. The patient is currently intubated to the mechanical ventilator. Most recent chest x-ray shows the endotracheal tube 4.7 cm from the michael, bibasilar opacities concerning for possible pneumonia, NG tube coursing below the diaphragm, and a right IJ central venous line with the distal tip in the right atrium. She is sedated on propofol infusing at 45 mcg/kg/m. She is synchronous. Most recent ABGs show a pO2 of 113, pCO2 of 37, pH of 7.33. Current ventilator settings are assist control, respiratory rate 12, tidal volume 400, FiO2 70%, PEEP of 10. Patient is empirically covered on Zosyn. Most recent CBC includes a WBC count 8.4, hemoglobin 9.3, hematocrit 32.6, platelets 161,000. Most recent BMP shows a sodium 134, potassium 4.4, chloride 101, serum CO2 21, BUN 20, creatinine 1.55, glucose 158. NT proBNP was elevated at 7840. Patient does have acute kidney injury. Normal saline is infusing at 75 mL per hour. Urine output is in order of about 30 MLS per hour. Initially, the patient was on Levophed infusion, however, this has been off since the patient arrived to the intensive care unit. Receiving DVT prophylaxis with Lovenox and GI prophylaxis with Protonix. Patient will be monitored in the intensive care unit. Progress note dated 03/03/2023. This is a 67-year-old white female, seen in the intensive care unit, room 255. The patient is postop day #2, status post exploratory laparotomy for bowel obstruction, with lysis of lesions. There was no bowel resection. The patient was extubated yesterday. She is on 8 L high flow oxygen. She's getting saline at 75 mL an hour clinically, he looks well, and can likely move out of the int ensive care unit. White count 8, hemoglobin 7.4, hematocrit 25.5, and platelet count 122,000. Sodium 137, potassium 4.2, chlorides 111, CO2 20, anion gap 6, BUN 19, creatinine 1.03. Calcium is 8.2. Chest x-ray shows either right lower lobe infiltrate or atelectasis. Progress note dated 03/04/2023. 67-year-old black female, seen in the intensive care unit, room 255. The patient is postop day #3, status post exploratory laparotomy, for bowel obstruction, with lysis of adhesions. There is no need for a bowel resection on this patient. She was extubated on March 02. Currently, she is on a liter high flow oxygen, and saline at 75 mL an hour. Today we'll give her Lasix 40 mg IV push, and change her fluids to KVO. White count 7.7, hemoglobin 7.5, hematocrit 26.6, and platelet count 112,000. Sodium 140, potassium 3.8, chlorides 111, CO2 20, anion gap normal, BUN 15, and creatinine 0.85. The patient's pattern, is consistent with a non-anion gap hyperchloremic metabolic acidosis. M icrobiologic sampling is negative. Chest x-ray shows increased interstitial markings, possibly consistent with interstitial edema. Progress note dated 03/05/2023. 67-year-old black female, seen today in room 255. The patient is postop day #4, status post exploratory laparotomy, for bowel obstruction, with lysis of adhesions. The patient did not require a bowel resection. The patient had been doing relatively well. She was extubated on March 02. Unfortunately, her oxygen requirements have gone up. Yesterday, we gave her some diuretics, which did not really seem to make a difference. She did diurese though. We did order a D- dimer test, which was elevated, and the patient will go for a computed tomography scan of the chest, to rule out pulmonary embolism. Currently, the patient's on 15 L high flow oxygen. She's getting D5 with half-normal saline with 20 mEq of potassium chloride, at 20 mL an hour. White count 8.7, hemoglobin 8.1, hematocrit 27.6, and platelet count 136,000. D-dimer was elevated at 3.7. Sodium 140 potassium 3.6, chlorides 106, CO2 26, BUN 10, creatinine 0.81. Magnesium is 1.5. Chest x-ray revealed some bibasilar atelectasis. On 03/06/2023, the patient is being seen in follow-up in the intensive care unit. The patient is postop day #5 she underwent a ex-lap and lysis of adhesions. Bowel sounds are distant and hypoactive. The patient is passing bowel movements yet. She has not passed any flatus yet. She was given clear liquid diet by the general surgery. No nausea. No emesis. No abdominal pain or distention. Hemodynamically stable. She is still hypoxemic and she is alternating between a BiPAP at pressures of 10/5 with an FiO2 of 60% and a high flow oxygen at 15 L. There was a concern for a pulmonary embolism. D-dimer was elevated and the patient underwent a CT angiogram that showed no evidence of any pulmonary embolism. There was some nonspecific mediastinal and hilar lymph nodes noted and there was background emphysema and some interstitial edema. The patient was given a dose of Lasix and she diuresed adequately. Over the past 24 hours, she is -2.8 L and she started to drop her urine output. Meanwhile, she had an acute kidney injury the time of presentation which essentially recovered and the creatinine is normalized. The patient is awake and alert and communicating. Abdominal wound is dry clean and intact. The patient is on D5 half-normal saline at rate of 20 mL an hour. The patient is on IV Zosyn. The p atient remains on DuoNeb neb blotchiness on the clock and IV Solu-Medrol 60 mg every 6 hours. She is also on accommodation Perforomist and Pulmicort neb blotchiness treatments. She is on IV Dilaudid. Echocardiogram shows a moderate to severe pulmonary hypertension, preserved LV function. She does wear the BiPAP overnight. She is using this in the spirometer which is falling approximately 1000 03/07/2023, the patient is still elevated. The patient is postop day #6. The patient has been weaned down to 6 L of oxygen nasal cannula. She is using her bronchodilators. Unfortunately, no active bowel sounds are flatness or bowel movements yet. Nevertheless, the abdomen is nondistended. No nausea. No emesis each is tolerating clear liquid diet at this point in time. She is breathing comfortably. She was given a dose of Lasix yesterday and the patient produced adequate urine output and she has been negative fluid balance over the past 24 hours. On her blood work, the WBC count is at 13.2 with hemoglobin of 8.2. Sodiums of 134, potassium is at 3.6 with a BUN of 15 and a creatinine of 0.9. She remains on IV Zosyn. She remains on IV Solu-Medrol 60 mg every 6 hours on bronchodilators around the clock. She is on Lovenox 40 mg subcu portably prophylaxis. She is communicating. She is using the incentive spirometer. Awake and alert. No focal neurological deficits. 03/08/2023, the patient is postop day #7. This morning she is on 5 L of oxygen by nasal cannula. No signs of any significant respiratory distress. She still recovering from her abdominal surgery which included ex-lap and lysis of adhesion. The patient is hemodynamically stable. No nausea. No emesis. Bowel sounds are hypoactive. No bowel movements yet. She still taking clear liquid diet and she is using the incentive spirometer. She remains on IV Zosyn. Awake and alert and communicating. He is on bronchodilators. Solu-Medrol has been weaned off. She is taking 20 mg of IV Solu-Medrol every 12 hours. She remains on IV Zosyn.Blood work from today shows an elderly sick of 13.2 with a hemog lobin of 8.5 and a platelet count of 149. BUN is at 50 with a creatinine of 0.7 and a sodium level is at 135. Glucose at 181. IV fluids are currently at D5 half-normal saline with potassium at the rate of 20 mL an hour. The fluid balance has been -765 mL over the past 24 hours. 03/09/2023, the patient is postop day #8. She is calm and comfortable and she is currently on oxygen at 5 L nasal cannula. Breathing is quite comfortable at this point in time. We haven't seen or witness any bowel movements yet. The patient has no abdominal distention. Bowel sounds are still hypoactive. She is on clear liquid diet. She is ambulating. Surgical once is striking and intact. No nausea. No emesis. She is passing gas however. No other significant events overnight.Her WBC count is at 11 with a hemoglobin of 7.7 and a platelet count of 138. BUN is a 15 with a creatinine of 0.7 and a sodium level is at 136. There is a drop in the hemoglobin from 8.5 down to 7.7 on today's evaluation. Nevertheless, there is no evidence of any GI bleed. The patient remains on bronchodilators, Pulmicort Respules, IV Solu-Medrol 20 mg every 12 hours and IV Zosyn. IV fluids are essentially running at 20 mL an hour of D5 half-normal saline along with potassium supplements. On today's evaluation of 03/10/2023, patient is postop day #9. No new complaints for now. She is passing bowel movement. No nausea or emesis. Surgical one-sided dry clean and intact. Afebrile. Using incentive spirometer. She remains on 5 L of O2 nasal cannula. No new labs are available from today. Labs from yesterday were stable. She left the intensive care unit yesterday she is currently on a medical surgical floor of [facility] for DVT prophylaxis on bronchodilators. 03/11/2020, the patient is postop day #10. Ambulating. Respiratory status is stable. No new complaints. No nausea or vomiting. No abdominal pain. The surgical wound site remains clean. She is on prednisone burst taper. She is also on bronchodilators. She is still on IV Zosyn. Labs are showing a white second 15.1 with a hemoglobin of 8.7. 03/12/2023, the patient is postop day #11. She is passing bowel movements. No nausea or vomiting. No new complaints. She is stable. No respiratory difficulties. Reevaluated today on , patient is now postoperative day #12. Doing well overall, however on physical examination she continues to have significant rhonchi and wheezes bilaterally. We'll place back on Solu-Medrol, continue updrafts, will transition from prednisone to Solu-Medrol again. Patient was reevaluated today on 03/14/23, doing much better, breathing easier, she is now postoperative day #13, pulmonary status didn't improve, hence I discussed with the admitting physician that the patient could be discharged home back on prednisone from Solu-Medrol, and her usual bronchodilators. Objective - Vital Signs Vital signs: Vital Signs Temp 97.5 F L 03/14/23 09:12 Pulse 78 03/14/23 09:43 Resp 18 03/14/23 09:43 BP 122/67 03/14/23 09:12 Pulse Ox 94 L 03/14/23 09:22 FiO2 21 03/11/23 07:38 Intake & Output 03/13/23 03/14/23 03/14/23 18:59 06:59 18:59 Intake Total 110 240 Output Total 500 Balance 110 -260 Intake: Oral 110 240 Output: Urine 500 Other: Voiding Method Toilet Toilet Toilet Bedside Commode Bedside Commode Bedside Commode # Voids 3 1 1 # Bowel Movements 1 ABP, PAP, CO, CI - Last Documented Arterial Blood Pressure 112/51 - Exam Physical Exam: Revealed a 67-year-old female on few liters nasal cannula. HEENT:[Neck is supple.] [No neck masses.] [No thyromegaly.] [No JVD.] Chest: [Clear breath sound bilaterally hardly any rhonchi or wheezes Cardiac Exam: [Normal S1 and S2, no S3 gallop, no murmur.] Abdomen: [Soft, nontender, no megaly, no rebound, no guarding, normal bowel sounds.] Extremities: [No clubbing, no edema, no cyanosis.] Neurological Exam: [No focal neurologic deficit.] Alert oriented 3 Psychiatric: Normal mood affect and normal mental status examination. Skin: No rash - Labs CBC & Chem 7: 03/14/23 07:31 03/09/23 04:24 Labs: Abnormal Lab Results - Last 24 Hours (Table) 03/13/23 03/13/23 03/14/23 Range/Units 16:26 20:00 05:53 Hgb (11.4-16.0) gm/dL Hct (34.0-46.0) % MCV (80.0-100.0) fL MCH (25.0-35.0) pg MCHC (31.0-37.0) g/dL RDW (11.5-15.5) % Plt Count (150-450) k/uL Neutrophils # (1.3-7.7) k/uL Lymphocytes # (1.0-4.8) k/uL POC Glucose (mg/dL) 161 H 219 H 243 H (70-110) mg/dL 03/14/23 03/14/23 Range/Units 07:31 11:39 Hgb 7.6 L (11.4-16.0) gm/dL Hct 26.3 L (34.0-46.0) % MCV 66.3 L (80.0-100.0) fL MCH 19.3 L (25.0-35.0) pg MCHC 29.0 L (31.0-37.0) g/dL RDW 19.0 H (11.5-15.5) % Plt Count 133 L (150-450) k/uL Neutrophils # 7.8 H (1.3-7.7) k/uL Lymphocytes # 0.7 L (1.0-4.8) k/uL POC Glucose (mg/dL) 227 H (70-110) mg/dL Assessment and Plan Assessment: Impression: High-grade bowel obstruction status post exploratory lysis laparotomy and lysis of adhesions on 03/01 Acute COPD exacerbation Acute and chronic hypoxic respiratory failure Pulmonary hypertension Chronic nicotine dependence History of CVA/TIA Benign essential hypertension Recommendation: Will clear the patient for discharge planning if cleared by other consultants Continue bronchodilators Patient to transitioned from Solu-Medrol to prednisone 30 mg tapered over 2 weeks Continue oxygen , patient may qualify for home O2 this is to be evaluated before patient is discharged Continue GI and DVT prophylaxis Updated internal medicine on her situation. Time with Patient: Less than 30
--- NOTE | 2023-03-14 13:38 | P.DS ---
Providers Date of admission: 02/27/23 13:41 Expected date of discharge: 03/14/23 Attending physician: Kareem Earl Consults: 02/27/23 14:07 Consult Physician Urgent Consulting Provider: Tiana Hayes Consult Reason/Comments: Medical management Do you want consulting provider notified?: Yes 03/01/23 15:09 Consult Physician Routine Consulting Provider: Sherwin Baxter Consult Reason/Comments: ICU management Do you want consulting provider notified?: Yes Primary care physician: Stated None Hospital Course: Discharge diagnosis 1. Small bowel obstruction secondary to adhesive band causing a closed loop obstruction status post exploratory laparotomy with lysis of adhesions 2. Dilutional anemia 3. COPD exacerbation 4. Atelectasis Hospital course This is a 67-year-old female who presented to the hospital with complaints of abdominal pain with nausea and vomiting. She is found have evidence of small bowel obstruction and had NG tube placed. Patient did not progress with conservative management. She required surgical intervention. She is status post exploratory laparotomy with lysis of adhesions for a small bowel obstruction secondary to adhesive band causing a closed loop obstruction. Patient did require to be in the ICU due to her pulmonary status. She did have evidence of a COPD exacerbation and was requiring high levels of oxygen. Patient's pulmonary status has improved. She has been cleared by pulmonary service for discharge. She is tolerating a low fiber diet. She is having bowel movements. Denies any abdominal pain. She has been up and ambulating. She is afebrile. She is stable for discharge. She's been cleared for discharge by all consultants. Please refer to chart for any further details. Physician Psychiatric Social Worker note has been reviewed by physician. Signing provider agrees with the documented findings, assessment, and plan of care. Patient Condition at Discharge: Stable Plan - Discharge Summary Discharge Rx Participant: No New Discharge Prescriptions: New amLODIPine [Norvasc] 10 mg PO DAILY tab Omeprazole [PriLOSEC] 40 mg PO DAILY #30 cap Acetaminophen Tab [Tylenol Tab] 650 mg PO Q4H PRN #30 tablet PRN Reason: Pain Docusate [Colace] 100 mg PO BID PRN cap PRN Reason: Constipation predniSONE 10 mg PO DIRECTED #25 tab Continue Albuterol Inhaler [Ventolin Hfa Inhaler] 1 - 2 puff INHALATION RT-Q6H PRN PRN Reason: Shortness Of Breath Atorvastatin [Lipitor] 20 mg PO DAILY Budesonide-Formot 160-4.5 Mcg [Symbicort 160-4.5 Mcg Inhaler] 2 puff INHALATION RT-BID 30 Days #1 each Acetaminophen Tab [Tylenol] 650 mg PO Q6HR PRN tab PRN Reason: Fever And/ Or Pain metFORMIN HCL 500 mg PO DAILY #30 tab oxyBUTYnin chloride 5 mg PO BID Aspirin EC [Ecotrin Low Dose] 81 mg PO DAILY Discontinued lisinopriL [Zestril] 20 mg PO DAILY 30 Days #30 tab amLODIPine [Norvasc] 5 mg PO HS #30 tab Discharge Medication List Albuterol Inhaler [Ventolin Hfa Inhaler] 1 - 2 puff INHALATION RT-Q6H PRN 0 01/02/23 [History] Aspirin EC [Ecotrin Low Dose] 81 mg PO DAILY 01/02/23 [History] Atorvastatin [Lipitor] 20 mg PO DAILY 01/02/23 [History] Budesonide-Formot 160-4.5 Mcg [Symbicort 160-4.5 Mcg Inhaler] 2 puff INHALATION RT-BID 30 Days #1 each 01/05/23 [Rx] Acetaminophen Tab [Tylenol] 650 mg PO Q6HR PRN tab 01/23/23 [Rx] metFORMIN HCL 500 mg PO DAILY #30 tab 01/23/23 [Rx] oxyBUTYnin chloride 5 mg PO BID 02/27/23 [History] Acetaminophen Tab [Tylenol Tab] 650 mg PO Q4H PRN #30 tablet 03/13/23 [Rx] Docusate [Colace] 100 mg PO BID PRN cap 03/14/23 [Rx] Omeprazole [PriLOSEC] 40 mg PO DAILY #30 cap 03/14/23 [Rx] amLODIPine [Norvasc] 10 mg PO DAILY tab 03/14/23 [Rx] predniSONE 10 mg PO DIRECTED #25 tab 03/14/23 [Rx] Follow up Appointment(s)/Referral(s): Luli Garcia,Home Care [NON-STAFF] - None,Stated [Primary Care Provider] - 1-2 days Kareem Earl MD [STAFF PHYSICIAN] - 1 Week Activity/Diet/Wound Care/Special Instructions: PCP: VERNA BARTHOLOMEW - [id number] [place] [address] - No lifting over 10 pounds Shower daily. No soaking or tub baths for 2 weeks Very light activity until you are reevaluated at your follow up appointment with your surgeon Discharge Disposition: HOME WITH HOME HEALTH SERVICES
[2023-03-14 20:45] LABS: Glucose,Whole Blood 159 mg/dL (70-110)
[2023-03-14] MEDS: PIPERACILLIN-TAZOBACTAM 3.375 GM in SODIUM CHLORIDE 0.9% 100 ML IVPB SCH (20:58)
[2023-03-15] MEDS: PIPERACILLIN-TAZOBACTAM 3.375 GM in SODIUM CHLORIDE 0.9% 100 ML IVPB SCH (04:30)
[2023-03-15] MEDS: METOCLOPRAMIDE 5 MG/ML 2 ML VIAL IVP SCH (04:30)
[2023-03-15 06:12] LABS: Glucose,Whole Blood 148 mg/dL (70-110)
[2023-03-15] MEDS: INSULIN ASPART (NovoLOG) 100 UNIT/ML VIAL SQ SCH (06:14)
[2023-03-15] MEDS: BUDESONIDE 1 MG/2 ML NEBU INHALATION SCH (08:53)
[2023-03-15] MEDS: IPRATROPIUM-ALBUTEROL 3 ML NEB INHALATION SCH ×3 (08:53→11:20)
[2023-03-15] MEDS: FORMOTEROL FUMARATE 20 MCG/2 ML NEBU INHALATION SCH (08:53)
[2023-03-15] MEDS ORDERED: predniSONE 20 MG TAB PO SCH (09:00)
[2023-03-15] MEDS: ENOXAPARIN 40 MG/0.4 ML SYRINGE SQ SCH (09:23)
[2023-03-15] MEDS: amLODIPine 10 MG TAB PO SCH (09:23)
[2023-03-15] MEDS: ATORVASTATIN 20 MG TAB PO SCH (09:23)
[2023-03-15] MEDS: DOCUSATE 100 MG CAP PO SCH (09:23)
[2023-03-15] MEDS: oxyBUTYnin chloride 5 MG TAB PO SCH (09:23)
[2023-03-15] MEDS: PANTOPRAZOLE 40 MG/10 ML VIAL IVP SCH (09:24)
[2023-03-15 09:27] VITALS: PULSE 92; RESP 20; TEMP 97.8
[2023-03-15 09:28] VITALS: BP 113/61
--- NOTE | 2023-03-15 11:32 | P.PN ---
Subjective Progress Note Date: 03/15/23 Principal diagnosis: Acute hypoxemic respiratory failure, likely related to underlying COPD, bibasilar atelectasis I am seeing this patient in consultation today 03/02/2023 in the intensive care unit for a small bowel obstruction status post operative day #1 for exploratory laparotomy and lysis of adhesions. Patient is a 67-year-old female with past m edical history significant for COPD, diabetes mellitus type 2, hypertension, CVA/TIA, and is a current tobacco smoker. Patient has had a recent hospital follow-up for COPD exacerbation with Dr. Morris in the office. PFT in the office is consistent with moderate obstruction. Patient manages her COPD with a Breo-elipta inhaler and when necessary albuterol. Patient reportedly presented to the emergency room on February 27 with complaints of abdominal pain and constipation starting [address] without contrast on arrival showed findings suggestive of high-grade distal small bowel obstruction. Without any evidence of perforation or free air. There was also an infrarenal abdominal aortic aneurysm measuring 3.3 cm. Yesterday afternoon, the patient was taken for exploratory laparotomy for lysis of lesions. The patient is currently intubated to the mechanical ventilator. Most recent chest x-ray shows the endotracheal tube 4.7 cm from the michael, bibasilar opacities concerning for possible pneumonia, NG tube coursing below the diaphragm, and a right IJ central venous line with the distal tip in the right atrium. She is sedated on propofol infusing at 45 mcg/kg/m. She is synchronous. Most recent ABGs show a pO2 of 113, pCO2 of 37, pH of 7.33. Current ventilator settings are assist control, respiratory rate 12, tidal volume 400, FiO2 70%, PEEP of 10. Patient is empirically covered on Zosyn. Most recent CBC includes a WBC count 8.4, hemoglobin 9.3, hematocrit 32.6, platelets 161,000. Most recent BMP shows a sodium 134, potassium 4.4, chloride 101, serum CO2 21, BUN 20, creatinine 1.55, glucose 158. NT proBNP was elevated at 7840. Patient does have acute kidney injury. Normal saline is infusing at 75 mL per hour. Urine output is in order of about 30 MLS per hour. Initially, the patient was on Levophed infusion, however, this has been off since the patient arrived to the intensive care unit. Receiving DVT prophylaxis with Lovenox and GI prophylaxis with Protonix. Patient will be monitored in the intensive care unit. Progress note dated 03/03/2023. This is a 67-year-old white female, seen in the intensive care unit, room 255. The patient is postop day #2, status post exploratory laparotomy for bowel obstruction, with lysis of lesions. There was no bowel resection. The patient was extubated yesterday. She is on 8 L high flow oxygen. She's getting saline at 75 mL an hour clinically, he looks well, and can likely move out of the int ensive care unit. White count 8, hemoglobin 7.4, hematocrit 25.5, and platelet count 122,000. Sodium 137, potassium 4.2, chlorides 111, CO2 20, anion gap 6, BUN 19, creatinine 1.03. Calcium is 8.2. Chest x-ray shows either right lower lobe infiltrate or atelectasis. Progress note dated 03/04/2023. 67-year-old black female, seen in the intensive care unit, room 255. The patient is postop day #3, status post exploratory laparotomy, for bowel obstruction, with lysis of adhesions. There is no need for a bowel resection on this patient. She was extubated on March 02. Currently, she is on a liter high flow oxygen, and saline at 75 mL an hour. Today we'll give her Lasix 40 mg IV push, and change her fluids to KVO. White count 7.7, hemoglobin 7.5, hematocrit 26.6, and platelet count 112,000. Sodium 140, potassium 3.8, chlorides 111, CO2 20, anion gap normal, BUN 15, and creatinine 0.85. The patient's pattern, is consistent with a non-anion gap hyperchloremic metabolic acidosis. M icrobiologic sampling is negative. Chest x-ray shows increased interstitial markings, possibly consistent with interstitial edema. Progress note dated 03/05/2023. 67-year-old black female, seen today in room 255. The patient is postop day #4, status post exploratory laparotomy, for bowel obstruction, with lysis of adhesions. The patient did not require a bowel resection. The patient had been doing relatively well. She was extubated on March 02. Unfortunately, her oxygen requirements have gone up. Yesterday, we gave her some diuretics, which did not really seem to make a difference. She did diurese though. We did order a D- dimer test, which was elevated, and the patient will go for a computed tomography scan of the chest, to rule out pulmonary embolism. Currently, the patient's on 15 L high flow oxygen. She's getting D5 with half-normal saline with 20 mEq of potassium chloride, at 20 mL an hour. White count 8.7, hemoglobin 8.1, hematocrit 27.6, and platelet count 136,000. D-dimer was elevated at 3.7. Sodium 140 potassium 3.6, chlorides 106, CO2 26, BUN 10, creatinine 0.81. Magnesium is 1.5. Chest x-ray revealed some bibasilar atelectasis. On 03/06/2023, the patient is being seen in follow-up in the intensive care unit. The patient is postop day #5 she underwent a ex-lap and lysis of adhesions. Bowel sounds are distant and hypoactive. The patient is passing bowel movements yet. She has not passed any flatus yet. She was given clear liquid diet by the general surgery. No nausea. No emesis. No abdominal pain or distention. Hemodynamically stable. She is still hypoxemic and she is alternating between a BiPAP at pressures of 10/5 with an FiO2 of 60% and a high flow oxygen at 15 L. There was a concern for a pulmonary embolism. D-dimer was elevated and the patient underwent a CT angiogram that showed no evidence of any pulmonary embolism. There was some nonspecific mediastinal and hilar lymph nodes noted and there was background emphysema and some interstitial edema. The patient was given a dose of Lasix and she diuresed adequately. Over the past 24 hours, she is -2.8 L and she started to drop her urine output. Meanwhile, she had an acute kidney injury the time of presentation which essentially recovered and the creatinine is normalized. The patient is awake and alert and communicating. Abdominal wound is dry clean and intact. The patient is on D5 half-normal saline at rate of 20 mL an hour. The patient is on IV Zosyn. The p atient remains on DuoNeb neb blotchiness on the clock and IV Solu-Medrol 60 mg every 6 hours. She is also on accommodation Perforomist and Pulmicort neb blotchiness treatments. She is on IV Dilaudid. Echocardiogram shows a moderate to severe pulmonary hypertension, preserved LV function. She does wear the BiPAP overnight. She is using this in the spirometer which is falling approximately 1000 03/07/2023, the patient is still elevated. The patient is postop day #6. The patient has been weaned down to 6 L of oxygen nasal cannula. She is using her bronchodilators. Unfortunately, no active bowel sounds are flatness or bowel movements yet. Nevertheless, the abdomen is nondistended. No nausea. No emesis each is tolerating clear liquid diet at this point in time. She is breathing comfortably. She was given a dose of Lasix yesterday and the patient produced adequate urine output and she has been negative fluid balance over the past 24 hours. On her blood work, the WBC count is at 13.2 with hemoglobin of 8.2. Sodiums of 134, potassium is at 3.6 with a BUN of 15 and a creatinine of 0.9. She remains on IV Zosyn. She remains on IV Solu-Medrol 60 mg every 6 hours on bronchodilators around the clock. She is on Lovenox 40 mg subcu portably prophylaxis. She is communicating. She is using the incentive spirometer. Awake and alert. No focal neurological deficits. 03/08/2023, the patient is postop day #7. This morning she is on 5 L of oxygen by nasal cannula. No signs of any significant respiratory distress. She still recovering from her abdominal surgery which included ex-lap and lysis of adhesion. The patient is hemodynamically stable. No nausea. No emesis. Bowel sounds are hypoactive. No bowel movements yet. She still taking clear liquid diet and she is using the incentive spirometer. She remains on IV Zosyn. Awake and alert and communicating. He is on bronchodilators. Solu-Medrol has been weaned off. She is taking 20 mg of IV Solu-Medrol every 12 hours. She remains on IV Zosyn.Blood work from today shows an elderly sick of 13.2 with a hemog lobin of 8.5 and a platelet count of 149. BUN is at 50 with a creatinine of 0.7 and a sodium level is at 135. Glucose at 181. IV fluids are currently at D5 half-normal saline with potassium at the rate of 20 mL an hour. The fluid balance has been -765 mL over the past 24 hours. 03/09/2023, the patient is postop day #8. She is calm and comfortable and she is currently on oxygen at 5 L nasal cannula. Breathing is quite comfortable at this point in time. We haven't seen or witness any bowel movements yet. The patient has no abdominal distention. Bowel sounds are still hypoactive. She is on clear liquid diet. She is ambulating. Surgical once is striking and intact. No nausea. No emesis. She is passing gas however. No other significant events overnight.Her WBC count is at 11 with a hemoglobin of 7.7 and a platelet count of 138. BUN is a 15 with a creatinine of 0.7 and a sodium level is at 136. There is a drop in the hemoglobin from 8.5 down to 7.7 on today's evaluation. Nevertheless, there is no evidence of any GI bleed. The patient remains on bronchodilators, Pulmicort Respules, IV Solu-Medrol 20 mg every 12 hours and IV Zosyn. IV fluids are essentially running at 20 mL an hour of D5 half-normal saline along with potassium supplements. On today's evaluation of 03/10/2023, patient is postop day #9. No new complaints for now. She is passing bowel movement. No nausea or emesis. Surgical one-sided dry clean and intact. Afebrile. Using incentive spirometer. She remains on 5 L of O2 nasal cannula. No new labs are available from today. Labs from yesterday were stable. She left the intensive care unit yesterday she is currently on a medical surgical floor of [facility] for DVT prophylaxis on bronchodilators. 03/11/2020, the patient is postop day #10. Ambulating. Respiratory status is stable. No new complaints. No nausea or vomiting. No abdominal pain. The surgical wound site remains clean. She is on prednisone burst taper. She is also on bronchodilators. She is still on IV Zosyn. Labs are showing a white second 15.1 with a hemoglobin of 8.7. 03/12/2023, the patient is postop day #11. She is passing bowel movements. No nausea or vomiting. No new complaints. She is stable. No respiratory difficulties. Reevaluated today on , patient is now postoperative day #12. Doing well overall, however on physical examination she continues to have significant rhonchi and wheezes bilaterally. We'll place back on Solu-Medrol, continue updrafts, will transition from prednisone to Solu-Medrol again. Patient was reevaluated today on 03/14/23, doing much better, breathing easier, she is now postoperative day #13, pulmonary status didn't improve, hence I discussed with the admitting physician that the patient could be discharged home back on prednisone from Solu-Medrol, and her usual bronchodilators. Reevaluated today on 03/15/23, continues to do well, patient is now postoperative day #14, remains on 3-5 L nasal cannula, not in any distress, on physical examination she sounded clear with intermittent wheezing on forced expiratory maneuver only. Hence I'll clear the patient again for discharge home today. Objective - Vital Signs Vital signs: Vital Signs Temp 97.8 F 03/15/23 08:00 Pulse 86 03/15/23 09:17 Resp 20 03/15/23 08:00 BP 113/61 03/15/23 08:00 Pulse Ox 100 03/15/23 09:06 FiO2 21 03/11/23 07:38 Intake & Output 03/14/23 03/15/23 03/15/23 18:59 06:59 18:59 Intake Total 354 0 Balance 354 0 Weight 63.9 kg Intake: Oral 354 0 Other: Voiding Method Toilet Toilet Toilet Bedside Commode Bedside Commode Bedside Commode # Voids 1 3 ABP, PAP, CO, CI - Last Documented Arterial Blood Pressure 112/51 - Exam Physical Exam: Revealed a 67-year-old female on 3 liters nasal cannula. HEENT:[Neck is supple.] [No neck masses.] [No thyromegaly.] [No JVD.] Chest: [Clear breath sound bilaterally hardly any rhonchi or wheezes Cardiac Exam: [Normal S1 and S2, no S3 gallop, no murmur.] Abdomen: [Soft, nontender, no megaly, no rebound, no guarding, normal bowel sounds.] Extremities: [No clubbing, no edema, no cyanosis.] Neurological Exam: [No focal neurologic deficit.] Alert oriented 3 Psychiatric: Normal mood affect and normal mental status examination. Skin: No rash - Labs CBC & Chem 7: 03/14/23 07:31 03/09/23 04:24 Labs: Abnormal Lab Results - Last 24 Hours (Table) 03/14/23 03/14/23 03/15/23 Range/Units 11:39 20:43 06:10 POC Glucose (mg/dL) 227 H 159 H 148 H (70-110) mg/dL Assessment and Plan Assessment: Impression: High-grade bowel obstruction status post exploratory lysis laparotomy and lysis of adhesions on 03/01 Acute COPD exacerbation Acute and chronic hypoxic respiratory failure Pulmonary hypertension Chronic nicotine dependence History of CVA/TIA Benign essential hypertension Recommendation: Will clear the patient for discharge planning if cleared by other consultants Continue bronchodilators Transition to prednisone burst and taper over 2 weeks Continue oxygen , patient has home O2 Follow-up on outpatient basis if necessary Time with Patient: Less than 30
[2023-03-15 11:54] LABS: Glucose,Whole Blood 209 mg/dL (70-110)
--- NOTE | 2023-03-15 21:28 | P.PN ---
Subjective 67-year-old female came to emergency department with complaints of left lower quadrant and diffuse abdominal pain going on for about 3 days along with nausea vomiting patient was constipated did have a bowel movement today. Patient had a CT of the abdomen, showed distal small bowel obstruction. There may be adhesions. Patient does have history of COPD continues to smoke declining patch about a pack per day patient has wheezing on exam uses 2-3 L of oxygen at home. Patient does have leukocytosis no fever patient has mildly elevated creatinine and along with low serum sodium. 03/10/2023 This is a pleasant 67 years old female who presents with high-grade small bowel obstruction secondary to adhesive months status post exploratory laparotomy and lysis of adhesions on 03/01. Also with evidence of acute COPD exacerbation and acute and chronic hypoxic respiratory failure. She was recently transferred from the ICU to the general medical floor yesterday. She still on liquid diet which she tolerates, just a little small bowel movement this morning with no significant abdominal pain or tenderness, no significant dyspnea at rest. She says her PCP is Dr. Kevin Borjas's and she cannot recall her clerk typist but she confirms she has 3 L of oxygen at home. No labs from today Extremities on Solu-Medrol 20 mg twice daily and Zosyn CTA of the chest: No PE CTA of the abdomen and pelvis on admission showing high-grade bowel obstruction Problemcalcitonin 0.15. 03/11/2023 Patient still has normal bowel movement although she tolerates liquid diet. She was placed on Colace by surgery team. Patient with no significant abdominal pain. She took one small dose of Dilaudid this morning She remains on Zosyn for perforated bowel Prednisone switch to 20 mg She still on 5 L of oxygen compared to 3 L at home Tomorrow is last dose of Zosyn. Check procalcitonin 03/12/2023 patient today looks better more energetic sitting in chair and wants to go home. However she still on liquid diet and had no bowel movement. She tolerates diet well. Give senna 2 tablets once and continue with Colace COPD significantly improving and currently on 10 mg of prednisone and pulmonary team signed off the case 03/13/2023 Patient tolerates diet well, no dyspnea. He had 2 bowel movements after senna and Colace as provided for him. Patient remains on Zosyn now but he is afebrile and pro-calcitonin is negative. Management of antibiotic is deferred to surgery primary team But looks like patient overall improvement and becoming medically stable she has mild bilateral leg swelling secondary to IV fluids she received, consults to elevate leg at bed side, restrict salt and water intake and use is planned 03/14/2023 Patient clinically doing well, she has good appetite, she had a bowel movement today No abdominal tenderness Labs looks stable, WBC back to normal at 8.9, hemoglobin is stable at 7.6. Platelet count is stable at 133. Patient remains on antibiotic for surgical team, on oral prednisone. Patient is medically stable for discharge fly worker on the case to make arrangements for discharge, however discharge was held later during the day because patient and family did not have the right concentrator for her oxygen which she goes up to 5 L/m because she needs while the current concentrator she has coarse only up to 3 L/m Possible discharge tomorrow once this problem solved Objective - Vital Signs Vital signs: Vital Signs Temp 97.5 F L 03/14/23 09:12 Pulse 78 03/14/23 09:43 Resp 18 03/14/23 09:43 BP 122/67 03/14/23 09:12 Pulse Ox 94 L 03/14/23 09:22 FiO2 21 03/11/23 07:38 Intake & Output 03/13/23 03/14/23 03/14/23 18:59 06:59 18:59 Intake Total 110 240 Output Total 500 Balance 110 -260 Intake: Oral 110 240 Output: Urine 500 Other: Voiding Method Toilet Toilet Toilet Bedside Commode Bedside Commode Bedside Commode # Voids 3 1 1 # Bowel Movements 1 ABP, PAP, CO, CI - Last Documented Arterial Blood Pressure 112/51 - Exam GENERAL: The patient is alert and oriented x3, not in any acute distress. Well developed, well nourished. HEENT: Pupils are round and equally reacting to light. EOMI. No scleral icterus. No conjunctival pallor. Normocephalic, atraumatic. No pharyngeal erythema. No thyromegaly. CARDIOVASCULAR: S1 and S2 present. No murmurs, rubs, or gallops. PULMONARY: Chest is clear to auscultation, no wheezing or crackles. ABDOMEN: Soft, nontender, nondistended, normoactive bowel sounds. No palpable organomegaly. MUSCULOSKELETAL: No joint swelling or deformity. EXTREMITIES: No cyanosis, clubbing, or pedal edema. NEUROLOGICAL: Gross neurological examination did not reveal any focal deficits. SKIN: No rashes. no petechiae. - Labs CBC & Chem 7: 03/14/23 07:31 03/09/23 04:24 Labs: Abnormal Lab Results - Last 24 Hours (Table) 03/13/23 03/13/23 03/14/23 Range/Units 16:26 20:00 05:53 Hgb (11.4-16.0) gm/dL Hct (34.0-46.0) % MCV (80.0-100.0) fL MCH (25.0-35.0) pg MCHC (31.0-37.0) g/dL RDW (11.5-15.5) % Plt Count (150-450) k/uL Neutrophils # (1.3-7.7) k/uL Lymphocytes # (1.0-4.8) k/uL POC Glucose (mg/dL) 161 H 219 H 243 H (70-110) mg/dL 03/14/23 03/14/23 Range/Units 07:31 11:39 Hgb 7.6 L (11.4-16.0) gm/dL Hct 26.3 L (34.0-46.0) % MCV 66.3 L (80.0-100.0) fL MCH 19.3 L (25.0-35.0) pg MCHC 29.0 L (31.0-37.0) g/dL RDW 19.0 H (11.5-15.5) % Plt Count 133 L (150-450) k/uL Neutrophils # 7.8 H (1.3-7.7) k/uL Lymphocytes # 0.7 L (1.0-4.8) k/uL POC Glucose (mg/dL) 227 H (70-110) mg/dL Assessment and Plan Assessment: High-grade bowel obstruction status post exploratory lysis laparotomy and lysis of adhesions on 03/01 Acute COPD exacerbation Acute and chronic hypoxic respiratory failure Pulmonary hypertension Plan: Patient finished her Zosyn, Protonix calcitonin is negative. Differential antibiotic management to surgery team Continue prednisone taper, currently on 10 mg Surgery team consult for the primary team Continue with laxatives when necessary Labs and medication were reviewed.. Continue same treatment. Continue with symptomatic treatment. Resume home medication. Monitor labs and vitals. DVT and GI prophylaxis. Further recommendations as per clinical course of the patient DVT prophylaxis: Subcutaneous Lovenox GI Prophylaxis: Ppi PT/OT: Pending Prognosis is guarded Patient is medically stable Thank you for consulting us
--- NOTE | 2023-03-15 21:31 | P.PN ---
Subjective 67-year-old female came to emergency department with complaints of left lower quadrant and diffuse abdominal pain going on for about 3 days along with nausea vomiting patient was constipated did have a bowel movement today. Patient had a CT of the abdomen, showed distal small bowel obstruction. There may be adhesions. Patient does have history of COPD continues to smoke declining patch about a pack per day patient has wheezing on exam uses 2-3 L of oxygen at home. Patient does have leukocytosis no fever patient has mildly elevated creatinine and along with low serum sodium. 03/10/2023 This is a pleasant 67 years old female who presents with high-grade small bowel obstruction secondary to adhesive months status post exploratory laparotomy and lysis of adhesions on 03/01. Also with evidence of acute COPD exacerbation and acute and chronic hypoxic respiratory failure. She was recently transferred from the ICU to the general medical floor yesterday. She still on liquid diet which she tolerates, just a little small bowel movement this morning with no significant abdominal pain or tenderness, no significant dyspnea at rest. She says her PCP is Dr. 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 No labs from today Extremities on Solu-Medrol 20 mg twice daily and Zosyn CTA of the chest: No PE CTA of the abdomen and pelvis on admission showing high-grade bowel obstruction Problemcalcitonin 0.15. 03/11/2023 Patient still has normal bowel movement although she tolerates liquid diet. She was placed on Colace by surgery team. Patient with no significant abdominal pain. She took one small dose of Dilaudid this morning She remains on Zosyn for perforated bowel Prednisone switch to 20 mg She still on 5 L of oxygen compared to 3 L at home Tomorrow is last dose of Zosyn. Check procalcitonin 03/12/2023 patient today looks better more energetic sitting in chair and wants to go home. However she still on liquid diet and had no bowel movement. She tolerates diet well. Give senna 2 tablets once and continue with Colace COPD significantly improving and currently on 10 mg of prednisone and pulmonary team signed off the case 03/13/2023 Patient tolerates diet well, no dyspnea. He had 2 bowel movements after senna and Colace as provided for him. Patient remains on Zosyn now but he is afebrile and pro-calcitonin is negative. Management of antibiotic is deferred to surgery primary team But looks like patient overall improvement and becoming medically stable she has mild bilateral leg swelling secondary to IV fluids she received, consults to elevate leg at bed side, restrict salt and water intake and use is planned 03/14/2023 Patient clinically doing well, she has good appetite, she had a bowel movement today No abdominal tenderness Labs looks stable, WBC back to normal at 8.9, hemoglobin is stable at 7.6. Platelet count is stable at 133. Patient remains on antibiotic for surgical team, on oral prednisone. Patient is medically stable for discharge highway maintenance crew worker on the case to make arrangements for discharge, however discharge was held later during the day because patient and family did not have the right concentrator for her oxygen which she goes up to 5 L/m because she needs while the current concentrator she has coarse only up to 3 L/m Possible discharge tomorrow once this problem solved 03/15/2023 Patient clinically remains the same, no new complaint, she gives improving slowly and gradually Vitals are stable highway maintenance crew worker the case and the problem of concentrator will resolve today and she'll be able to be discharged home per surgery primary team and other consultants patient is medically stable for discharge and guarded prognosis Objective - Vital Signs Vital signs: Vital Signs Temp 97.8 F 03/15/23 08:00 Pulse 86 03/15/23 09:17 Resp 20 03/15/23 08:00 BP 113/61 03/15/23 08:00 Pulse Ox 100 03/15/23 09:06 FiO2 21 03/11/23 07:38 Intake & Output 03/14/23 03/15/23 03/15/23 18:59 06:59 18:59 Intake Total 354 100 Balance 354 100 Weight 63.9 kg Intake: Oral 354 100 Other: Voiding Method Toilet Toilet Toilet Bedside Commode Bedside Commode Bedside Commode # Voids 1 3 ABP, PAP, CO, CI - Last Documented Arterial Blood Pressure 112/51 - Exam GENERAL: The patient is alert and oriented x3, not in any acute distress. Well developed, well nourished. HEENT: Pupils are round and equally reacting to light. EOMI. No scleral icterus. No conjunctival pallor. Normocephalic, atraumatic. No pharyngeal erythema. No thyromegaly. CARDIOVASCULAR: S1 and S2 present. No murmurs, rubs, or gallops. PULMONARY: Chest is clear to auscultation, no wheezing or crackles. ABDOMEN: Soft, nontender, nondistended, normoactive bowel sounds. No palpable organomegaly. MUSCULOSKELETAL: No joint swelling or deformity. EXTREMITIES: No cyanosis, clubbing, or pedal edema. NEUROLOGICAL: Gross neurological examination did not reveal any focal deficits. SKIN: No rashes. no petechiae. - Labs CBC & Chem 7: 03/14/23 07:31 03/09/23 04:24 Labs: Abnormal Lab Results - Last 24 Hours (Table) 03/14/23 03/15/23 03/15/23 Range/Units 20:43 06:10 11:52 POC Glucose (mg/dL) 159 H 148 H 209 H (70-110) mg/dL Assessment and Plan Assessment: High-grade bowel obstruction status post exploratory lysis laparotomy and lysis of adhesions on 03/01 Acute COPD exacerbation Acute and chronic hypoxic respiratory failure Pulmonary hypertension Plan: Patient problem of concentrator is so old and it would be provided for her and should be able to be discharged today Continue with antibiotic procedure team Continue prednisone taper, currently on 10 mg Surgery team consult for the primary team Continue with laxatives when necessary Labs and medication were reviewed.. Continue same treatment. Continue with symptomatic treatment. Resume home medication. Monitor labs and vitals. DVT and GI prophylaxis. Further recommendations as per clinical course of the patient DVT prophylaxis: Subcutaneous Lovenox GI Prophylaxis: Ppi PT/OT: Pending Prognosis is guarded Patient is medically stable Thank you for consulting us
--- NOTE | 2023-03-17 12:55 | CDI ---
Documentation Clarification Form Date: 03/17/2023 12:42:30 PM From: Carla Back Phone: Admit Date: 02/27/2023 01:41:00 PM Patient Name: Isadora Emmanuel Visit Number: [id number] Discharge Date: 03/15/2023 01:41:00 PM ATTENTION: The Clinical Documentation Specialists (CDI) and [facility] Coding Staff appreciate your assistance in clarifying documentation. Please respond to the clarification below the line at the bottom and electronically sign. The CDI & [facility] Coding staff will review the response and follow-up if needed. Please note: Queries are made part of the Legal Health Record. If you have any questions, please contact the author of this message via ITS. Dr. Kareem Earl Post-op ileus is documented in the 03/06 Progress Note. Additional clarification regarding Post-op ileus is requested. 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 [ ] Yes [ ] No [ ] Other, please specify [ ] Unable to determine (Template Last Revised: November 2020) MTDD
--- NOTE | 2023-03-23 11:41 | CDI ---
Documentation Clarification Form Date: 03/23/2023 11:19:18 AM From: Vivien Olea RN, CCDS Admit Date: 02/27/2023 01:41:00 PM Patient Name: Isadora Emmanuel Visit Number: [id number] Discharge Date: 03/15/2023 01:41:00 PM ATTENTION: The Clinical Documentation Specialists (CDI) and [facility] Coding Staff appreciate your assistance in clarifying documentation. Please respond to the clarification below the line at the bottom and electronically sign. The CDI & [facility] Coding staff will review the response and follow-up if needed. Please note: Queries are made part of the Legal Health Record. If you have any questions, please contact the author of this message via ITS. Dr. Kareem Earl Post-op Ileus is documented in the progress notes starting on 03/06/2023 and patient had Exploratory laparotomy with lysis of adhesions for small bowel obstruction. Additional clarification is requested regarding the relationship, if any, that exists between the diagnosis and the procedure. Patients Admitting Diagnosis: Small bowel obstruction secondary to adhesive band causing a closed loop obstruction Post-Operative Diagnosis: Same Procedure performed: Exploratory laparotomy, Lysis of adhesion. History/Risk Factors: COPD, CVA, Hypertension, Current every day smoker Clinical Indicators: 67-year-old female present to ED for abdominal pain. She did have constipation. 02/27 CT Abdomen/pelvis: suggestive of a high-grade small bowel obstruction likely within the mid to distal ileum statistically adhesion would be most likely etiology. 03/06 SX progress note: Reglan added for post-op ileus. 03/07 SX progress note: Patient having flatus. Will advance diet to full liquids 03/11 SX progress note Await resolution of ileus. Treatment: Cardiac/Telemetry Monitoring Reglan 10MG IVP Q6 HRS03/06-03/15, NTG decompression NPO (per orders surgical services) What relationship, if any, exists between the diagnosis of Postop ileus and the procedure? [ ] Postop ileus is a complication of surgical procedure. [ ] Postop ileus is an expected outcome of the surgical procedure. [ ] Postop ileus is related to patients co-morbid condition(s) of [insert co- morbid dxs] & not a complication of the procedure. [ xxxx ] Other please specify ____ [ ] Unable to determine (Template Last Revised: November 2020) MTDD
== END 2023-03-15 13:41 | disposition home or self-care (01) | DRG 335 ==
LOC: EC 09:56 → 5NMEDONC 13:41 → 2SICU 03-01 15:35 → 3SCARD 03-10 06:25 → UNDODISIN 03-14 18:29
PROVIDERS: ADMIT Surgery; ATTEND Surgery
PROC: 0D9670Z Drainage of Stomach with Drainage Device, Via Natural or Artificial Opening (ICD-10-PCS; 2023-02-27)
PROC: 0DJ00ZZ Inspection of Upper Intestinal Tract, Open Approach (ICD-10-PCS; 2023-03-01)
PROC: 3E033XZ Introduction of Vasopressor into Peripheral Vein, Percutaneous Approach (ICD-10-PCS; 2023-03-01)
PROC: 0DN80ZZ Release Small Intestine, Open Approach (ICD-10-PCS; principal; 2023-03-01 12:40)
PROC: 5A0935A Assistance with Respiratory Ventilation, Less than 24 Consecutive Hours, High Flow/Velocity Cannula (ICD-10-PCS; 2023-03-02)
PROC: 5A09357 Assistance with Respiratory Ventilation, Less than 24 Consecutive Hours, Continuous Positive Airway Pressure (ICD-10-PCS; 2023-03-06)
DX: K56.52 Intestinal adhesions [bands] with complete obstruction (principal); J18.9 Pneumonia, unspecified organism; J96.21 Acute and chronic respiratory failure with hypoxia; K63.1 Perforation of intestine (nontraumatic); N17.9 Acute kidney failure, unspecified; R18.8 Other ascites; E87.29 Other acidosis; E87.1 Hypo-osmolality and hyponatremia; I27.21 Secondary pulmonary arterial hypertension; I95.9 Hypotension, unspecified; E87.8 Other disorders of electrolyte and fluid balance, not elsewhere classified; J43.9 Emphysema, unspecified; I10 Essential (primary) hypertension; R79.89 Other specified abnormal findings of blood chemistry; E11.65 Type 2 diabetes mellitus with hyperglycemia; I71.43 Infrarenal abdominal aortic aneurysm, without rupture; F17.210 Nicotine dependence, cigarettes, uncomplicated; K56.7 Ileus, unspecified; I48.91 Unspecified atrial fibrillation; Z99.81 Dependence on supplemental oxygen; E87.70 Fluid overload, unspecified; E78.5 Hyperlipidemia, unspecified; E86.1 Hypovolemia; K59.00 Constipation, unspecified; T41.5X6A Underdosing of therapeutic gases, initial encounter; D64.89 Other specified anemias; R00.0 Tachycardia, unspecified; Z79.82 Long term (current) use of aspirin; Z79.51 Long term (current) use of inhaled steroids; Z79.84 Long term (current) use of oral hypoglycemic drugs; Z86.73 Personal history of transient ischemic attack (TIA), and cerebral infarction without residual deficits; Z79.899 Other long term (current) drug therapy; Z28.311 Partially vaccinated for COVID-19; Z91.138 Patient's unintentional underdosing of medication regimen for other reason
CPT/HCPCS: 36415; 43753; 71045; 71275; 74018; 74176; 80048; 80053; 81001; 82150; 82805; 83036; 83605; 83690; 83735; 83880; 84145; 84484; 85025; 85027; 85379; 86850; 86900; 86901; 87040; 87070; 87205; 93005; 94002; 94003; 94640; 94660; 94760; 96374; 99285

== ENCOUNTER 2023-04-16 21:01 | Observation (INO) | payer MEDICARE, OTHER ==
[2023-04-16] MEDS ORDERED: PANTOPRAZOLE 40 MG/10 ML VIAL IVP STA (21:56)
[2023-04-16] MEDS ORDERED: SODIUM CHLORIDE 0.9% 1,000 ML IV STA ×2 (21:56)
[2023-04-16] MEDS ORDERED: ONDANSETRON 4 MG/2 ML VIAL IVP STA (21:56)
--- NOTE | 2023-04-16 22:48 | ED ---
Abdominal Pain HPI - General Chief Complaint: Abdominal Pain Stated Complaint: Abdominal Pain, Constipation Time Seen by Provider: 04/16/23 21:52 Source: patient, RN notes reviewed, old records reviewed Mode of arrival: wheelchair Limitations: no limitations - History of Present Illness Initial Comments: This is a 67-year-old female presented with family. Patient presents today for evaluation of abdominal pain. Difficulty with bowel movements for a few days now. Patient recently abdominal surgery for adhesions causing small bowel obstruction. Patient feels similar to then. Mild nausea no active vomiting decreased oral intake. Patient's main concern is pain MD Complaint: abdominal pain -: days(s) Location: diffuse, periumbilical, epigastric, suprapubic Migration to: bilateral flank Severity scale (1-10): 7 Quality: sharp Consistency: constant Improves With: nothing Worsens With: nothing Context: other (0) Associated Symptoms: nausea Treatments Prior to Arrival: other (0) - Related Data Home Medications Medication Instructions Recorded Confirmed Albuterol Inhaler [Ventolin Hfa 1 - 2 puff INHALATION RT-Q6H PRN 01/02/23 04/17/23 Inhaler] Aspirin EC [Ecotrin Low Dose] 81 mg PO DAILY 01/02/23 04/17/23 Atorvastatin [Lipitor] 20 mg PO DAILY 01/02/23 04/17/23 oxyBUTYnin chloride 5 mg PO BID 02/27/23 04/17/23 Previous Rx's Medication Instructions Recorded Budesonide-Formot 160-4.5 Mcg 2 puff INHALATION RT-BID 30 Days 01/05/23 [Symbicort 160-4.5 Mcg Inhaler] #1 each metFORMIN HCL 500 mg PO DAILY #30 tab 01/23/23 Acetaminophen Tab [Tylenol] 650 mg PO Q4H PRN #30 tablet 03/13/23 Docusate [Colace] 100 mg PO BID PRN cap 03/14/23 Omeprazole [PriLOSEC] 40 mg PO DAILY #30 cap 03/14/23 amLODIPine [Norvasc] 10 mg PO DAILY tab 03/14/23 Allergies Allergy/AdvReac Type Severity Reaction Status Date / Time No Known Allergies Allergy Verified 04/17/23 07:38 Review of Systems ROS Statement: Those systems with pertinent positive or pertinent negative responses have been documented in the HPI. ROS Other: All systems not noted in ROS Statement are negative. Past Medical History Past Medical History: COPD, CVA/TIA, Hypertension Additional Past Medical History / Comment(s): bowel obstuction History of Any Multi-Drug Resistant Organisms: None Reported Past Surgical History: No Surgical Hx Reported Additional Past Surgical History / Comment(s): bowel surgery 2022 Past Anesthesia/Blood Transfusion Reactions: No Reported Reaction Past Psychological History: No Psychological Hx Reported Smoking Status: Current every day smoker Past Alcohol Use History: None Reported Past Drug Use History: Marijuana - Past Family History Mother Family Medical History: COPD General Exam General appearance: alert, in no apparent distress Head exam: Present: atraumatic, normocephalic, normal inspection Eye exam: Present: normal appearance, PERRL, EOMI. Absent: scleral icterus, conjunctival injection, periorbital swelling ENT exam: Present: normal exam, mucous membranes dry Neck exam: Present: normal inspection. Absent: tenderness, meningismus, lymphadenopathy Respiratory exam: Present: normal lung sounds bilaterally. Absent: respiratory distress, wheezes, rales, rhonchi, stridor Cardiovascular Exam: Present: normal rhythm, tachycardia, normal heart sounds. Absent: systolic murmur, diastolic murmur, rubs, gallop, clicks GI/Abdominal exam: Present: soft, distended, tenderness, normal bowel sounds. Absent: guarding, rebound, rigid Extremities exam: Present: normal inspection, full ROM, normal capillary refill. Absent: tenderness, pedal edema, joint swelling, calf tenderness Back exam: Present: normal inspection Neurological exam: Present: alert, oriented X3, CN II-XII intact Psychiatric exam: Present: normal affect, normal mood Skin exam: Present: warm, dry, intact, normal color. Absent: rash Course Vital Signs 04/16/23 04/16/23 04/17/23 21:35 23:00 04:00 Temperature 99.0 F Pulse Rate 111 H 79 101 H Respiratory 19 14 19 Rate Blood Pressure 129/90 117/99 100/80 O2 Sat by Pulse 91 L 87 L 92 L Oximetry 04/17/23 04/17/23 04/17/23 09:20 10:11 11:50 Temperature Pulse Rate 86 73 81 Respiratory 20 16 16 Rate Blood Pressure 94/56 103/62 113/75 O2 Sat by Pulse 98 94 L 95 Oximetry 04/17/23 13:01 Temperature 97.7 F Pulse Rate 87 Respiratory 20 Rate Blood Pressure 129/96 O2 Sat by Pulse 91 L Oximetry - Reevaluation(s) Reevaluation #1: 04/17/23 02:42 Medical record is reviewed Reevaluation #2: 04/17/23 02:43 Patient has no change in symptoms here in the ER low belly pain is improved Patient did have significant bowel movement here in the emergency department Reevaluation #3: 04/17/23 02:43 Patient informed results and questions answered Reevaluation #4: 04/17/23 02:43 Was pt. sent in by a medical professional or institution (, JONAA, PRODUCTION CLOTH CUTTER, urgent care, hospital, or detention...) When possible be specific @ -no Did you speak to anyone other than the patient for history (EMS, parent, family, police, friend...)? What history was obtained from this source @ -no Did you review nursing and triage notes (agree or disagree)? Why? @ -agree Are old charts reviewed (outside hosp., previous admission, EMS record, old EKG, old radiological studies, urgent care reports/EKG's, detention records)? Report findings @ -yes Differential Diagnosis (chest pain, altered mental status, abdominal pain women, abdominal pain men, vaginal bleeding, weakness, fever, dyspnea, syncope, headache, dizziness, GI bleed, back pain, seizure, CVA, palpatations, mental health, musculoskeletal)? @ -prior EKG interpreted by me (3pts min.). @ -no X-rays interpreted by me (1pt min.). @ -yes CT interpreted by me (1pt min.). @ -yes U/S interpreted by me (1pt. min.). @ -no What testing was considered but not performed or refused? (CT, X-rays, U/S, labs)? Why? @ -none What meds were considered but not given or refused? Why? @ -none Did you discuss the management of the patient with other professionals (professionals i.e. JOANA Osborne, PRODUCTION CLOTH CUTTER, lab, RT, psych nurse, child protective services social worker, stave machine tender, teacher, licensed loan officer, residential case manager)? Give summary @ -no Was smoking cessation discussed for >3mins.? @ -no Was critical care preformed (if so, how long)? @ -no Were there social determinants of health that impacted care today? How? (H omelessness, low income, unemployed, alcoholism, drug addiction, transportation, low edu. Level, literacy, decrease access to med. care, ch[facility], rehab)? @ -none Was there de-escalation of care discussed even if they declined (Discuss DNR or withdrawal of care, Hospice)? DNR status @ -no What co-morbidities impacted this encounter? (DM, HTN, Smoking, COPD, CAD, Cancer, CVA, ARF, Chemo, Hep., AIDS, mental health diagnosis, sleep apnea, morbid obesity)? @ -none Was patient admitted / discharged? Hospital course, mention meds given and route, prescriptions, significant lab abnormalities, going to OR and other pertinent info. @ - 67 female to the emergency department for evaluation of abdominal pain constipation lactic acidosis and low magnesium. Patient will be put on bowel regimen to help with constipation and admitted for surgical evaluation and treatment Admitted Undiagnosed new problem with uncertain prognosis? @ -no Drug Therapy requiring intensive monitoring for toxicity (Heparin, Nitro, Insulin, Cardizem)? @ -no Were any procedures done? @ -no Diagnosis/symptom? @ -Lactic acidosis abdominal pain constipation Acute, or Chronic, or Acute on Chronic? @ -Acute Uncomplicated (without systemic symptoms) or Complicated (systemic symptoms)? @ -Complicated Side effects of treatment? @ -no Exacerbation, Progression, or Severe Exacerbation? @ -exacerbation Poses a threat to life or bodily function? How? (Chest pain, USA, SD, pneumonia, PE, COPD, DKA, ARF, appy, cholecystitis, CVA, Diverticulitis, Homicidal, Suicidal, threat to staff... and all critical care pts) @ -yes significant lactic acidosis Reevaluation #5: 04/17/23 02:43 Differential Abdominal Pain Women: Appendicitis, Cholecystitis, diverticulosis, ischemic bowel, pancreatitis, hepatitis, UTI, gastroenteritis, AAA, incarcerated hernia, bowel obstruction, constipation, inflammatory bowel, hepatitis, peptic ulcer disease, splenic infarction, perforated viscus, vulvitis, ovarian torsion, PID, kidney stone, placenta abruption, this is not meant to be an all-inclusive list - Consultations Consultation #1: Spoke with sound who agrees to admit the patient Medical Decision Making - Medical Decision Making 67 female to the emergency department for evaluation of abdominal pain constipation lactic acidosis and low magnesium. Patient will be put on bowel regimen to help with constipation and admitted for surgical evaluation and treatment - Lab Data Result diagrams: 04/17/23 05:00 04/17/23 05:00 Lab Results 04/16/23 04/16/23 04/16/23 Range/Units 21:56 21:56 21:56 WBC 10.2 (3.8-10.6) k/uL RBC 5.17 (3.80-5.40) m/uL Hgb 8.7 L (11.4-16.0) gm/dL Hct 32.8 L (34.0-46.0) % MCV 63.5 L (80.0-100.0) fL MCH 16.9 L (25.0-35.0) pg MCHC 26.6 L (31.0-37.0) g/dL RDW 19.0 H (11.5-15.5) % Plt Count 201 (150-450) k/uL MPV 9.1 Neutrophils % (Manual) 89 % Lymphocytes % (Manual) 8 % Monocytes % (Manual) 2 % Eosinophils % (Manual) 1 % Neutrophils # (Manual) 9.08 H (1.3-7.7) k/uL Lymphocytes # (Manual) 0.82 L (1.0-4.8) k/uL Monocytes # (Manual) 0.20 (0-1.0) k/uL Eosinophils # (Manual) 0.10 (0-0.7) k/uL Nucleated RBCs 1 H (0-0) /100 WBC Polychromasia Present Hypochromasia Marked Hypochromasia (manual) Present Poikilocytosis Moderate Anisocytosis Slight Anisocytosis (manual) Present Microcytosis Marked Target Cells Present Tear Drop Cells Present Ovalocytes Present Fragmented RBCs Present Sodium 135 L (137-145) mmol/L Potassium 3.5 (3.5-5.1) mmol/L Chloride 98 (98-107) mmol/L Carbon Dioxide 20 L (22-30) mmol/L Anion Gap 17 mmol/L BUN 15 (7-17) mg/dL Creatinine 0.88 (0.52-1.04) mg/dL Est GFR (CKD-EPI)AfAm 79 (>60 ml/min/1.73 sqM) Est GFR (CKD-EPI)NonAf 68 (>60 ml/min/1.73 sqM) Glucose 173 H (74-99) mg/dL Lactic Ac Sepsis Rflx Plasma Lactic Acid Kenny 5.9 H* (0.7-2.0) mmol/L Calcium 8.4 (8.4-10.2) mg/dL Phosphorus 3.8 (2.5-4.5) mg/dL Magnesium 1.2 L (1.6-2.3) mg/dL Total Bilirubin 3.0 H (0.2-1.3) mg/dL AST 23 (14-36) U/L ALT 17 (4-34) U/L Alkaline Phosphatase 93 (38-126) U/L Total Protein 7.4 (6.3-8.2) g/dL Albumin 4.0 (3.5-5.0) g/dL Amylase 57 (30-110) U/L Lipase 83 (23-300) U/L 04/17/23 Range/Units 00:37 WBC (3.8-10.6) k/uL RBC (3.80-5.40) m/uL Hgb (11.4-16.0) gm/dL Hct (34.0-46.0) % MCV (80.0-100.0) fL MCH (25.0-35.0) pg MCHC (31.0-37.0) g/dL RDW (11.5-15.5) % Plt Count (150-450) k/uL MPV Neutrophils % (Manual) % Lymphocytes % (Manual) % Monocytes % (Manual) % Eosinophils % (Manual) % Neutrophils # (Manual) (1.3-7.7) k/uL Lymphocytes # (Manual) (1.0-4.8) k/uL Monocytes # (Manual) (0-1.0) k/uL Eosinophils # (Manual) (0-0.7) k/uL Nucleated RBCs (0-0) /100 WBC Polychromasia Hypochromasia Hypochromasia (manual) Poikilocytosis Anisocytosis Anisocytosis (manual) Microcytosis Target Cells Tear Drop Cells Ovalocytes Fragmented RBCs Sodium (137-145) mmol/L Potassium (3.5-5.1) mmol/L Chloride (98-107) mmol/L Carbon Dioxide (22-30) mmol/L Anion Gap mmol/L BUN (7-17) mg/dL Creatinine (0.52-1.04) mg/dL Est GFR (CKD-EPI)AfAm (>60 ml/min/1.73 sqM) Est GFR (CKD-EPI)NonAf (>60 ml/min/1.73 sqM) Glucose (74-99) mg/dL Lactic Ac Sepsis Rflx Y Plasma Lactic Acid Kenny (0.7-2.0) mmol/L Calcium (8.4-10.2) mg/dL Phosphorus (2.5-4.5) mg/dL Magnesium (1.6-2.3) mg/dL Total Bilirubin (0.2-1.3) mg/dL AST (14-36) U/L ALT (4-34) U/L Alkaline Phosphatase (38-126) U/L Total Protein (6.3-8.2) g/dL Albumin (3.5-5.0) g/dL Amylase (30-110) U/L Lipase (23-300) U/L - Radiology Data Radiology results: report reviewed (CT of the Abdomen and Pelvis Positive for Significant Constipation), image reviewed Critical Care Time Critical Care Time: Yes Disposition Clinical Impression: Abdominal pain, Constipation, Lactic acidosis, Hypomagnesemia Disposition: ADMITTED IP TO THIS [facility] Condition: Fair Is patient prescribed a controlled substance at d/c from ED?: No Time of Disposition: 02:30
[2023-04-16 23:59] LABS: ALT 17 U/L (4-34); AST 23 U/L (14-36); African American GFR (CKD) 79 (>60 ml/min/1.73 sqM); Alkaline Phosphatase 93 U/L (38-126); Amylase 57 U/L (30-110); Anion Gap 17 mmol/L; Blood Urea Nitrogen 15 mg/dL (7-17); Calcium 8.4 mg/dL (8.4-10.2); Carbon Dioxide 20 mmol/L (22-30); Chloride 98 mmol/L (98-107); Glucose 173 mg/dL (74-99); Lipase 83 U/L (23-300); Magnesium 1.2 mg/dL (1.6-2.3); Non-African American GFR(CKD) 68 (>60 ml/min/1.73 sqM); Phosphorus 3.8 mg/dL (2.5-4.5); Potassium 3.5 mmol/L (3.5-5.1); Sodium 135 mmol/L (137-145); Total Protein 7.4 g/dL (6.3-8.2)
[2023-04-17 00:15] LABS: Anisocytosis Slight; HCT 32.8 % (34.0-46.0); HGB 8.7 gm/dL (11.4-16.0); Hypochromasia Marked; MCH 16.9 pg (25.0-35.0); MCHC 26.6 g/dL (31.0-37.0); MCV 63.5 fL (80.0-100.0); Mean Platelet Volume 9.1; Microcytosis Marked; Platelet Count 201 k/uL (150-450); Poikilocytosis Moderate; RBC 5.17 m/uL (3.80-5.40)
[2023-04-17 00:39] LABS: Lymphocytes # (M) 0.82 k/uL (1.0-4.8); Neutrophils # (M) 9.08 k/uL (1.3-7.7); Neutrophils % (M) 89 %; Nucleated Red Blood Cells 1 /100 WBC (0-0); Total Cells Counted 100; WBC 10.2 k/uL (3.8-10.6)
[2023-04-17 00:40] LABS: Anisocytosis (M) Present; Hypochromasia (M) Present; Ovalocytes Present; Polychromasia Present; RBC Fragments Present; Target Cells Present; Tear Drop Cells Present
--- NOTE | 2023-04-17 01:27 | XR ---
EXAM: XR Chest, 1 View CLINICAL HISTORY: ITS.REASON XR Reason: pain TECHNIQUE: Frontal view of the chest. COMPARISON: No relevant prior studies available. FINDINGS: Lungs: Unremarkable. No consolidation. Pleural space: Unremarkable. No pneumothorax. Heart: Mildly prominent heart size. Mediastinum: Unremarkable. Bones/joints: Unremarkable. Vasculature: Calcified aorta. IMPRESSION: No acute findings in the chest.
--- NOTE | 2023-04-17 01:29 | CT ---
EXAM: CT Abdomen and Pelvis With Intravenous Contrast CLINICAL HISTORY: ITS.REASON CT Reason: pain TECHNIQUE: Axial computed tomography images of the abdomen and pelvis with intravenous contrast. CTDI is 17.2 mGy and DLP is 754.5 mGy-cm. This CT exam was performed using one or more of the following dose reduction techniques: automated exposure control, adjustment of the mA and/or kV according to patient size, and/or use of iterative reconstruction technique. COMPARISON: No relevant prior studies available. FINDINGS: Lung bases: Unremarkable. No mass. No consolidation. Heart: Cardiomegaly. ABDOMEN: Liver: Minimal periportal edema. No focal hepatic lesion. Gallbladder and bile ducts: Unremarkable. No calcified stones. No ductal dilation. Pancreas: Unremarkable. No mass. No ductal dilation. Spleen: Unremarkable. No splenomegaly. Adrenals: Unremarkable. No mass. Kidneys and ureters: LEFT renal cyst measures 1.9 cm. No hydronephrosis. Stomach and bowel: Mild-moderate fecal retention, correlate for constipation. This includes liquid stool in the RIGHT colon. Laparotomy skin tahir. Correlate with recent surgical history. No small bowel obstruction. No mucosal thickening. PELVIS: Appendix: No findings to suggest acute appendicitis. Bladder: Compressed urinary bladder. Reproductive: Unremarkable as visualized. ABDOMEN and PELVIS: Intraperitoneal space: Unremarkable. No free air. No significant fluid collection. Bones/joints: No acute fracture. No dislocation. Soft tissues: See above. Vasculature: Aneurysmal infrarenal abdominal aorta measures 3.2 cm anteroposterior. Lymph nodes: Unremarkable. No enlarged lymph nodes. IMPRESSION: 1. Mild-moderate fecal retention, correlate for constipation. This includes liquid stool in the RIGHT colon. 2. Laparotomy skin tahir. Correlate with recent surgical history. No small bowel obstruction.
[2023-04-17] MEDS ORDERED: NALOXONE 0.4 MG/ML 1 ML VIAL IV PRN (02:36)
[2023-04-17] MEDS ORDERED: ONDANSETRON 4 MG/2 ML VIAL IVP PRN (02:36)
[2023-04-17] MEDS ORDERED: SENNOSIDES-DOCUSATE SODIUM 1 EACH TAB PO STA (02:36)
[2023-04-17] MEDS ORDERED: MORPHINE SULFATE 4 MG/ML SYRINGE IV PRN (02:36)
[2023-04-17] MEDS ORDERED: MAGNESIUM OXIDE 400 MG TAB PO STA (02:36)
[2023-04-17] MEDS ORDERED: SODIUM CHLORIDE 0.9% 1,000 ML IV STA (02:36)
[2023-04-17] MEDS ORDERED: GLYCERIN ADULT SUPPOSITORY 1 EACH RECTAL STA (02:41)
[2023-04-17] MEDS ORDERED: ACETAMINOPHEN TAB 325 MG TAB PO PRN (04:00)
--- NOTE | 2023-04-17 04:02 | P.HPIM ---
History of Present Illness H&P Date: 04/17/23 Patient is a 67-year-old female with a PMH of COPD, status post recent exploratory laparotomy with lysis of adhesions following an episode of small bowel obstruction, and hypertension who presents to the emergency room with complaints of abdominal pain and constipation. The patient reports that she has not had a bowel movement for the past 3 days, which is somewhat common for her. She reports however that this time, the constipation is accompanied by an intermittent aching diffuse abdominal discomfort without nausea or vomiting. She also denies experiencing fever or chills. Reports that these symptoms are different from when she had her small bowel obstruction. In the emergency room, CT abdomen and pelvis revealed mild to moderate fecal retention. Chest x-ray was unremarkable. Laboratory evaluation revealed a hemoglobin of 8.7 with MCV 63.5 (at baseline), lactic acid 5.9, magnesium 1.2, and glucose 173. ED documentation reviewed and case discussed with ED provider. Review of systems: Pertinent positives and negatives as discussed in HPI, a complete review of systems was performed and all other systems are negative. Physical examination: Vital signs reviewed General: non toxic, no distress, appears at stated age, normal weight Derm: no unusual rashes/lesions, warm Head: atraumatic, normocephalic, symmetric Eyes: EOMI, no lid lag, anicteric sclera, pupils equal round reactive to light ENT: Nose and ears atraumatic Neck: No cervical lymphadenopathy, trachea midline, supple Mouth: no lip lesion, mucus membranes moist Cardiovascular: S1S2 reg, no murmur, positive dorsalis pedis pulse bilateral, no edema Lungs: CTA bilateral, no rhonchi, no rales, no accessory muscle use Abdominal: soft, mild diffuse tenderness, no guarding Ext: muscle strength 5 out of 5 in all 4 extremities grossly, no gross muscle atrophy, no contractures, Neuro: CN II-XI grossly intact, no gross focal neuro deficits Psych: Alert, oriented, appropriate affect Assessment: Abdominal pain, possibly secondary to constipation Lactic acidosis Hypomagnesemia Microcytic anemia Imaging: In the emergency room, CT abdomen and pelvis revealed mild to moderate fecal retention. Chest x-ray was unremarkable. Data Review: Laboratory evaluation revealed a hemoglobin of 8.7 with MCV 63.5 (at baseline), lactic acid 5.9, magnesium 1.2, and glucose 173. Plan: Status post suppository and senna Continue with IV fluids and monitor lactic acid for resolution Replace magnesium and monitor for improvement General surgery consulted Check iron panel (doesn't appear to have been tested recently) DVT prophylaxis: Heparin subcu The patient is admitted with an anticipated greater than 2 midnight stay for evaluation of abdominal pain CODE STATUS: Full Code Discussed with: Patient 95Anticipated discharge place: Home Past Medical History Past Medical History: COPD, CVA/TIA, Hypertension Additional Past Medical History / Comment(s): bowel obstuction History of Any Multi-Drug Resistant Organisms: None Reported Past Surgical History: No Surgical Hx Reported Additional Past Surgical History / Comment(s): bowel surgery 2022 Past Anesthesia/Blood Transfusion Reactions: No Reported Reaction Past Psychological History: No Psychological Hx Reported Smoking Status: Current every day smoker Past Alcohol Use History: None Reported Past Drug Use History: Marijuana - Past Family History Mother Family Medical History: COPD Medications and Allergies Home Medications Medication Instructions Recorded Confirmed Type Albuterol Inhaler [Ventolin Hfa 1 - 2 puff INHALATION RT-Q6H PRN 01/02/23 02/27/23 History Inhaler] Aspirin EC [Ecotrin Low Dose] 81 mg PO DAILY 01/02/23 02/27/23 History Atorvastatin [Lipitor] 20 mg PO DAILY 01/02/23 02/27/23 History Budesonide-Formot 160-4.5 Mcg 2 puff INHALATION RT-BID 30 Days 01/05/23 02/27/23 Rx [Symbicort 160-4.5 Mcg Inhaler] #1 each Acetaminophen Tab [Tylenol] 650 mg PO Q6HR PRN tab 01/23/23 02/27/23 Rx metFORMIN HCL 500 mg PO DAILY #30 tab 01/23/23 02/27/23 Rx oxyBUTYnin chloride 5 mg PO BID 02/27/23 02/27/23 History Acetaminophen Tab [Tylenol Tab] 650 mg PO Q4H PRN #30 tablet 03/13/23 Rx Docusate [Colace] 100 mg PO BID PRN cap 03/14/23 Rx Omeprazole [PriLOSEC] 40 mg PO DAILY #30 cap 03/14/23 Rx amLODIPine [Norvasc] 10 mg PO DAILY tab 03/14/23 Rx predniSONE 10 mg PO DIRECTED #25 tab 03/14/23 Rx Allergies Allergy/AdvReac Type Severity Reaction Status Date / Time No Known Allergies Allergy Verified 04/16/23 21:41 Physical Exam Vitals: Vital Signs Temp Pulse Resp BP Pulse Ox 04/16/23 23:00 79 14 117/99 87 L 04/16/23 21:35 99.0 F 111 H 19 129/90 91 L Intake and Output 04/16/23 04/16/23 04/17/23 14:59 22:59 06:59 Other: Weight 72.575 kg Results CBC & Chem 7: 04/16/23 21:56 04/16/23 21:56 Labs: Abnormal Lab Results - Last 24 Hours (Table) 04/16/23 04/16/23 04/16/23 Range/Units 21:56 21:56 21:56 Hgb 8.7 L (11.4-16.0) gm/dL Hct 32.8 L (34.0-46.0) % MCV 63.5 L (80.0-100.0) fL MCH 16.9 L (25.0-35.0) pg MCHC 26.6 L (31.0-37.0) g/dL RDW 19.0 H (11.5-15.5) % Neutrophils # (Manual) 9.08 H (1.3-7.7) k/uL Lymphocytes # (Manual) 0.82 L (1.0-4.8) k/uL Nucleated RBCs 1 H (0-0) /100 WBC Sodium 135 L (137-145) mmol/L Carbon Dioxide 20 L (22-30) mmol/L Glucose 173 H (74-99) mg/dL Plasma Lactic Acid Kenny 5.9 H* (0.7-2.0) mmol/L Magnesium 1.2 L (1.6-2.3) mg/dL Total Bilirubin 3.0 H (0.2-1.3) mg/dL
[2023-04-17] MEDS: MAGNESIUM SULFATE-D5W PMX 1 GM in DEXTROSE/WATER 1 100ML.BAG IVPB SCH ×2 (04:45→06:10)
[2023-04-17] MEDS: SODIUM CHLORIDE 0.9% 1,000 ML IV SCH ×2 (05:30→13:01)
[2023-04-17] MEDS ORDERED: MAGNESIUM SULFATE-D5W PMX 1 GM in DEXTROSE/WATER 1 100ML.BAG IVPB ONE (05:37)
[2023-04-17 06:20] LABS: Anisocytosis Slight; HCT 30.1 % (34.0-46.0); HGB 8.3 gm/dL (11.4-16.0); Hypochromasia Marked; MCH 17.6 pg (25.0-35.0); MCHC 27.5 g/dL (31.0-37.0); MCV 64.1 fL (80.0-100.0); Mean Platelet Volume 9.6; Microcytosis Marked; Platelet Count 212 k/uL (150-450); Poikilocytosis Moderate; RDW 19.1 % (11.5-15.5); WBC 11.7 k/uL (3.8-10.6)
[2023-04-17 06:29] LABS: Potassium 3.3 mmol/L (3.5-5.1)
[2023-04-17 06:30] LABS: ALT 23 U/L (4-34); AST 32 U/L (14-36); African American GFR (CKD) 74 (>60 ml/min/1.73 sqM); Albumin 3.7 g/dL (3.5-5.0); Alkaline Phosphatase 93 U/L (38-126); Anion Gap 20 mmol/L; Blood Urea Nitrogen 14 mg/dL (7-17); Calcium 7.9 mg/dL (8.4-10.2); Carbon Dioxide 15 mmol/L (22-30); Chloride 102 mmol/L (98-107); Glucose 224 mg/dL (74-99); Magnesium 1.4 mg/dL (1.6-2.3); Non-African American GFR(CKD) 64 (>60 ml/min/1.73 sqM); Sodium 137 mmol/L (137-145); Total Bilirubin 2.6 mg/dL (0.2-1.3); Total Protein 6.9 g/dL (6.3-8.2)
[2023-04-17] MEDS ORDERED: HEPARIN SODIUM,PORCINE/PF 5,000 UNIT/0.5 ML SYRINGE SQ SCH (08:00)
[2023-04-17] MEDS ORDERED: POTASSIUM CHLORIDE ER 20 MEQ TAB.ER PO STA (08:19)
[2023-04-17] MEDS ORDERED: MAGNESIUM OXIDE 400 MG TAB PO SCH (09:00)
[2023-04-17 10:16] LABS: Appearance,Urine Clear (Clear); Bilirubin,Urine Negative (Negative); Blood,Urine Negative (Negative); Color,Urine Yellow; Glucose,Urine (UA) Negative (Negative); Ketones,Urine Negative (Negative); PH, Urine 5.5 (5.0-8.0); Protein,Urine 1+ (Negative); Specific Gravity,Urine >1.030 (1.001-1.035)
[2023-04-17 10:18] LABS: Leukocyte Esterase,Urine Negative (Negative); Nitrite,Urine Negative (Negative)
[2023-04-17 10:20] LABS: WBC,Urine 1 /hpf (0-5)
[2023-04-17 10:21] LABS: Squamous Epithelial Cell,Urine 3 /hpf (0-4)
--- NOTE | 2023-04-17 12:55 | P.GSCN ---
History of Present Illness Consult date: 04/17/23 History of present illness: CHIEF COMPLAINT: Abdominal pain HISTORY OF PRESENT ILLNESS: This is a 67-year-old female presented to the hospital for complaint of upper abdominal pain 2 days. Denies any nausea or vomiting. Patient had a computed tomography scan abdomen and pelvis completed showing mild to moderate fecal retention. Correlate for constipation. This i ncludes liquid stool in the right colon. Patient did have 3-4 large bowel movements in the ER. Her abdominal pain has resolved. She denies any nausea or vomiting. She was to follow have low magnesium and potassium these have been placed. She does have history of lysis of adhesions for a closed loop small bowel obstruction in February 2023. Patient reports that she should not follow-up with surgical patient. PAST MEDICAL HISTORY: See below PAST SURGICAL HISTORY: See below MEDICATIONS: See below ALLERGIES: See below SOCIAL HISTORY: No illicit drug use. REVIEW OF SYSTEMS: CONSTITUTIONAL: Denies fever or chills. HEENT: Denies blurred vision, vision changes, or eye pain. Denies hemoptysis CARDIOVASCULAR: Denies chest pain or pressure. RESPIRATORY: No shortness of breath. GASTROINTESTINAL: See HPI for pertinent findings HEMATOLOGIC: Denies bleeding disorders. GENITOURINARY: Denies any blood in urine or increased urinary frequency. SKIN: Denies pruitis. Denies rash. PHYSICAL EXAM: VITAL SIGNS: Reviewed GENERAL: Well-developed in no acute distress. HEENT: No sclera icterus. Extraocular movements grossly intact. Moist buccal mucosa. Head is atraumatic, normocephalic. No nasal drainage. ABDOMEN: Soft. Nondistended. Nontender patient's does still have every other abdominal tahir present. Incision site it has healed. NEUROLOGIC: Alert and oriented. Cranial nerves II through XII grossly intact. LABORATORY DATA: WBC 11.7 hgb 8.3 platelets 212 Sodium 137 potassium 3.3 creatinine 0.93 Lactic acid 3.3 Magnesium 1.4 IMAGING: Computed tomography scan abdomen and pelvis mild/moderate fecal retention correlate for constipation this includes liquid stool in the right colon. Laparotomy skin tahir. Correlate for surgery. No small bowel stricture. ASSESSMENT: 1. Constipation with evidence of mild to moderate fecal retention on CAT scan 2. Prior history of closed loop small bowel obstruction with lysis of adhesions on 03/01/2023 3. Hypokalemia and hypomagnesemia PLAN: -Patient having bowel movements. We'll advance diet to regular. -Electrolytes have been replaced -Encouraged patient to ambulate -No surgical intervention planned -Continue good bowel regimen Physician Antique Finisher note has been reviewed by physician. Signing provider agrees with the documented findings, assessment, and plan of care. Past Medical History Past Medical History: COPD, CVA/TIA, Hypertension Additional Past Medical History / Comment(s): bowel obstuction History of Any Multi-Drug Resistant Organisms: None Reported Past Surgical History: No Surgical Hx Reported Additional Past Surgical History / Comment(s): bowel surgery 2022 Past Anesthesia/Blood Transfusion Reactions: No Reported Reaction Past Psychological History: No Psychological Hx Reported Smoking Status: Current every day smoker Past Alcohol Use History: None Reported Past Drug Use History: Marijuana - Past Family History Mother Family Medical History: COPD Medications and Allergies Home Medications Medication Instructions Recorded Confirmed Type Albuterol Inhaler [Ventolin Hfa 1 - 2 puff INHALATION RT-Q6H PRN 01/02/23 04/17/23 History Inhaler] Aspirin EC [Ecotrin Low Dose] 81 mg PO DAILY 01/02/23 04/17/23 History Atorvastatin [Lipitor] 20 mg PO DAILY 01/02/23 04/17/23 History Budesonide-Formot 160-4.5 Mcg 2 puff INHALATION RT-BID 30 Days 01/05/23 04/17/23 Rx [Symbicort 160-4.5 Mcg Inhaler] #1 each metFORMIN HCL 500 mg PO DAILY #30 tab 01/23/23 04/17/23 Rx oxyBUTYnin chloride 5 mg PO BID 02/27/23 04/17/23 History Acetaminophen Tab [Tylenol] 650 mg PO Q4H PRN #30 tablet 03/13/23 04/17/23 Rx Docusate [Colace] 100 mg PO BID PRN cap 03/14/23 04/17/23 Rx Omeprazole [PriLOSEC] 40 mg PO DAILY #30 cap 03/14/23 04/17/23 Rx amLODIPine [Norvasc] 10 mg PO DAILY tab 03/14/23 04/17/23 Rx Allergies Allergy/AdvReac Type Severity Reaction Status Date / Time No Known Allergies Allergy Verified 04/17/23 07:38 Surgical - Exam Vital Signs Temp Pulse Resp BP Pulse Ox 99.0 F 111 H 19 129/90 91 L 04/16/23 21:35 04/16/23 21:35 04/16/23 21:35 04/16/23 21:35 04/16/23 21:35 Results - Labs 04/17/23 05:00 04/17/23 05:00 Abnormal Lab Results - Last 24 Hours (Table) 04/16/23 04/16/23 04/16/23 Range/Units 21:56 21:56 21:56 WBC (3.8-10.6) k/uL Hgb 8.7 L (11.4-16.0) gm/dL Hct 32.8 L (34.0-46.0) % MCV 63.5 L (80.0-100.0) fL MCH 16.9 L (25.0-35.0) pg MCHC 26.6 L (31.0-37.0) g/dL RDW 19.0 H (11.5-15.5) % Neutrophils # (Manual) 9.08 H (1.3-7.7) k/uL Lymphocytes # (Manual) 0.82 L (1.0-4.8) k/uL Nucleated RBCs 1 H (0-0) /100 WBC Sodium 135 L (137-145) mmol/L Potassium (3.5-5.1) mmol/L Carbon Dioxide 20 L (22-30) mmol/L Glucose 173 H (74-99) mg/dL Plasma Lactic Acid Kenny 5.9 H* (0.7-2.0) mmol/L Calcium (8.4-10.2) mg/dL Magnesium 1.2 L (1.6-2.3) mg/dL Total Bilirubin 3.0 H (0.2-1.3) mg/dL Urine Protein (Negative) 04/17/23 04/17/23 04/17/23 Range/Units 04:01 05:00 05:00 WBC 11.7 H (3.8-10.6) k/uL Hgb 8.3 L (11.4-16.0) gm/dL Hct 30.1 L (34.0-46.0) % MCV 64.1 L (80.0-100.0) fL MCH 17.6 L (25.0-35.0) pg MCHC 27.5 L (31.0-37.0) g/dL RDW 19.1 H (11.5-15.5) % Neutrophils # (Manual) (1.3-7.7) k/uL Lymphocytes # (Manual) (1.0-4.8) k/uL Nucleated RBCs (0-0) /100 WBC Sodium (137-145) mmol/L Potassium 3.3 L (3.5-5.1) mmol/L Carbon Dioxide 15 L (22-30) mmol/L Glucose 224 H (74-99) mg/dL Plasma Lactic Acid Kenny 8.1 H* (0.7-2.0) mmol/L Calcium 7.9 L (8.4-10.2) mg/dL Magnesium 1.4 L (1.6-2.3) mg/dL Total Bilirubin 2.6 H (0.2-1.3) mg/dL Urine Protein (Negative) 04/17/23 04/17/23 Range/Units 08:05 09:39 WBC (3.8-10.6) k/uL Hgb (11.4-16.0) gm/dL Hct (34.0-46.0) % MCV (80.0-100.0) fL MCH (25.0-35.0) pg MCHC (31.0-37.0) g/dL RDW (11.5-15.5) % Neutrophils # (Manual) (1.3-7.7) k/uL Lymphocytes # (Manual) (1.0-4.8) k/uL Nucleated RBCs (0-0) /100 WBC Sodium (137-145) mmol/L Potassium (3.5-5.1) mmol/L Carbon Dioxide (22-30) mmol/L Glucose (74-99) mg/dL Plasma Lactic Acid Kenny 3.3 H* (0.7-2.0) mmol/L Calcium (8.4-10.2) mg/dL Magnesium (1.6-2.3) mg/dL Total Bilirubin (0.2-1.3) mg/dL Urine Protein 1+ H (Negative) Diabetes panel 04/16/23 04/17/23 Range/Units 21:56 05:00 Sodium 135 L 137 (137-145) mmol/L Potassium 3.5 3.3 L (3.5-5.1) mmol/L Chloride 98 102 (98-107) mmol/L Carbon Dioxide 20 L 15 L (22-30) mmol/L BUN 15 14 (7-17) mg/dL Creatinine 0.88 0.93 (0.52-1.04) mg/dL Glucose 173 H 224 H (74-99) mg/dL Calcium 8.4 7.9 L (8.4-10.2) mg/dL AST 23 32 (14-36) U/L ALT 17 23 (4-34) U/L Alkaline Phosphatase 93 93 (38-126) U/L Total Protein 7.4 6.9 (6.3-8.2) g/dL Albumin 4.0 3.7 (3.5-5.0) g/dL Calcium panel 04/16/23 04/17/23 Range/Units 21:56 05:00 Calcium 8.4 7.9 L (8.4-10.2) mg/dL Phosphorus 3.8 (2.5-4.5) mg/dL Albumin 4.0 3.7 (3.5-5.0) g/dL Pituitary panel 04/16/23 04/17/23 Range/Units 21:56 05:00 Sodium 135 L 137 (137-145) mmol/L Potassium 3.5 3.3 L (3.5-5.1) mmol/L Chloride 98 102 (98-107) mmol/L Carbon Dioxide 20 L 15 L (22-30) mmol/L BUN 15 14 (7-17) mg/dL Creatinine 0.88 0.93 (0.52-1.04) mg/dL Glucose 173 H 224 H (74-99) mg/dL Calcium 8.4 7.9 L (8.4-10.2) mg/dL Adrenal panel 04/16/23 04/17/23 Range/Units 21:56 05:00 Sodium 135 L 137 (137-145) mmol/L Potassium 3.5 3.3 L (3.5-5.1) mmol/L Chloride 98 102 (98-107) mmol/L Carbon Dioxide 20 L 15 L (22-30) mmol/L BUN 15 14 (7-17) mg/dL Creatinine 0.88 0.93 (0.52-1.04) mg/dL Glucose 173 H 224 H (74-99) mg/dL Calcium 8.4 7.9 L (8.4-10.2) mg/dL Total Bilirubin 3.0 H 2.6 H (0.2-1.3) mg/dL AST 23 32 (14-36) U/L ALT 17 23 (4-34) U/L Alkaline Phosphatase 93 93 (38-126) U/L Total Protein 7.4 6.9 (6.3-8.2) g/dL Albumin 4.0 3.7 (3.5-5.0) g/dL
[2023-04-17 13:13] VITALS: BP 129/96; PULSE 87; RESP 20; TEMP 97.7
--- NOTE | 2023-04-17 13:42 | P.DS ---
Providers Date of admission: 04/17/23 02:39 Expected date of discharge: 04/17/23 Attending physician: Lesa Reid MD Consults: 04/17/23 02:36 Consult Physician Routine Consulting Provider: Kareem Earl Consult Reason/Comments: known Do you want consulting provider notified?: Yes Primary care physician: Physician Nonstaff Hospital Course: Assessment: Abdominal pain, possibly secondary to constipation Lactic acidosis Hypomagnesemia Microcytic anemia Hospital Course: Patient is a 67-year-old female with a PMH of COPD, status post recent exploratory laparotomy with lysis of adhesions following an episode of small bowel obstruction, and hypertension who presented to the emergency room with complaints of abdominal pain and constipation. In the emergency room, CT abdomen and pelvis revealed mild to moderate fecal retention. Chest x-ray was unremarkable. Laboratory evaluation revealed a hemoglobin of 8.7 with MCV 63.5 (at baseline), lactic acid 5.9, magnesium 1.2, and glucose 173. Patient was given suppository and bowel regimen and had several large BMs, after which abdominal pain completely resolved and she reported feeling back to her normal self. Pt was discharged home with PCP f/u. Gen: awake, alert HEENT: normocephalic, atraumatic, good hearing acuity, moist mucous membranes Resp: good air exchange, breathing comfortably with no accessory muscle use CVS: good distal perfusion x 4, GI: soft, NTTP, ND : no SPT, no CVAT, cantu catheter not present MSK: no pitting edema, no clubbing Neuro: non-focal, moving all extremities Psych: cooperative, euthymic mood Patient Condition at Discharge: Good Plan - Discharge Summary New Discharge Prescriptions: Continue Albuterol Inhaler [Ventolin Hfa Inhaler] 1 - 2 puff INHALATION RT-Q6H PRN PRN Reason: Shortness Of Breath Atorvastatin [Lipitor] 20 mg PO DAILY Budesonide-Formot 160-4.5 Mcg [Symbicort 160-4.5 Mcg Inhaler] 2 puff INHALATION RT-BID 30 Days #1 each metFORMIN HCL 500 mg PO DAILY #30 tab oxyBUTYnin chloride 5 mg PO BID amLODIPine [Norvasc] 10 mg PO DAILY tab Omeprazole [PriLOSEC] 40 mg PO DAILY #30 cap Aspirin EC [Ecotrin Low Dose] 81 mg PO DAILY Acetaminophen Tab [Tylenol] 650 mg PO Q4H PRN #30 tablet PRN Reason: Pain Docusate [Colace] 100 mg PO BID PRN cap PRN Reason: Constipation Discharge Medication List Albuterol Inhaler [Ventolin Hfa Inhaler] 1 - 2 puff INHALATION RT-Q6H PRN 01/02/23 [History] Aspirin EC [Ecotrin Low Dose] 81 mg PO DAILY 01/02/23 [History] Atorvastatin [Lipitor] 20 mg PO DAILY 01/02/23 [History] Budesonide-Formot 160-4.5 Mcg [Symbicort 160-4.5 Mcg Inhaler] 2 puff INHALATION RT-BID 30 Days #1 each 01/05/23 [Rx] metFORMIN HCL 500 mg PO DAILY #30 tab 01/23/23 [Rx] oxyBUTYnin chloride 5 mg PO BID 02/27/23 [History] Acetaminophen Tab [Tylenol] 650 mg PO Q4H PRN #30 tablet 03/13/23 [Rx] Docusate [Colace] 100 mg PO BID PRN cap 03/14/23 [Rx] Omeprazole [PriLOSEC] 40 mg PO DAILY #30 cap 03/14/23 [Rx] amLODIPine [Norvasc] 10 mg PO DAILY tab 03/14/23 [Rx] Follow up Appointment(s)/Referral(s): Nonstaff,Physician [Primary Care Provider] - 1-2 days Patient Instructions/Handouts: Abdominal Pain (GEN) Discharge Disposition: HOME SELF-CARE
[2023-04-17 15:34] LABS: % Iron Saturation 3.46 (12.00-45.00); Ferritin 13.8 ng/mL (10.0-291.0)
== END 2023-04-17 15:17 | disposition home or self-care (01) ==
LOC: EC 21:01 → 3SCARD 04-17 02:39 → INTOOBSV 04-17 02:39 → 3SCARD 04-17 04:59 → UNDODISIN 04-17 15:17
PROVIDERS: ADMIT Internal Medicine; ATTEND Internal Medicine
DX: R10.10 Upper abdominal pain, unspecified (principal); E87.20 Acidosis, unspecified; K59.00 Constipation, unspecified; E83.42 Hypomagnesemia; E87.6 Hypokalemia; D50.9 Iron deficiency anemia, unspecified; J44.9 Chronic obstructive pulmonary disease, unspecified; I10 Essential (primary) hypertension; F17.200 Nicotine dependence, unspecified, uncomplicated; Z79.82 Long term (current) use of aspirin; Z79.84 Long term (current) use of oral hypoglycemic drugs; Z79.51 Long term (current) use of inhaled steroids; Z79.899 Other long term (current) drug therapy; Z98.890 Other specified postprocedural states; Z87.19 Personal history of other diseases of the digestive system; Z86.73 Personal history of transient ischemic attack (TIA), and cerebral infarction without residual deficits; Z82.5 Family history of asthma and other chronic lower respiratory diseases
CPT/HCPCS: 96376; 96361 ×2; 96365; 96366; 96372; 96375; 99285; 36415; 80053 ×2; 82728; 82150; 83540; 83550; 83605 ×2; 83690; 83735 ×2; 84100; 85025; 85027; 81001; 71045; 74177; G0378; J2405; J3475; C9113; Q9967; J1644

== ENCOUNTER 2023-04-30 22:11 | Observation (INO) | payer MEDICARE, OTHER ==
--- NOTE | 2023-05-01 00:26 | ED ---
General Adult HPI - General Chief complaint: Extremity Problem,Nontraumatic Stated complaint: sob Time Seen by Provider: 05/01/23 00:24 Source: patient, family, RN notes reviewed Mode of arrival: wheelchair Limitations: no limitations - History of Present Illness Initial comments: Patient is a pleasant 67-year-old -[place] female presenting to the emergency room with her [id number] with concerns regarding worsening shortness of breath despite use of her continuous oxygen (3L) at home and worsening of bilateral lower extremity swelling despite elevating her legs. According to her kshpqtoo-bs-[id number] symptoms have been progressively worsening over the last 3 days. Patient is on home oxygen for COPD and denies previous previous diagnosis of congestive heart failure but her fcitooqp-vb-elj does believe that she is prescribed a water pill. She has compression stockings but does not wear them. She had an echocardiogram completed in December 2022 which showed a normal LV function. She denies any other complaints or concerns at this time including any chest pain, orthopnea, abdominal pain, nausea, vomiting, diarrhea, dysuria, hematuria, headache, dizziness, diaphoresis, fevers or chills. In addition to her COPD history she has a past medical history significant for CVA and hypertension. - Related Data Home Medications Medication Instructions Recorded Confirmed Albuterol Inhaler [Ventolin Hfa 1 - 2 puff INHALATION RT-Q6H PRN 01/02/23 04/17/23 Inhaler] Aspirin EC [Ecotrin Low Dose] 81 mg PO DAILY 01/02/23 04/17/23 Atorvastatin [Lipitor] 20 mg PO DAILY 01/02/23 04/17/23 oxyBUTYnin chloride 5 mg PO BID 02/27/23 04/17/23 Previous Rx's Medication Instructions Recorded Budesonide-Formot 160-4.5 Mcg 2 puff INHALATION RT-BID 30 Days 01/05/23 [Symbicort 160-4.5 Mcg Inhaler] #1 each metFORMIN HCL 500 mg PO DAILY #30 tab 01/23/23 Acetaminophen Tab [Tylenol] 650 mg PO Q4H PRN #30 tablet 03/13/23 Docusate [Colace] 100 mg PO BID PRN cap 03/14/23 Omeprazole [PriLOSEC] 40 mg PO DAILY #30 cap 03/14/23 amLODIPine [Norvasc] 10 mg PO DAILY tab 03/14/23 Allergies Allergy/AdvReac Type Severity Reaction Status Date / Time No Known Allergies Allergy Verified 04/30/23 22:18 Review of Systems ROS Statement: Those systems with pertinent positive or pertinent negative responses have been documented in the HPI. ROS Other: All systems not noted in ROS Statement are negative. Past Medical History Past Medical History: COPD, CVA/TIA, Hypertension Additional Past Medical History / Comment(s): bowel obstuction History of Any Multi-Drug Resistant Organisms: None Reported Past Surgical History: No Surgical Hx Reported Additional Past Surgical History / Comment(s): bowel surgery 2022 Past Anesthesia/Blood Transfusion Reactions: No Reported Reaction Past Psychological History: No Psychological Hx Reported Smoking Status: Current every day smoker Past Alcohol Use History: None Reported Past Drug Use History: Marijuana - Past Family History Mother Family Medical History: COPD General Exam Limitations: no limitations General appearance: alert, in no apparent distress Head exam: Present: atraumatic, normocephalic, normal inspection Eye exam: Present: normal appearance, PERRL, EOMI. Absent: scleral icterus, conjunctival injection, periorbital swelling ENT exam: Present: normal exam, mucous membranes moist Neck exam: Present: normal inspection, full ROM Respiratory exam: Present: wheezes (Expiratory throughout), decreased breath sounds, other (3 L nasal cannula intact). Absent: respiratory distress, rales, rhonchi, stridor, chest wall tenderness, accessory muscle use Cardiovascular Exam: Present: regular rate, normal rhythm, normal heart sounds. Absent: systolic murmur, diastolic murmur, rubs, gallop, clicks GI/Abdominal exam: Present: soft, normal bowel sounds. Absent: distended, tenderness, guarding, rebound, rigid Extremities exam: Present: pedal edema (Bilateral lower extremity edema +2 right greater than left). Absent: full ROM, tenderness Back exam: Present: normal inspection, full ROM Neurological exam: Present: alert, oriented X3, CN II-XII intact Psychiatric exam: Present: normal affect, normal mood Skin exam: Present: warm, dry, intact, normal color. Absent: rash Course Vital Signs 04/30/23 05/01/23 05/01/23 22:14 01:00 02:06 Temperature 97.8 F Pulse Rate 86 72 Pulse Rate [ 66 Solutions Manager ] Respiratory 20 Rate Blood Pressure 120/78 O2 Sat by Pulse 96 Oximetry 05/01/23 02:15 Temperature Pulse Rate 78 Pulse Rate [ Solutions Manager ] Respiratory Rate Blood Pressure O2 Sat by Pulse Oximetry Medical Decision Making - Medical Decision Making Was pt. sent in by a medical professional or institution (JOANA Osborne, TIRE SPECIALIST, urgent care, hospital, or [facility]...) When possible be specific @ -No Did you speak to anyone other than the patient for history (EMS, parent, family, police, friend...)? What history was obtained from this source @ -No Did you review nursing and triage notes (agree or disagree)? Why? @ -I reviewed and agree with nursing and triage notes Were old charts reviewed (outside hosp., previous admission, EMS record, old EKG, old radiological studies, urgent care reports/EKG's, [facility] records)? Report findings @ -No old charts were reviewed Differential Diagnosis (chest pain, altered mental status, abdominal pain women, abdominal pain men, vaginal bleeding, weakness, fever, dyspnea, syncope, headache, dizziness, GI bleed, back pain, seizure, CVA, palpatations, mental health, musculoskeletal)? @ -Differential Dyspnea: Coronary syndrome, arrhythmia, tamponade, asthma, COPD, pulmonary embolism, pneumonia, pneumothorax, pulmonary effusion, anaphylaxis, diabetic ketoacidosis, flailed chest, pulmonary contusion, diaphragmatic rupture, anemia, neuromuscular, this is not meant to be an all-inclusive list. EKG interpreted by me (3pts min.). @ -Sinus rhythm, ventricular rate 64 bpm, NC interval 175 ms, QRS duration 74 ms, QT/QTC 371/381 ms, PRT axes 74, 84, 60 X-rays interpreted by me (1pt min.). @ -Chest x-ray: Hyperinflation consistent with COPD. no focal consolidation, pleural effusion or pneumothorax. CT interpreted by me (1pt min.). @ -CTA chest: No evidence of pulmonary emboli. U/S interpreted by me (1pt. min.). @ -None done What testing was considered but not performed or refused? (CT, X-rays, U/S, labs)? Why? @ -None What meds were considered but not given or refused? Why? @ -None Did you discuss the management of the patient with other professionals (professionals i.e. Dr., PA, TIRE SPECIALIST, lab, RT, psych nurse, social work nurse, water taxi operator, teacher, [place] [employer] police officer, hospice case manager)? Give summary @ -No Was smoking cessation discussed for >3mins.? @ -No Was critical care preformed (if so, how long)? @ -No Were there social determinants of health that impacted care today? How? (Homelessness, low income, unemployed, alcoholism, drug addiction, transportation, low edu. Level, literacy, decrease access to med. care, alf, rehab)? @ -No Was there de-escalation of care discussed even if they declined (Discuss DNR or withdrawal of care, Hospice)? DNR status @ -No What co-morbidities impacted this encounter? (DM, HTN, Smoking, COPD, CAD, Cancer, CVA, ARF, Chemo, Hep., AIDS, mental health diagnosis, sleep apnea, morbid obesity)? @ -None Was patient admitted / discharged? Hospital course, mention meds given and route, prescriptions, significant lab abnormalities, going to OR and other pertinent info. @ -67-year-old -[place] female presenting emergency room with worsening shortness of breath despite use of continuous oxygen and worsening lower extremity swelling ongoing for 3 days without previous diagnosis of congestive heart failure. Will start workup for dyspnea with EKG, chest x-ray, CBC, CMP, proBNP, troponin, magnesium, d-dimer, coags, and lactic acid. Laboratory studies show microcytic anemia consistent with previous laboratory studies and thrombocytopenia with platelet count 132 which is also consistent with previous readings. D-dimer elevated at 1.59 which appears to be chronically elevated however due to dyspnea will proceed with CTA of the chest. Chest x-ray with hyperinflation and cardiomegaly. No focal consolidation pleural effusion or pneumothorax. EKG shows sinus rhythm. CMP demonstrates elevated creatinine at 1.28 with a GFR for -[place] female at 50 BUN is normal, electrolytes are normal including magnesium. Lactic acid normal at 2.0. Troponin negative. Total bilirubin elevated at 2.3 with normal AST, ALT and alkaline phosphate. ProBNP elevated at 4390 consistent with congestive heart failure. Will give 40 mg of IV Lasix in addition to albuterol breathing treatment and plan for admission for congestive heart failure. CTA of the chest is pending at this time no evidence of pulmonary emboli on image review. Gela physician patient waiting call back. Will admit for congestive heart failure to observation unit under sounds physician with consult to cardiology with an echocardiogram ordered. Undiagnosed new problem with uncertain prognosis? @ -No Drug Therapy requiring intensive monitoring for toxicity (Heparin, Nitro, Insulin, Cardizem)? @ -No Were any procedures done? @ -No Diagnosis/symptom? @ -Congestive heart failure exacerbation Acute, or Chronic, or Acute on Chronic? @ -Acute Uncomplicated (without systemic symptoms) or Complicated (systemic symptoms)? @ -Complicated Side effects of treatment? @ -No Exacerbation, Progression, or Severe Exacerbation? @ -No Poses a threat to life or bodily function? How? (Chest pain, USA, MA, pneumonia, PE, COPD, DKA, ARF, appy, cholecystitis, CVA, Diverticulitis, Homicidal, Suicidal, threat to staff... and all critical care pts) @ -Yes, congestive heart failure at risk for worsening volume overload status. Case discussed with Dr. Veliz. - Lab Data Result diagrams: 05/01/23 00:51 05/01/23 00:51 Lab Results 05/01/23 05/01/23 05/01/23 Range/Units 00:51 00:51 00:51 WBC 6.7 (3.8-10.6) k/uL RBC 5.11 (3.80-5.40) m/uL Hgb 9.1 L (11.4-16.0) gm/dL Hct 32.9 L (34.0-46.0) % MCV 64.4 L (80.0-100.0) fL MCH 17.7 L (25.0-35.0) pg MCHC 27.5 L (31.0-37.0) g/dL RDW 23.7 H (11.5-15.5) % Plt Count 132 L (150-450) k/uL MPV 9.3 Neutrophils % 60 % Lymphocytes % 30 % Monocytes % 5 % Eosinophils % 2 % Basophils % 0 % Neutrophils # 4.0 (1.3-7.7) k/uL Lymphocytes # 2.0 (1.0-4.8) k/uL Monocytes # 0.4 (0-1.0) k/uL Eosinophils # 0.1 (0-0.7) k/uL Basophils # 0.0 (0-0.2) k/uL Hypochromasia Marked Poikilocytosis Moderate Anisocytosis Moderate Microcytosis Marked PT 11.6 (9.0-12.0) sec INR 1.1 (<1.2) APTT 22.8 (22.0-30.0) sec D-Dimer 1.59 H (<0.60) mg/L FEU Sodium 137 (137-145) mmol/L Potassium 4.4 (3.5-5.1) mmol/L Chloride 105 (98-107) mmol/L Carbon Dioxide 23 (22-30) mmol/L Anion Gap 9 mmol/L BUN 17 (7-17) mg/dL Creatinine 1.28 H (0.52-1.04) mg/dL Est GFR (CKD-EPI)AfAm 50 (>60 ml/min/1.73 sqM) Est GFR (CKD-EPI)NonAf 43 (>60 ml/min/1.73 sqM) Glucose 88 (74-99) mg/dL Plasma Lactic Acid Kenny (0.7-2.0) mmol/L Calcium 8.9 (8.4-10.2) mg/dL Magnesium 1.7 (1.6-2.3) mg/dL Total Bilirubin 2.3 H (0.2-1.3) mg/dL AST 18 (14-36) U/L ALT 17 (4-34) U/L Alkaline Phosphatase 70 (38-126) U/L Troponin I (0.000-0.034) ng/mL NT-Pro-B Natriuret Pep 4390 pg/mL Total Protein 6.8 (6.3-8.2) g/dL Albumin 3.5 (3.5-5.0) g/dL 05/01/23 05/01/23 Range/Units 00:51 00:51 WBC (3.8-10.6) k/uL RBC (3.80-5.40) m/uL Hgb (11.4-16.0) gm/dL Hct (34.0-46.0) % MCV (80.0-100.0) fL MCH (25.0-35.0) pg MCHC (31.0-37.0) g/dL RDW (11.5-15.5) % Plt Count (150-450) k/uL MPV Neutrophils % % Lymphocytes % % Monocytes % % Eosinophils % % Basophils % % Neutrophils # (1.3-7.7) k/uL Lymphocytes # (1.0-4.8) k/uL Monocytes # (0-1.0) k/uL Eosinophils # (0-0.7) k/uL Basophils # (0-0.2) k/uL Hypochromasia Poikilocytosis Anisocytosis Microcytosis PT (9.0-12.0) sec INR (<1.2) APTT (22.0-30.0) sec D-Dimer (<0.60) mg/L FEU Sodium (137-145) mmol/L Potassium (3.5-5.1) mmol/L Chloride (98-107) mmol/L Carbon Dioxide (22-30) mmol/L Anion Gap mmol/L BUN (7-17) mg/dL Creatinine (0.52-1.04) mg/dL Est GFR (CKD-EPI)AfAm (>60 ml/min/1.73 sqM) Est GFR (CKD-EPI)NonAf (>60 ml/min/1.73 sqM) Glucose (74-99) mg/dL Plasma Lactic Acid Kenny 2.0 (0.7-2.0) mmol/L Calcium (8.4-10.2) mg/dL Magnesium (1.6-2.3) mg/dL Total Bilirubin (0.2-1.3) mg/dL AST (14-36) U/L ALT (4-34) U/L Alkaline Phosphatase (38-126) U/L Troponin I <0.012 (0.000-0.034) ng/mL NT-Pro-B Natriuret Pep pg/mL Total Protein (6.3-8.2) g/dL Albumin (3.5-5.0) g/dL - Radiology Data Radiology results: image reviewed Disposition Clinical Impression: CHF (congestive heart failure) Disposition: ADMITTED IP TO THIS [facility] Condition: Stable Referrals: Nonstaff,Physician [Primary Care Provider] - 1-2 days Time of Disposition: 03:13
[2023-05-01 01:53] LABS: Anisocytosis Moderate; Basophils % (A) 0 %; Eosinophils # (A) 0.1 k/uL (0-0.7); Eosinophils % (A) 2 %; HCT 32.9 % (34.0-46.0); HGB 9.1 gm/dL (11.4-16.0); Hypochromasia Marked; Lymphocytes % (A) 30 %; MCH 17.7 pg (25.0-35.0); MCHC 27.5 g/dL (31.0-37.0); MCV 64.4 fL (80.0-100.0); Mean Platelet Volume 9.3; Microcytosis Marked; Monocytes # (A) 0.4 k/uL (0-1.0); Monocytes % (A) 5 %; Neutrophils % (A) 60 %; Platelet Count 132 k/uL (150-450); Poikilocytosis Moderate; RBC 5.11 m/uL (3.80-5.40); RDW 23.7 % (11.5-15.5); WBC 6.7 k/uL (3.8-10.6)
[2023-05-01] MEDS ORDERED: ALBUTEROL NEBULIZED 2.5 MG/3 ML INHALATION STA (02:00)
[2023-05-01 02:15] LABS: ALT 17 U/L (4-34); AST 18 U/L (14-36); African American GFR (CKD) 50 (>60 ml/min/1.73 sqM); Albumin 3.5 g/dL (3.5-5.0); Alkaline Phosphatase 70 U/L (38-126); Anion Gap 9 mmol/L; Blood Urea Nitrogen 17 mg/dL (7-17); Calcium 8.9 mg/dL (8.4-10.2); Carbon Dioxide 23 mmol/L (22-30); Chloride 105 mmol/L (98-107); Glucose 88 mg/dL (74-99); Magnesium 1.7 mg/dL (1.6-2.3); Non-African American GFR(CKD) 43 (>60 ml/min/1.73 sqM); Potassium 4.4 mmol/L (3.5-5.1); Sodium 137 mmol/L (137-145); Total Bilirubin 2.3 mg/dL (0.2-1.3); Total Protein 6.8 g/dL (6.3-8.2)
[2023-05-01 02:16] LABS: INR 1.1 (<1.2); Partial Thromboplastin Time 22.8 sec (22.0-30.0); Prothrombin Time 11.6 sec (9.0-12.0)
[2023-05-01 02:24] LABS: NT-Pro-B-Type Natriuretic Pept 4390 pg/mL
[2023-05-01] MEDS ORDERED: FUROSEMIDE 10 MG/ML 4 ML VIAL IV STA (02:50)
--- NOTE | 2023-05-01 03:01 | XR ---
EXAM: XR Chest, 2 Views CLINICAL HISTORY: Difficulty breathing TECHNIQUE: Frontal and lateral views of the chest. COMPARISON: 04/17/2023 FINDINGS: Heart is enlarged. No CHF. Mild dependent atelectasis. No pleural effusion or pneumothorax. Bones are unchanged. IMPRESSION: Cardiomegaly. No CHF.
[2023-05-01] MEDS ORDERED: NALOXONE 0.4 MG/ML 1 ML VIAL IV PRN (03:11)
[2023-05-01] MEDS ORDERED: ACETAMINOPHEN TAB 325 MG TAB PO PRN (03:11)
--- NOTE | 2023-05-01 03:48 | CT ---
EXAM: CT Angiography Chest With Intravenous Contrast CLINICAL HISTORY: Dyspnea elevated d dimer TECHNIQUE: Axial computed tomographic angiography images of the chest with intravenous contrast. CTDI is 12.16 mGy and DLP is 325.3 mGy-cm. This CT exam was performed using one or more of the following dose reduction techniques: automated exposure control, adjustment of the mA and/or kV according to patient size, and/or use of iterative reconstruction technique. 3D and MIP reconstructed images were created and reviewed. COMPARISON: Chest x-ray 05/01/2023 FINDINGS: Pulmonary arteries: No pulmonary embolism. Evaluation of lower lobe subsegmental branches is limited by motion artifact. Aorta: No thoracic aortic aneurysm or dissection. Diffuse atherosclerotic plaque. Lungs: Mild bibasilar atelectasis. Pleural space: No pleural effusion. No pneumothorax. Heart: No cardiomegaly. No pericardial effusion. No evidence of RV dysfunction. Bones/joints: No acute fracture. Degenerative changes of the spine. Soft tissues: Unremarkable. Lymph nodes: Unremarkable. No enlarged lymph nodes. IMPRESSION: No pulmonary embolism. Bibasilar atelectasis. Atherosclerotic vascular calcifications.
--- NOTE | 2023-05-01 05:21 | P.HPIM ---
History of Present Illness H&P Date: 05/01/23 The patient is a 67-year-old female with a PMH of COPD and chronic lower extremity edema who presents to the emergency room sent in by family for shortness of breath or lower extremity edema. The patient reports that she has been dealing with her edema for the past several months. The patient reports being told that she may have congestive heart failure in the past. Echocardiogram from 12/2022 revealed normal LV systolic function with moderate to severe pulmonary hypertension. Patient also reports shortness of breath with some orthopnea without PND. She denied chest discomfort, fever, chills, cough. Chest CT in the emergency room was unremarkable with EKG showing normal sinus rhythm at 64 bpm with diffuse T-wave flattening. Laboratory evaluation was remarkable for hemoglobin of 9.1, platelet count 132, and MCV 64.4 with creatinine 1.28, troponin less than 0.012, and proBNP 4390. ED documentation reviewed and case discussed with ED provider. Review of systems: Pertinent positives and negatives as discussed in HPI, a complete review of systems was performed and all other systems are negative. Physical examination: Vital signs reviewed General: non toxic, no distress, appears at stated age, overweight Derm: no unusual rashes/lesions, warm Head: atraumatic, normocephalic, symmetric Eyes: EOMI, no lid lag, anicteric sclera, pupils equal round reactive to light ENT: Nose and ears atraumatic Neck: No cervical lymphadenopathy, trachea midline, supple Mouth: no lip lesion, mucus membranes moist Cardiovascular: S1S2 reg, no murmur, positive dorsalis pedis pulse bilateral, 2+ bilateral lower extremity pitting edema Lungs: CTA bilateral, no rhonchi, no rales, no accessory muscle use Abdominal: soft, nontender to palpation, no guarding Ext: muscle strength 5 out of 5 in all 4 extremities grossly, no gross muscle atrophy, no contractures, Neuro: CN II-XI grossly intact, no gross focal neuro deficits Psych: Alert, oriented, appropriate affect Assessment: Fluid overload, suspect secondary to congestive heart failure with an intact ejection fraction Microcytic anemia Elevated creatinine Chronic conditions: COPD Imaging: Chest CT in the emergency room was unremarkable with EKG showing normal sinus rhythm at 64 bpm with diffuse T-wave flattening. Data Review: Laboratory evaluation was remarkable for hemoglobin of 9.1, platelet count 132, and MCV 64.4 with creatinine 1.28, troponin less than 0.012, and proBNP 4390. Plan: Continue with Lasix 40 mg IV every 12 hourly Cardiology consulted Cardiac monitoring Intake and output Daily weights Check iron panel DVT prophylaxis: Lovenox subcu The patient is admitted with an anticipated less than 2 midnight stay for evaluation of CHF CODE STATUS: Full Code Discussed with: Patient Anticipated discharge place: Home Past Medical History Past Medical History: COPD, CVA/TIA, Diabetes Mellitus, Hypertension Additional Past Medical History / Comment(s): bowel obstuction History of Any Multi-Drug Resistant Organisms: None Reported Past Surgical History: No Surgical Hx Reported Additional Past Surgical History / Comment(s): bowel surgery 2022 Past Anesthesia/Blood Transfusion Reactions: No Reported Reaction Smoking Status: Current every day smoker - Past Family History Mother Family Medical History: COPD Medications and Allergies Home Medications Medication Instructions Recorded Confirmed Type Albuterol Inhaler [Ventolin Hfa 1 - 2 puff INHALATION RT-Q6H PRN 01/02/23 05/01/23 History Inhaler] Aspirin EC [Ecotrin Low Dose] 81 mg PO DAILY 01/02/23 05/01/23 History Atorvastatin [Lipitor] 20 mg PO DAILY 01/02/23 05/01/23 History Budesonide-Formot 160-4.5 Mcg 2 puff INHALATION RT-BID 30 Days 01/05/23 05/01/23 Rx [Symbicort 160-4.5 Mcg Inhaler] #1 each metFORMIN HCL 500 mg PO DAILY #30 tab 01/23/23 05/01/23 Rx oxyBUTYnin chloride 5 mg PO BID 02/27/23 05/01/23 History Acetaminophen Tab [Tylenol] 650 mg PO Q4H PRN #30 tablet 03/13/23 05/01/23 Rx Docusate [Colace] 100 mg PO BID PRN cap 03/14/23 04/17/23 Rx Omeprazole [PriLOSEC] 40 mg PO DAILY #30 cap 03/14/23 04/17/23 Rx amLODIPine [Norvasc] 10 mg PO DAILY tab 03/14/23 05/01/23 Rx Allergies Allergy/AdvReac Type Severity Reaction Status Date / Time No Known Allergies Allergy Verified 04/30/23 22:18 Physical Exam Vitals: Vital Signs Temp Pulse Pulse Pulse Resp BP BP 05/01/23 04:41 97.8 F 97 20 107/68 05/01/23 03:00 66 20 127/79 05/01/23 02:15 78 05/01/23 02:06 72 05/01/23 02:00 65 20 117/79 05/01/23 01:00 66 04/30/23 22:14 97.8 F 86 20 120/78 Pulse Ox 05/01/23 04:41 98 05/01/23 03:00 94 L 05/01/23 02:15 05/01/23 02:06 05/01/23 02:00 95 05/01/23 01:00 04/30/23 22:14 96 Intake and Output 04/30/23 04/30/23 05/01/23 14:59 22:59 06:59 Other: Weight 63.503 kg 63.503 kg Results CBC & Chem 7: 05/01/23 00:51 05/01/23 00:51 Labs: Abnormal Lab Results - Last 24 Hours (Table) 05/01/23 05/01/23 05/01/23 Range/Units 00:51 00:51 00:51 Hgb 9.1 L (11.4-16.0) gm/dL Hct 32.9 L (34.0-46.0) % MCV 64.4 L (80.0-100.0) fL MCH 17.7 L (25.0-35.0) pg MCHC 27.5 L (31.0-37.0) g/dL RDW 23.7 H (11.5-15.5) % Plt Count 132 L (150-450) k/uL D-Dimer 1.59 H (<0.60) mg/L FEU Creatinine 1.28 H (0.52-1.04) mg/dL Total Bilirubin 2.3 H (0.2-1.3) mg/dL
[2023-05-01 05:40] LABS: Glucose,Whole Blood 104 mg/dL (70-110)
[2023-05-01 08:50] LABS: % Iron Saturation 5.65 (12.00-45.00)
[2023-05-01] MEDS: PANTOPRAZOLE 40 MG TABLET PO SCH (09:00)
[2023-05-01] MEDS: ENOXAPARIN 40 MG/0.4 ML SYRINGE SQ SCH (09:00)
[2023-05-01] MEDS: FUROSEMIDE 10 MG/ML 4 ML VIAL IV SCH ×2 (09:00→20:23)
[2023-05-01] MEDS: amLODIPine 10 MG TAB PO SCH (09:00)
[2023-05-01] MEDS: ASPIRIN 81 MG PO SCH (09:00)
[2023-05-01] MEDS: ATORVASTATIN 20 MG TAB PO SCH (09:00)
[2023-05-01] MEDS: SYMBICORT 160-4.5 MCG INHALER INHALATION SCH ×2 (09:07→20:29)
[2023-05-01 09:11] LABS: Ferritin 23.4 ng/mL (10.0-291.0)
--- NOTE | 2023-05-01 10:34 | P.CRDCN ---
History of Present Illness History of present illness: HISTORY OF PRESENT ILLNESS: This is a 67-year-old female with a past medical history significant for COPD, hypertension, hyperlipidemia, diabetes, and moderate to severe pulmonary hypertension. Patient follows in the office with Dr. Chaudhari. We have been asked to see the patient in consultation for congestive heart failure. Patient examined at the bedside. Patient presented to the hospital with a chief complaint of shortness of breath. The patient also reports she is having lower extremity edema for the past month which is getting worse. She states that she has not had lower extremity edema prior to this. She denied any chest pain or pressure. The patient's proBNP was elevated at 4390. She received a one-time dose of IV Lasix in the emergency room. The patient states she is a current smoker at smoker and smokes approximate one pack per day. She states that she has home O2 and uses it on a PRN basis. The patient believes that she was taking a diuretic on an outpatient basis, however this was not listed on her home medication list. * EKG reveals sinus mechanism with no signs of acute ischemia * Chest xray cardiomegaly * Chest CTA: Negative for pulmonary embolism * Laboratory data: WBC 6.7. Hemoglobin 9.1. Platelet count 132. D-dimer 1.59. Sodium 137. Potassium 4.4. BUN 17. Creatinine 1.28. Troponin negative 1. ProBNP 4390. * Current home cardiac medications include amlodipine 10 mg daily, Lipitor 20 mg daily, aspirin 81 mg daily * Most recent echocardiogram obtained in December 2022 revealed normal LV systolic function, moderate to severe pulmonary hypertension, mild mitral regurgitation, and moderate tricuspid regurgitation REVIEW OF SYSTEMS: At the time of my exam: CONSTITUTIONAL: Denies fever or chills. HEENT: Denies blurred vision, vision changes, or eye pain. Denies hemoptysis CARDIOVASCULAR: Denies chest pain. Denies orthopnea. Denies PND. Denies palpitations RESPIRATORY: Denies shortness of breath. GASTROINTESTINAL: Denies abdominal pain. Denies nausea or vomiting. HEMATOLOGIC: Denies bleeding disorders. GENITOURINARY: Denies any blood in urine. SKIN: Denies pruitis. Denies rash. PHYSICAL EXAM: VITAL SIGNS: Reviewed. GENERAL: Well-developed in no acute distress. HEENT: Head is normocephalic. Pupils are equal, round. Sclerae anicteric. Mucous membranes of the mouth are moist. Neck supple. No JVD or thyromegaly LUNGS: Respirations even and unlabored. Lungs diminished bilaterally. No crackles auscultated. HEART: Regular rate and rhythm. S1 and S2 heard. ABDOMEN: Soft. Nondistended. Nontender. EXTREMITIES: Normal range of motion. No clubbing or cyanosis. Peripheral pulses intact. 2-3+ pitting bilateral lower extremity edema NEUROLOGIC: Awake and alert. Oriented x 3. ASSESSMENT: Shortness of breath Acute heart failure with preserved LV systolic function Lower extremity edema, may be worsened by the use of amlodipine COPD with home oxygen use Moderate to severe pulmonary hypertension Hypertension Hyperlipidemia Diabetes PLAN: 2-D limited echo has been ordered. Await results Patient with continued lower extremity edema this morning. We will begin Lasix 40mg IV every 12 hours Daily weights, accurate I&O, monitor kidney function Further recommendations pending patient's course Nurse practitioner note has been reviewed by physician. Signing provider agrees with the documented findings, assessment, and plan of care. Past Medical History Past Medical History: COPD, CVA/TIA, Diabetes Mellitus, Hypertension Additional Past Medical History / Comment(s): bowel obstuction History of Any Multi-Drug Resistant Organisms: None Reported Past Surgical History: No Surgical Hx Reported Additional Past Surgical History / Comment(s): bowel surgery 2022 Past Anesthesia/Blood Transfusion Reactions: No Reported Reaction Smoking Status: Current every day smoker - Past Family History Mother Family Medical History: COPD Medications and Allergies Home Medications Medication Instructions Recorded Confirmed Type Albuterol Inhaler [Ventolin Hfa 1 - 2 puff INHALATION RT-Q6H PRN 01/02/23 05/01/23 History Inhaler] Aspirin EC [Ecotrin Low Dose] 81 mg PO DAILY 01/02/23 05/01/23 History Atorvastatin [Lipitor] 20 mg PO DAILY 01/02/23 05/01/23 History Budesonide-Formot 160-4.5 Mcg 2 puff INHALATION RT-BID 30 Days 01/05/23 05/01/23 Rx [Symbicort 160-4.5 Mcg Inhaler] #1 each metFORMIN HCL 500 mg PO DAILY #30 tab 01/23/23 05/01/23 Rx oxyBUTYnin chloride 5 mg PO BID 02/27/23 05/01/23 History Acetaminophen Tab [Tylenol] 650 mg PO Q4H PRN #30 tablet 03/13/23 05/01/23 Rx Docusate [Colace] 100 mg PO BID PRN cap 03/14/23 05/01/23 Rx Omeprazole [PriLOSEC] 40 mg PO DAILY #30 cap 03/14/23 05/01/23 Rx amLODIPine [Norvasc] 10 mg PO DAILY tab 03/14/23 05/01/23 Rx Albuterol Nebulized [Ventolin 2.5 mg INHALATION RT-QID PRN 05/01/23 05/01/23 History Nebulized] Allergies Allergy/AdvReac Type Severity Reaction Status Date / Time No Known Allergies Allergy Verified 04/30/23 22:18 Physical Exam Vitals: Vital Signs Temp Pulse Pulse Pulse Resp BP BP 05/01/23 08:00 97.7 F 86 16 119/81 05/01/23 04:41 97.8 F 97 20 107/68 05/01/23 03:00 66 20 127/79 05/01/23 02:15 78 05/01/23 02:06 72 05/01/23 02:00 65 20 117/79 05/01/23 01:00 66 04/30/23 22:14 97.8 F 86 20 120/78 Pulse Ox 05/01/23 08:00 98 05/01/23 04:41 98 05/01/23 03:00 94 L 05/01/23 02:15 05/01/23 02:06 05/01/23 02:00 95 05/01/23 01:00 04/30/23 22:14 96 Intake and Output 04/30/23 05/01/23 05/01/23 22:59 06:59 14:59 Other: # Voids 1 Weight 63.503 kg 62.9 kg Results 05/01/23 00:51 05/01/23 00:51 Cardiac Enzymes 05/01/23 05/01/23 Range/Units 00:51 00:51 AST 18 (14-36) U/L Troponin I <0.012 (0.000-0.034) ng/mL Coagulation 05/01/23 Range/Units 00:51 PT 11.6 (9.0-12.0) sec APTT 22.8 (22.0-30.0) sec CBC 05/01/23 Range/Units 00:51 WBC 6.7 (3.8-10.6) k/uL RBC 5.11 (3.80-5.40) m/uL Hgb 9.1 L (11.4-16.0) gm/dL Hct 32.9 L (34.0-46.0) % Plt Count 132 L (150-450) k/uL Comprehensive Metabolic Panel 05/01/23 Range/Units 00:51 Sodium 137 (137-145) mmol/L Potassium 4.4 (3.5-5.1) mmol/L Chloride 105 (98-107) mmol/L Carbon Dioxide 23 (22-30) mmol/L BUN 17 (7-17) mg/dL Creatinine 1.28 H (0.52-1.04) mg/dL Glucose 88 (74-99) mg/dL Calcium 8.9 (8.4-10.2) mg/dL AST 18 (14-36) U/L ALT 17 (4-34) U/L Alkaline Phosphatase 70 (38-126) U/L Total Protein 6.8 (6.3-8.2) g/dL Albumin 3.5 (3.5-5.0) g/dL Current Medications Generic Name Dose Route Start Last Admin Trade Name Freq PRN Reason Stop Dose Admin Acetaminophen 650 mg 05/01/23 03:11 05/01/23 04:41 Acetaminophen Tab 325 Mg Tab PO 650 mg Q6HR PRN Administration Mild Pain or Fever > 100.5 Amlodipine Besylate 10 mg 05/01/23 09:00 Amlodipine 10 Mg Tab PO DAILY [facility] Aspirin 81 mg 05/01/23 09:00 Aspirin 81 Mg PO DAILY [facility] Atorvastatin Calcium 20 mg 05/01/23 09:00 Atorvastatin 20 Mg Tab PO DAILY [facility] Budesonide/Formoterol Fumarate 2 puff 05/01/23 08:00 Symbicort 160-4.5 Mcg Inhaler INHALATION RT-BID [facility] Enoxaparin Sodium 40 mg 05/01/23 09:00 Enoxaparin 40 Mg/0.4 Ml Syringe SQ DAILY [facility] Furosemide 40 mg 05/01/23 09:00 Furosemide 10 Mg/Ml 4 Ml Vial IV Q12HR [facility] Naloxone HCl 0.2 mg 05/01/23 03:11 Naloxone 0.4 Mg/Ml 1 Ml Vial IV Q2M PRN Opioid Reversal Pantoprazole Sodium 40 mg 05/01/23 09:00 Pantoprazole 40 Mg Tablet PO [facility] [place] Intake and Output 04/30/23 05/01/23 05/01/23 22:59 06:59 14:59 Other: # Voids 1 Weight 63.503 kg 62.9 kg 05/01/23 00:51 05/01/23 00:51
[2023-05-01 11:21] LABS: Glucose,Whole Blood 137 mg/dL (70-110)
--- NOTE | 2023-05-01 11:52 | CA ---
Transthoracic Echo Report Name: Isadora Emmanuel Age: 67 Gender: F : 1955 Exam Date: 05/01/2023 09:08 Exam Location: [facility] Ht (in): 60 Wt (lb): 140 Ordering Physician: Yessica Gregg Attending/Referring Phys: Terrance Dailey MD [employer] Adelaida Sotelo [facility] Procedure CPT: Indications: chf Cardiac Hx: Technical Quality: Fair Contrast 1: Total Dose (mL): Contrast 2: Total Dose (mL): MEASUREMENTS (Male / Female) Normal Values 2D ECHO LV Diastolic Diameter PLAX 3.6 cm 4.2 - 5.9 / 3.9 - 5.3 cm LV Systolic Diameter PLAX 1.8 cm IVS Diastolic Thickness 0.8 cm 0.6 - 1.0 / 0.6 - 0.9 cm LVPW Diastolic Thickness 0.7 cm 0.6 - 1.0 / 0.6 - 0.9 cm LV Relative Wall Thickness 0.4 RV Internal Dim ED PLAX 4.0 cm DOPPLER Mitral E Point Velocity 49.7 cm/s Mitral A Point Velocity 67.0 cm/s Mitral E to A Ratio 0.7 MV Deceleration Time 266.4 ms LV E' Lateral Velocity 6.8 cm/s Mitral E to LV E' Lateral Ratio 7.3 LV E' Septal Velocity 3.9 cm/s Mitral E to LV E' Septal Ratio 12.8 TR Peak Velocity 413.1 cm/s TR Peak Gradient 68.3 mmHg Right Atrial Pressure 15.0 mmHg Pulmonary Artery Systolic Pressu 83.3 mmHg Right Ventricular Systolic Press 83.3 mmHg FINDINGS Left Ventricle Limited study. Left ventricular wall thickness normal. Small left ventricular cavity. No obvious regional wall motion abnormalities. Left ventricular ejection fraction is estimated at 60-65%. Flattened septum in systole and diastole consistent with right ventricle pressure and volume overload. Right Ventricle Severe right ventricular dilatation. Severly reduced right ventricular global systolic function. Severe pulmonary hypertension. Right Atrium Severe right atrial dilatation. Left Atrium Mitral Valve Aortic Valve Tricuspid Valve Structurally normal tricuspid valve. Moderate tricuspid regurgitation. Pulmonic Valve Pericardium Small pericardial effusion. Aorta CONCLUSIONS Normal LV systolic function Severe pulmonary hypertension Previewed by: Dr. Mervin Chaudhari MD (Electronically Signed) Final Date: 01 May 2023 11:51
--- NOTE | 2023-05-01 13:12 | P.PN ---
Progress Note - Text Progress Note Date: 05/01/23 Hospitalist Interval Note Patient seen and examined at bedside. Vital signs reviewed General: non toxic, no distress, appears at stated age, overweight Derm: no unusual rashes/lesions, warm Head: atraumatic, normocephalic, symmetric Eyes: EOMI, no lid lag, anicteric sclera, pupils equal round reactive to light ENT: Nose and ears atraumatic Neck: No cervical lymphadenopathy, trachea midline, supple Mouth: no lip lesion, mucus membranes moist Cardiovascular: S1S2 reg, no murmur, positive dorsalis pedis pulse bilateral, 2+ bilateral lower extremity pitting edema Lungs: CTA bilateral, no rhonchi, no rales, no accessory muscle use Abdominal: soft, nontender to palpation, no guarding Ext: muscle strength 5 out of 5 in all 4 extremities grossly, no gross muscle atrophy, no contractures, Neuro: CN II-XI grossly intact, no gross focal neuro deficits Psych: Alert, oriented, appropriate affect Assessment/Plan: Acute kidney injury Acute on chronic hypoxic respiratory failure CHF exacerbation, diastolic -Echo report reviewed, patient has severe pulmonary hypertension -Cardiology note reviewed -Continue IV Lasix This is an update note for patient . There is no charge associated with this note.
[2023-05-01 16:31] LABS: Glucose,Whole Blood 124 mg/dL (70-110)
[2023-05-01 20:18] LABS: Glucose,Whole Blood 129 mg/dL (70-110)
[2023-05-02 05:46] LABS: Glucose,Whole Blood 115 mg/dL (70-110)
[2023-05-02] MEDS: PANTOPRAZOLE 40 MG TABLET PO SCH (06:25)
[2023-05-02] MEDS: amLODIPine 10 MG TAB PO SCH (08:17)
[2023-05-02] MEDS: ATORVASTATIN 20 MG TAB PO SCH (08:17)
[2023-05-02] MEDS: ENOXAPARIN 40 MG/0.4 ML SYRINGE SQ SCH (08:17)
[2023-05-02] MEDS: FUROSEMIDE 10 MG/ML 4 ML VIAL IV SCH (08:17)
[2023-05-02] MEDS: ASPIRIN 81 MG PO SCH (08:17)
[2023-05-02 09:09] VITALS: BP 113/75; PULSE 88; RESP 22; TEMP 98.7
[2023-05-02 09:11] LABS: Blood Urea Nitrogen 15.9 mg/dL (9.0-27.0); Calcium 8.6 mg/dL (8.7-10.3); Carbon Dioxide 23.4 mmol/L (21.6-31.8); Chloride 103 mmol/L (96-109); Glucose 89 mg/dL (70-110); Potassium 3.3 mmol/L (3.5-5.5); Sodium 140 mmol/L (135-145)
[2023-05-02] MEDS ORDERED: POTASSIUM CHLORIDE ER 20 MEQ TAB.ER PO STA (10:12)
--- NOTE | 2023-05-02 10:59 | P.PN ---
Subjective HISTORY OF PRESENT ILLNESS: This is a 67-year-old female with a past medical history significant for COPD, hypertension, hyperlipidemia, diabetes, and moderate to severe pulmonary hypertension. Patient follows in the office with Dr. Chaudhari. We have been asked to see the patient in consultation for congestive heart failure. Patient examined at the bedside. Patient presented to the hospital with a chief complaint of shortness of breath. The patient also reports she is having lower extremity edema for the past month which is getting worse. She states that she has not had lower extremity edema prior to this. She denied any chest pain or pressure. The patient's proBNP was elevated at 4390. She received a one-time d ose of IV Lasix in the emergency room. The patient states she is a current smoker at [employer] and smokes approximate one pack per day. She states that she has home O2 and uses it on a PRN basis. The patient believes that she was taking a diuretic on an outpatient basis, however this was not listed on her home medication list. * EKG reveals sinus mechanism with no signs of acute ischemia * Chest xray cardiomegaly * Chest CTA: Negative for pulmonary embolism * Laboratory data: WBC 6.7. Hemoglobin 9.1. Platelet count 132. D-dimer 1.59. Sodium 137. Potassium 4.4. BUN 17. Creatinine 1.28. Troponin negative 1. ProBNP 4390. * Current home cardiac medications include amlodipine 10 mg daily, Lipitor 20 mg daily, aspirin 81 mg daily * Most recent echocardiogram obtained in December 2022 revealed normal LV systolic function, moderate to severe pulmonary hypertension, mild mitral regurgitation, and moderate tricuspid regurgitation 05/02/2023 Patient examined this morning at the bedside. Patient denies chest pain or pressure. She denies shortness of breath. She remains on IV Lasix. She continues to have lower extremity edema. Echo card to room completed revealing normal LV systolic function with severe pulmonary hypertension PHYSICAL EXAM: VITAL SIGNS: Reviewed. GENERAL: Well-developed in no acute distress. HEENT: Head is normocephalic. Pupils are equal, round. Sclerae anicteric. Mucous membranes of the mouth are moist. Neck supple. No JVD or thyromegaly LUNGS: Respirations even and unlabored. Lungs diminished bilaterally with mild expiratory wheezing HEART: Regular rate and rhythm. S1 and S2 heard. ABDOMEN: Soft. Nondistended. Nontender. EXTREMITIES: Normal range of motion. No clubbing or cyanosis. Peripheral pulses intact. 2+ pitting bilateral lower extremity edema NEUROLOGIC: Awake and alert. Oriented x 3. ASSESSMENT: Shortness of breath Acute heart failure with preserved LV systolic function Lower extremity edema, may be worsened by the use of amlodipine COPD with home oxygen use Severe pulmonary hypertension Hypertension Hyperlipidemia Diabetes PLAN: Continue IV lasix for lower extremity edema. Patient should be DC on oral lasix. Daily weights, accurate I&O, monitor kidney function Continue additional cardiac medications Further recommendations pending patient's course Nurse practitioner note has been reviewed by physician. Signing provider agrees with the documented findings, assessment, and plan of care. Objective - Vital Signs Vital signs: Vital Signs Temp 98.7 F 05/02/23 08:06 Pulse 88 05/02/23 08:06 Resp 22 05/02/23 08:06 BP 113/75 05/02/23 08:06 Pulse Ox 91 L 05/02/23 08:06 FiO2 Intake & Output 05/01/23 05/02/23 05/02/23 18:59 06:59 18:59 Intake Total 200 240 Output Total 1000 Balance 200 -760 Weight 59.6 kg Intake: Oral 200 240 Output: Urine 1000 Other: # Voids 2 - Labs CBC & Chem 7: 05/01/23 00:51 05/02/23 05:03 Labs: Abnormal Lab Results - Last 24 Hours (Table) 05/01/23 05/01/23 05/01/23 Range/Units 11:19 16:27 20:15 Potassium (3.5-5.5) mmol/L Anion Gap (4.00-12.00) mmol/L POC Glucose (mg/dL) 137 H 124 H 129 H (70-110) mg/dL Calcium (8.7-10.3) mg/dL 05/02/23 05/02/23 Range/Units 05:03 05:36 Potassium 3.3 L (3.5-5.5) mmol/L Anion Gap 13.60 H (4.00-12.00) mmol/L POC Glucose (mg/dL) 115 H (70-110) mg/dL Calcium 8.6 L (8.7-10.3) mg/dL
[2023-05-02 11:29] LABS: Anisocytosis (M) 2+; Basophils # (A) 0.03 X 10*3/uL (0.00-0.10); Basophils % (A) 0.5 %; Elliptocytes 2+; Eosinophils # (A) 0.11 X 10*3/uL (0.04-0.35); Eosinophils % (A) 1.7 %; HCT 28.7 % (37.2-46.3); HGB 7.6 d/dL (12.0-15.0); Hypochromasia (M) 2+; Lymphocytes # (A) 1.21 X 10*3/uL (0.90-5.00); Lymphocytes % (A) 18.4 %; MCH 17.1 pg (27.0-32.0); MCHC 26.5 d/dL (32.0-37.0); MCV 64.5 FL (80.0-97.0); Microcytosis (M) 3+; Monocytes # (A) 0.48 X 10*3/uL (0.20-1.00); Monocytes % (A) 7.3 %; NRBC Per 100 WBC 0.02 X 10*3/uL (0.00-0.01); Neutrophils # (A) 4.73 X 10*3/uL (1.80-7.70); Neutrophils % (A) 71.6 %; Platelet Count 136 X 10*3/uL (140-440); RBC 4.45 X 10*6/uL (4.10-5.20); RDW 25.6 % (11.5-14.5); Schistocytes 2+; WBC 6.59 X 10*3/uL (4.50-10.00)
[2023-05-02] MEDS: SYMBICORT 160-4.5 MCG INHALER INHALATION SCH (11:30)
[2023-05-02 11:32] LABS: Glucose,Whole Blood 110 mg/dL (70-110)
--- NOTE | 2023-05-02 12:27 | P.DS ---
Providers Date of admission: 05/01/23 01:36 Expected date of discharge: 05/02/23 Attending physician: Lesa Reid MD Consults: 05/01/23 03:11 Consult Physician Stat Consulting Provider: Mervin Chaudhari Consult Reason/Comments: CHF Do you want consulting provider notified?: Yes Primary care physician: Physician Nonstaff Hospital Course: The patient is a 67-year-old female with a PMH of COPD on 3L home O2 and chronic lower extremity edema who presents to the emergency room sent in by family for shortness of breath or lower extremity edema. The patient reports that she has been dealing with her edema for the past several months. The patient reports being told that she may have congestive heart failure in the past. Echocardiogram from 12/2022 revealed normal LV systolic function with moderate to severe pulmonary hypertension. Patient also reports shortness of breath with some orthopnea without PND. Chest CT in the emergency room was unremarkable with EKG showing normal sinus rhythm at 64 bpm with diffuse T-wave flattening. Laboratory evaluation was remarkable for hemoglobin of 9.1, platelet count 132, and MCV 64.4 with creatinine 1.28, troponin less than 0.012, and proBNP 4390. 05/02 Patient was seen and examined. No acute events overnight. Patient states breathing has improved and would like to be discharged home. Repeat Echo shows preserved EF with severe RV dilation and pulmonary hypertension. Cardiology has evaluated the patient and recommends Lasix on discharge. Her lower extremity swelling is likely related to Amlodipine use. She appears to be euvolemic. Her shortness of breath is likely related to severe pulmonary hypertension from advaced COPD. She should continue Amlodipine. Advised continuous use of her home O2. She would benefit from vasodilator therapy which we will defer to Pulmonology in the outpatient setting. She is advised to follow up with Dr. Baxter in the outpatient setting. We will also discharge her on Lasix 40 mg PO QD as per Cardiology recommendations. Pertient studies include CTA chest, CXR, Echocardiogram. Physical examination: Vital signs: BP 113/75. HR 88. T 98.7F. 91% on 4L NC. General: non toxic, no distress, appears at stated age, overweight Derm: no unusual rashes/lesions, warm Head: atraumatic, normocephalic, symmetric Eyes: EOMI, no lid lag, anicteric sclera ENT: Nose and ears atraumatic Neck: No cervical lymphadenopathy, trachea midline, supple Mouth: no lip lesion, mucus membranes moist Cardiovascular: S1S2 reg, no murmur, positive dorsalis pedis pulse bilateral, 1+ bilateral lower extremity pitting edema Lungs: CTA bilateral, no rhonchi, no rales, no accessory muscle use Abdominal: soft, nontender to palpation, no guarding Ext: muscle strength 5 out of 5 in all 4 extremities grossly, no gross muscle atrophy, no contractures, Neuro: no gross focal neuro deficits Psych: Alert, oriented, appropriate affect Discharge Diagnosis: Fluid overload, suspect secondary to Amlodipine Severe pulmonary hypertension Hypokalemia Microcytic anemia Thrombocytopenia Chronic conditions: COPD on 3L home O2 This complex discharge took 35 minutes to complete. Patient Condition at Discharge: Stable Plan - Discharge Summary Discharge Rx Participant: No New Discharge Prescriptions: New Furosemide [Lasix] 40 mg PO DAILY #30 tablet Continue Albuterol Inhaler [Ventolin Hfa Inhaler] 1 - 2 puff INHALATION RT-Q6H PRN PRN Reason: Shortness Of Breath Atorvastatin [Lipitor] 20 mg PO DAILY Budesonide-Formot 160-4.5 Mcg [Symbicort 160-4.5 Mcg Inhaler] 2 puff INHALATION RT-BID 30 Days #1 each metFORMIN HCL 500 mg PO DAILY #30 tab oxyBUTYnin chloride 5 mg PO BID amLODIPine [Norvasc] 10 mg PO DAILY tab Omeprazole [PriLOSEC] 40 mg PO DAILY #30 cap Albuterol Nebulized [Ventolin Nebulized] 2.5 mg INHALATION RT-QID PRN PRN Reason: Shortness Of Breath Aspirin EC [Ecotrin Low Dose] 81 mg PO DAILY Acetaminophen Tab [Tylenol] 650 mg PO Q4H PRN #30 tablet PRN Reason: Pain Docusate [Colace] 100 mg PO BID PRN cap PRN Reason: Constipation Discharge Medication List Albuterol Inhaler [Ventolin Hfa Inhaler] 1 - 2 puff INHALATION RT-Q6H PRN 01/02/23 [History] Aspirin EC [Ecotrin Low Dose] 81 mg PO DAILY 01/02/23 [History] Atorvastatin [Lipitor] 20 mg PO DAILY 01/02/23 [History] Budesonide-Formot 160-4.5 Mcg [Symbicort 160-4.5 Mcg Inhaler] 2 puff INHALATION RT-BID 30 Days #1 each 01/05/23 [Rx] metFORMIN HCL 500 mg PO DAILY #30 tab 01/23/23 [Rx] oxyBUTYnin chloride 5 mg PO BID 02/27/23 [History] Acetaminophen Tab [Tylenol] 650 mg PO Q4H PRN #30 tablet 03/13/23 [Rx] Docusate [Colace] 100 mg PO BID PRN cap 03/14/23 [Rx] Omeprazole [PriLOSEC] 40 mg PO DAILY #30 cap 03/14/23 [Rx] amLODIPine [Norvasc] 10 mg PO DAILY tab 03/14/23 [Rx] Albuterol Nebulized [Ventolin Nebulized] 2.5 mg INHALATION RT-QID PRN 05/01/23 [History] Furosemide [Lasix] 40 mg PO DAILY #30 tablet 05/02/23 [Rx] Follow up Appointment(s)/Referral(s): Nonstaff,Physician [Primary Care Provider] - 1-2 days Warner Morris MD [STAFF PHYSICIAN] - 05/25/23 10:15 am Activity/Diet/Wound Care/Special Instructions: Wear your home O2 at all times. Follow up with your PCP within 1-2 days of discharge. Follow up with Dr. Baxter within 1 week of discharge. Take all medications as advised. Discharge Disposition: HOME SELF-CARE
== END 2023-05-02 13:39 | disposition home or self-care (01) ==
LOC: EC 22:11 → INTOOBSV 05-01 01:36 → OBSVTOIN 05-01 01:36 → 4SSUR 05-01 01:36 → UNDODISIN 05-02 13:39
PROVIDERS: ADMIT Internal Medicine; ATTEND Internal Medicine
DX: E87.70 Fluid overload, unspecified (principal); I27.20 Pulmonary hypertension, unspecified; E87.6 Hypokalemia; D50.9 Iron deficiency anemia, unspecified; D69.6 Thrombocytopenia, unspecified; J44.9 Chronic obstructive pulmonary disease, unspecified; Z99.81 Dependence on supplemental oxygen; M79.89 Other specified soft tissue disorders; N17.9 Acute kidney failure, unspecified; J96.21 Acute and chronic respiratory failure with hypoxia; E78.5 Hyperlipidemia, unspecified; E11.9 Type 2 diabetes mellitus without complications; F17.210 Nicotine dependence, cigarettes, uncomplicated; I50.9 Heart failure, unspecified; Z86.73 Personal history of transient ischemic attack (TIA), and cerebral infarction without residual deficits; Z79.899 Other long term (current) drug therapy; Z79.82 Long term (current) use of aspirin; Z79.84 Long term (current) use of oral hypoglycemic drugs; Z82.5 Family history of asthma and other chronic lower respiratory diseases
CPT/HCPCS: 96376 ×2; 96372 ×2; 96374; 99285; 36415; 94640 ×3; 93005; 93308; 85379; 83880; 80053; 80048; 82728; 83540; 83550; 83605; 83735; 84484; 85025 ×2; 85610; 85730; 71046; 71275; G0378 ×2; J1940 ×2; J1650 ×2; Q9967

== ENCOUNTER 2023-06-16 14:39 | Observation (INO) | payer MEDICARE, OTHER ==
--- NOTE | 2023-06-16 15:20 | ED ---
Nausea/Vomiting/Diarrhea HPI - General Source: patient, family, RN notes reviewed Mode of arrival: wheelchair Limitations: no limitations <Breana Gordon - Last Filed: 06/16/23 15:20> <Vane Jones - Last Filed: 06/17/23 03:32> - General Chief complaint: Nausea/Vomiting/Diarrhea Stated complaint: vomiting-revisit Time Seen by Provider: 06/16/23 15:17 - History of Present Illness Initial comments: This is a 67 year old female who presents to the emergency department for nausea and vomiting. She was discharged from this facility last night for a CHF and COPD exacerbation. Today she started to have body aches with nausea and vomiting. Her daughter is worried about her becoming dehydrated. (Breana Gordon) 67-year-old female with past history of COPD, CHF, home oxygen dependence who presents to the emergency department reporting nausea and vomiting. She was just discharged from the hospital yesterday for CHF exacerbation. They did diuresis the patient's. Since the patient has been home she has had intractable nausea and vomiting. States that she can't hold down any water. No sick contacts. She also has associated body aches. No abdominal pain. No diarrhea. Continues to pass gas. Denies issues with urination. No other alleviating, precipitating or modifying factors (Vane Jones) - Related Data Home Medications Medication Instructions Recorded Confirmed Fluticasone/Umeclidin/Vilanter 1 puff INHALATION RT-DAILY 06/12/23 06/16/23 [Trelegy Ellipta 100-62.5-25] Previous Rx's Medication Instructions Recorded Acetaminophen Tab [Tylenol] 650 mg PO Q4H PRN #30 tablet 03/13/23 Albuterol Inhaler [Ventolin Hfa 2 puff INHALATION RT-Q6H PRN #1 06/15/23 Inhaler] each Albuterol Nebulized [Ventolin 2.5 mg INHALATION RT-QID PRN #10 ml 06/15/23 Nebulized] Aspirin EC [Ecotrin Low Dose] 81 mg PO DAILY #30 tab 06/15/23 Atorvastatin [Lipitor] 20 mg PO DAILY #30 tab 06/15/23 Dapagliflozin Propanediol [Farxiga] 5 mg PO DAILY #30 tab 06/15/23 Docusate [Colace] 100 mg PO BID PRN #60 cap 06/15/23 Furosemide [Lasix] 40 mg PO DAILY 30 Days #30 tablet 06/15/23 Omeprazole [PriLOSEC] 40 mg PO DAILY 30 Days #30 cap 06/15/23 Spironolactone [Aldactone] 50 mg PO DAILY #60 tab 06/15/23 amLODIPine [Norvasc] 5 mg PO DAILY #30 tab 06/15/23 oxyBUTYnin chloride 5 mg PO BID #30 tab 06/15/23 Allergies Allergy/AdvReac Type Severity Reaction Status Date / Time No Known Allergies Allergy Verified 06/16/23 19:41 Review of Systems ROS Other: All systems not noted in ROS Statement are negative. <Breana Gordon - Last Filed: 06/16/23 15:20> ROS Other: All systems not noted in ROS Statement are negative. <Vane Jones - Last Filed: 06/17/23 03:32> ROS Statement: Those systems with pertinent positive or pertinent negative responses have been documented in the HPI. Past Medical History Past Medical History: Heart Failure, COPD, CVA/TIA, Diabetes Mellitus, Hypertension Additional Past Medical History / Comment(s): bowel obstuction History of Any Multi-Drug Resistant Organisms: None Reported Past Surgical History: No Surgical Hx Reported Additional Past Surgical History / Comment(s): bowel surgery 2022 Past Anesthesia/Blood Transfusion Reactions: No Reported Reaction Past Psychological History: No Psychological Hx Reported Smoking Status: Current every day smoker Past Alcohol Use History: None Reported Past Drug Use History: Marijuana - Past Family History Mother Family Medical History: COPD <Breana Gordon - Last Filed: 06/16/23 15:20> General Exam <Breana Gordon - Last Filed: 06/16/23 15:20> General appearance: alert, in no apparent distress Head exam: Present: atraumatic, normocephalic, normal inspection Eye exam: Present: normal appearance, PERRL, EOMI. Absent: scleral icterus, conjunctival injection, periorbital swelling ENT exam: Present: normal exam, mucous membranes moist Neck exam: Present: normal inspection. Absent: tenderness, meningismus, lymphadenopathy Respiratory exam: Present: decreased breath sounds. Absent: respiratory distress, wheezes, rales, rhonchi, stridor Cardiovascular Exam: Present: regular rate, normal rhythm, normal heart sounds. Absent: systolic murmur, diastolic murmur, rubs, gallop, clicks GI/Abdominal exam: Present: soft, normal bowel sounds. Absent: distended, tenderness, guarding, rebound, rigid Extremities exam: Present: normal inspection, full ROM, normal capillary refill. Absent: tenderness, pedal edema, joint swelling, calf tenderness Back exam: Present: normal inspection Neurological exam: Present: alert, oriented X3, CN II-XII intact Psychiatric exam: Present: normal affect, normal mood Skin exam: Present: warm, dry, intact, normal color. Absent: rash <Vane Jones - Last Filed: 06/17/23 03:32> - General Exam Comments Initial Comments: Visual Physical Exam Vital signs reviewed General: Well-appearing, nontoxic, no acute distress. Head: Normocephalic, atraumatic Eyes: PERRLA, EOMI ENT: Airway patent Chest: Nonlabored breathing Skin: No visual rash, normal skin tone Neuro: Alert and oriented 3 Musculoskeletal: No gross abnormalities I performed the QuickNote portion of this chart. Signed Breana Gordon PA-C. (Breana Gordon) Course Vital Signs 06/16/23 06/16/23 06/16/23 17:45 19:31 20:57 Temperature 98.6 F Pulse Rate 81 81 93 Respiratory 18 19 18 Rate Blood Pressure 132/89 142/90 135/87 O2 Sat by Pulse 93 L 88 L 96 Oximetry Medical Decision Making - Lab Data Result diagrams: 06/16/23 16:24 06/16/23 16:24 <Vane Jones A - Last Filed: 06/17/23 03:32> - Medical Decision Making Was pt. sent in by a medical professional or institution (JOANA Osborne, COLD ROLL OPERATOR, urgent care, hospital, or long-term...) When possible be specific @ -No Did you speak to anyone other than the patient for history (EMS, parent, family, police, friend...)? What history was obtained from this source @ -Spoke with the patient's daughter Did you review nursing and triage notes (agree or disagree)? Why? @ -I reviewed and agree with nursing and triage notes Were old charts reviewed (outside hosp., previous admission, EMS record, old EKG, old radiological studies, urgent care reports/EKG's, long-term records)? Report findings @ -I reviewed the patient's progress note from yesterday when she was admitted Differential Diagnosis (chest pain, altered mental status, abdominal pain women, abdominal pain men, vaginal bleeding, weakness, fever, dyspnea, syncope, headache, dizziness, GI bleed, back pain, seizure, CVA, palpatations, mental health, musculoskeletal)? @ -Differential Abdominal Pain Women: Appendicitis, Cholecystitis, diverticulosis, ischemic bowel, pancreatitis, hepatitis, UTI, gastroenteritis, AAA, incarcerated hernia, bowel obstruction, constipation, inflammatory bowel, hepatitis, peptic ulcer disease, splenic infarction, perforated viscus, vulvitis, ovarian torsion, PID, kidney stone, placenta abruption, this is not meant to be an all-inclusive list EKG interpreted by me (3pts min.). @ -Yes and demonstrates A. fib with a rate of 90. QRS 106. QTC of 395. No acute ST segment elevations or depressions X-rays interpreted by me (1pt min.). @ -Yes and demonstrates no obstruction CT interpreted by me (1pt min.). @ -Yes and demonstrates no obstruction U/S interpreted by me (1pt. min.). @ -None done What testing was considered but not performed or refused? (CT, X-rays, U/S, labs)? Why? @ -None What meds were considered but not given or refused? Why? @ -None Did you discuss the management of the patient with other professionals (professionals i.e. , PA, COLD ROLL OPERATOR, lab, RT, psych nurse, social research assistant, water taxi operator, teacher, corporate banking officer, nurse outreach case manager)? Give summary @ -Spoke with Braxton for admission Was smoking cessation discussed for >3mins.? @ -No Was critical care preformed (if so, how long)? @ -No Were there social determinants of health that impacted care today? How? (Homelessness, low income, unemployed, alcoholism, drug addiction, transportation, low edu. Level, literacy, decrease access to med. care, assisted, rehab)? @ -No Was there de-escalation of care discussed even if they declined (Discuss DNR or withdrawal of care, Hospice)? DNR status @ -No What co-morbidities impacted this encounter? (DM, HTN, Smoking, COPD, CAD, Cancer, CVA, ARF, Chemo, Hep., AIDS, mental health diagnosis, sleep apnea, morbid obesity)? @ -CHF, COPD, history of bowel obstruction Was patient admitted / discharged? Hospital course, mention meds given and route, prescriptions, significant lab abnormalities, going to OR and other pertinent info. @ -Upon arrival patient was placed into room 2. History and physical exam was performed. IV access was established. She was given Zofran for nausea. Patient continues to vomit and therefore she is given Reglan and Benadryl. KUB is performed as I did read that the patient has a history of bowel obstruction with surgery. KUB does not demonstrate obstruction. Because the patient co ntinues to vomit I did do a CT which does not demonstrate obstruction. I did recommend admission for intractable nausea and vomiting which the patient was agreeable to. Spoke with Braxton from [facility] who agreed to admit the patient Undiagnosed new problem with uncertain prognosis? @ -yes Drug Therapy requiring intensive monitoring for toxicity (Heparin, Nitro, Insulin, Cardizem)? @ -No Were any procedures done? @ -No Diagnosis/symptom? @ -Intractable nausea vomiting, history of small bowel obstruction Acute, or Chronic, or Acute on Chronic? @ -Acute Uncomplicated (without systemic symptoms) or Complicated (systemic symptoms)? @ -Complicated Side effects of treatment? @ -No Exacerbation, Progression, or Severe Exacerbation? @ -No Poses a threat to life or bodily function? How? (Chest pain, USA, CA, pneumonia, PE, COPD, DKA, ARF, appy, cholecystitis, CVA, Diverticulitis, Homicidal, Suicidal, threat to staff... and all critical care pts) @ -No (Vane Jones) - Lab Data Lab Results 06/16/23 06/16/23 06/16/23 Range/Units 16:24 16:24 16:24 WBC 7.6 (3.8-10.6) k/uL RBC 6.09 H (3.80-5.40) m/uL Hgb 10.9 L (11.4-16.0) gm/dL Hct 40.7 (34.0-46.0) % MCV 66.8 L (80.0-100.0) fL MCH 17.9 L (25.0-35.0) pg MCHC 26.9 L (31.0-37.0) g/dL RDW 22.6 H (11.5-15.5) % Plt Count 111 L (150-450) k/uL MPV 8.6 Neutrophils % 74 % Lymphocytes % 19 % Monocytes % 4 % Eosinophils % 1 % Basophils % 0 % Neutrophils # 5.6 (1.3-7.7) k/uL Lymphocytes # 1.5 (1.0-4.8) k/uL Monocytes # 0.3 (0-1.0) k/uL Eosinophils # 0.1 (0-0.7) k/uL Basophils # 0.0 (0-0.2) k/uL Hypochromasia Marked Poikilocytosis Slight Anisocytosis Moderate Microcytosis Marked Sodium 138 (137-145) mmol/L Potassium 5.4 H (3.5-5.1) mmol/L Chloride 102 (98-107) mmol/L Carbon Dioxide 27 (22-30) mmol/L Anion Gap 9 mmol/L BUN 21 H (7-17) mg/dL Creatinine 0.92 (0.52-1.04) mg/dL Est GFR (CKD-EPI)AfAm 74 (>60 ml/min/1.73 sqM) Est GFR (CKD-EPI)NonAf 64 (>60 ml/min/1.73 sqM) Glucose 122 H (74-99) mg/dL Calcium 9.4 (8.4-10.2) mg/dL Total Bilirubin 3.0 H (0.2-1.3) mg/dL AST 27 (14-36) U/L ALT 21 (4-34) U/L Alkaline Phosphatase 78 (38-126) U/L NT-Pro-B Natriuret Pep pg/mL Total Protein 7.2 (6.3-8.2) g/dL Albumin 4.0 (3.5-5.0) g/dL Amylase 81 (30-110) U/L Lipase 38 (23-300) U/L Influenza Type A (PCR) Not Detected (Not Detectd) Influenza Type B (PCR) Not Detected (Not Detectd) RSV (PCR) Not Detected (Not Detectd) SARS-CoV-2 (PCR) Not Detected (Not Detectd) 06/16/23 Range/Units 17:53 WBC (3.8-10.6) k/uL RBC (3.80-5.40) m/uL Hgb (11.4-16.0) gm/dL Hct (34.0-46.0) % MCV (80.0-100.0) fL MCH (25.0-35.0) pg MCHC (31.0-37.0) g/dL RDW (11.5-15.5) % Plt Count (150-450) k/uL MPV Neutrophils % % Lymphocytes % % Monocytes % % Eosinophils % % Basophils % % Neutrophils # (1.3-7.7) k/uL Lymphocytes # (1.0-4.8) k/uL Monocytes # (0-1.0) k/uL Eosinophils # (0-0.7) k/uL Basophils # (0-0.2) k/uL Hypochromasia Poikilocytosis Anisocytosis Microcytosis Sodium (137-145) mmol/L Potassium (3.5-5.1) mmol/L Chloride (98-107) mmol/L Carbon Dioxide (22-30) mmol/L Anion Gap mmol/L BUN (7-17) mg/dL Creatinine (0.52-1.04) mg/dL Est GFR (CKD-EPI)AfAm (>60 ml/min/1.73 sqM) Est GFR (CKD-EPI)NonAf (>60 ml/min/1.73 sqM) Glucose (74-99) mg/dL Calcium (8.4-10.2) mg/dL Total Bilirubin (0.2-1.3) mg/dL AST (14-36) U/L ALT (4-34) U/L Alkaline Phosphatase (38-126) U/L NT-Pro-B Natriuret Pep 4650 pg/mL Total Protein (6.3-8.2) g/dL Albumin (3.5-5.0) g/dL Amylase (30-110) U/L Lipase (23-300) U/L Influenza Type A (PCR) (Not Detectd) Influenza Type B (PCR) (Not Detectd) RSV (PCR) (Not Detectd) SARS-CoV-2 (PCR) (Not Detectd) Disposition <Breana Gordon - Last Filed: 06/16/23 15:20> Is patient prescribed a controlled substance at d/c from ED?: No Time of Disposition: 19:22 Decision to Admit Reason: Admit from EC Decision Date: 06/16/23 Decision Time: 19:22 <Vane Jones - Last Filed: 06/17/23 03:32> Clinical Impression: Intractable nausea and vomiting Disposition: ADMITTED IP TO THIS HOSP Condition: Stable
[2023-06-16 16:43] LABS: Anisocytosis Moderate; Basophils % (A) 0 %; Eosinophils # (A) 0.1 k/uL (0-0.7); Eosinophils % (A) 1 %; HCT 40.7 % (34.0-46.0); HGB 10.9 gm/dL (11.4-16.0); Hypochromasia Marked; Lymphocytes # (A) 1.5 k/uL (1.0-4.8); Lymphocytes % (A) 19 %; MCH 17.9 pg (25.0-35.0); MCHC 26.9 g/dL (31.0-37.0); MCV 66.8 fL (80.0-100.0); Mean Platelet Volume 8.6; Microcytosis Marked; Monocytes # (A) 0.3 k/uL (0-1.0); Monocytes % (A) 4 %; Neutrophils # (A) 5.6 k/uL (1.3-7.7); Neutrophils % (A) 74 %; Platelet Count 111 k/uL (150-450); Poikilocytosis Slight; RBC 6.09 m/uL (3.80-5.40); RDW 22.6 % (11.5-15.5); WBC 7.6 k/uL (3.8-10.6)
[2023-06-16] MEDS ORDERED: ONDANSETRON 4 MG/2 ML VIAL IVP STA (16:51)
[2023-06-16 17:02] LABS: ALT 21 U/L (4-34); AST 27 U/L (14-36); African American GFR (CKD) 74 (>60 ml/min/1.73 sqM); Alkaline Phosphatase 78 U/L (38-126); Amylase 81 U/L (30-110); Anion Gap 9 mmol/L; Blood Urea Nitrogen 21 mg/dL (7-17); Calcium 9.4 mg/dL (8.4-10.2); Carbon Dioxide 27 mmol/L (22-30); Chloride 102 mmol/L (98-107); Glucose 122 mg/dL (74-99); Lipase 38 U/L (23-300); Non-African American GFR(CKD) 64 (>60 ml/min/1.73 sqM); Potassium 5.4 mmol/L (3.5-5.1); Sodium 138 mmol/L (137-145); Total Protein 7.2 g/dL (6.3-8.2)
[2023-06-16] MEDS ORDERED: METOCLOPRAMIDE 5 MG/ML 2 ML VIAL IVP STA (17:37)
[2023-06-16] MEDS ORDERED: diphenhydrAMINE 50 MG/ML 1 ML VIAL IVP STA (17:38)
--- NOTE | 2023-06-16 17:46 | XR ---
EXAMINATION TYPE: XR KUB DATE OF EXAM: 06/16/2023 Comparison: 02/27/2023 Clinical History: 67-year-old female vomiting, hx obstruction Findings: There is some patchy opacity at the left base. No evidence for free intraperitoneal air. No dilated s mall bowel or air-fluid levels. Scattered air and stool throughout the colon extending distally to th e rectum. Mild stool burden. No suspicious calcifications seen. Impression: 1. No evidence of patchy atelectasis versus early infiltrate at the left base. Correlate for any acti ve respiratory symptoms. 2. No evidence for free air or bowel obstruction. Mild stool burden.
[2023-06-16] MEDS ORDERED: NALOXONE 0.4 MG/ML 1 ML VIAL IV PRN (19:22)
[2023-06-16] MEDS ORDERED: ONDANSETRON 4 MG/2 ML VIAL IVP PRN ×2 (19:22→22:43)
[2023-06-16] MEDS ORDERED: SODIUM CHLORIDE 0.9% 1,000 ML IV SCH ×2 (19:30→22:45)
--- NOTE | 2023-06-16 19:40 | CT ---
EXAMINATION TYPE: CT abdomen pelvis w con DATE OF EXAM: 06/16/2023 COMPARISON: 04/17/2023 HISTORY: 15-year-old female intractable vomiting, history of obstruction, abdominal pain, vomiting TECHNIQUE: Contiguous axial scanning of the abdomen and pelvis following administration of 100 ml Iso chavez 300 IV contrast. Delayed images through the kidneys and coronal/sagittal reconstructions perform ed. CT DLP: 719.6 mGycm Automated exposure control for dose reduction was used. FINDINGS: Generalized anasarca unchanged. There is a small pericardial effusion measuring 7 mm thick. Unclear if this an underlying hiatal hernia or circumferential wall thickening distal esophagus. The stomach is contracted but there may be some fold thickening along the fundus and proximal to mid foreign gian body. Periportal edema in the liver. Circumferential gallbladder wall thickening but no abnormal gallbladde r distention. Portal venous system is patent. No biliary ductal dilatation. Adrenal glands, spleen, and pancreas within normal limits. Renal cysts measuring up to 2.0 cm. Moderate prostatic calcifications abdominal aorta and iliac arteries. There is fusiform aneurysm infr arenal abdominal aorta 3.3 cm, unchanged. No dilated small bowel, free fluid, or free air. No mesenteric or retroperitoneal lymphadenopathy. No significant stool burden. Mildly redundant sigmoid colon. Bladder partially distended. Uterus anteverted. Ovaries are visualized. There is mild to moderate pel coy free fluid. No pelvic lymphadenopathy seen. Moderate to advanced degenerative disc disease L3-L4 and L4-L5 with facet arthropathy. IMPRESSION: 1. CORRELATE FOR FLUID OVERLOAD STATE/THIRD SPACING GIVEN DIFFUSE ANASARCA CHANGE, SMALL PERICARDIAL EFFUSION MEASURING 7 MM THICK, AND SMALL TO MODERATE PELVIC FREE FLUID. 2. PERIPORTAL EDEMA AND CIRCUMFERENTIAL GALLBLADDER WALL THICKENING. FINDINGS ALSO LIKELY REFLECT FLU ID OVERLOAD STATE. CORRELATE TO EXCLUDE THE POSSIBILITY OF HEPATITIS AND SECONDARY GALLBLADDER WALL T HICKENING. THERE IS NO GALLBLADDER HYDROPS TO FURTHER SUPPORT ACUTE CHOLECYSTITIS. 3. THERE MAY BE CIRCUMFERENTIAL WALL THICKENING OF THE DISTAL ESOPHAGUS THAT COULD REFLECT ESOPHAGITI S. STOMACH IS COLLAPSED BUT SHOWS SOME WALL THICKENING WELL, POSSIBLE GASTRITIS. 4. A 3.3 CM INFRARENAL AAA IS UNCHANGED.
[2023-06-16] MEDS ORDERED: ALBUTEROL NEBULIZED 2.5 MG/3 ML INHALATION PRN (22:42)
[2023-06-16] MEDS ORDERED: NON FORMULARY DRUG (Albuterol Inhaler 90 MCG Puff) INHALATION PRN (22:42)
[2023-06-17 09:50] LABS: Amorphous Sediment,Urine Occasional /hpf; Appearance,Urine Clear (Clear); Bacteria,Urine Rare /hpf; Bilirubin,Urine Negative (Negative); Blood,Urine Negative (Negative); Color,Urine Yellow; Glucose,Urine (UA) Negative (Negative); Ketones,Urine Negative (Negative); Leukocyte Esterase,Urine Trace (Negative); Nitrite,Urine Negative (Negative); Protein,Urine 1+ (Negative); RBC,Urine 3 /hpf (0-5); Squamous Epithelial Cell,Urine 2 /hpf (0-4); WBC,Urine 5 /hpf (0-5)
[2023-06-17] MEDS: PANTOPRAZOLE 40 MG/10 ML VIAL IVP SCH ×2 (10:17→20:24)
[2023-06-17 10:22] LABS: Specific Gravity,Urine >1.050 (1.001-1.035)
[2023-06-17] MEDS: FUROSEMIDE 40 MG TAB PO SCH (11:56)
--- NOTE | 2023-06-17 14:15 | P.HPIM ---
History of Present Illness H&P Date: 06/17/23 History of present illness; This is a 67-year-old female with a past medical history significant for COPD, chronic hypoxic respiratory failure on home O2, severe pulmonary hypertension, hypertension, hyperlipidemia, diabetes who was discharged recently after being treated for CHF and COPD exacerbation. Patient stated as soon as she went home she started having nausea and vomiting. Patient also complaining of body aches. Patient had poor appetite. Patient was unable to keep anything down. Denied any diarrhea. Denies any fever or chills. No complain of chest pain. Denies any swelling of feet. Because of symptoms, patient came to the ER Initial lab work done in the ER showed WBC 7.6, hemoglobin 10.9, platelet count 111, sodium 1:30, potassium 5.4, BUN 21, creatinine 0.92, Bilirubin 3, [id number], lipase 38 Influenza A,B not detected COVID-19 not detected RSV nondetected Abdominal and chest x-ray showed patchy atelectasis at left lung base, no evidence of any free air or bowel obstruction CT abdominal pelvis done showed correlate for fluid overload state/third spacing given diffuse anasarca change, small pericardial effusion. Periportal edema and circumferential gallbladder wall thickening, findings also like to prevent fluid overload state. Circumferential wall thickening of the distal esophagus that could reflect esophagitis REVIEW OF SYSTEMS: CONSTITUTIONAL: As mentioned in HPI HEENT: No recent visual problems or hearing problems. Denied any sore throat. CARDIOVASCULAR: No chest pain, orthopnea, PND, no palpitations, no syncope. PULMONARY: No shortness of breath, no cough, no hemoptysis. GASTROINTESTINAL: As mentioned in HPI NEUROLOGICAL: No headaches, no weakness, no numbness. HEMATOLOGICAL: Denies any bleeding or petechiae. GENITOURINARY: Denies any burning micturition, frequency, or urgency. MUSCULOSKELETAL/RHEUMATOLOGICAL: Denies any joint pain, swelling, or any muscle pain. ENDOCRINE: Denies any polyuria or polydipsia. The rest of the 14-point review of systems is negative. PHYSICAL EXAMINATION: GENERAL: The patient is alert and oriented x3, not in any acute distress. Well developed, well nourished. HEENT: Pupils are round and equally reacting to light. EOMI. No scleral icterus. No conjunctival pallor. Normocephalic, atraumatic. No pharyngeal erythema. No thyromegaly. CARDIOVASCULAR: S1 and S2 present. No murmurs, rubs, or gallops. PULMONARY: Chest is clear to auscultation, no wheezing or crackles. ABDOMEN: Soft, nontender, nondistended, normoactive bowel sounds. No palpable organomegaly. MUSCULOSKELETAL: No joint swelling or deformity. EXTREMITIES: No cyanosis, clubbing, or pedal edema. NEUROLOGICAL: Gross neurological examination did not reveal any focal deficits. SKIN: No rashes. Assessment and plan Nausea and vomiting Chronic diastolic CHF Anasarca Esophagitis 3.3 cm infrarenal abdominal aortic aneurysm Nicotine dependence Electrolyte abnormalities with hypokalemia and hypomagnesemia Diabetes mellitus Hypertension COPD with no exacerbation History of CVA/TIA Monitor vital signs Monitor CBC Monitor CMP Continue telemetry monitoring Continue gentle hydration. Monitor electrolytes. Keep patient on clear liquid diet Consult surgery Consult cardiology Labs and medication were reviewed.. Continue same treatment. Continue with symptomatic treatment. Resume home medication. Monitor labs and vitals. DVT and GI prophylaxis. Further recommendations as per clinical course of the pat ient Dictation was produced using [employer] dictation software. please excuse any grammatical, word or spelling errors. Past Medical History Past Medical History: Heart Failure, COPD, CVA/TIA, Diabetes Mellitus, Hypertension Additional Past Medical History / Comment(s): bowel obstuction History of Any Multi-Drug Resistant Organisms: None Reported Past Surgical History: No Surgical Hx Reported Additional Past Surgical History / Comment(s): bowel surgery 2022 Past Anesthesia/Blood Transfusion Reactions: No Reported Reaction Past Psychological History: No Psychological Hx Reported Smoking Status: Former smoker Past Alcohol Use History: None Reported Past Drug Use History: Marijuana - Past Family History Mother Family Medical History: COPD Medications and Allergies Home Medications Medication Instructions Recorded Confirmed Type Acetaminophen Tab [Tylenol] 650 mg PO Q4H PRN #30 tablet 03/13/23 06/16/23 Rx Fluticasone/Umeclidin/Vilanter 1 puff INHALATION RT-DAILY 06/12/23 06/16/23 History [Alec Ellipta 100-62.5-25] Albuterol Inhaler [Ventolin Hfa 2 puff INHALATION RT-Q6H PRN #1 06/15/23 06/16/23 Rx Inhaler] each Albuterol Nebulized [Ventolin 2.5 mg INHALATION RT-QID PRN #10 ml 06/15/23 06/16/23 Rx Nebulized] Aspirin EC [Ecotrin Low Dose] 81 mg PO DAILY #30 tab 06/15/23 06/16/23 Rx Atorvastatin [Lipitor] 20 mg PO DAILY #30 tab 06/15/23 06/16/23 Rx Dapagliflozin Propanediol [Farxiga] 5 mg PO DAILY #30 tab 06/15/23 06/16/23 Rx Docusate [Colace] 100 mg PO BID PRN #60 cap 06/15/23 06/16/23 Rx Furosemide [Lasix] 40 mg PO DAILY 30 Days #30 tablet 06/15/23 06/16/23 Rx Omeprazole [PriLOSEC] 40 mg PO DAILY 30 Days #30 cap 06/15/23 06/16/23 Rx Spironolactone [Aldactone] 50 mg PO DAILY #60 tab 06/15/23 06/16/23 Rx amLODIPine [Norvasc] 5 mg PO DAILY #30 tab 06/15/23 06/16/23 Rx oxyBUTYnin chloride 5 mg PO BID #30 tab 06/15/23 06/16/23 Rx Allergies Allergy/AdvReac Type Severity Reaction Status Date / Time No Known Allergies Allergy Verified 06/16/23 19:41 Physical Exam Vitals: Vital Signs Temp Pulse Pulse Resp BP BP Pulse Ox 06/17/23 08:27 97.7 F 70 18 127/84 97 06/17/23 01:36 98.9 F 105 H 24 117/82 90 L 06/16/23 21:49 98.8 F 67 26 H 123/82 06/16/23 20:57 93 18 135/87 96 06/16/23 19:31 98.6 F 81 19 142/90 88 L 06/16/23 17:45 81 18 132/89 93 L Intake and Output 06/16/23 06/17/23 06/17/23 22:59 06:59 14:59 Other: Voiding Method Toilet Weight 72.575 kg 56 kg Results CBC & Chem 7: 06/16/23 16:24 06/16/23 16:24 Labs: Abnormal Lab Results - Last 24 Hours (Table) 06/16/23 06/16/23 06/17/23 Range/Units 16:24 16:24 09:00 RBC 6.09 H (3.80-5.40) m/uL Hgb 10.9 L (11.4-16.0) gm/dL MCV 66.8 L (80.0-100.0) fL MCH 17.9 L (25.0-35.0) pg MCHC 26.9 L (31.0-37.0) g/dL RDW 22.6 H (11.5-15.5) % Plt Count 111 L (150-450) k/uL Potassium 5.4 H (3.5-5.1) mmol/L BUN 21 H (7-17) mg/dL Glucose 122 H (74-99) mg/dL Total Bilirubin 3.0 H (0.2-1.3) mg/dL Ur Specific [place] >1.050 H (1.001-1.035) Urine Protein 1+ H (Negative) Ur Leukocyte Esterase Trace H (Negative) Amorphous Sediment Occasional H (None) /hpf Urine Bacteria Rare H (None) /hpf Thrombosis Risk Factor Assmnt - Choose All That Apply Any of the Below Risk Factors Present?: Yes Each Factor Represents 1 point: Abnormal pulmonary function (COPD), Obesity (BMI >25) Each Risk Factor Represents 2 Points: Age 61-74 years Thrombosis Risk Factor Assessment Total Risk Factor Score: 4 Thrombosis Risk Factor Assessment Level: Moderate Risk
--- NOTE | 2023-06-17 15:09 | P.CRDCN ---
History of Present Illness Consult date: 06/17/23 Consult reason: congestive heart failure History of present illness: The patient is a 67-year-old female who presented to the hospital with nausea and vomiting. The patient was just discharged yesterday for a COPD and heart failure exacerbation. She complained of body aches and unable to keep food or her medications down. Cardiology was consulted for congestive heart failure, which she was recently treated for. At the time of our exam the patient was lying flat in bed, breathing comfortably. DIAGNOSTICS: EKG shows sinus rhythm with PACs Echocardiogram shows preserved LV function with RVSP of 58.7 mmHg. Flattening of the ventricular septum in systole and diastole. Abdominal pelvic CT shows third spacing and anasarca with small pericardial effusion and periportal edema consistent with fluid overload state. Lab data: WBC 7.6, hemoglobin 10.9, hematocrit 40.7, platelet 111, sodium 1:30, potassium 5.4, BUN 21, creatinine 0.9 to, AST 27, ALT 21, BNP 4650 REVIEW OF SYSTEMS: No fever or chills. No cough or expectoration. No diaph oresis. Patient denies headache, dizziness, blurred vision, double vision. Patient denies any stomach discomfort. No nausea, vomiting. No hematochezia. No hematemesis. Denies any black stools or blood in his stools. Denies dysuria or hematuria. No muscle weakness or numbness. No orthopnea. Positive for shortness of breath with exertion. PHYSICAL EXAMINATION: This is a 67-year-old female in no apparent distress at the time of my examination. HEENT: Head is atraumatic, normocephalic. Pupils are equal, round. Sclerae anicteric. Conjunctivae are clear. Mucous membranes of the mouth are moist. Neck is supple. There is no jugular venous distention. No carotid bruit is heard. CHEST EXAMINATION: Lungs are diminished to auscultation. No chest wall tenderness is noted on palpation or with deep breathing. HEART EXAMINATION: Heart regular rate and rhythm. S1, S2 heard. No murmurs, gallops or rub. ABDOMEN: Soft, nontender. Bowel sounds are heard. No organomegaly noted. EXTREMITIES: 2+ peripheral pulses with no evidence of peripheral edema and no calf tenderness noted. NEUROLOGIC EXAMINATION: Patient is awake, alert and oriented x3. FINAL ASSESSMENT AND PLAN: Acute on chronic diastolic heart failure COPD with chronic hypoxic respiratory failure on home O2 Moderate to severe pulmonary hypertension Hypertension Hyperlipidemia Diabetes PLAN: Discontinue IV fluids and start oral Lasix Continue spironolactone No need for repeat echo as one was performed last week Further recommendations based on clinical course I am dictating on behalf of Dr Lj Morrison's history/physical and as sessment/plan. Past Medical History Past Medical History: Heart Failure, COPD, CVA/TIA, Diabetes Mellitus, Hypertension Additional Past Medical History / Comment(s): bowel obstuction History of Any Multi-Drug Resistant Organisms: None Reported Past Surgical History: No Surgical Hx Reported Additional Past Surgical History / Comment(s): bowel surgery 2022 Past Anesthesia/Blood Transfusion Reactions: No Reported Reaction Past Psychological History: No Psychological Hx Reported Smoking Status: Former smoker Past Alcohol Use History: None Reported Past Drug Use History: Marijuana - Past Family History Mother Family Medical History: COPD Medications and Allergies Home Medications Medication Instructions Recorded Confirmed Type Acetaminophen Tab [Tylenol] 650 mg PO Q4H PRN #30 tablet 03/13/23 06/16/23 Rx Fluticasone/Umeclidin/Vilanter 1 puff INHALATION RT-DAILY 06/12/23 06/16/23 History [Trelegy Ellipta 100-62.5-25] Albuterol Inhaler [Ventolin Hfa 2 puff INHALATION RT-Q6H PRN #1 06/15/23 06/16/23 Rx Inhaler] each Albuterol Nebulized [Ventolin 2.5 mg INHALATION RT-QID PRN #10 ml 06/15/23 06/16/23 Rx Nebulized] Aspirin EC [Ecotrin Low Dose] 81 mg PO DAILY #30 tab 06/15/23 06/16/23 Rx Atorvastatin [Lipitor] 20 mg PO DAILY #30 tab 06/15/23 06/16/23 Rx Dapagliflozin Propanediol [Farxiga] 5 mg PO DAILY #30 tab 06/15/23 06/16/23 Rx Docusate [Colace] 100 mg PO BID PRN #60 cap 06/15/23 06/16/23 Rx Furosemide [Lasix] 40 mg PO DAILY 30 Days #30 tablet 06/15/23 06/16/23 Rx Omeprazole [PriLOSEC] 40 mg PO DAILY 30 Days #30 cap 06/15/23 06/16/23 Rx Spironolactone [Aldactone] 50 mg PO DAILY #60 tab 06/15/23 06/16/23 Rx amLODIPine [Norvasc] 5 mg PO DAILY #30 tab 06/15/23 06/16/23 Rx oxyBUTYnin chloride 5 mg PO BID #30 tab 06/15/23 06/16/23 Rx Allergies Allergy/AdvReac Type Severity Reaction Status Date / Time No Known Allergies Allergy Verified 06/16/23 19:41 Physical Exam Vitals: Vital Signs Temp Pulse Pulse Resp BP BP Pulse Ox 06/17/23 08:27 97.7 F 70 18 127/84 97 06/17/23 01:36 98.9 F 105 H 24 117/82 90 L 06/16/23 21:49 98.8 F 67 26 H 123/82 06/16/23 20:57 93 18 135/87 96 06/16/23 19:31 98.6 F 81 19 142/90 88 L 06/16/23 17:45 81 18 132/89 93 L Intake and Output 06/16/23 06/17/23 06/17/23 22:59 06:59 14:59 Other: Voiding Method Toilet Toilet Weight 72.575 kg 56 kg Results 06/16/23 16:24 06/16/23 16:24 Cardiac Enzymes 06/16/23 Range/Units 16:24 AST 27 (14-36) U/L CBC 06/16/23 Range/Units 16:24 WBC 7.6 (3.8-10.6) k/uL RBC 6.09 H (3.80-5.40) m/uL Hgb 10.9 L (11.4-16.0) gm/dL Hct 40.7 (34.0-46.0) % Plt Count 111 L (150-450) k/uL Comprehensive Metabolic Panel 06/16/23 Range/Units 16:24 Sodium 138 (137-145) mmol/L Potassium 5.4 H (3.5-5.1) mmol/L Chloride 102 (98-107) mmol/L Carbon Dioxide 27 (22-30) mmol/L BUN 21 H (7-17) mg/dL Creatinine 0.92 (0.52-1.04) mg/dL Glucose 122 H (74-99) mg/dL Calcium 9.4 (8.4-10.2) mg/dL AST 27 (14-36) U/L ALT 21 (4-34) U/L Alkaline Phosphatase 78 (38-126) U/L Total Protein 7.2 (6.3-8.2) g/dL Albumin 4.0 (3.5-5.0) g/dL Current Medications Generic Name Dose Route Start Last Admin Trade Name Freq PRN Reason Stop Dose Admin Albuterol Sulfate 2.5 mg 06/16/23 22:42 Albuterol Nebulized 2.5 Mg/3 Ml INHALATION RT-QID PRN Shortness Of Breath Aspirin 81 mg 06/18/23 09:00 Aspirin 81 Mg PO DAILY [facility] Atorvastatin Calcium 20 mg 06/18/23 09:00 Atorvastatin 20 Mg Tab PO DAILY [facility] Budesonide/Formoterol Fumarate 2 puff 06/18/23 08:00 Symbicort 80-4.5 Mcg Inhaler INHALATION RT-BID [facility] Dapagliflozin 5 mg 06/18/23 09:00 Dapagliflozin Propanediol 5 Mg Tablet PO DAILY [facility] Furosemide 40 mg 06/17/23 11:45 06/17/23 11:56 Furosemide 40 Mg Tab PO 40 mg DAILY [facility] Administration Ipratropium [place] 0.5 mg 06/18/23 08:00 Ipratropium 0.5 Mg/2.5 Ml Nebu INHALATION RT-QID [facility] Naloxone HCl 0.2 mg 06/16/23 19:22 Naloxone 0.4 Mg/Ml 1 Ml Vial IV Q2M PRN Opioid Reversal Ondansetron HCl 4 mg 06/16/23 22:43 06/16/23 23:00 Ondansetron 4 Mg/2 Ml Vial IVP 4 mg Q4HR PRN Administration Nausea And Vomiting Oxybutynin Chloride 5 mg 06/17/23 21:00 Oxybutynin Chloride 5 Mg Tab PO BID [facility] Pantoprazole Sodium 40 mg 06/17/23 09:00 06/17/23 10:17 Pantoprazole 40 Mg/10 Ml Vial IVP 40 mg BID [place] Administration Spironolactone 50 mg 06/18/23 09:00 Spironolactone 25 Mg Tab PO DAILY [facility] Intake and Output 06/16/23 06/17/23 06/17/23 22:59 06:59 14:59 Other: Voiding Method Toilet Toilet Weight 72.575 kg 56 kg 06/16/23 16:24 06/16/23 16:24
[2023-06-17 18:33] LABS: BUN/Creat Ratio 16.09 Ratio (12.00-20.00); Blood Urea Nitrogen 17.7 mg/dL (9.0-27.0); Carbon Dioxide 21.7 mmol/L (21.6-31.8); Chloride 108 mmol/L (96-109); Glucose 113 mg/dL (70-110); Potassium 4.6 mmol/L (3.5-5.5); Sodium 142 mmol/L (135-145)
[2023-06-17] MEDS: oxyBUTYnin chloride 5 MG TAB PO SCH (20:24)
[2023-06-18] MEDS ORDERED: SYMBICORT 80-4.5 MCG INHALER INHALATION SCH (08:00)
[2023-06-18] MEDS: IPRATROPIUM 0.5 MG/2.5 ML NEBU INHALATION SCH ×2 (08:13→12:00)
[2023-06-18 08:28] LABS: Basophils # (A) 0.05 X 10*3/uL (0.00-0.10); Basophils % (A) 0.6 %; Eosinophils # (A) 0.09 X 10*3/uL (0.04-0.35); Eosinophils % (A) 1.2 %; HCT 35.1 % (37.2-46.3); HGB 9.6 d/dL (12.0-15.0); Immature Platelet Fraction 23.9 % (1.1-6.1); Lymphocytes # (A) 1.45 X 10*3/uL (0.90-5.00); Lymphocytes % (A) 18.7 %; MCHC 27.4 d/dL (32.0-37.0); Monocytes # (A) 0.56 X 10*3/uL (0.20-1.00); Monocytes % (A) 7.2 %; NRBC Per 100 WBC 0 X 10*3/uL (0.00-0.01); Neutrophils # (A) 5.59 X 10*3/uL (1.80-7.70); Platelet Count 124 X 10*3/uL (140-440); RBC 5.32 X 10*6/uL (4.10-5.20); RDW 26.2 % (11.5-14.5); WBC 7.76 X 10*3/uL (4.50-10.00)
[2023-06-18 08:37] VITALS: BP 96/61; PULSE 76; RESP 16; TEMP 98
[2023-06-18] MEDS: PANTOPRAZOLE 40 MG/10 ML VIAL IVP SCH (08:43)
[2023-06-18] MEDS: FUROSEMIDE 40 MG TAB PO SCH (08:43)
[2023-06-18] MEDS: oxyBUTYnin chloride 5 MG TAB PO SCH (08:44)
[2023-06-18] MEDS ORDERED: SPIRONOLACTONE 25 MG TAB PO SCH (09:00)
[2023-06-18] MEDS ORDERED: ATORVASTATIN 20 MG TAB PO SCH (09:00)
[2023-06-18] MEDS ORDERED: DAPAGLIFLOZIN PROPANEDIOL 5 MG TABLET PO SCH (09:00)
[2023-06-18] MEDS ORDERED: ASPIRIN 81 MG PO SCH (09:00)
--- NOTE | 2023-06-18 11:02 | P.GSCN ---
History of Present Illness Consult date: 06/18/23 Reason for Consult: Nausea and vomiting History of present illness: 67-year-old female apparently was recently hospitalized for CHF. She went home and came back with nausea and vomiting. Patient had a CAT scan performed showing significant fluid overload with periportal edema and gallbladder wall edema. Denies abdominal pain. Symptoms have resolved. She feels well at this time. She has been diuresing well. Normal white blood cell count, bilirubin 3.0, transaminases normal. Tolerating regular diet at this time. Review of Systems The patient denies any acute changes in vision or hearing, no dysphagia or odynophagia, no chest pain or shortness of breath, no dysuria or hematuria, no headache, no runny nose, no rectal bleeding or melena, no unexplained weight loss Past Medical History Past Medical History: Heart Failure, COPD, CVA/TIA, Diabetes Mellitus, Hype rtension Additional Past Medical History / Comment(s): bowel obstuction History of Any Multi-Drug Resistant Organisms: None Reported Past Surgical History: No Surgical Hx Reported Additional Past Surgical History / Comment(s): bowel surgery 2022 Past Anesthesia/Blood Transfusion Reactions: No Reported Reaction Past Psychological History: No Psychological Hx Reported Smoking Status: Former smoker Past Alcohol Use History: None Reported Past Drug Use History: Marijuana - Past Family History Mother Family Medical History: COPD Medications and Allergies Home Medications Medication Instructions Recorded Confirmed Type Acetaminophen Tab [Tylenol] 650 mg PO Q4H PRN #30 tablet 03/13/23 06/16/23 Rx Fluticasone/Umeclidin/Vilanter 1 puff INHALATION RT-DAILY 06/12/23 06/16/23 History [Alec Jason 100-62.5-25] Albuterol Inhaler [Ventolin Hfa 2 puff INHALATION RT-Q6H PRN #1 06/15/23 06/16/23 Rx Inhaler] each Albuterol Nebulized [Ventolin 2.5 mg INHALATION RT-QID PRN #10 ml 06/15/23 06/16/23 Rx Nebulized] Aspirin EC [Ecotrin Low Dose] 81 mg PO DAILY #30 tab 06/15/23 06/16/23 Rx Atorvastatin [Lipitor] 20 mg PO DAILY #30 tab 06/15/23 06/16/23 Rx Dapagliflozin Propanediol [Farxiga] 5 mg PO DAILY #30 tab 06/15/23 06/16/23 Rx Docusate [Colace] 100 mg PO BID PRN #60 cap 06/15/23 06/16/23 Rx Furosemide [Lasix] 40 mg PO DAILY 30 Days #30 tablet 06/15/23 06/16/23 Rx Omeprazole [PriLOSEC] 40 mg PO DAILY 30 Days #30 cap 06/15/23 06/16/23 Rx Spironolactone [Aldactone] 50 mg PO DAILY #60 tab 06/15/23 06/16/23 Rx amLODIPine [Norvasc] 5 mg PO DAILY #30 tab 06/15/23 06/16/23 Rx oxyBUTYnin chloride 5 mg PO BID #30 tab 06/15/23 06/16/23 Rx Allergies Allergy/AdvReac Type Severity Reaction Status Date / Time No Known Allergies Allergy Verified 06/16/23 19:41 Surgical - Exam Vital Signs Pulse Resp BP Pulse Ox 81 18 132/89 93 L 06/16/23 17:45 06/16/23 17:45 06/16/23 17:45 06/16/23 17:45 Physical exam: General: Well-developed, well-nourished HEENT: Normocephalic, sclerae nonicteric Abdomen: Nontender, nondistended Extremities: No edema Neuro: Alert and oriented Results - Labs 06/17/23 07:11 06/17/23 07:11 Abnormal Lab Results - Last 24 Hours (Table) 06/17/23 06/17/23 Range/Units 07:11 07:11 RBC 5.32 H (4.10-5.20) X 10*6/uL Hgb 9.6 L (12.0-15.0) d/dL Hct 35.1 L (37.2-46.3) % MCV 66.0 L (80.0-97.0) FL MCH 18.0 L (27.0-32.0) pg MCHC 27.4 L (32.0-37.0) d/dL RDW 26.2 H (11.5-14.5) % Plt Count 124 L (140-440) X 10*3/uL Immature Plt Fraction 23.9 H (1.1-6.1) % Anion Gap 12.30 H (4.00-12.00) mmol/L Est GFR (CKD-EPI) 55 L (>=60) Glucose 113 H (70-110) mg/dL Diabetes panel 06/17/23 Range/Units 07:11 Sodium 142 (135-145) mmol/L Potassium 4.6 (3.5-5.5) mmol/L Chloride 108 (96-109) mmol/L Carbon Dioxide 21.7 (21.6-31.8) mmol/L BUN 17.7 (9.0-27.0) mg/dL Creatinine 1.1 (0.6-1.5) mg/dL Glucose 113 H (70-110) mg/dL Calcium 9.0 (8.7-10.3) mg/dL Calcium panel 06/17/23 Range/Units 07:11 Calcium 9.0 (8.7-10.3) mg/dL Pituitary panel 06/17/23 Range/Units 07:11 Sodium 142 (135-145) mmol/L Potassium 4.6 (3.5-5.5) mmol/L Chloride 108 (96-109) mmol/L Carbon Dioxide 21.7 (21.6-31.8) mmol/L BUN 17.7 (9.0-27.0) mg/dL Creatinine 1.1 (0.6-1.5) mg/dL Glucose 113 H (70-110) mg/dL Calcium 9.0 (8.7-10.3) mg/dL Adrenal panel 06/17/23 Range/Units 07:11 Sodium 142 (135-145) mmol/L Potassium 4.6 (3.5-5.5) mmol/L Chloride 108 (96-109) mmol/L Carbon Dioxide 21.7 (21.6-31.8) mmol/L BUN 17.7 (9.0-27.0) mg/dL Creatinine 1.1 (0.6-1.5) mg/dL Glucose 113 H (70-110) mg/dL Calcium 9.0 (8.7-10.3) mg/dL Assessment and Plan (1) Intractable nausea and vomiting Narrative/Plan: 67-year-old female with significant nausea and vomiting and evidence of fluid overload on CAT scan. Do not currently feel the gallbladder wall thickening is related to inflammation is much as its related to fluid status. Continue regular diet. Monitor for recurrent symptoms. If doing well tomorrow by discharge. If symptoms of nausea vomiting recur consider upper endoscopy. Continue antiacids. Current Visit: Yes Status: Acute Code(s): R11.2 - NAUSEA WITH VOMITING, UNSPECIFIED SNOMED Code(s): 965187147
--- NOTE | 2023-06-18 12:19 | P.DS ---
Providers Date of admission: 06/16/23 19:23 Expected date of discharge: 06/18/23 Attending physician: Tavia Peres Consults: 06/17/23 10:34 Consult Physician Routine Consulting Provider: Kareem Earl Consult Reason/Comments: Persistent nausea and vomiting, abnormal CT abdominal Do you want consulting provider notified?: Yes Consult Physician Routine Consulting Provider: Mervin Chaudhari Consult Reason/Comments: Acute on chronic CHF Do you want consulting provider notified?: Yes Primary care physician: Stated None Hospital Course: Discharge diagnoses; Nausea and vomiting Chronic diastolic CHF Anasarca Esophagitis 3.3 cm infrarenal abdominal aortic aneurysm Nicotine dependence Electrolyte abnormalities with hypokalemia and hypomagnesemia Diabetes mellitus Hypertension COPD with no exacerbation History of CVA/TIA Hospital course; This is a 67-year-old female with a past medical history significant for COPD, chronic hypoxic respiratory failure on home O2, severe pulmonary hypertension, hypertension, hyperlipidemia, diabetes who was discharged recently after being treated for CHF and COPD exacerbation. Patient stated as soon as she went home she started having nausea and vomiting. Patient also complaining of body aches. Patient had poor appetite. Patient was unable to keep anything down. Denied any diarrhea. Denies any fever or chills. No complain of chest pain. Denies any swelling of feet. Because of symptoms, patient came to the ER Initial lab work done in the ER showed WBC 7.6, hemoglobin 10.9, platelet count 111, sodium 1:30, potassium 5.4, BUN 21, creatinine 0.92, Bilirubin 3, [id number], lipase 38 Influenza A,B not detected COVID-19 not detected RSV nondetected Abdominal and chest x-ray showed patchy atelectasis at left lung base, no evidence of any free air or bowel obstruction CT abdominal pelvis done showed correlate for fluid overload state/third spacing given diffuse anasarca change, small pericardial effusion. Periportal edema and circumferential gallbladder wall thickening, findings also like to prevent fluid overload state. Circumferential wall thickening of the distal esophagus that could reflect esophagitis 06/18. Patient seen and examined. Patient nausea and vomiting had resolved, currently tolerating regular diet. Surgery evaluated the patient recommended monitoring. Patient also seen by cardiology, they recommended to resume patient back on her home regimen of diuretics. Currently patient is eager to go home. Outpatient follow-up with PCP recommended. PHYSICAL EXAMINATION: GENERAL: The patient is alert and oriented x3, not in any acute distress. Well developed, well nourished. HEENT: Pupils are round and equally reacting to light. EOMI. No scleral icterus. No conjunctival pallor. Normocephalic, atraumatic. No pharyngeal erythema. No thyromegaly. CARDIOVASCULAR: S1 and S2 present. No murmurs, rubs, or gallops. PULMONARY: Chest is clear to auscultation, no wheezing or crackles. ABDOMEN: Soft, nontender, nondistended, normoactive bowel sounds. No palpable organomegaly. MUSCULOSKELETAL: No joint swelling or deformity. EXTREMITIES: No cyanosis, clubbing, or pedal edema. NEUROLOGICAL: Gross neurological examination did not reveal any focal deficits. SKIN: No rashes. Dictation was produced using [employer] dictation software. please excuse any grammatical, word or spelling errors. Patient Condition at Discharge: Stable Plan - Discharge Summary Discharge Rx Participant: No New Discharge Prescriptions: Continue Fluticasone/Umeclidin/Vilanter [Trelegy Ellipta 100-62.5-25] 1 puff INHALATION RT-DAILY Dapagliflozin Propanediol [Farxiga] 5 mg PO DAILY #30 tab Aspirin EC [Ecotrin Low Dose] 81 mg PO DAILY #30 tab Furosemide [Lasix] 40 mg PO DAILY 30 Days #30 tablet Atorvastatin [Lipitor] 20 mg PO DAILY #30 tab Albuterol Nebulized [Ventolin Nebulized] 2.5 mg INHALATION RT-QID PRN #10 ml PRN Reason: Shortness Of Breath Acetaminophen Tab [Tylenol] 650 mg PO Q4H PRN #30 tablet PRN Reason: Pain Spironolactone [Aldactone] 50 mg PO DAILY #60 tab amLODIPine [Norvasc] 5 mg PO DAILY #30 tab Docusate [Colace] 100 mg PO BID PRN #60 cap PRN Reason: Constipation oxyBUTYnin chloride 5 mg PO BID #30 tab Omeprazole [PriLOSEC] 40 mg PO DAILY 30 Days #30 cap Albuterol Inhaler [Ventolin Hfa Inhaler] 2 puff INHALATION RT-Q6H PRN #1 each PRN Reason: Shortness Of Breath Discharge Medication List Acetaminophen Tab [Tylenol] 650 mg PO Q4H PRN #30 tablet 03/13/23 [Rx] Fluticasone/Umeclidin/Vilanter [Trelegy Ellipta 100-62.5-25] 1 puff INHALATION RT-DAILY 06/12/23 [History] Albuterol Inhaler [Ventolin Hfa Inhaler] 2 puff INHALATION RT-Q6H PRN #1 each 06/15/23 [Rx] Albuterol Nebulized [Ventolin Nebulized] 2.5 mg INHALATION RT-QID PRN #10 ml 06/15/23 [Rx] Aspirin EC [Ecotrin Low Dose] 81 mg PO DAILY #30 tab 06/15/23 [Rx] Atorvastatin [Lipitor] 20 mg PO DAILY #30 tab 06/15/23 [Rx] Dapagliflozin Propanediol [Farxiga] 5 mg PO DAILY #30 tab 06/15/23 [Rx] Docusate [Colace] 100 mg PO BID PRN #60 cap 06/15/23 [Rx] Furosemide [Lasix] 40 mg PO DAILY 30 Days #30 tablet 06/15/23 [Rx] Omeprazole [PriLOSEC] 40 mg PO DAILY 30 Days #30 cap 06/15/23 [Rx] Spironolactone [Aldactone] 50 mg PO DAILY #60 tab 06/15/23 [Rx] amLODIPine [Norvasc] 5 mg PO DAILY #30 tab 06/15/23 [Rx] oxyBUTYnin chloride 5 mg PO BID #30 tab 06/15/23 [Rx] Follow up Appointment(s)/Referral(s): Nonstaff,Physician [REFERRING] - 1-2 days Mervin Chaudhari MD [STAFF PHYSICIAN] - 1 Week Discharge Disposition: HOME SELF-CARE
== END 2023-06-18 15:15 | disposition home or self-care (01) ==
LOC: EC 14:39 → 6NMEDSUR 19:23 → 5NMEDONC 19:54
PROVIDERS: ADMIT Hospitalist; ATTEND Hospitalist
DX: R11.2 Nausea with vomiting, unspecified (principal); I11.0 Hypertensive heart disease with heart failure; I50.32 Chronic diastolic (congestive) heart failure; K20.90 Esophagitis, unspecified without bleeding; I71.43 Infrarenal abdominal aortic aneurysm, without rupture; E87.6 Hypokalemia; E83.42 Hypomagnesemia; E11.9 Type 2 diabetes mellitus without complications; J44.9 Chronic obstructive pulmonary disease, unspecified; Z86.73 Personal history of transient ischemic attack (TIA), and cerebral infarction without residual deficits; E78.5 Hyperlipidemia, unspecified; I27.20 Pulmonary hypertension, unspecified; J96.11 Chronic respiratory failure with hypoxia; Z99.81 Dependence on supplemental oxygen; R63.0 Anorexia; Z20.822 Contact with and (suspected) exposure to COVID-19; F17.200 Nicotine dependence, unspecified, uncomplicated; Z82.5 Family history of asthma and other chronic lower respiratory diseases; Z79.899 Other long term (current) drug therapy; Z79.84 Long term (current) use of oral hypoglycemic drugs; Z79.82 Long term (current) use of aspirin; E66.9 Obesity, unspecified; Z68.24 Body mass index [BMI] 24.0-24.9, adult; I31.39 Other pericardial effusion (noninflammatory)
CPT/HCPCS: 96376 ×3; 96361; 96375 ×2; 96374; 99285; 36415; 94640; 93005; 83880; 80053; 80048; 82150; 83690; 85025 ×2; 81001; 87636; 74018; 74177; G0378 ×4; J1200; J2765; J2405; C9113 ×2; Q9967

== ENCOUNTER 2023-07-19 01:30 | Emergency (ER) | payer MEDICARE, OTHER ==
[2023-07-19 01:49] VITALS: TEMP 97.9
--- NOTE | 2023-07-19 01:54 | ED ---
SOB HPI - General Chief Complaint: Shortness of Breath Stated Complaint: SOB COPD Time Seen by Provider: 07/19/23 01:46 Source: patient, family Mode of arrival: wheelchair Limitations: no limitations - History of Present Illness Initial Comments: This patient is 67-year-old woman who presents to evaluation of shortness of breath. Patient notes that her breathing has been getting worse over approximately 2-3 days. Patient states has run out of her CHF medications. She used to see physician in [place] but has relocated to this area proximally 6 mon ths ago with no physician yet. She has not noted fever or chills. No chest pain. Cough but no sputum. No change in urination or bowel movements. She does have bilateral leg edema. MD Complaint: shortness of breath Onset/Timin -: days(s) Severity scale (1-10): 0 Consistency: constant Improves With: upright position Worsens With: lying flat, exertion Known History Of: congestive heart failure Treatments Prior to Arrival: oxygen - Related Data Home Oxygen Therapy: Yes Home Oxygen Amount: 2 Liters Home Medications Medication Instructions Recorded Confirmed Fluticasone/Umeclidin/Vilanter 1 puff INHALATION RT-DAILY 06/12/23 06/16/23 [Trelegy Ellipta 100-62.5-25] Previous Rx's Medication Instructions Recorded Acetaminophen Tab [Tylenol] 650 mg PO Q4H PRN #30 tablet 03/13/23 Albuterol Inhaler [Ventolin Hfa 2 puff INHALATION RT-Q6H PRN #1 06/15/23 Inhaler] each Albuterol Nebulized [Ventolin 2.5 mg INHALATION RT-QID PRN #10 ml 06/15/23 Nebulized] Aspirin EC [Ecotrin Low Dose] 81 mg PO DAILY #30 tab 06/15/23 Atorvastatin [Lipitor] 20 mg PO DAILY #30 tab 06/15/23 Dapagliflozin Propanediol [Farxiga] 5 mg PO DAILY #30 tab 06/15/23 Docusate [Colace] 100 mg PO BID PRN #60 cap 06/15/23 Furosemide [Lasix] 40 mg PO DAILY 30 Days #30 tablet 06/15/23 Omeprazole [PriLOSEC] 40 mg PO DAILY 30 Days #30 cap 06/15/23 Spironolactone [Aldactone] 50 mg PO DAILY #60 tab 06/15/23 amLODIPine [Norvasc] 5 mg PO DAILY #30 tab 06/15/23 oxyBUTYnin chloride 5 mg PO BID #30 tab 06/15/23 Furosemide [Lasix] 40 mg PO DAILY #30 tablet 07/19/23 Spironolactone 25 mg PO DAILY #30 tablet 07/19/23 amLODIPine [Norvasc] 5 mg PO DAILY #30 tab 07/19/23 Allergies Allergy/AdvReac Type Severity Reaction Status Date / Time No Known Allergies Allergy Verified 06/16/23 19:41 Review of Systems ROS Statement: Those systems with pertinent positive or pertinent negative responses have been documented in the HPI. ROS Other: All systems not noted in ROS Statement are negative. Constitutional: Denies: fever, chills Respiratory: Reports: cough, dyspnea. Denies: hemoptysis Cardiovascular: Reports: orthopnea, edema. Denies: chest pain, palpitations, syncope Gastrointestinal: Denies: abdominal pain, nausea, vomiting, diarrhea Genitourinary: Denies: dysuria, hematuria Musculoskeletal: Denies: back pain Skin: Denies: rash Neurological: Denies: headache, weakness Past Medical History Past Medical History: Heart Failure, COPD, CVA/TIA, Diabetes Mellitus, Hypertension Additional Past Medical History / Comment(s): bowel obstuction History of Any Multi-Drug Resistant Organisms: None Reported Past Surgical History: No Surgical Hx Reported Additional Past Surgical History / Comment(s): bowel surgery 2022 Past Anesthesia/Blood Transfusion Reactions: No Reported Reaction Past Psychological History: No Psychological Hx Reported Smoking Status: Former smoker Past Alcohol Use History: None Reported Past Drug Use History: Marijuana - Past Family History Mother Family Medical History: COPD General Exam Limitations: no limitations General appearance: alert, in no apparent distress Head exam: Present: atraumatic, normocephalic Eye exam: Present: normal appearance. Absent: scleral icterus, conjunctival injection ENT exam: Present: normal oropharynx Neck exam: Present: normal inspection Respiratory exam: Present: rales (Bilateral bases). Absent: respiratory distress, wheezes, rhonchi, stridor Cardiovascular Exam: Present: regular rate, normal rhythm, gallop GI/Abdominal exam: Present: soft. Absent: distended, tenderness, guarding, rebound, rigid, mass Extremities exam: Present: normal inspection, normal capillary refill. Absent: pedal edema, calf tenderness Back exam: Present: normal inspection. Absent: CVA tenderness (R), CVA tenderness (L) Neurological exam: Present: alert Skin exam: Present: warm, dry, intact, normal color. Absent: rash Course Vital Signs 07/19/23 07/19/23 07/19/23 01:38 02:30 05:02 Temperature 97.9 F Pulse Rate 92 84 74 Respiratory 20 20 18 Rate Blood Pressure 132/86 117/103 113/70 O2 Sat by Pulse 80 L 96 98 Oximetry Medical Decision Making - Medical Decision Making The patient had chest x-ray which, by my interpretation, does show element of congestive heart failure. No pneumothorax, no infiltrate. Was pt. sent in by a medical professional or institution ([facility], [employer], urgent ca re, hospital, or fpc...) When possible be specific @ -[No] Did you speak to anyone other than the patient for history (EMS, parent, family, police, friend...)? What history was obtained from this source @ -[Patient's son did contribute history Did you review nursing and triage notes (agree or disagree)? Why? @ -[I reviewed and agree with nursing and triage notes] Were old charts reviewed (outside hosp., previous admission, EMS record, old EKG, old radiological studies, urgent care reports/EKG's, fpc records)? Report findings @ -[No old charts were reviewed] Differential Diagnosis (chest pain, altered mental status, abdominal pain women, abdominal pain men, vaginal bleeding, weakness, fever, dyspnea, syncope, headache, dizziness, GI bleed, back pain, seizure, CVA, palpatations, mental health, musculoskeletal)? @ -Differential Dyspnea: Coronary syndrome, arrhythmia, tamponade, asthma, COPD, pulmonary embolism, pneumonia, pneumothorax, pulmonary effusion, anaphylaxis, diabetic ketoacidosis, flailed chest, pulmonary contusion, diaphragmatic rupture, anemia, neuromuscular, this is not meant to be an all-inclusive list. EKG interpreted by me (3pts min.). @ -[I interpreted As above] X-rays interpreted by me (1pt min.). @ -[I interpreted as above CT interpreted by me (1pt min.). @ -[None done] U/S interpreted by me (1pt. min.). @ -[None done] What testing was considered but not performed or refused? (CT, X-rays, U/S, l abs)? Why? @ -[None] What meds were considered but not given or refused? Why? @ -[None] Did you discuss the management of the patient with other professionals (professionals i.e. , PA, [employer], lab, RT, psych nurse, public health social worker, drywall contractor, teacher, liaison officer, disease case manager rn)? Give summary @ -[No] Was smoking cessation discussed for >3mins.? @ -[No] Was critical care preformed (if so, how long)? @ -[No] Were there social determinants of health that impacted care today? How? (Homelessness, low income, unemployed, alcoholism, drug addiction, transportation, low edu. Level, literacy, decrease access to med. care, senior care, rehab)? @ -[No] Was there de-escalation of care discussed even if they declined (Discuss DNR or withdrawal of care, Hospice)? DNR status @ -[No] What co-morbidities impacted this encounter? (DM, HTN, Smoking, COPD, CAD, Cancer, CVA, ARF, Chemo, Hep., AIDS, mental health diagnosis, sleep apnea, morbid obesity)? @ -[None] Was patient admitted / discharged? Hospital course, mention meds given and route, prescriptions, significant lab abnormalities, going to OR and other p ertinent info. @ -[This patient is a 67-year-old woman with history of congestive heart failure who presents with complaint that she is out of her medications and believes that she is again developing congestive heart failure. The patient had studies and medication and then when I went to reevaluate the patient, I expect that she would stand hospital, but she states she is feeling better and would like to have her medications renewed and try course of outpatient diuretic. Her saturations were stable at her home oxygen level. We discussed appropriate further care and follow-up and I urged that she maintain a low threshold to return to emergency. Undiagnosed new problem with uncertain prognosis? @ -[No] Drug Therapy requiring intensive monitoring for toxicity (Heparin, Nitro, Insulin, Cardizem)? @ -[No] Were any procedures done? @ -[No] Diagnosis/symptom? @ -[Acute on chronic exacerbation of congestive heart failure Acute, or Chronic, or Acute on Chronic? @ -[default] Uncomplicated (without systemic symptoms) or Complicated (systemic symptoms)? @ -[Uncomplicated Side effects of treatment? @ -[No] Exacerbation, Progression, or Severe Exacerbation? @ -[Exacerbation Poses a threat to life or bodily function? How? (Chest pain, [place], [place], pneumonia, PE, COPD, DKA, ARF, appy, cholecystitis, CVA, Diverticulitis, Homicidal, Suicidal, threat to staff... and all critical care pts) @ -[Yes untreated congestive heart failure can progress to respiratory failure and - Lab Data Result diagrams: 07/19/23 02:07/19/23 02: Lab Results 07/19/23 07/19/23 07/19/23 Range/Units 02: 02:10 11: WBC 5.4 (3.8-10.6) k/uL RBC 5.72 H (3.80-5.40) m/uL Hgb 11.3 L (11.4-16.0) gm/dL Hct 42.5 (34.0-46.0) % MCV 74.3 L D (80.0-100.0) fL MCH 19.7 L (25.0-35.0) pg MCHC 26.5 L (31.0-37.0) g/dL RDW 20.3 H (11.5-15.5) % Plt Count 108 L (150-450) k/uL MPV 8.9 Neutrophils % 61 % Lymphocytes % 28 % Monocytes % 6 % Eosinophils % 2 % Basophils % 1 % Neutrophils # 3.3 (1.3-7.7) k/uL Lymphocytes # 1.5 (1.0-4.8) k/uL Monocytes # 0.3 (0-1.0) k/uL Eosinophils # 0.1 (0-0.7) k/uL Basophils # 0.0 (0-0.2) k/uL Hypochromasia Marked Anisocytosis Moderate Microcytosis Moderate PT 11.7 (10.0-12.5) sec INR 1.1 (<1.2) APTT 25.1 (22.0-30.0) sec Sodium (137-145) mmol/L Potassium (3.5-5.1) mmol/L Chloride (98-107) mmol/L Carbon Dioxide (22-30) mmol/L Anion Gap mmol/L BUN (7-17) mg/dL Creatinine (0.52-1.04) mg/dL Est GFR (CKD-EPI)AfAm (>60 ml/min/1.73 sqM) Est GFR (CKD-EPI)NonAf (>60 ml/min/1.73 sqM) Glucose (74-99) mg/dL Lactic Ac Sepsis Rflx Plasma Lactic Acid Kenny (0.7-2.0) mmol/L Calcium (8.4-10.2) mg/dL Magnesium (1.6-2.3) mg/dL Total Bilirubin (0.2-1.3) mg/dL AST (14-36) U/L ALT (4-34) U/L Alkaline Phosphatase (38-126) U/L Troponin I (0.000-0.034) ng/mL NT-Pro-B Natriuret Pep pg/mL Total Protein (6.3-8.2) g/dL Albumin (3.5-5.0) g/dL Urine Color Yellow Urine Appearance Clear (Clear) Urine pH 6.0 (5.0-8.0) Ur Specific Pitman 1.015 (1.001-1.035) Urine Protein 1+ H (Negative) Urine Glucose (UA) Negative (Negative) Urine Ketones Negative (Negative) Urine Blood Negative (Negative) Urine Nitrite Negative (Negative) Urine Bilirubin Negative (Negative) Urine Urobilinogen 2.0 (<2.0) mg/dL Ur Leukocyte Esterase Small (Negative) Urine RBC 1 (0-5) /hpf Urine WBC 5 (0-5) /hpf Ur Squamous Epith Cells 3 (0-4) /hpf Amorphous Sediment Rare H (None) /hpf Urine Bacteria Occasional H (None) /hpf Hyaline Casts 12 H (0-2) /lpf Urine Mucus Rare H (None) /hpf 07/19/23 07/19/23 07/19/23 Range/Units 02:23 02: 02:23 WBC (3.8-10.6) k/uL RBC (3.80-5.40) m/uL Hgb (11.4-16.0) gm/dL Hct (34.0-46.0) % MCV (80.0-100.0) fL MCH (25.0-35.0) pg MCHC (31.0-37.0) g/dL RDW (11.5-15.5) % Plt Count (150-450) k/uL MPV Neutrophils % % Lymphocytes % % Monocytes % % Eosinophils % % Basophils % % Neutrophils # (1.3-7.7) k/uL Lymphocytes # (1.0-4.8) k/uL Monocytes # (0-1.0) k/uL Eosinophils # (0-0.7) k/uL Basophils # (0-0.2) k/uL Hypochromasia Anisocytosis Microcytosis PT (10.0-12.5) sec INR (<1.2) APTT (22.0-30.0) sec Sodium 140 (137-145) mmol/L Potassium 4.5 (3.5-5.1) mmol/L Chloride 107 (98-107) mmol/L Carbon Dioxide 22 (22-30) mmol/L Anion Gap 11 mmol/L BUN 19 H (7-17) mg/dL Creatinine 0.94 (0.52-1.04) mg/dL Est GFR (CKD-EPI)AfAm 72 (>60 ml/min/1.73 sqM) Est GFR (CKD-EPI)NonAf 63 (>60 ml/min/1.73 sqM) Glucose 124 H (74-99) mg/dL Lactic Ac Sepsis Rflx Plasma Lactic Acid Kenny 3.1 H* (0.7-2.0) mmol/L Calcium 8.9 (8.4-10.2) mg/dL Magnesium 1.7 (1.6-2.3) mg/dL Total Bilirubin 2.1 H (0.2-1.3) mg/dL AST 27 (14-36) U/L ALT 21 (4-34) U/L Alkaline Phosphatase 74 (38-126) U/L Troponin I 0.012 (0.000-0.034) ng/mL NT-Pro-B Natriuret Pep 3590 pg/mL Total Protein 6.5 (6.3-8.2) g/dL Albumin 3.5 (3.5-5.0) g/dL Urine Color Urine Appearance (Clear) Urine pH (5.0-8.0) Ur Specific Pitman (1.001-1.035) Urine Protein (Negative) Urine Glucose (UA) (Negative) Urine Ketones (Negative) Urine Blood (Negative) Urine Nitrite (Negative) Urine Bilirubin (Negative) Urine Urobilinogen (<2.0) mg/dL Ur Leukocyte Esterase (Negative) Urine RBC (0-5) /hpf Urine WBC (0-5) /hpf Ur Squamous Epith Cells (0-4) /hpf Amorphous Sediment (None) /hpf Urine Bacteria (None) /hpf Hyaline Casts (0-2) /lpf Urine Mucus (None) /hpf 07/19/23 Range/Units 03:15 WBC (3.8-10.6) k/uL RBC (3.80-5.40) m/uL Hgb (11.4-16.0) gm/dL Hct (34.0-46.0) % MCV (80.0-100.0) fL MCH (25.0-35.0) pg MCHC (31.0-37.0) g/dL RDW (11.5-15.5) % Plt Count (150-450) k/uL MPV Neutrophils % % Lymphocytes % % Monocytes % % Eosinophils % % Basophils % % Neutrophils # (1.3-7.7) k/uL Lymphocytes # (1.0-4.8) k/uL Monocytes # (0-1.0) k/uL Eosinophils # (0-0.7) k/uL Basophils # (0-0.2) k/uL Hypochromasia Anisocytosis Microcytosis PT (10.0-12.5) sec INR (<1.2) APTT (22.0-30.0) sec Sodium (137-145) mmol/L Potassium (3.5-5.1) mmol/L Chloride (98-107) mmol/L Carbon Dioxide (22-30) mmol/L Anion Gap mmol/L BUN (7-17) mg/dL Creatinine (0.52-1.04) mg/dL Est GFR (CKD-EPI)AfAm (>60 ml/min/1.73 sqM) Est GFR (CKD-EPI)NonAf (>60 ml/min/1.73 sqM) Glucose (74-99) mg/dL Lactic Ac Sepsis Rflx Y Plasma Lactic Acid Kenny (0.7-2.0) mmol/L Calcium (8.4-10.2) mg/dL Magnesium (1.6-2.3) mg/dL Total Bilirubin (0.2-1.3) mg/dL AST (14-36) U/L ALT (4-34) U/L Alkaline Phosphatase (38-126) U/L Troponin I (0.000-0.034) ng/mL NT-Pro-B Natriuret Pep pg/mL Total Protein (6.3-8.2) g/dL Albumin (3.5-5.0) g/dL Urine Color Urine Appearance (Clear) Urine pH (5.0-8.0) Ur Specific Pitman (1.001-1.035) Urine Protein (Negative) Urine Glucose (UA) (Negative) Urine Ketones (Negative) Urine Blood (Negative) Urine Nitrite (Negative) Urine Bilirubin (Negative) Urine Urobilinogen (<2.0) mg/dL Ur Leukocyte Esterase (Negative) Urine RBC (0-5) /hpf Urine WBC (0-5) /hpf Ur Squamous Epith Cells (0-4) /hpf Amorphous Sediment (None) /hpf Urine Bacteria (None) /hpf Hyaline Casts (0-2) /lpf Urine Mucus (None) /hpf - EKG Data -: EKG Interpreted by Pr EKG shows normal: sinus rhythm, axis (Normal), intervals (Normal), QRS complexes (Normal), ST-T waves (Abnormal QRST angle) Rate: normal (78 BPM) Disposition Clinical Impression: Congestive heart failure Disposition: HOME SELF-CARE Condition: Good Instructions (If sedation given, give patient instructions): Heart Failure (DC) Prescriptions: Furosemide [Lasix] 40 mg PO DAILY #30 tablet amLODIPine [Norvasc] 5 mg PO DAILY #30 tab Spironolactone 25 mg PO DAILY #30 tablet Is patient prescribed a controlled substance at d/c from ED?: No Referrals: None,Stated [Primary Care Provider] - 1-2 days Devin Guerra MD [REFERRING] - 1-2 days
--- NOTE | 2023-07-19 02:12 | XR ---
EXAM: XR Chest, 2 Views CLINICAL HISTORY: ITS.REASON XR Reason: difficulty breathing TECHNIQUE: Frontal and lateral views of the chest. COMPARISON: No relevant prior studies available. FINDINGS: Lungs: No consolidation or mass. Prominent interstitial markings. Pleural space: No effusion. Heart: cardiomegaly. Bones/joints: No acute findings. IMPRESSION: Correlate with mild pulmonary edema
[2023-07-19] MEDS ORDERED: MORPHINE SULFATE 4 MG/ML SYRINGE IV STA (02:30)
[2023-07-19] MEDS ORDERED: NITROGLYCERIN OINT 1 INCH/GM PACKET TOPICAL STA (02:30)
[2023-07-19] MEDS ORDERED: FUROSEMIDE 10 MG/ML 4 ML VIAL IV STA (02:32)
[2023-07-19 02:53] LABS: ALT 21 U/L (4-34); AST 27 U/L (14-36); African American GFR (CKD) 72 (>60 ml/min/1.73 sqM); Albumin 3.5 g/dL (3.5-5.0); Alkaline Phosphatase 74 U/L (38-126); Anion Gap 11 mmol/L; Blood Urea Nitrogen 19 mg/dL (7-17); Calcium 8.9 mg/dL (8.4-10.2); Carbon Dioxide 22 mmol/L (22-30); Chloride 107 mmol/L (98-107); Glucose 124 mg/dL (74-99); Magnesium 1.7 mg/dL (1.6-2.3); Non-African American GFR(CKD) 63 (>60 ml/min/1.73 sqM); Potassium 4.5 mmol/L (3.5-5.1); Sodium 140 mmol/L (137-145); Total Bilirubin 2.1 mg/dL (0.2-1.3); Total Protein 6.5 g/dL (6.3-8.2)
[2023-07-19 02:58] LABS: NT-Pro-B-Type Natriuretic Pept 3590 pg/mL
[2023-07-19 03:53] LABS: Anisocytosis Moderate; Basophils % (A) 1 %; Eosinophils # (A) 0.1 k/uL (0-0.7); Eosinophils % (A) 2 %; HCT 42.5 % (34.0-46.0); HGB 11.3 gm/dL (11.4-16.0); Hypochromasia Marked; Lymphocytes # (A) 1.5 k/uL (1.0-4.8); Lymphocytes % (A) 28 %; MCH 19.7 pg (25.0-35.0); MCHC 26.5 g/dL (31.0-37.0); Mean Platelet Volume 8.9; Microcytosis Moderate; Monocytes # (A) 0.3 k/uL (0-1.0); Monocytes % (A) 6 %; Neutrophils # (A) 3.3 k/uL (1.3-7.7); Neutrophils % (A) 61 %; Platelet Count 108 k/uL (150-450); RBC 5.72 m/uL (3.80-5.40); RDW 20.3 % (11.5-15.5); WBC 5.4 k/uL (3.8-10.6)
[2023-07-19 03:54] LABS: MCV 74.3 fL (80.0-100.0)
[2023-07-19 04:05] LABS: INR 1.1 (<1.2); Partial Thromboplastin Time 25.1 sec (22.0-30.0); Prothrombin Time 11.7 sec (10.0-12.5)
[2023-07-19 04:07] LABS: Amorphous Sediment,Urine Rare /hpf; Bacteria,Urine Occasional /hpf; Hyaline Casts,Urine 12 /lpf (0-2); Mucus,Urine Rare /hpf; RBC,Urine 1 /hpf (0-5); Squamous Epithelial Cell,Urine 3 /hpf (0-4); WBC,Urine 5 /hpf (0-5)
[2023-07-19 04:08] LABS: Appearance,Urine Clear (Clear); Color,Urine Yellow; Specific Gravity,Urine 1.015 (1.001-1.035)
[2023-07-19 04:09] LABS: Bilirubin,Urine Negative (Negative); Blood,Urine Negative (Negative); Glucose,Urine (UA) Negative (Negative); Ketones,Urine Negative (Negative); Leukocyte Esterase,Urine Small (Negative); Nitrite,Urine Negative (Negative); Protein,Urine 1+ (Negative)
[2023-07-19 05:24] VITALS: BP 113/70; PULSE 74; RESP 18
== END 2023-07-19 05:03 | disposition home or self-care (01) ==
LOC: EC 01:30
DX: I11.0 Hypertensive heart disease with heart failure (principal); I50.9 Heart failure, unspecified; E11.9 Type 2 diabetes mellitus without complications; J44.9 Chronic obstructive pulmonary disease, unspecified; F12.90 Cannabis use, unspecified, uncomplicated; Z79.51 Long term (current) use of inhaled steroids; Z86.73 Personal history of transient ischemic attack (TIA), and cerebral infarction without residual deficits; Z87.891 Personal history of nicotine dependence
CPT/HCPCS: 99285; 96374; 96375; 36415; 93005; 83880; 80053; 83605; 83735; 84484; 85025; 85610; 85730; 81001; 71046; J2270; J1940